=== PATIENT | female | born 1930 | race Caucasian/White ===

== ENCOUNTER → 2017-02-14 | Outpatient (CLI) | payer BC ==
[~2017-02-14] MED LIST: AMLO-110 PO; CZR50 PO; DEMECLOCYCLINE PO; LSX20 PO; METO25TA56 PO; POTA10CA28 PO
[2017-02-14 15:42] LABS: HEMATOCRIT 38.2 % (37-47); MEAN CELL VOLUME 97.2 fL (80-100); MEAN CORPUSCULAR HEMOGLOBIN 32.3 pg (25-34); MEAN CORPUSCULAR HGB CONC 33.2 g/dl (32-36); MEAN PLATELET VOLUME 10.4 fL (7.4-10.4); PLATELET COUNT 308 K/uL (130-400); RED BLOOD COUNT 3.93 M/uL (4.2-5.4); WHITE BLOOD COUNT 7.25 K/uL (4.8-10.8)
[2017-02-14 15:54] LABS: URINE APPEARANCE CLEAR (CLEAR); URINE BILIRUBIN NEG (NEG); URINE COLOR YELLOW; URINE EPITHELIAL CELL AUTO 0-5 /lpf (0-5); URINE NITRITE NEG (NEG); URINE SPECIFIC GRAVITY 1.012 (1.000-1.030); UROBILINOGEN NEG (NEG)
[2017-02-14 15:56] LABS: MANUAL MICROSCOPIC REQUIRED? NO; REVIEW REQ? NO
[2017-02-14 16:02] LABS: URINE PROTIEN/CREAT RATIO 0.3 (0-0.2)
[2017-02-14 16:09] LABS: BLOOD UREA NITROGEN 32 mg/dl (7-18); BUN/CREATININE RATIO 32.3 (10-20); CALCIUM 9.4 mg/dl (8.5-10.1); CARBON DIOXIDE 27 mmol/L (21-32); CHLORIDE 104 mmol/L (98-107); GLUCOSE 99 mg/dl (70-99); POTASSIUM 4.7 mmol/L (3.5-5.1); SODIUM 139 mmol/L (136-145)
[2017-02-14 16:21] LABS: PHOSPHORUS 3.7 mg/dl (2.5-4.9)
[2017-02-15 05:44] LABS: ESTIMATED AVERAGE GLUCOSE 123 mg/dl; HA1C FLAG Normal (Normal)
== END | disposition home or self-care (01) ==
LOC: C.LAB1850 14:20
PROVIDERS: ATTEND Internal Medicine Nephrology
DX: I12.9 Hypertensive chronic kidney disease with stage 1 through stage 4 chronic kidney disease, or unspecified chronic kidney disease (principal); I73.9 Peripheral vascular disease, unspecified; E87.1 Hypo-osmolality and hyponatremia; N18.3 Chronic kidney disease, stage 3 (moderate); R73.9 Hyperglycemia, unspecified; S80.819A Abrasion, unspecified lower leg, initial encounter; X58.XXXA Exposure to other specified factors, initial encounter

== ENCOUNTER → 2017-08-14 | Outpatient (CLI) | payer BC ==
[2017-08-14 15:40] LABS: HEMATOCRIT 41.8 % (37-47); MEAN CELL VOLUME 98.8 fL (80-100); MEAN CORPUSCULAR HEMOGLOBIN 32.6 pg (25-34); MEAN PLATELET VOLUME 10.6 fL (7.4-10.4); PLATELET COUNT 320 K/uL (130-400); RED BLOOD COUNT 4.23 M/uL (4.2-5.4); WHITE BLOOD COUNT 8.54 K/uL (4.8-10.8)
[2017-08-14 16:01] LABS: URINE APPEARANCE CLEAR (CLEAR); URINE BILIRUBIN NEG (NEG); URINE COLOR YELLOW; URINE EPITHELIAL CELL AUTO 0-5 /lpf (0-5); URINE NITRITE NEG (NEG); URINE PH 6.5 (4.5-7.5); URINE SPECIFIC GRAVITY 1.018 (1.000-1.030); UROBILINOGEN NEG (NEG)
[2017-08-14 16:05] LABS: URINE PROTIEN/CREAT RATIO 0.3 (0-0.2); URINE TOTAL PROTEIN 11.8 mg/dl (0-11.9)
[2017-08-14 16:06] LABS: MANUAL MICROSCOPIC REQUIRED? NO; REVIEW REQ? NO
[2017-08-14 16:13] LABS: ALT/SGPT 21 U/L (12-78); BLOOD UREA NITROGEN 35 mg/dl (7-18); BUN/CREATININE RATIO 29.7 (10-20); CALCIUM 9.4 mg/dl (8.5-10.1); CARBON DIOXIDE 29 mmol/L (21-32); CHLORIDE 97 mmol/L (98-107); CREATININE 1.18 mg/dl (0.60-1.20); GLUCOSE 94 mg/dl (70-99); POTASSIUM 4.2 mmol/L (3.5-5.1); SODIUM 135 mmol/L (136-145)
[2017-08-14 16:15] LABS: ALB/GLOB RATIO 0.8 (0.9-2); ALKALINE PHOSPHATASE 120 U/L (45-117); AST/SGOT 22 U/L (15-37)
== END | disposition home or self-care (01) ==
LOC: C.LAB1850 14:28
PROVIDERS: ATTEND Internal Medicine Nephrology
DX: N18.3 Chronic kidney disease, stage 3 (moderate) (principal); I12.9 Hypertensive chronic kidney disease with stage 1 through stage 4 chronic kidney disease, or unspecified chronic kidney disease; E87.1 Hypo-osmolality and hyponatremia; E22.2 Syndrome of inappropriate secretion of antidiuretic hormone

== ENCOUNTER 2018-01-25 12:21 | Inpatient (IN) | payer BC, OTHER ==
[~2018-01-25] VITALS: Ht 152.4 cm; Wt 48.5 kg
[2018-01-25] MEDS ORDERED: SODIUM CHLORIDE 0.9% 500ML 500 ML IV STA (12:44)
[2018-01-25] MEDS ORDERED: LABETALOL HCL IV 5 MG/ML 20ML IV STA ×2 (12:46→14:08)
--- NOTE | 2018-01-25 12:48 | EMERGENCY ROOM VISIT NOTE ---
History Report prepared by Nicki: Merissa Lemus Under the Supervision of: Dr. Matthew Dsouza M.D. First contact with patient: 12:27 Chief Complaint: FALL Stated Complaint: FALL/ L- KNEE PAIN History of Present Illness The patient is a 87 year old female who presents to the Emergency Room with complaints of persistent right knee pain secondary to a fall that she had last night. She reports that last night while she was trying to change the temperature on the thermostat, she became weak and fell to the ground without losing consciousness or hitting her head. The patient states that she laid on the carpeted floor all night until she was able to call her family in the morning. Since then, she has feeling to weak to walk and has been experiencing knee pain. She denies feeling weak recently except for this episode last night. Because she was laying on the floor all night, she was unable to take any of medications last night or this morning. The patient states that she used to take Aspirin, but had to stop taking it because it caused her persistent nosebleeds. Source of History: patient Onset: last night Position: knee (right) Quality: other (right knee pain) Timing: other (persistent) Associated Symptoms: + weakness, No LOC Note: Patient denies hitting her head. Review of Systems See HPI for pertinent positives & negatives. A total of 10 systems reviewed and were otherwise negative. Past Medical & Surgical Surgical Problems: (1) H/O carotid endarterectomy Family History Patient reports no known family medical history. Social History Smoking Status: Never Smoker Marital Status: Occupation Status: retired Current/Historical Medications Scheduled Amlodipine (Norvasc), 1 TAB PO DAILY Demeclocycline HCl (Demeclocycline HCl), 150 MG PO DAILY Furosemide (Furosemide), 20 MG PO DAILY Losartan Potassium (Losartan Potassium), 50 MG PO BID Metoprolol Tartrate (Metoprolol Tartrate), 25 MG PO BID Potassium Chloride (Klor-Con Sprinkle), 10 MEQ PO BID Travoprost (Travatan Z), 1 DROP OP UD Allergies Coded Allergies: Erythromycin (Verified Allergy, Unknown, RASH, 10/09/15) Latex (Verified Allergy, Unknown, RASH, 10/09/15) Potassium (Verified Allergy, Unknown, UNKNOWN, 10/09/15) IV POTASSIUM Uncoded Allergies: CONTRAST DYE (Allergy, Unknown, UNKNOWN, 10/09/15) Physical Exam Vital Signs Date Time Temp Pulse Resp B/P (MAP) Pulse Ox O2 Delivery O2 Flow Rate FiO2 01/25/18 14:40 78 18 214/97 94 Room Air 01/25/18 14:04 88 18 213/115 98 Room Air 01/25/18 12:34 100 01/25/18 12:31 36.6 102 18 215/132 97 Room Air Physical Exam GENERAL: Patient is elderly and appearing in minimal distress. EYES: No scleral icterus, unremarkable pupils.a ENT: Mucous membranes moist, no nasal congestion. NECK: No masses appreciated, no meningismus, trachea is midline. RESPIRATORY: No dyspnea. Clear to auscultation and equal bilaterally. No wheeze , no rhonchi. CARDIOVASCULAR: Regular rate and rhythm. No murmurs, rubs, gallops appreciated. GASTROINTESTINAL: Abdomen soft, nontender, no peritonitis. Bowel sounds positive. No masses appreciated. BACK: No midline tenderness, no CVA tenderness EXTREMITIES: Left knee effusion with tenderness to palpation over left lateral anterior knee, no pain with full range of motion. Normal motion all extremities , no cyanosis, no edema. NEUROLOGIC: Alert and oriented, no acute motor or sensory deficits, no focal weakness, cranial nerves grossly intact. SKIN: No rash, no jaundice, no diaphoresis. Medical Decision & Procedures ER Provider Diagnostic Interpretation: Radiology results and stated below per my review and radiologist interpretation: SINGLE VIEW PELVIS CLINICAL HISTORY: Fall. FINDINGS: An AP, portable, supine pelvic radiograph is obtained. No prior studies are available for comparison at the time of dictation. The skeletal structures are osteopenic. There is no radiographic evidence of acute fracture involving the hips or bony pelvis. Mild to moderate arthritic change and joint space narrowing is seen in the hips. Sclerotic change is noted in the sacroiliac joints and symphysis pubis. Lumbosacral spondylosis is partially visualized. Atherosclerotic calcification is noted in the femoral arteries. The overlying soft tissues are within normal limits. Calcified gallstones are present in the right mid abdomen. No bowel obstruction is seen. IMPRESSION: 1. Osteopenia with no radiographic evidence of fracture involving the hips or bony pelvis. 2. Cholelithiasis. Electronically signed by: Kenneth Arreaga M.D. 01/25/2018 1:16 PM Dictated Date/Time: 01/25/2018 1:14 PM LEFT KNEE 2 VIEWS CLINICAL HISTORY: Fall with left knee pain. FINDINGS: AP and crosstable lateral views of the left knee are obtained. No prior studies are available for comparison at the time of dictation. The skeletal structures are osteopenic. No fracture is seen. Advanced degenerative narrowing is seen at the patellofemoral articulation. Mild to moderate narrowing is seen in the medial and lateral compartments where there is chondrocalcinosis. There are small marginal osteophytes. No joint effusion is seen. Mild prepatellar soft tissue swelling is observed. There is advanced atherosclerotic calcification of the popliteal artery. IMPRESSION: 1. Mild soft tissue swelling with no radiographic evidence of left knee fracture. 2. Osteopenia, degenerative change, and chondrocalcinosis as above. Electronically signed by: Kenneth Arreaga M.D. 01/25/2018 1:20 PM Dictated Date/Time: 01/25/2018 1:18 PM SINGLE VIEW CHEST CLINICAL HISTORY: Generalized weakness. FINDINGS: An AP, portable, upright chest radiograph is compared to study dated 10/09/2015. The examination is degraded by portable technique and patient rotation. The heart is enlarged and there is atherosclerotic calcification of the thoracic aorta. The pulmonary vasculature is noncongested. Chronic interstitial thickening is similar to previous. No airspace consolidation or large pleural effusion is identified. Apical scarring is observed. No pneumothorax is seen. The skeletal structures are osteopenic. Advanced degenerative change is seen in the shoulders and thoracic spine. Postoperative change is partially visualized in the right elbow. IMPRESSION: Cardiomegaly with no acute cardiopulmonary abnormality. Electronically signed by: Kenneth Arreaga M.D. 01/25/2018 1:18 PM Dictated Date/Time: 01/25/2018 1:16 PM Laboratory Results 01/25/18 13:20 Red Blood Count 4.11, Mean Corpuscular Volume 95.4, Mean Corpuscular Hemoglobin 32.1, Mean Corpuscular Hemoglobin Concent 33.7, Mean Platelet Volume 9.8, Neutrophils (%) (Auto) 85.6, Lymphocytes (%) (Auto) 5.4, Monocytes (%) (Auto) 8.7, Eosinophils (%) (Auto) 0.0, Basophils (%) (Auto) 0.1, Neutrophils # (Auto) 8.15, Lymphocytes # (Auto) 0.51, Monocytes # (Auto) 0.83, Eosinophils # (Auto) 0.00, Basophils # (Auto) 0.01 01/25/18 13:20 Test 01/25/18 13:20 01/25/18 13:30 White Blood Count 9.52 K/uL (4.8-10.8) Red Blood Count 4.11 M/uL (4.2-5.4) Hemoglobin 13.2 g/dL (12.0-16.0) Hematocrit 39.2 % (37-47) Mean Corpuscular Volume 95.4 fL (80-100) Mean Corpuscular Hemoglobin 32.1 pg (25-34) Mean Corpuscular Hemoglobin Concent 33.7 g/dl (32-36) Platelet Count 307 K/uL (130-400) Mean Platelet Volume 9.8 fL (7.4-10.4) Neutrophils (%) (Auto) 85.6 % Lymphocytes (%) (Auto) 5.4 % Monocytes (%) (Auto) 8.7 % Eosinophils (%) (Auto) 0.0 % Basophils (%) (Auto) 0.1 % Neutrophils # (Auto) 8.15 K/uL (1.4-6.5) Lymphocytes # (Auto) 0.51 K/uL (1.2-3.4) Monocytes # (Auto) 0.83 K/uL (0.11-0.59) Eosinophils # (Auto) 0.00 K/uL (0-0.5) Basophils # (Auto) 0.01 K/uL (0-0.2) RDW Standard Deviation 46.6 fL (36.4-46.3) RDW Coefficient of Variation 13.3 % (11.5-14.5) Immature Granulocyte % (Auto) 0.2 % Immature Granulocyte # (Auto) 0.02 K/uL (0.00-0.02) Anion Gap 7.0 mmol/L (3-11) Est Creatinine Clear Calc Drug Dose 31.3 ml/min Estimated GFR () 65.7 Estimated GFR (Non- 56.7 BUN/Creatinine Ratio 30.1 (10-20) Calcium Level 9.1 mg/dl (8.5-10.1) Phosphorus Level 3.5 mg/dl (2.5-4.9) Magnesium Level 2.1 mg/dl (1.8-2.4) Total Creatine Kinase 578 U/L (26-192) Troponin I 0.523 ng/ml (0-0.045) Urine Color YELLOW Urine Appearance CLEAR (CLEAR) Urine pH 7.5 (4.5-7.5) Urine Specific [place] 1.014 (1.000-1.030) Urine Protein NEG (NEG) Urine Glucose (UA) NEG (NEG) Urine Ketones TRACE (NEG) Urine Occult Blood 1+ (NEG) Urine Nitrite NEG (NEG) Urine Bilirubin NEG (NEG) Urine Urobilinogen NEG (NEG) Urine Leukocyte Esterase NEG (NEG) Urine WBC (Auto) 1-5 /hpf (0-5) Urine RBC (Auto) 0-4 /hpf (0-4) Urine Hyaline Casts (Auto) 1-5 /lpf (0-5) Urine Epithelial Cells (Auto) 0-5 /lpf (0-5) Urine Bacteria (Auto) NEG (NEG) Laboratory results as reviewed by me. Medications Administered Medications (Trade) Dose Ordered Sig/Jordan Route Start Time Stop Time Status Last Admin Dose Admin Sodium Chloride 500 ml @ 999 mls/hr Q31M STAT IV 01/25/18 12:44 01/25/18 13:14 DC 01/25/18 13:19 999 MLS/HR Labetalol HCl (Normodyne IV) 10 mg NOW STAT IV 01/25/18 12:46 01/25/18 12:47 DC 01/25/18 13:20 10 MG Labetalol HCl (Normodyne IV) 20 mg NOW STAT IV 01/25/18 14:08 01/25/18 14:09 DC 01/25/18 14:38 20 MG Sodium Chloride 1,000 ml @ 75 mls/hr [id number] STAT IV 01/25/18 14:20 01/25/18 17:23 DC 01/25/18 14:36 75 MLS/HR Aspirin (Aspirin Chew) 324 mg ONE STAT PO 01/25/18 15:19 01/25/18 15:51 DC 01/25/18 15:19 324 MG ECG Per My Interpretation Indication: weakness Rate (beats per minute): 91 Rhythm: sinus rhythm Findings: PAC, no acute ischemic change, other (QTC is 477) ED Course 1236: The patient was evaluated in room B7. A complete history and physical exam was performed. 1410: Discussed the patient's case with MAX Ahumada hospitalist. The patient will be evaluated for further treatment and disposition. Medical Decision Differential: Sepsis, Infectious (UTI/Pneumonia/Meningitis/etc), Metabolic/ Electrolyte Abnormality, Cardiac, Dehydration, Anemia, Hepatic, Endocrine, Toxicologic, Neurologic, amongst other pathologies entertained. 87 yr old female arrives from home complaining of generalized weakness and left knee pain. Fell last night (claims mechanical) and laid on ground all night. She has some TTP over left knee but seems this is hemarthrosis/effusion from trauma without evidence fracture by xray. She is dehydrated by exam. She has no head/neck injury nor headache and with this feel that CT Head not indicated at this time. She is adamant no syncope. EKG looks OK. CXR/Pelvis xray look OK. Knee without evidence fracture. N/V intact. Trop is modestly elevated which I suspect is more dehydration/rhabdo related as she has no cardiac symptoms but will need this further trended out. With concerns hemarthrosis and thoughts this is not ACS I do not feel that Heparin would be indicated at this time, especially given no cardiac symptoms. CK is bumped also making rhabdo more likely. She is comfortable and actually looking improved with IV fluids. Hospitalist consulted for further evaluation and management. Head Trauma GCS Score: 15 Medication Reconcilliation Current Medication List: was personally reviewed by me Blood Pressure Screening Patient's blood pressure: Elevated blood pressure Blood pressure disposition: Referred to PCP (monitored by hospitalist) Consults Time Called: 1410 Consulting Physician: MAX Ahumada hospitalist Returned Call: 1410 Discussed the patient's case with MAX Ahumada hospitalist. The patient will be evaluated for further treatment and disposition. Impression Primary Impression: Rhabdomyolysis Additional Impressions: Elevated troponin Dehydration Scribe Attestation The scribe's documentation has been prepared under my direction and personally reviewed by me in its entirety. I confirm that the note above accurately reflects all work, treatment, procedures, and medical decision making performed by me. Departure Information Dispostion Being Evaluated By Hospitalist Referrals Geremias Watkins M.D. (PCP) Forms HOME CARE DOCUMENTATION FORM, IMPORTANT VISIT INFORMATION Patient Instructions My [facility] Problem Qualifiers
--- NOTE | 2018-01-25 13:17 | DIAGNOSTIC IMAGING REPORT ---
SINGLE VIEW PELVIS CLINICAL HISTORY: Fall. FINDINGS: An AP, portable, supine pelvic radiograph is obtained. No prior studies are available for comparison at the time of dictation. The skeletal structures are osteopenic. There is no radiographic evidence of acute fracture involving the hips or bony pelvis. Mild to moderate arthritic change and joint space narrowing is seen in the hips. Sclerotic change is noted in the sacroiliac joints and symphysis pubis. Lumbosacral spondylosis is partially visualized. Atherosclerotic calcification is noted in the femoral arteries. The overlying soft tissues are within normal limits. Calcified gallstones are present in the right mid abdomen. No bowel obstruction is seen. IMPRESSION: 1. Osteopenia with no radiographic evidence of fracture involving the hips or bony pelvis. 2. Cholelithiasis. Electronically signed by: Kenneth Arreaga M.D. 01/25/2018 1:16 PM Dictated Date/Time: 01/25/2018 1:14 PM
--- NOTE | 2018-01-25 13:19 | DIAGNOSTIC IMAGING REPORT ---
SINGLE VIEW CHEST CLINICAL HISTORY: Generalized weakness. FINDINGS: An AP, portable, upright chest radiograph is compared to study dated 10/09/2015. The examination is degraded by portable technique and patient rotation. The heart is enlarged and there is atherosclerotic calcification of the thoracic aorta. The pulmonary vasculature is noncongested. Chronic interstitial thickening is similar to previous. No airspace consolidation or large pleural effusion is identified. Apical scarring is observed. No pneumothorax is seen. The skeletal structures are osteopenic. Advanced degenerative change is seen in the shoulders and thoracic spine. Postoperative change is partially visualized in the right elbow. IMPRESSION: Cardiomegaly with no acute cardiopulmonary abnormality. Electronically signed by: Kenneth Arreaga M.D. 01/25/2018 1:18 PM Dictated Date/Time: 01/25/2018 1:16 PM
--- NOTE | 2018-01-25 13:21 | DIAGNOSTIC IMAGING REPORT ---
LEFT KNEE 2 VIEWS CLINICAL HISTORY: Fall with left knee pain. FINDINGS: AP and crosstable lateral views of the left knee are obtained. No prior studies are available for comparison at the time of dictation. The skeletal structures are osteopenic. No fracture is seen. Advanced degenerative narrowing is seen at the patellofemoral articulation. Mild to moderate narrowing is seen in the medial and lateral compartments where there is chondrocalcinosis. There are small marginal osteophytes. No joint effusion is seen. Mild prepatellar soft tissue swelling is observed. There is advanced atherosclerotic calcification of the popliteal artery. IMPRESSION: 1. Mild soft tissue swelling with no radiographic evidence of left knee fracture. 2. Osteopenia, degenerative change, and chondrocalcinosis as above. Electronically signed by: Kenneth Arreaga M.D. 01/25/2018 1:20 PM Dictated Date/Time: 01/25/2018 1:18 PM
[2018-01-25 13:33] LABS: BASO % 0.1 %; BASO ABS # 0.01 K/uL (0-0.2); HEMATOCRIT 39.2 % (37-47); HEMOGLOBIN 13.2 g/dL (12.0-16.0); IG# 0.02 K/uL (0.00-0.02); LYMPH % 5.4 %; LYMPH ABS # 0.51 K/uL (1.2-3.4); MEAN CELL VOLUME 95.4 fL (80-100); MEAN CORPUSCULAR HEMOGLOBIN 32.1 pg (25-34); MEAN CORPUSCULAR HGB CONC 33.7 g/dl (32-36); MEAN PLATELET VOLUME 9.8 fL (7.4-10.4); MONO % 8.7 %; MONO ABS # 0.83 K/uL (0.11-0.59); NEUT % 85.6 %; NEUT ABS # 8.15 K/uL (1.4-6.5); PLATELET COUNT 307 K/uL (130-400); RED CELL DISTRIBUTION WIDTH CV 13.3 % (11.5-14.5); RED CELL DISTRIBUTION WIDTH SD 46.6 fL (36.4-46.3); WHITE BLOOD COUNT 9.52 K/uL (4.8-10.8)
[2018-01-25 13:57] LABS: CALCIUM 9.1 mg/dl (8.5-10.1); CREATININE 0.91 mg/dl (0.60-1.20); POTASSIUM 3.9 mmol/L (3.5-5.1)
[2018-01-25 14:08] LABS: CKMB 13.6 ng/ml (0.5-3.6); PHOSPHORUS 3.5 mg/dl (2.5-4.9)
[2018-01-25] MEDS ORDERED: METO50TA17 PO (14:14)
[2018-01-25] MEDS ORDERED: CZR50 PO (14:14)
[2018-01-25] MEDS ORDERED: POTA1CAP53 PO (14:14)
[2018-01-25] MEDS ORDERED: LSX20 PO (14:14)
[2018-01-25] MEDS ORDERED: TRAV0.00 OP (14:14)
[2018-01-25] MEDS ORDERED: [UNRECOGNIZED DRUG - CODE] PO (14:14)
[2018-01-25] MEDS ORDERED: SODIUM CHLORIDE 0.9% 1000ML 1,000 ML IV STA (14:20)
[2018-01-25] MEDS ORDERED: ASPIRIN 81 MG CHEW PO STA (15:19)
[2018-01-25] MEDS ORDERED: ZOLPIDEM TARTRATE 5 MG TAB PO PRN ×2 (15:30)
[2018-01-25] MEDS ORDERED: ONDANSETRON INJ 2 MG/ML 2 ML VIAL IV PRN (15:30)
[2018-01-25] MEDS ORDERED: ALUMINUM/MAGNESIUM/SIMETH (MAALOX MAX) 30 ML UDC PO PRN (15:30)
[2018-01-25] MEDS ORDERED: MAGNESIUM HYDROXIDE SUSP 30 ML UDC PO PRN (15:30)
[2018-01-25] MEDS ORDERED: ACETAMINOPHEN 325 MG TAB PO PRN (15:30)
--- NOTE | 2018-01-25 15:39 | History and Physical ---
History & Physical Date & Time of Service: Jan 25, 2018 at 15:29 Chief Complaint: Fall/ L- Knee Pain Primary Care Physician: Geremias Watkins M.D. History of Present Illness Source: patient, family 87 years old female with past medical history of hypertension, arthritis, SIADH and macular degeneration. Was in her regular state of health until last night. Patient said that she was trying to fix her thermostat and she had a mechanical fall. She was on the floor and she could not stand up from ground level position. She started to drag herself in the apartment to reach for a phone. She continued doing this till the morning. Today in the morning she was able to call someone and she was brought to the ED. she was found to have slightly elevated CK, also troponin was 0.5. She denies any chest pain or shortness of breath. The only complaint she has is her left knee was twisted when she fell. Her grandson she had when they tried to stood her up her left knee was given up on her. She does not have hip or back pain. All imaging were negative for any fracture. Her EKG showed lateral wall ST depression, started patient on aspirin. And discussed the case with Dr. Rosen who will evaluate the patient In ED her systolic blood pressure was more than 230 When inquired about CODE STATUS, patient stated that she wants to try and see if we can help her first. And that made her full code. Family would like us to fulfill her wishes although she does have advanced directive that 1 of her doctors has. Past Medical/Surgical History Medical Problems: (1) Constipation Surgical Problems: (1) H/O carotid endarterectomy Family History Patient reports no known family medical history. Social History Smoking Status: Never Smoker Marital Status: Housing status: lives alone Occupational Status: retired Immunizations History of Influenza Vaccine: No History of Tetanus Vaccine?: Yes History of Pneumococcal: No History of Hepatitis B Vaccine: No Allergies Coded Allergies: Erythromycin (Verified Allergy, Unknown, RASH, 10/09/15) Latex (Verified Allergy, Unknown, RASH, 10/09/15) Potassium (Verified Allergy, Unknown, UNKNOWN, 10/09/15) IV POTASSIUM Uncoded Allergies: CONTRAST DYE (Allergy, Unknown, UNKNOWN, 10/09/15) Home Medications Scheduled Amlodipine (Norvasc), 1 TAB PO DAILY Demeclocycline HCl (Demeclocycline HCl), 150 MG PO DAILY Furosemide (Furosemide), 20 MG PO DAILY Losartan Potassium (Losartan Potassium), 50 MG PO BID Metoprolol Tartrate (Metoprolol Tartrate), 25 MG PO BID Potassium Chloride (Klor-Con Sprinkle), 10 MEQ PO BID Travoprost (Travatan Z), 1 DROP OP UD Review of Systems Review of system Constitutional: No fever / no chills / no sweats /positive for generalized weakness and fatigue Eyes: no blurring of vision / no eye pain / no discharge / no redness ENT: no hearing loss / no epistaxis /no swallowing problems Respiratory: no cough / no wheezing / no SOB / no hemoptysis Cardiovascular: no Chest pain / no lower extremity edema / no palpitation Abdomen: no pain / no nausea / no vomiting / no constipation Musculoskeletal: Slight pain in left knee, weakness and her lower extremity muscles that she cannot stand from laying position Genitourinary: no dysuria / no incontinence / no urinary retention Neurologic: no focal weakness / no numbness/tingling / no ataxia Psychiatric: no depression symptoms / no anxiety / no insomnia Endocrine: no excessive thirst / no excessive urination Hematologic: no abnormal bleeding / no bruising / no LN swelling Skin: No rash / no pallor Physical Exam Vital Signs Date Time Temp Pulse Resp B/P (MAP) Pulse Ox O2 Delivery O2 Flow Rate FiO2 01/25/18 14:40 78 18 214/97 94 Room Air 01/25/18 14:04 88 18 213/115 98 Room Air 01/25/18 12:34 100 01/25/18 12:31 36.6 102 18 215/132 97 Room Air Physical examination General patient appears to be comfortable, not in acute distress HEENT: Atraumatic , normocephalic /no jaundice /no pallor /anicteric /no dry mucous membrane /normal external ear inspection Neck: Supple /no swelling /central trach Heart: S1/S2 normal/regular rate and rhythm/no gallop /no rub /no murmur Lungs: Clear to auscultation bilaterally/normal chest with expansion/no rhonchi/ no rales/no wheezing/no use of accessory muscles of respiration Abdomen: Soft/nontender/no guarding/no rebound/no organomegaly/no pulsatile mass Musculoskeletal: No swelling/no edema/slight tenderness on left knee but has normal range of motion, also has arthritic deformity in both hands Neuro exam: Awake alert oriented 3/cranial nerves II through XII appear to be intact/sensation intact/moves all extremities/no abnormal movements Psychiatric evaluation: No depressed mood/normal affect Skin: No rash on exposed skin area/no erythema Extremity: Normal pulse/no pitting edema/no clubbing or cyanosis Endocrine/lymphatic: No obvious lymphadenopathy /no lymphedema Diagnostics Laboratory Results Results Past 24 Hours Test 01/25/18 13:20 01/25/18 13:30 01/25/18 15:19 Range/Units White Blood Count 9.52 4.8-10.8 K/uL Red Blood Count 4.11 4.2-5.4 M/uL Hemoglobin 13.2 12.0-16.0 g/dL Hematocrit 39.2 37-47 % Mean Corpuscular Volume 95.4 80-100 fL Mean Corpuscular Hemoglobin 32.1 25-34 pg Mean Corpuscular Hemoglobin Concent 33.7 32-36 g/dl Platelet Count 307 130-400 K/uL Mean Platelet Volume 9.8 7.4-10.4 fL Neutrophils (%) (Auto) 85.6 % Lymphocytes (%) (Auto) 5.4 % Monocytes (%) (Auto) 8.7 % Eosinophils (%) (Auto) 0.0 % Basophils (%) (Auto) 0.1 % Neutrophils # (Auto) 8.15 1.4-6.5 K/uL Lymphocytes # (Auto) 0.51 1.2-3.4 K/uL Monocytes # (Auto) 0.83 0.11-0.59 K/uL Eosinophils # (Auto) 0.00 0-0.5 K/uL Basophils # (Auto) 0.01 0-0.2 K/uL RDW Standard Deviation 46.6 36.4-46.3 fL RDW Coefficient of Variation 13.3 11.5-14.5 % Immature Granulocyte % (Auto) 0.2 % Immature Granulocyte # (Auto) 0.02 0.00-0.02 K/uL Sodium Level 136 136-145 mmol/L Potassium Level 3.9 3.5-5.1 mmol/L Chloride Level 101 98-107 mmol/L Carbon Dioxide Level 28 21-32 mmol/L Anion Gap 7.0 3-11 mmol/L Blood Urea Nitrogen 27 7-18 mg/dl Creatinine 0.91 0.60-1.20 mg/dl Est Creatinine Clear Calc Drug Dose 31.3 ml/min Estimated GFR () 65.7 Estimated GFR (Non- 56.7 BUN/Creatinine Ratio 30.1 10-20 Random Glucose 100 70-99 mg/dl Calcium Level 9.1 8.5-10.1 mg/dl Phosphorus Level 3.5 2.5-4.9 mg/dl Magnesium Level 2.1 1.8-2.4 mg/dl Total Creatine Kinase 578 26-192 U/L Creatine Kinase MB 13.6 0.5-3.6 ng/ml Creatine Kinase MB Ratio 2.4 0-3.0 Troponin I 0.523 0-0.045 ng/ml Urine Color YELLOW Urine Appearance CLEAR CLEAR Urine pH 7.5 4.5-7.5 Urine Specific [place] 1.014 1.000-1.030 Urine Protein NEG NEG Urine Glucose (UA) NEG NEG Urine Ketones TRACE NEG Urine Occult Blood 1+ NEG Urine Nitrite NEG NEG Urine Bilirubin NEG NEG Urine Urobilinogen NEG NEG Urine Leukocyte Esterase NEG NEG Urine WBC (Auto) 1-5 0-5 /hpf Urine RBC (Auto) 0-4 0-4 /hpf Urine Hyaline Casts (Auto) 1-5 0-5 /lpf Urine Epithelial Cells (Auto) 0-5 0-5 /lpf Urine Bacteria (Auto) NEG NEG Diagnostic Radiology Left knee, chest x-ray showed no fractures Pelvic x-ray showed no fracture Impression Assessment and Plan 87 years old female with past medical history of hypertension, arthritis, SIADH and macular degeneration. Presented to the ED status post fall, has been on the floor overnight has mild rhabdomyolysis and positive troponin with EKG changes. Assessment Generalized weakness/fatigue Mild rhabdomyolysis secondary to fall and laying on the ground for a long time Positive troponin with lateral EKG changes (ST-T wave depression) SIADH Hypertension with hypertensive urgency Dehydration Macular degeneration Left knee swelling/pain status post trauma, patient stated she twisted her left knee plan: admit to telemetry Generous IV fluid hydration, repeat CPK Restart patient blood pressure medications, hydralazine IV as needed systolic blood pressure more than 175 obtain serial cardiac enz NTG SL/topical prn CP consult teacher lip reading, discussed with Dr. Kumar, patient was giving aspirin, will hold off heparin as her positive troponin could be demand ischemia pain management , possible meniscal injury of left knee, will consult orthopedic as physical therapy and Occupational Therapy will need clearance by orthopedic prior to working with her Check hemoglobin A1c/lipids to stratify patient risk factors repeat EKG prn chest pain Resuscitation Status VTE Prophylaxis Will order VTE Prophylaxis: Yes
[2018-01-25 16:17] VITALS: BP 191/154; PULSE 80; TEMP 36.4; Ht 152.4 cm; Wt 48.5 kg
[2018-01-25] MEDS ORDERED: NURSING VERBAL MED ORDER ONE (18:15)
[2018-01-25] MEDS ORDERED: HydrALAZINE HCL 20 MG/ML VIAL ONE (18:21)
[2018-01-25] MEDS: SODIUM CHLORIDE 0.9% 1000ML 1,000 ML IV SCH (18:27)
[2018-01-25 19:26] VITALS: BP 134/76; PULSE 88; TEMP 36.7; O2SAT 96
[2018-01-25] MEDS: LOSARTAN POTASSIUM 50 MG TAB PO SCH (21:22)
[2018-01-25] MEDS: METOPROLOL TARTRATE 50 MG TAB PO SCH (21:23)
[2018-01-25] MEDS: HEPARIN SOD 5000 UNIT/0.5 ML CARP SQ SCH (22:31)
[2018-01-26] VITALS (9 sets, daily range): BP systolic 139–182; BP diastolic 63–84; PULSE 71–85; TEMP 36.8–37.5; O2SAT 93–98
[2018-01-26 03:31] LABS: BASO % 0.2 %; BASO ABS # 0.02 K/uL (0-0.2); EOS % 0.6 %; EOS ABS # 0.05 K/uL (0-0.5); HEMATOCRIT 33.7 % (37-47); HEMOGLOBIN 11.4 g/dL (12.0-16.0); IG# 0.02 K/uL (0.00-0.02); LYMPH % 12.2 %; LYMPH ABS # 0.99 K/uL (1.2-3.4); MEAN CELL VOLUME 95.7 fL (80-100); MEAN CORPUSCULAR HEMOGLOBIN 32.4 pg (25-34); MEAN CORPUSCULAR HGB CONC 33.8 g/dl (32-36); MEAN PLATELET VOLUME 9.7 fL (7.4-10.4); MONO % 12.8 %; MONO ABS # 1.04 K/uL (0.11-0.59); NEUT ABS # 5.99 K/uL (1.4-6.5); PLATELET COUNT 259 K/uL (130-400); RED CELL DISTRIBUTION WIDTH CV 13.6 % (11.5-14.5); RED CELL DISTRIBUTION WIDTH SD 47.3 fL (36.4-46.3); WHITE BLOOD COUNT 8.11 K/uL (4.8-10.8)
[2018-01-26 03:49] LABS: ALBUMIN 2.3 gm/dl (3.4-5.0); CALCIUM 7.9 mg/dl (8.5-10.1); CREATININE 0.99 mg/dl (0.60-1.20); POTASSIUM 3.9 mmol/L (3.5-5.1)
[2018-01-26 04:00] LABS: TOTAL PROTEIN 5.4 gm/dl (6.4-8.2)
[2018-01-26] MEDS: SODIUM CHLORIDE 0.9% 1000ML 1,000 ML IV SCH ×2 (06:32→19:36)
[2018-01-26] MEDS: LOSARTAN POTASSIUM 50 MG TAB PO SCH ×2 (07:39→20:41)
[2018-01-26] MEDS: METOPROLOL TARTRATE 50 MG TAB PO SCH ×2 (07:39→20:41)
[2018-01-26] MEDS: ASPIRIN 325 MG ECTAB PO SCH (07:40)
[2018-01-26] MEDS: HEPARIN SOD 5000 UNIT/0.5 ML CARP SQ SCH ×2 (07:42→20:42)
--- NOTE | 2018-01-26 07:49 | ORTHOPEDIC CONSULTATION ---
DATE OF ADMISSION: 01/25/2018 CHIEF COMPLAINT AND REASON FOR CONSULTATION: Left knee pain. HISTORY OF PRESENT ILLNESS: Silvana is delightful, she is 87. She is up in room 235. She was in her regular state of health. She was working at home, had a mechanical fall, twisted and injured her left lower extremity. She had to pull herself to a telephone, called, was brought to the Emergency Room on the which is just yesterday. As of this morning, she does have some very mild left knee pain. PAST MEDICAL HISTORY: Constipation. PAST SURGICAL HISTORY: Carotid endarterectomy. FAMILY HISTORY: Negative. SOCIAL HISTORY: No smoking. Lives alone, retired. ALLERGIES: ERYTHROMYCIN, LATEX. HOME MEDICATIONS: Norvasc, furosemide, losartan, metoprolol, potassium chloride. PHYSICAL EXAMINATION: GENERAL: She is alert, oriented. No distress here this morning. She denies any chest pain, palpitations. Denies nausea, vomiting, urgency, frequency. She has slight lower extremity difficulty. VITAL SIGNS: She does have an elevated blood pressure of 214/97 upon admission, respirations 18, pulse 78. She is in good appearance. HEENT: Also without complaints. CARDIAC: Rate normal. No arrhythmias. PULMONARY: Lungs were clear. EXTREMITIES: Her left lower extremity was examined thoroughly. She had good range of motion of left knee. There is no warmth. There is no erythema. There is no edema. There is no instability to varus, valgus, anterior, posterior. IMAGING: X-rays of the left knee, not indicated. ASSESSMENT: Mild strain, left knee. DISPOSITION: Includes up with physical therapy, walker if needed. She needs no brace, no injections. I think this will resolve over time. I am going to hold off on anti-inflammatories.
[2018-01-26 08:05] LABS: CKMB 5.7 ng/ml (0.5-3.6)
[2018-01-26] MEDS: AMLODIPINE BESYLATE 5 MG TAB PO SCH (08:47)
[2018-01-26] MEDS ORDERED: METOPROLOL TARTRATE 50 MG TAB PO STA (09:58)
--- NOTE | 2018-01-26 09:58 | Cardiology Consultation ---
Cardiology Consultation Date of Consultation: Jan 26, 2018. Requesting Physician: Dr. Dao Reason for Consultation: Elevated troponin Pt evaluation today including: conversation w/ patient, physical exam, lab review, review of studies, review of inpatient medication list History of Present Illness This is a very pleasant 87-year-old woman who has a history of hypertension and may have been told that she has a murmur at some point in the past but no other known cardiovascular disease. She is not very active, she does walk around her house and outside from time to time and is never had shortness of breath or chest discomfort that she can recall. She does not have lightheadedness or dizziness, she has had several falls which sound as though they are mechanical falls when I reviewed them with her. She does not seem to have presyncope or syncope or palpitations. She presented after falling, the way she describes the event it sounds as though she did fall and did not have a cardiovascular cause for her fall. She currently is chest pain-free and does not recall having any type of chest discomfort recently. She tells me that her blood pressure is often elevated in the office but not at home, although she does not know her home blood pressure readings and has not had it checked for some time. She has no peripheral edema. Here her blood pressure was over 200 when she came in, it improved somewhat but this morning was 182 systolic. Her electrocardiogram does not show any significant abnormality. Her cardiac enzymes have been stable but slightly elevated, they range from 0.502-0.621 without a particular pattern. She has had an echocardiogram in the past but not this admission. Past Medical/Surgical History Hypertension Family History Patient reports no known family medical history. Social History Smoking Status: Former Smoker History of Alcohol Use: Yes (wine 2-3 X week (glass)) Review of Systems Constitutional: No fever, No weight loss, No weakness Respiratory: No cough, No wheezing, No shortness of breath, No dyspnea on exertion Cardiac: No chest pain, No orthopnea, No PND, No edema, No palpitations Abdomen: No pain, No nausea, No vomiting, No diarrhea, No GI bleeding Female : No problem reported Neurologic: No paralysis, No weakness, No numbness/tingling, No balance problems Heme: No abnormal bleeding/bruising, No clotting problems Endo: No fatigue Skin: No problem reported All Other Systems: Reviewed and Negative Allergies Coded Allergies: Erythromycin (Verified Allergy, Unknown, RASH, 10/09/15) Latex (Verified Allergy, Unknown, RASH, 10/09/15) Potassium (Verified Allergy, Unknown, UNKNOWN, 10/09/15) IV POTASSIUM Uncoded Allergies: CONTRAST DYE (Allergy, Unknown, UNKNOWN, 10/09/15) Medications Current Inpatient Medications Medications (Trade) Dose Ordered Sig/Jordan Route Start Time Stop Time Status Last Admin Dose Admin Losartan Potassium (coZAAR TAB) 50 mg BID PO 01/25/18 21:00 02/24/18 20:59 01/26/18 07:39 50 MG Metoprolol Tartrate (Lopressor Tab) 25 mg BID PO 01/25/18 21:00 02/24/18 20:59 01/26/18 07:39 25 MG Miscellaneous Information (Order Awaiting Action) 1 ea QS N/A 01/26/18 00:00 02/25/18 00:00 Miscellaneous Information (Order Awaiting Action) 1 ea QS N/A 01/26/18 00:00 02/25/18 00:00 Heparin Sodium (Porcine) (Heparin Sq 5000 Unit/0.5ml) 5,000 unit Q12 SQ 01/25/18 21:00 02/24/18 20:59 01/26/18 07:42 5,000 UNIT Sodium Chloride 1,000 ml @ 75 mls/hr [id number] IV 01/25/18 17:30 02/24/18 17:29 01/26/18 06:32 75 MLS/HR Acetaminophen (Tylenol Tab) 650 mg Q4H PRN PO 01/25/18 15:30 02/24/18 15:29 Al Hydrox/Mg Hydrox/Simethicone (Maalox Max Susp) 15 ml Q4H PRN PO 01/25/18 15:30 02/24/18 15:29 Magnesium Hydroxide (Milk Of Magnesia Susp) 30 ml Q12H PRN PO 01/25/18 15:30 02/24/18 15:29 Zolpidem Tartrate (Ambien Tab) 5 mg HSZ PRN PO 01/25/18 15:30 02/24/18 15:29 Zolpidem Tartrate (Ambien Tab) 5 mg HSZ PRN PO 01/25/18 15:30 02/24/18 15:29 Ondansetron HCl (Zofran Inj) 4 mg Q6H PRN IV 01/25/18 15:30 02/24/18 15:29 Aspirin (Ecotrin Tab) 325 mg QAM PO 01/26/18 09:00 02/25/18 08:59 01/26/18 07:40 325 MG Polyethylene (Miralax Powder Packet) 17 gm DAILY PRN PO 01/25/18 15:30 02/24/18 15:29 Hydralazine HCl (HydrALAZINE INJ) 15 mg Q6H PRN IV. 01/25/18 18:30 02/24/18 18:29 Amlodipine Besylate (Norvasc Tab) 2.5 mg QAM PO 01/26/18 09:00 02/25/18 08:59 01/26/18 08:47 2.5 MG Physical Exam Vital Signs Past 12 Hours Date Time Temp Pulse Resp B/P (MAP) Pulse Ox O2 Delivery O2 Flow Rate FiO2 01/26/18 08:04 36.8 82 19 182/84 (116) 94 Room Air 01/26/18 04:00 Room Air 01/26/18 03:35 37.5 71 18 139/73 (95) 94 Room Air 01/26/18 00:20 37.1 77 18 150/63 (92) 95 01/26/18 00:00 Room Air Constitutional: General Apperance: heathly-appearing Level of Distress: NAD Psychiatric: Mental Status: active & alert Head: normocephalic Eyes: EOM: EOMI ENMT: normal ENT inspection, hearing grossly normal Neck: supple, no masses Lungs: Respiratory effort: no dyspnea, good air movement Auscultation: breath sounds normal, no wheezing Cardiovascular: Heart Auscultation: RRR, no murmurs, no rubs, no gallops Peripheral Pulses: Bruits: none appreciated Abdomen: Bowel Sounds: normal Inspection & Palpation: soft, no tenderness, guarding & rebound, no masses Musculoskeletal: normal strength (5/5 throughout) Extremities: no edema Neurologic: Cranial Nerves: grossly intact Sensation: grossly intact Data Laboratory Results: Last 24 Hours Test 01/25/18 13:20 01/25/18 13:30 01/25/18 15:19 01/25/18 17:27 White Blood Count 9.52 K/uL Red Blood Count 4.11 M/uL Hemoglobin 13.2 g/dL Hematocrit 39.2 % Mean Corpuscular Volume 95.4 fL Mean Corpuscular Hemoglobin 32.1 pg Mean Corpuscular Hemoglobin Concent 33.7 g/dl Platelet Count 307 K/uL Mean Platelet Volume 9.8 fL Neutrophils (%) (Auto) 85.6 % Lymphocytes (%) (Auto) 5.4 % Monocytes (%) (Auto) 8.7 % Eosinophils (%) (Auto) 0.0 % Basophils (%) (Auto) 0.1 % Neutrophils # (Auto) 8.15 K/uL Lymphocytes # (Auto) 0.51 K/uL Monocytes # (Auto) 0.83 K/uL Eosinophils # (Auto) 0.00 K/uL Basophils # (Auto) 0.01 K/uL RDW Standard Deviation 46.6 fL RDW Coefficient of Variation 13.3 % Immature Granulocyte % (Auto) 0.2 % Immature Granulocyte # (Auto) 0.02 K/uL Sodium Level 136 mmol/L Potassium Level 3.9 mmol/L Chloride Level 101 mmol/L Carbon Dioxide Level 28 mmol/L Anion Gap 7.0 mmol/L Blood Urea Nitrogen 27 mg/dl Creatinine 0.91 mg/dl Est Creatinine Clear Calc Drug Dose 31.3 ml/min Estimated GFR () 65.7 Estimated GFR (Non- 56.7 BUN/Creatinine Ratio 30.1 Random Glucose 100 mg/dl Calcium Level 9.1 mg/dl Phosphorus Level 3.5 mg/dl Magnesium Level 2.1 mg/dl Total Creatine Kinase 578 U/L Creatine Kinase MB 13.6 ng/ml Creatine Kinase MB Ratio 2.4 Troponin I 0.523 ng/ml Urine Color YELLOW Urine Appearance CLEAR Urine pH 7.5 Urine Specific [place] 1.014 Urine Protein NEG Urine Glucose (UA) NEG Urine Ketones TRACE Urine Occult Blood 1+ Urine Nitrite NEG Urine Bilirubin NEG Urine Urobilinogen NEG Urine Leukocyte Esterase NEG Urine WBC (Auto) 1-5 /hpf Urine RBC (Auto) 0-4 /hpf Urine Hyaline Casts (Auto) 1-5 /lpf Urine Epithelial Cells (Auto) 0-5 /lpf Urine Bacteria (Auto) NEG Test 01/25/18 17:58 01/25/18 21:29 01/25/18 22:56 01/26/18 03:15 Prothrombin Time 10.7 SECONDS Prothromb Time International Ratio 1.0 Creatine Kinase MB 11.0 ng/ml 8.0 ng/ml Troponin I 0.502 ng/ml 0.621 ng/ml Creatine Kinase MB Ratio White Blood Count 8.11 K/uL Red Blood Count 3.52 M/uL Hemoglobin 11.4 g/dL Hematocrit 33.7 % Mean Corpuscular Volume 95.7 fL Mean Corpuscular Hemoglobin 32.4 pg Mean Corpuscular Hemoglobin Concent 33.8 g/dl Platelet Count 259 K/uL Mean Platelet Volume 9.7 fL Neutrophils (%) (Auto) 74.0 % Lymphocytes (%) (Auto) 12.2 % Monocytes (%) (Auto) 12.8 % Eosinophils (%) (Auto) 0.6 % Basophils (%) (Auto) 0.2 % Neutrophils # (Auto) 5.99 K/uL Lymphocytes # (Auto) 0.99 K/uL Monocytes # (Auto) 1.04 K/uL Eosinophils # (Auto) 0.05 K/uL Basophils # (Auto) 0.02 K/uL RDW Standard Deviation 47.3 fL RDW Coefficient of Variation 13.6 % Immature Granulocyte % (Auto) 0.2 % Immature Granulocyte # (Auto) 0.02 K/uL Sodium Level 135 mmol/L Potassium Level 3.9 mmol/L Chloride Level 103 mmol/L Carbon Dioxide Level 24 mmol/L Anion Gap 8.0 mmol/L Blood Urea Nitrogen 25 mg/dl Creatinine 0.99 mg/dl Est Creatinine Clear Calc Drug Dose 28.5 ml/min Estimated GFR () 59.4 Estimated GFR (Non- 51.2 BUN/Creatinine Ratio 25.7 Random Glucose 82 mg/dl Calcium Level 7.9 mg/dl Magnesium Level 2.0 mg/dl Total Bilirubin 0.7 mg/dl Aspartate Amino Transf (AST/SGOT) 34 U/L Alanine Aminotransferase (ALT/SGPT) 20 U/L Alkaline Phosphatase 83 U/L Total Protein 5.4 gm/dl Albumin 2.3 gm/dl Globulin 3.1 gm/dl Albumin/Globulin Ratio 0.7 Test 01/26/18 07:15 Creatine Kinase MB 5.7 ng/ml Creatine Kinase MB Ratio Imaging: Chest x-ray no significant cardiac or pulmonary abnormality EKG: Sinus rhythm, no acute changes Telemetry reviewed: Sinus arrhythmia, PACs and PVCs. Assessment & Plan 1. Elevated troponin: Her troponin was somewhat elevated and has remained so, her last one was actually slightly higher than the previous but perhaps not significantly. The trend is not suggestive of a cardiac event and electrocardiogram does not show an ischemic or infarct pattern. I suspect it is demand ischemia based on her hypertension and high catecholamine state, especially on admission. It is a little concerning that the enzyme levels did not drop, although they did not increase substantially either. I would like to repeat a troponin tomorrow morning and we need to try to get her blood pressure under better control. I am reluctant to consider stress testing or invasive evaluation since she is asymptomatic and these levels are low. If the trend is unsatisfactory may have to consider that. 2. Hypertension: She was on amlodipine at an unknown dose, metoprolol at a low dose and losartan at a reasonable dose as an outpatient. I would like to continue with these medications. Currently she is on her outpatient doses of losartan and metoprolol, amlodipine is at a low dose but we do not know her home dose although our office records say 2.5 mg daily which is what she is on here. I suspect she is therefore on her home medications, which were not sufficient. 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 I am going to increase her metoprolol today. We certainly have room to increase her amlodipine as well. Thank you for allowing me to participate in her care.
--- NOTE | 2018-01-26 14:00 | ECHOCARDIOGRAM REPORT ---
*NOTICE TO RECEIVING LIBERTARIAN AGENCY This information is strictly Confidential and protected under [place] law. [place] law prohibits you from making any further disclosure of this information unless further disclosure is expressly permitted by the written consent of the person to whom it pertains or is authorized by law. A general authorization for the release of medical or other information is not sufficient for this purpose. Hospital accepts no responsibility if the information is made available to any other person, INCLUDING THE PATIENT. Interpretation Summary * Name: JAMIL GALLARDO Study Date: 01/26/2018 10:50 AM * Patient Location: [facility]\S\S235\S\1 * : 1930 (M/d/yyyy) Gender: Female Height: 60 in * Age: 87 yrs Ethnicity: [place] Weight: 101 lb * Ordering Physician: Tennille Jimenez * Referring Physician: Self, Referred * Performed By: Chiqui Aguila RCS * * Reason For Study: Chest Pain * BSA: 1.4 m2 * -- Conclusions -- * Left ventricular systolic function is normal. * No regional wall motion abnormalities noted. * Ejection Fraction = 55-60%. * There is mild concentric left ventricular hypertrophy. * Grade I diastolic dysfunction, (abnormal relaxation pattern). * There is mild mitral regurgitation. * There is mild tricuspid regurgitation. Procedure Details * A complete two-dimensional transthoracic echocardiogram was performed (2D, M-mode, Doppler and color flow Doppler). Left Ventricle * The left ventricle is normal in size. * There is mild concentric left ventricular hypertrophy. * Ejection Fraction = 55-60%. * Left ventricular systolic function is normal. * No regional wall motion abnormalities noted. Right Ventricle * The right ventricle is grossly normal size. * The right ventricular systolic function is normal as assessed by tricuspid annular plane systolic excursion (TAPSE) (normal >1.5 cm). Atria * The left atrium is mildly dilated. * Right atrial size is normal. * No ASD detected; PFO is not assessed. Mitral Valve * The mitral valve anatomy is normal. * There is no mitral valve stenosis. * There is mild mitral regurgitation. Tricuspid Valve * The tricuspid valve anatomy is normal. * There is no tricuspid stenosis. * There is mild tricuspid regurgitation. Aortic Valve * The aortic valve is trileaflet. * The aortic valve opens well. * Aortic valve sclerosis mild, without significant aortic valvular stenosis. * Trace aortic regurgitation. Pulmonic Valve * The pulmonary valve is not well seen, but the Doppler examination is normal without significant regurgitation or stenosis. Great Vessels * The aortic root is normal size. * The pulmonary is not well visualized. Pericardium/Pleural * There is no pericardial effusion. Great Vessels * Normal inferior vena cava size and collapsability with sniff indicates a normal right atrial pressure of 3 mmHg Left Ventricular Diastolic Function * Grade I diastolic dysfunction, (abnormal relaxation pattern). MMode 2D Measurements and Calculations IVSd 0.92 cm IVSs 1.1 cm LVIDd 4.2 cm LVIDs 2.7 cm LVPWd 0.96 cm LVPWs 1.2 cm IVS/LVPW 0.96 FS 36.3 % EDV(Teich) 80.1 ml ESV(Teich) 26.9 ml EF(Teich) 66.4 % EDV(cubed) 75.9 ml ESV(cubed) 19.6 ml EF(cubed) 74.2 % % IVS thick 20.2 % % LVPW thick 24.9 % LV mass(C)d 127.7 grams LV mass(C)dI 91.4 grams/m\S\2 LV mass(C)s 88.4 grams LV mass(C)sI 63.3 grams/m\S\2 SV(Teich) 53.2 ml SI(Teich) 38.1 ml/m\S\2 SV(cubed) 56.3 ml SI(cubed) 40.3 ml/m\S\2 Ao root diam 3.6 cm Ao root area 10.1 cm\S\2 ACS 1.4 cm LA dimension 4.3 cm asc Aorta Diam 3.0 cm LA/Ao 1.2 LVAd ap4 25.7 cm\S\2 LVLd ap4 7.3 cm EDV(MOD-sp4) 74.0 ml LVAs ap4 14.5 cm\S\2 LVLs ap4 5.9 cm ESV(MOD-sp4) 32.2 ml EF(MOD-sp4) 56.5 % LVAd ap2 21.4 cm\S\2 LVLd ap2 7.4 cm EDV(sp2-el) 63.9 ml LVAs ap2 13.0 cm\S\2 LVLs ap2 5.8 cm ESV(MOD-sp2) 28.2 ml ESV(sp2-el) 28.2 ml EF(sp2-el) 55.9 % SV(MOD-sp4) 41.8 ml SI(MOD-sp4) 29.9 ml/m\S\2 SV(sp2-el) 35.7 ml SI(sp2-el) 25.6 ml/m\S\2 Doppler Measurements and Calculations MV E max hilary 101.4 cm/sec MV A max hilary 123.7 cm/sec MV E/A 0.82 MV P1/2t max hilary 126.7 cm/sec MV P1/2t 85.0 msec MVA(P1/2t) 2.6 cm\S\2 MV dec slope 436.7 cm/sec\S\2 MV dec time 0.23 sec Ao V2 max 121.8 cm/sec Ao max PG 5.9 mmHg Ao max PG (full) 2.7 mmHg AI max hilary 438.2 cm/sec AI max PG 76.8 mmHg AI dec slope 252.3 cm/sec\S\2 AI P1/2t 508.7 msec LV V1 max PG 3.2 mmHg LV V1 max 89.7 cm/sec PA V2 max 62.7 cm/sec PA max PG 1.6 mmHg TR max hilary 253.4 cm/sec
--- NOTE | 2018-01-26 14:20 | Hospitalist Progress Note ---
Hospitalist Progress Note Date of Service Jan 26, 2018. (Tennille Jimenez ., PA-C) Subjective Pt evaluation today including: conversation w/ patient, conversation w/ family (daughter- at bedside), physical exam, lab review, review of studies, conversation w/ business development consultant, review of inpatient medication list Voiding: no voiding problems Patient resting in bed. Feeling well. Eating and drinking OK. Denies any pain from fall. States she did not hit her head. She remembers entire event, it was mechanical. She lost her balance. Lives at home w/ care takers 2x per week for 1 hour- daughter states she needs more supervision. Denies any chest pain or SOB. Patient denies any fever, chills, sweats, lightheadedness, dizziness, vision changes, CP, palpitations, edema, SOB, wheezing, cough, abdominal pain, nausea, vomiting, diarrhea, urinary symptoms, melena, numbness/tingling, weakness, muscle/joint pain, anxiety/depression, active bleeding, or new skin discoloration/changes. Discussed w/ Dr. Yuan- increase Metoprolol to 50 BID, obtain ECHO, follow overnight. (Tennille Jimenez ., PA-C) Medications Current Inpatient Medications Medications (Trade) Dose Ordered Sig/Jordan Route Start Time Stop Time Status Last Admin Dose Admin Losartan Potassium (coZAAR TAB) 50 mg BID PO 01/25/18 21:00 02/24/18 20:59 01/26/18 07:39 50 MG Miscellaneous Information (Order Awaiting Action) 1 ea QS N/A 01/26/18 00:00 02/25/18 00:00 Miscellaneous Information (Order Awaiting Action) 1 ea QS N/A 01/26/18 00:00 02/25/18 00:00 Heparin Sodium (Porcine) (Heparin Sq 5000 Unit/0.5ml) 5,000 unit Q12 SQ 01/25/18 21:00 02/24/18 20:59 01/26/18 07:42 5,000 UNIT Sodium Chloride 1,000 ml @ 75 mls/hr [id number] IV 01/25/18 17:30 02/24/18 17:29 01/26/18 06:32 75 MLS/HR Acetaminophen (Tylenol Tab) 650 mg Q4H PRN PO 01/25/18 15:30 02/24/18 15:29 Al Hydrox/Mg Hydrox/Simethicone (Maalox Max Susp) 15 ml Q4H PRN PO 01/25/18 15:30 02/24/18 15:29 Magnesium Hydroxide (Milk Of Magnesia Susp) 30 ml Q12H PRN PO 01/25/18 15:30 02/24/18 15:29 Zolpidem Tartrate (Ambien Tab) 5 mg HSZ PRN PO 01/25/18 15:30 02/24/18 15:29 Zolpidem Tartrate (Ambien Tab) 5 mg HSZ PRN PO 01/25/18 15:30 02/24/18 15:29 Ondansetron HCl (Zofran Inj) 4 mg Q6H PRN IV 01/25/18 15:30 02/24/18 15:29 Aspirin (Ecotrin Tab) 325 mg QAM PO 01/26/18 09:00 02/25/18 08:59 01/26/18 07:40 325 MG Polyethylene (Miralax Powder Packet) 17 gm DAILY PRN PO 01/25/18 15:30 02/24/18 15:29 Hydralazine HCl (HydrALAZINE INJ) 15 mg Q6H PRN IV. 01/25/18 18:30 02/24/18 18:29 Amlodipine Besylate (Norvasc Tab) 2.5 mg QAM PO 01/26/18 09:00 02/25/18 08:59 01/26/18 08:47 2.5 MG Metoprolol Tartrate (Lopressor Tab) 50 mg BID PO 01/26/18 21:00 02/25/18 20:59 (Tennille Jimenez, FRANCISC) Objective Vital Signs Date Time Temp Pulse Resp B/P (MAP) Pulse Ox O2 Delivery O2 Flow Rate FiO2 01/26/18 12:00 95 Room Air 01/26/18 11:53 37.3 73 18 173/68 (103) 93 Room Air 01/26/18 08:04 36.8 82 19 182/84 (116) 94 Room Air 01/26/18 08:00 95 Room Air 01/26/18 04:00 Room Air 01/26/18 03:35 37.5 71 18 139/73 (95) 94 Room Air 01/26/18 00:20 37.1 77 18 150/63 (92) 95 01/26/18 00:00 Room Air 01/25/18 20:00 Room Air 01/25/18 19:26 36.7 88 16 134/76 (95) 96 Room Air 01/25/18 16:17 36.4 80 18 191/154 Room Air 01/25/18 14:40 78 18 214/97 94 Room Air (Tennille Jimenez, FRANCISC) Physical Exam General Appearance: no apparent distress, + thin Eyes: normal inspection, PERRL ENT: hearing grossly normal Neck: supple Respiratory/Chest: lungs clear, no respiratory distress, no accessory muscle use, + decreased breath sounds (throughout) Cardiovascular: regular rate, rhythm, + systolic murmur Abdomen: normal bowel sounds, non tender, soft Extremities: no pedal edema, no calf tenderness Neurologic/Psychiatric: alert, normal mood/affect, oriented x 3 Skin: normal color, warm/dry, no rash (Tennille Jimenez, FRANCISC) Laboratory Results Last 24 Hours Test 01/25/18 15:19 01/25/18 17:27 01/25/18 17:58 01/25/18 21:29 Creatine Kinase MB Ratio Prothrombin Time 10.7 SECONDS Prothromb Time International Ratio 1.0 Creatine Kinase MB 11.0 ng/ml Troponin I 0.502 ng/ml Test 01/25/18 22:56 01/26/18 03:15 01/26/18 07:15 01/26/18 09:31 Creatine Kinase MB 8.0 ng/ml 5.7 ng/ml Creatine Kinase MB Ratio White Blood Count 8.11 K/uL Red Blood Count 3.52 M/uL Hemoglobin 11.4 g/dL Hematocrit 33.7 % Mean Corpuscular Volume 95.7 fL Mean Corpuscular Hemoglobin 32.4 pg Mean Corpuscular Hemoglobin Concent 33.8 g/dl Platelet Count 259 K/uL Mean Platelet Volume 9.7 fL Neutrophils (%) (Auto) 74.0 % Lymphocytes (%) (Auto) 12.2 % Monocytes (%) (Auto) 12.8 % Eosinophils (%) (Auto) 0.6 % Basophils (%) (Auto) 0.2 % Neutrophils # (Auto) 5.99 K/uL Lymphocytes # (Auto) 0.99 K/uL Monocytes # (Auto) 1.04 K/uL Eosinophils # (Auto) 0.05 K/uL Basophils # (Auto) 0.02 K/uL RDW Standard Deviation 47.3 fL RDW Coefficient of Variation 13.6 % Immature Granulocyte % (Auto) 0.2 % Immature Granulocyte # (Auto) 0.02 K/uL Sodium Level 135 mmol/L Potassium Level 3.9 mmol/L Chloride Level 103 mmol/L Carbon Dioxide Level 24 mmol/L Anion Gap 8.0 mmol/L Blood Urea Nitrogen 25 mg/dl Creatinine 0.99 mg/dl Est Creatinine Clear Calc Drug Dose 28.5 ml/min Estimated GFR () 59.4 Estimated GFR (Non- 51.2 BUN/Creatinine Ratio 25.7 Random Glucose 82 mg/dl Calcium Level 7.9 mg/dl Magnesium Level 2.0 mg/dl Total Bilirubin 0.7 mg/dl Aspartate Amino Transf (AST/SGOT) 34 U/L Alanine Aminotransferase (ALT/SGPT) 20 U/L Alkaline Phosphatase 83 U/L Troponin I 0.621 ng/ml 0.491 ng/ml Total Protein 5.4 gm/dl Albumin 2.3 gm/dl Globulin 3.1 gm/dl Albumin/Globulin Ratio 0.7 (Tennille Jimenez, PA-C) Assessment and Plan 87 year-old female with past medical history of hypertension, arthritis, SIADH, and macular degeneration. Presented to the ED status post fall, has been on the floor overnight has mild rhabdomyolysis and positive troponin with EKG changes. Generalized weakness and fatigue, mild rhabdomyolysis secondary to mechanical fall: - IVF @ 75 ml/hr - CK trending down, mild elevation of CPK at 578 - No s/s of infection: UA clean, CXR w/out acute findings, no fevers or WBC - No acute fractures seen of pelvis x-ray on L knee x-ray - Orthopedics consulted- L knee strain- PT/OT and supportive management - Tylenol PRN for pain management - PT/OT consulted Elevated troponin secondary to demand ischemia- STABLE: - Admitted to tele for cardiac monitoring- no acute events - Trend cardiac enzymes- trop peaked at 0.6 - ECHO w/ preserved EF, grade II diastolic dysfunction, no wall abnormalities - Continue ASA and increase Metoprolol from 25 mg BID to 50 mg BID - Cardiology consulted, appreciate recommendations- increase Metoprolol as above CKD stage III- STABLE SIADH- follows w/ Dr. Zheng: - Follow PRP- STABLE- Na 135 today - Continue Demeclocycline - Hold Lasix as receiving IVF HTN w/ HTN urgency- STABLE: - Metoprolol increased to 50 mg BID - Norvasc 2.5 mg daily, Losartan 50 mg BID -- Of note, patient states she cannot tolerate increase Norvasc dose due to swelling - IV Hydralazine PRN Macular degeneration: Continue eye drops DVT prophylaxis: Heparin SQ BID Code status: LEVEL I, FULL Dispo: From home, lives alone- PT/OT and CM consulted (Tennille Jimenez ., PABlakeC) PA Physician Supervision Note: I interviewed and examined the patient. Discussed with Tennille BERMUDEZ and agree with findings and plan as documented in the note. Any exceptions or clarifications are listed here: None Patient was on her floor of her home after fall with a knee injury as elevations of troponin and CK although mild no initial concern for acute coronary syndrome Generalized weakness and fatigue, mild rhabdomyolysis hydration with normal saline Left knee strain/contusion seen by orthopedics no further intervention required Elevated troponin secondary to demand ischemia- STABLE: - ECHO w/ preserved EF, grade II diastolic dysfunction, no wall abnormalities - Continue ASA increased Metoprolol from 25 mg BID to 50 mg BID - Cardiology consulted, they have recommended the increase in Metoprolol CKD stage III- STABLE SIADH- follows w/ Dr. Zheng: - Follow PRP- STABLE- Na 135 today - Continue Demeclocycline - Hold Lasix as receiving IVF plan to resume 01/27 HTN w/ HTN urgency- STABLE: - Metoprolol increased to 50 mg BID - Norvasc 2.5 mg daily in the past edema prevent increasing dose of Norvasc, Losartan 50 mg BID -- - IV Hydralazine PRN Macular degeneration: Continue eye drops DVT prophylaxis: Heparin SQ BID Code status: LEVEL I, FULL Dispo: From home, lives alone- PT/OT and CM consulted Documented By: Yang Hunter (Yang Hunter M.D.)
[2018-01-26 16:19] LABS: CKMB 4.6 ng/ml (0.5-3.6)
[2018-01-26] MEDS ORDERED: METOPROLOL TARTRATE 25 MG TAB PO SCH (21:00)
[2018-01-26 23:32] LABS: CKMB 3.2 ng/ml (0.5-3.6)
[2018-01-27] VITALS (16 sets, daily range): BP systolic 93–217; BP diastolic 56–110; PULSE 60–90; TEMP 36.5–37; O2SAT 94–97
[2018-01-27] MEDS: HydrALAZINE HCL 20 MG/ML VIAL IV. PRN ×2 (03:44→21:37)
[2018-01-27 07:17] LABS: CALCIUM 7.9 mg/dl (8.5-10.1); CREATININE 0.91 mg/dl (0.60-1.20); POTASSIUM 3.6 mmol/L (3.5-5.1)
[2018-01-27] MEDS: AMLODIPINE BESYLATE 5 MG TAB PO SCH (07:52)
[2018-01-27] MEDS: LOSARTAN POTASSIUM 50 MG TAB PO SCH ×2 (07:53→20:17)
[2018-01-27] MEDS: ASPIRIN 325 MG ECTAB PO SCH (07:53)
[2018-01-27] MEDS: METOPROLOL TARTRATE 50 MG TAB PO SCH (07:53)
[2018-01-27] MEDS: HEPARIN SOD 5000 UNIT/0.5 ML CARP SQ SCH ×2 (07:54→21:28)
[2018-01-27] MEDS: SODIUM CHLORIDE 0.9% 1000ML 1,000 ML IV SCH (07:55)
--- NOTE | 2018-01-27 09:52 | Cardiology Follow-Up ---
Subjective Date of Service: January 27, 2018. Pt evaluation today including: conversation w/ patient, physical exam, lab review, review of studies, review of inpatient medication list History of Present Illness This is a very pleasant 87-year-old woman who has a history of hypertension and may have been told that she has a murmur at some point in the past but no other known cardiovascular disease. She is not very active, she does walk around her house and outside from time to time and is never had shortness of breath or chest discomfort that she can recall. She does not have lightheadedness or dizziness, she has had several falls which sound as though they are mechanical falls when I reviewed them with her. She does not seem to have presyncope or syncope or palpitations. She presented after falling, the way she describes the event it sounds as though she did fall and did not have a cardiovascular cause for her fall. She currently is chest pain-free and does not recall having any type of chest discomfort recently. She tells me that her blood pressure is often elevated in the office but not at home, although she does not know her home blood pressure readings and has not had it checked for some time. She has no peripheral edema. Here her blood pressure was over 200 when she came in, it improved somewhat but remains quite high. Her electrocardiogram does not show any significant abnormality. It appeared likely that her mild enzyme rise was due to demand ischemia due to the high blood pressure, possibly with asymptomatic underlying coronary artery disease. We have therefore been controlling her blood pressure. Today she feels well, she has no cardiovascular complaints. She is getting ready to be evaluated by physical therapy. Social History Smoking Status: Former Smoker History of Alcohol Use: Yes (wine 2-3 X week (glass)) Review of Systems Respiratory: No cough, No wheezing, No shortness of breath, No dyspnea on exertion Cardiac: No chest pain, No orthopnea, No PND, No edema, No palpitations Medications Cardiovascular: Item Value Date Time Metoprolol 50 mg 01/26/182099 Tartrate BID/PO 01/27/18 075 (Lopressor Tab) Aspirin 325 mg 01/26/18899 (Ecotrin Tab) QAM/PO 01/27/18 075 Amlodipine 2.5 mg 01/26/18899 Besylate QAM/PO 01/27/18 075 (Norvasc Tab) Losartan Potassium 50 mg 4/29/18 2100 (coZAAR TAB) BID/PO 01/27/18 0753 Objective Vital Signs Past 12 Hours Date Time Temp Pulse Resp B/P (MAP) Pulse Ox O2 Delivery O2 Flow Rate FiO2 01/27/18 08:07 145/83 (103) 01/27/18 08:00 95 Room Air 01/27/18 07:53 36.6 90 20 209/110 (143) 97 Room Air 217/93 (134) 01/27/18 04:54 80 20 158/74 (102) 95 Room Air 01/27/18 04:00 Room Air 01/27/18 03:46 36.7 80 16 96 01/27/18 03:34 176/87 (116) 01/27/18 00:01 37.0 71 18 171/76 (107) 94 01/27/18 00:00 Room Air Last Recorded Weight-Kilograms: 48.200 Physical Exam Constitutional: General Apperance: heathly-appearing Level of Distress: NAD Lungs: Respiratory effort: no dyspnea, good air movement Auscultation: breath sounds normal, no wheezing Cardiovascular: Heart Auscultation: RRR, no murmurs, no rubs, no gallops Peripheral Pulses: Bruits: none appreciated Extremities: no edema Data Laboratory Results: Last 24 Hours Test 01/26/18 09:31 01/26/18 15:11 01/26/18 22:51 01/27/18 06:10 Troponin I 0.491 ng/ml 0.474 ng/ml 0.187 ng/ml Creatine Kinase MB 4.6 ng/ml 3.2 ng/ml Creatine Kinase MB Ratio Sodium Level 137 mmol/L Potassium Level 3.6 mmol/L Chloride Level 107 mmol/L Carbon Dioxide Level 22 mmol/L Anion Gap 8.0 mmol/L Blood Urea Nitrogen 25 mg/dl Creatinine 0.91 mg/dl Est Creatinine Clear Calc Drug Dose 31.3 ml/min Estimated GFR () 65.7 Estimated GFR (Non- 56.7 BUN/Creatinine Ratio 27.9 Random Glucose 87 mg/dl Calcium Level 7.9 mg/dl Imaging: Echocardiography shows normal left ventricular function, no significant valvular abnormalities (mild MR). EKG: Sinus rhythm, inverted T-wave in lead III, no change from yesterday. Telemetry reviewed: Sinus rhythm, no arrhythmia Assessment and Plan 1. Elevated troponin: Her troponin was somewhat elevated on the first several measurements, but that has trended downward. The trend is not suggestive of a cardiac event and electrocardiogram does not show an ischemic or infarct pattern. I suspect it is demand ischemia based on her hypertension and high catecholamine state, especially on admission. I am reluctant to consider stress testing or invasive evaluation since she is asymptomatic and these levels are low. I would not pursue further evaluation at this point unless symptoms occur. 2. Hypertension: She was on amlodipine at an unknown dose, metoprolol at a low dose and losartan at a reasonable dose as an outpatient. I would like to continue with these medications and I did increase her metoprolol yesterday but her blood pressure remains high. She apparently had peripheral edema on amlodipine, she tells me that her metoprolol was decreased due to borderline diabetes. 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 I am going to increase her metoprolol again today. We certainly have room to increase her amlodipine as well. Thank you for allowing me to participate in her care.
[2018-01-27] MEDS: POLYETHYLENE (MIRALAX) 17 GM PACK PO PRN (11:06)
[2018-01-27] MEDS ORDERED: DOCUSATE SODIUM 100 MG CAP PO ONE (12:00)
[2018-01-27] MEDS ORDERED: METOPROLOL TARTRATE 25 MG TAB PO ONE (12:00)
--- NOTE | 2018-01-27 16:47 | Progress Note ---
Subjective Date of Service: January 27, 2018. Subjective pt did not do well with PT mostly from needing contact guard and assistance to prevent falling, is agreeable to subacute rehab with family encouraging assisted living eventually Problem List Medical Problems: (1) Dehydration Status: Acute (2) Elevated troponin Status: Acute (3) Rhabdomyolysis Status: Acute Review of Systems Constitutional: + weakness, + fatigue, No fever, No chills Respiratory: No cough, No shortness of breath Cardiac: No chest pain, No edema Abdomen: No pain, No nausea, No vomiting Musculoskeletal: + joint pain, + muscle pain Female : No dysuria, No urinary frequency Objective Vital Signs Date Time Temp Pulse Resp B/P (MAP) Pulse Ox O2 Delivery O2 Flow Rate FiO2 01/27/18 16:00 Room Air 01/27/18 13:31 36.6 70 20 160/81 (107) 97 Room Air 01/27/18 13:16 36.7 65 16 96 01/27/18 12:01 36.7 65 16 154/84 (107) 96 Room Air 01/27/18 12:00 95 Room Air 01/27/18 08:07 145/83 (103) 01/27/18 08:00 95 Room Air 01/27/18 07:53 36.6 90 20 209/110 (143) 97 Room Air 217/93 (134) 01/27/18 04:54 80 20 158/74 (102) 95 Room Air 01/27/18 04:00 Room Air 01/27/18 03:46 36.7 80 16 96 01/27/18 03:34 176/87 (116) 01/27/18 00:01 37.0 71 18 171/76 (107) 94 01/27/18 00:00 Room Air 01/26/18 20:00 Room Air 01/26/18 19:15 36.8 85 18 154/78 (103) 93 Room Air Physical Exam General Appearance: WD/WN, + mild distress Eyes: normal inspection, sclerae normal Neck: supple, no JVD Respiratory/Chest: chest non-tender, lungs clear, normal breath sounds Cardiovascular: regular rate, rhythm, + systolic murmur Abdomen: normal bowel sounds, non tender, soft Extremities: no pedal edema, no calf tenderness Neurologic/Psychiatric: alert, oriented x 3 Laboratory Results Last 24 Hours Test 01/26/18 22:51 01/27/18 06:10 Creatine Kinase MB 3.2 ng/ml Creatine Kinase MB Ratio Sodium Level 137 mmol/L Potassium Level 3.6 mmol/L Chloride Level 107 mmol/L Carbon Dioxide Level 22 mmol/L Anion Gap 8.0 mmol/L Blood Urea Nitrogen 25 mg/dl Creatinine 0.91 mg/dl Est Creatinine Clear Calc Drug Dose 31.3 ml/min Estimated GFR () 65.7 Estimated GFR (Non- 56.7 BUN/Creatinine Ratio 27.9 Random Glucose 87 mg/dl Calcium Level 7.9 mg/dl Troponin I 0.187 ng/ml Assessment and Plan 87 F found on her floor of her home after fall with a knee injury as elevations of troponin and CK although mild no initial concern for acute coronary syndrome Generalized weakness and fatigue, mild rhabdomyolysis improved with hydration will stop and now will need subacute rehab Left knee strain/contusion seen by orthopedics no further intervention required , will continue local control and participate in PT Elevated troponin secondary to demand ischemia- Remains STABLE: - ECHO w/ preserved EF, grade II diastolic dysfunction, no wall abnormalities - Continue ASA increased Metoprolol from 25 mg BID to 50 mg BID - Cardiology increased Metoprolol and tolerated with BP CKD stage III- STABLE SIADH- follows w/ Dr. Zheng:STABLE- - Continue Demeclocycline, resume lasix HTN w/ HTN urgency- STABLE: - Metoprolol increased to 50 mg BID - Norvasc 2.5 mg daily in the past edema prevent increasing dose of Norvasc, Losartan 50 mg BID Macular degeneration: Continue eye drops DVT prophylaxis: Heparin SQ BID Code status: LEVEL I, FULL Dispo: From home, lives alone- PT/OT and CM consulted Documented By: Yang Hunter
[2018-01-27] MEDS: FUROSEMIDE 20 MG TAB PO SCH (17:15)
[2018-01-27] MEDS: METOPROLOL TARTRATE 25 MG TAB PO SCH (20:16)
[2018-01-27] MEDS: DOCUSATE SODIUM 100 MG CAP PO SCH (20:16)
[2018-01-28 06:32] LABS: CALCIUM 8.1 mg/dl (8.5-10.1); CREATININE 1.17 mg/dl (0.60-1.20)
[2018-01-28 07:47] VITALS: BP 171/88; PULSE 76; TEMP 37; O2SAT 94
[2018-01-28] MEDS: AMLODIPINE BESYLATE 5 MG TAB PO SCH (07:55)
[2018-01-28] MEDS: ASPIRIN 325 MG ECTAB PO SCH (07:55)
[2018-01-28] MEDS: FUROSEMIDE 20 MG TAB PO SCH (07:55)
[2018-01-28] MEDS: LOSARTAN POTASSIUM 50 MG TAB PO SCH ×2 (07:56→20:01)
[2018-01-28] MEDS: DOCUSATE SODIUM 100 MG CAP PO SCH ×2 (07:56→20:01)
[2018-01-28] MEDS: METOPROLOL TARTRATE 25 MG TAB PO SCH ×2 (07:56→20:01)
[2018-01-28 08:30] VITALS: O2SAT 94
[2018-01-28] MEDS: POLYETHYLENE (MIRALAX) 17 GM PACK PO PRN (10:29)
[2018-01-28] MEDS: HEPARIN SOD 5000 UNIT/0.5 ML CARP SQ SCH ×2 (10:32→20:07)
[2018-01-28 12:03] VITALS: PULSE 76; TEMP 37; O2SAT 94
[2018-01-28 12:28] VITALS: BP 146/79
[2018-01-28 15:10] VITALS: BP 167/78; PULSE 64; TEMP 36.7; O2SAT 94
[2018-01-28 16:00] VITALS: O2SAT 94
--- NOTE | 2018-01-28 17:53 | Progress Note ---
Subjective Date of Service: January 28, 2018. Subjective pt is still not thirlled about going to subacute rehab but daughter is sure she does not want mom to return home independently Problem List Medical Problems: (1) Dehydration Status: Acute (2) Elevated troponin Status: Acute (3) Rhabdomyolysis Status: Acute Review of Systems Constitutional: + weakness, No fever, No chills Respiratory: No cough, No sputum, No shortness of breath Cardiac: No chest pain, No orthopnea Musculoskeletal: + joint pain, + muscle pain Female : No dysuria, No urinary frequency Neurologic: + weakness, + balance problems, No memory loss, No paralysis Objective Vital Signs Date Time Temp Pulse Resp B/P (MAP) Pulse Ox O2 Delivery O2 Flow Rate FiO2 01/28/18 16:00 94 Room Air 01/28/18 15:10 36.7 64 18 167/78 (107) 94 Room Air 01/28/18 12:28 146/79 (101) 01/28/18 12:03 37.0 76 18 94 Room Air 01/28/18 08:30 94 Room Air 01/28/18 07:47 37.0 76 18 171/88 (115) 94 Room Air 01/27/18 23:39 36.5 64 18 93/56 (68) 94 Room Air 01/27/18 23:15 97 Room Air 01/27/18 21:32 60 176/73 (107) 01/27/18 20:14 68 18 192/95 (127) 97 Room Air 191/98 (129) Physical Exam General Appearance: WD/WN, + mild distress Eyes: normal inspection, sclerae normal Neck: supple, no JVD Respiratory/Chest: chest non-tender, lungs clear, normal breath sounds Cardiovascular: regular rate, rhythm, no edema Abdomen: normal bowel sounds, non tender, soft Extremities: non-tender, no pedal edema, no calf tenderness Laboratory Results Last 24 Hours Test 01/28/18 05:12 Sodium Level 135 mmol/L Potassium Level 4.0 mmol/L Chloride Level 105 mmol/L Carbon Dioxide Level 25 mmol/L Anion Gap 5.0 mmol/L Blood Urea Nitrogen 34 mg/dl Creatinine 1.17 mg/dl Est Creatinine Clear Calc Drug Dose 24.3 ml/min Estimated GFR () 48.5 Estimated GFR (Non- 41.9 BUN/Creatinine Ratio 28.8 Random Glucose 86 mg/dl Calcium Level 8.1 mg/dl Assessment and Plan 87 F found on her floor of her home after fall with a knee injury as elevations of troponin and CK although mild no initial concern for acute coronary syndrome Generalized weakness and fatigue, mild rhabdomyolysis improved with hydration will need subacute rehab based on PT/OT evaluations Left knee strain/contusion seen by orthopedics no further intervention required Elevated troponin secondary to demand ischemia- n stemi ruled out - ECHO w/ preserved EF, grade II diastolic dysfunction, no wall abnormalities - Continue ASA increased Metoprolol from 25 mg BID to 50 mg BID - Cardiology increased Metoprolol and tolerated with BP CKD stage III- remains stable SIADH- follows w/ Dr. Zheng:STABLE- - Continue Demeclocycline,lasix HTN w/ HTN urgency- will increase norvasc slightly - tolerating Metoprolol increased to 50 mg BID - Norvasc 5 mg daily in the past edema prevent increasing dose of Norvasc, Losartan 50 mg BID Macular degeneration: Continue eye drops DVT prophylaxis: Heparin SQ BID Code status: LEVEL I, FULL Dispo: From home, lives alone- PT/OT and CM consulted to assist in placement for rehab Documented By: Yang Hunter
[2018-01-29 00:14] VITALS: BP 170/81; PULSE 65; TEMP 36.9; O2SAT 96
[2018-01-29 06:13] LABS: CALCIUM 8.2 mg/dl (8.5-10.1); CREATININE 1.29 mg/dl (0.60-1.20)
[2018-01-29] MEDS: METOPROLOL TARTRATE 25 MG TAB PO SCH (07:16)
[2018-01-29] MEDS: FUROSEMIDE 20 MG TAB PO SCH (07:17)
[2018-01-29] MEDS: ASPIRIN 325 MG ECTAB PO SCH (07:18)
[2018-01-29] MEDS: DOCUSATE SODIUM 100 MG CAP PO SCH (07:18)
[2018-01-29] MEDS: LOSARTAN POTASSIUM 50 MG TAB PO SCH (07:18)
[2018-01-29] MEDS: HEPARIN SOD 5000 UNIT/0.5 ML CARP SQ SCH (07:23)
[2018-01-29 07:24] VITALS: BP 143/75; PULSE 67; TEMP 36.7; O2SAT 93
[2018-01-29] MEDS ORDERED: AMLODIPINE BESYLATE 5 MG TAB PO SCH (08:00)
[2018-01-29] MEDS ORDERED: NRV5 PO (10:48)
[2018-01-29] MEDS ORDERED: METO-722 PO (10:48)
--- NOTE | 2018-01-29 10:54 | Discharge Instructions ---
Discharge Instructions Date of Service January 29, 2018. Admission Reason for Admission: Rhabdomyolysis Discharge Discharge Diagnosis / Problem: Rhabdomyolysis Discharge Goals Goal(s): Decrease discomfort, Improve function, Increase independence, Improve disease control, Learn about illness, Diagnostic testing, Therapeutic intervention, Prevent Disease Progression Activity Recommendations Activity Level: Assistance Required Therapies: Physical Therapy, Occupational Therapy . Additional Information Patient informed of condition: Yes Advance Directives: Yes DNR: No Level of Care: Acute Rehab Communicable Disease: No Prognosis: Stable Christian Catheter: No Instructions / Follow-Up Instructions / Follow-Up Rhabdomyolysis: Treated w/ IVF L-knee strain: - Orthopedics consulted- PT/OT and supportive management - Tylenol PRN for pain management Elevated troponin secondary to demand ischemia- STABLE: - Admitted to tele for cardiac monitoring- no acute events - Trend cardiac enzymes- trop peaked at 0.6 - ECHO w/ preserved EF, grade II diastolic dysfunction, no wall abnormalities - Continue ASA and increase Metoprolol from 25 mg BID to 75 mg BID CKD stage III- baseline material control specialist 1.0- STABLE: Follow PRP- material control specialist 1.29 today [facility]- follows w/ Dr. Zheng: - Follow PRP- STABLE- Na 135 today - Continue Demeclocycline and Lasix HTN w/ HTN urgency- STABLE: Metoprolol increased to 75 mg BID and Norvasc increased to 5 mg daily, continue Losartan 50 mg BID Macular degeneration: Continue eye drops DVT prophylaxis: Heparin SQ BID Code status: LEVEL I, FULL Dispo: Discharge to [facility] FOLLOW-UPS: Follow-up with [facility] provider within 24-48 hours Please follow-up with your PCP within 5-7 days after discharge from [facility] Please follow-up/keep all of your subspecialty appointments Current Hospital Diet Patient's current hospital diet: Regular Diet Discharge Diet Recommended Diet: Regular Diet Pending Studies Studies pending at discharge: no Physician Orders On Transfer Special Precautions: Fall precautions Dressing Changes: None IV Therapy: None Vital Signs: Routine Additional Orders: Recheck PRP in 2-3 days POLST Discussion: without POLST completion Medical Emergencies . Who to Call and When: Medical Emergencies: If at any time you feel your situation is an emergency, please call 911 immediately. . Non-Emergent Contact Non-Emergency issues call your: Primary Care Provider Call Non-Emergent contact if: you have a fever, your pain is not controlled, your pain is worsening, your pain is unusual for you, your pain is concerning you, you have any medication questions . . "Provider Documentation" section prepared by Tennille Jimenez. . Core Measure Problem Core Measures: None
--- NOTE | 2018-01-29 11:01 | Discharge Summary ---
Discharge Summary Date of Service January 29, 2018. Discharge Summary Admission Date: Jan 25, 2018 at 15:25 Discharge Date: January 29, 2018 Discharge Disposition: Rehab Principal Diagnosis: Rhabdomyolysis Problems/Secondary Diagnoses: Generalized weakness and fatigue mild rhabdomyolysis secondary to mechanical fall L knee strain Elevated troponin secondary to demand ischemia CKD stage III SIADH HTN w/ HTN urgency Macular degeneration grade I diastolic dysfunction Immunizations: Have You Had Influenza Vaccine: No History of Tetanus Vaccine?: Yes History of Pneumococcal: No History of Hepatitis B Vaccine: No Procedures: SINGLE VIEW PELVIS CLINICAL HISTORY: Fall. FINDINGS: An AP, portable, supine pelvic radiograph is obtained. No prior studies are available for comparison at the time of dictation. The skeletal structures are osteopenic. There is no radiographic evidence of acute fracture involving the hips or bony pelvis. Mild to moderate arthritic change and joint space narrowing is seen in the hips. Sclerotic change is noted in the sacroiliac joints and symphysis pubis. Lumbosacral spondylosis is partially visualized. Atherosclerotic calcification is noted in the femoral arteries. The overlying soft tissues are within normal limits. Calcified gallstones are present in the right mid abdomen. No bowel obstruction is seen. IMPRESSION: 1. Osteopenia with no radiographic evidence of fracture involving the hips or bony pelvis. 2. Cholelithiasis. Electronically signed by: Kenneth Arreaga M.D. 01/25/2018 1:16 PM Dictated Date/Time: 01/25/2018 1:14 PM The status of this report is Signed. Draft = Not yet reviewed or approved by Radiologist. Signed = Reviewed and approved by Radiologist LEFT KNEE 2 VIEWS CLINICAL HISTORY: Fall with left knee pain. FINDINGS: AP and crosstable lateral views of the left knee are obtained. No prior studies are available for comparison at the time of dictation. The skeletal structures are osteopenic. No fracture is seen. Advanced degenerative narrowing is seen at the patellofemoral articulation. Mild to moderate narrowing is seen in the medial and lateral compartments where there is chondrocalcinosis. There are small marginal osteophytes. No joint effusion is seen. Mild prepatellar soft tissue swelling is observed. There is advanced atherosclerotic calcification of the popliteal artery. IMPRESSION: 1. Mild soft tissue swelling with no radiographic evidence of left knee fracture. 2. Osteopenia, degenerative change, and chondrocalcinosis as above. Electronically signed by: Kenneth Arreaga M.D. 01/25/2018 1:20 PM Dictated Date/Time: 01/25/2018 1:18 PM The status of this report is Signed. Draft = Not yet reviewed or approved by Radiologist. Signed = Reviewed and approved by Radiologist SINGLE VIEW CHEST CLINICAL HISTORY: Generalized weakness. FINDINGS: An AP, portable, upright chest radiograph is compared to study dated 10/09/2015. The examination is degraded by portable technique and patient rotation. The heart is enlarged and there is atherosclerotic calcification of the thoracic aorta. The pulmonary vasculature is noncongested. Chronic interstitial thickening is similar to previous. No airspace consolidation or large pleural effusion is identified. Apical scarring is observed. No pneumothorax is seen. The skeletal structures are osteopenic. Advanced degenerative change is seen in the shoulders and thoracic spine. Postoperative change is partially visualized in the right elbow. IMPRESSION: Cardiomegaly with no acute cardiopulmonary abnormality. Electronically signed by: Kenneth Arreaga M.D. 01/25/2018 1:18 PM Dictated Date/Time: 01/25/2018 1:16 PM The status of this report is Signed. Draft = Not yet reviewed or approved by Radiologist. Signed = Reviewed and approved by Radiologist ECHOCARDIOGRAM: -- Conclusions -- Left ventricular systolic function is normal. No regional wall motion abnormalities noted. Ejection Fraction = 55-60%. There is mild concentric left ventricular hypertrophy. Grade I diastolic dysfunction, (abnormal relaxation pattern). There is mild mitral regurgitation. There is mild tricuspid regurgitation. Procedure Details A complete two-dimensional transthoracic echocardiogram was performed (2D, M- mode, Doppler and color flow Doppler). Left Ventricle The left ventricle is normal in size. There is mild concentric left ventricular hypertrophy. Ejection Fraction = 55-60%. Left ventricular systolic function is normal. No regional wall motion abnormalities noted. Right Ventricle The right ventricle is grossly normal size. The right ventricular systolic function is normal as assessed by tricuspid annular plane systolic excursion (TAPSE) (normal >1.5 cm). Atria The left atrium is mildly dilated. Right atrial size is normal. No ASD detected; PFO is not assessed. Mitral Valve The mitral valve anatomy is normal. There is no mitral valve stenosis. There is mild mitral regurgitation. Tricuspid Valve The tricuspid valve anatomy is normal. There is no tricuspid stenosis. There is mild tricuspid regurgitation. Aortic Valve The aortic valve is trileaflet. The aortic valve opens well. Aortic valve sclerosis mild, without significant aortic valvular stenosis. Trace aortic regurgitation. Pulmonic Valve The pulmonary valve is not well seen, but the Doppler examination is normal without significant regurgitation or stenosis. Great Vessels The aortic root is normal size. The pulmonary is not well visualized. Pericardium/Pleural There is no pericardial effusion. Great Vessels Normal inferior vena cava size and collapsability with sniff indicates a normal right atrial pressure of 3 mmHg Left Ventricular Diastolic Function Grade I diastolic dysfunction, (abnormal relaxation pattern). Consultations: Cardiology- Dr. Yuan Orthopedics- Dr. Soto Medication Reconciliation New Medications: Amlodipine Besylate (Amlodipine Besylate) 5 Mg Tab 5 MG PO QAM for 30 Days, TAB Changed Medications: Metoprolol Tartrate (Metoprolol Tartrate) 75 Mg Tab 75 MG PO BID for 30 Days (Changed from: Metoprolol Tartrate 50 Mg Tab 25 Mg PO BID) Continued Medications: Demeclocycline HCl (Demeclocycline HCl) 150 Mg Tab 150 MG PO DAILY Furosemide (Furosemide) 20 Mg Tab 20 MG PO DAILY Losartan Potassium (Losartan Potassium) 50 Mg Tab 50 MG PO BID Potassium Chloride (Klor-Con Sprinkle) 10 Meq Cap 10 MEQ PO BID Travoprost (Travatan Z) 0.004 % Dhiraj 1 DROP OP UD Discontinued Medications: Amlodipine (Norvasc) Unknown Strength Tab 1 TAB PO DAILY, TAB Discharge Exam Review of Systems: Constitutional: + weakness, No fever, No chills, No sweats, No fatigue Eyes: No worsening of vision ENT: No hearing loss Respiratory: No cough, No shortness of breath, No hemoptysis Cardiovascular: No chest pain, No edema, No palpitations Abdomen: No pain, No nausea, No vomiting, No diarrhea, No constipation Musculoskeletal: No joint pain, No muscle pain, No swelling, No calf pain Genitourinary - Female: No dysuria, No hematuria Neurologic: + weakness, No numbness/tingling Psychiatric: No depression symptoms, No anxiety Endocrine: No fatigue Hematologic / Lymphatic: No abnormal bleeding/bruising Integumentary: No rash, No itch, No new/changing skin lesions Physical Exam: General Appearance: no apparent distress, + thin Eyes: normal inspection, PERRL ENT: hearing grossly normal Neck: supple Respiratory/Chest: lungs clear, no respiratory distress, no accessory muscle use Cardiovascular: regular rate, rhythm, + systolic murmur Abdomen / GI: normal bowel sounds, non tender, soft Extremities: no calf tenderness, no pedal edema Neurologic/Psychiatric: alert, normal mood/affect, oriented x 3 Skin: normal color, warm/dry, no rash Hospital Course 87 year-old female with past medical history of hypertension, arthritis, SIADH, and macular degeneration. Presented to the ED status post fall, has been on the floor overnight has mild rhabdomyolysis and positive troponin with EKG changes. Generalized weakness and fatigue, mild rhabdomyolysis secondary to mechanical fall: - Treated w/ IVF @ 75 ml/hr - CK trending down, mild elevation of CPK at 578 - No s/s of infection: UA clean, CXR w/out acute findings, no fevers or WBC - No acute fractures seen of pelvis x-ray on L knee x-ray - Orthopedics consulted- L knee strain- PT/OT and supportive management - Tylenol PRN for pain management Elevated troponin secondary to demand ischemia- STABLE: - Admitted to tele for cardiac monitoring- no acute events - Trend cardiac enzymes- trop peaked at 0.6 - ECHO w/ preserved EF, grade I diastolic dysfunction, no wall abnormalities - Continue ASA and increase Metoprolol as below - Cardiology consulted, appreciate recommendations CKD stage III- STABLE: Follow PRP- diabetes solutions specialist 1.29 today, recommend repeat at [facility] in 2-3 days to follow SIADH- follows w/ Dr. Zheng: - Follow PRP- STABLE- Na 135 today - Continue Demeclocycline and Lasix HTN w/ HTN urgency- STABLE: - Metoprolol increased to 75 mg BID from 25 mg BID, Amlodipine 2.5 mg daily increased to 5 mg, continue Losartan 50 mg BID - Continue to monitor BPs at [facility] and treat PRN - IV Hydralazine PRN Macular degeneration: Continue eye drops DVT prophylaxis: Heparin SQ BID Code status: LEVEL I, FULL Dispo: Discharge to [facility] [place] Physician Supervision Note: I interviewed and examined the patient. Discussed with Tennille BERMUDEZ and agree with findings and plan as documented in the note. Any exceptions or clarifications are listed here: None this pt is transferring to snf for subacute rehab, she has no further issues from her fall or from her rhabdo, labs are reviewed and she will be transferred to snf Documented By: Yang E Covaleski Total Time Spent: Greater than 30 minutes This includes examination of the patient, discharge planning, medication reconciliation, and communication with other providers. Discharge Instructions Please refer to the electronic Patient Visit Report (Discharge Instructions) for additional information. Follow-Up Follow-up with [facility] provider within 24-48 hours Please follow-up with your PCP within 5-7 days after discharge from [facility] Please follow-up/keep all of your subspecialty appointments Additional Copies To Geremias Watkins M.D.
--- NOTE | 2018-01-29 13:11 | Cardiology Follow-Up ---
Subjective Date of Service: January 29, 2018. Pt evaluation today including: conversation w/ patient, physical exam, lab review, review of studies, review of inpatient medication list History of Present Illness This is a very pleasant 87-year-old woman who has a history of hypertension and may have been told that she has a murmur at some point in the past but no other known cardiovascular disease. She is not very active, she does walk around her house and outside from time to time and is never had shortness of breath or chest discomfort that she can recall. She does not have lightheadedness or dizziness, she has had several falls which sound as though they are mechanical falls when I reviewed them with her. She does not seem to have presyncope or syncope or palpitations. She presented after falling, the way she describes the event it sounds as though she did fall and did not have a cardiovascular cause for her fall. She currently is chest pain-free and does not recall having any type of chest discomfort recently. She tells me that her blood pressure is often elevated in the office but not at home, although she does not know her home blood pressure readings and has not had it checked for some time. She has no peripheral edema. Here her blood pressure was over 200 when she came in, it improved somewhat but remains quite high. Her electrocardiogram does not show any significant abnormality. It appeared likely that her mild enzyme rise was due to demand ischemia due to the high blood pressure, possibly with asymptomatic underlying coronary artery disease. We have therefore been controlling her blood pressure. Today she was sleeping in her chair next to the bed, she has no complaints. Social History Smoking Status: Former Smoker History of Alcohol Use: Yes (wine 2-3 X week (glass)) Review of Systems Respiratory: No cough, No sputum, No shortness of breath Cardiac: No chest pain, No orthopnea Medications Cardiovascular: Item Value Date Time Amlodipine 5 mg 01/29/18 0800 Besylate QAM/PO 01/29/18 0717 (Norvasc Tab) Metoprolol 75 mg 01/27/18 2000 Tartrate BID/PO 01/29/18 0716 (Lopressor Tab) Furosemide 20 mg 01/27/18 1700 (Lasix Tab) DAILY/PO 01/29/18716 Aspirin 325 mg 01/26/18 0900 (Ecotrin Tab) QAM/PO 5/3/18 0718 Losartan Potassium 50 mg 01/25/18 2100 (coZAAR TAB) BID/PO 01/29/18 0718 Heparin Sodium 5,000 unit 01/25/18 2100 (Porcine) Q12/SQ 01/29/18 0723 (Heparin Sq 5000 Unit/0.5ml) Hydralazine HCl 15 mg 01/25/18 1830 (HydrALAZINE INJ) Q6H PRN/IV. 01/27/182136 Objective Vital Signs Past 12 Hours Date Time Temp Pulse Resp B/P (MAP) Pulse Ox O2 Delivery O2 Flow Rate FiO2 01/29/18 07:43 Room Air 01/29/18 07:24 36.7 67 16 143/75 (97) 93 Room Air 01/29/18 00:22 Room Air 01/29/18 00:14 36.9 65 20 170/81 (110) 96 Room Air Last Recorded Weight-Kilograms: 48.500 Physical Exam Constitutional: General Apperance: heathly-appearing Level of Distress: NAD Lungs: Respiratory effort: no dyspnea, good air movement Auscultation: breath sounds normal, no wheezing Cardiovascular: Heart Auscultation: RRR, no murmurs, no rubs, no gallops Peripheral Pulses: Bruits: none appreciated Extremities: no edema Data Laboratory Results: Last 24 Hours Test 01/29/18 05:11 Sodium Level 135 mmol/L Potassium Level 4.0 mmol/L Chloride Level 105 mmol/L Carbon Dioxide Level 24 mmol/L Anion Gap 6.0 mmol/L Blood Urea Nitrogen 36 mg/dl Creatinine 1.29 mg/dl Est Creatinine Clear Calc Drug Dose 22.1 ml/min Estimated GFR () 43.1 Estimated GFR (Non- 37.2 BUN/Creatinine Ratio 27.9 Random Glucose 89 mg/dl Calcium Level 8.2 mg/dl Assessment and Plan 1. Elevated troponin: Her troponin was somewhat elevated on the first several measurements, but that has trended downward. The trend is not suggestive of a cardiac event and electrocardiogram does not show an ischemic or infarct pattern. I suspect it is demand ischemia based on her hypertension and high catecholamine state, especially on admission. I am reluctant to consider stress testing or invasive evaluation since she is asymptomatic and these levels are low. I would not pursue further evaluation at this point unless symptoms occur. 2. Hypertension: She remains hypertensive on a number of medications including higher doses of beta blockade. We do have room to go a little bit higher on her metoprolol, she is going to a facility where her blood pressure could be monitored but I would consider going up to 100 mg twice daily of metoprolol. Thank you for allowing me to participate in her care.
== END 2018-01-29 14:41 | DRG 565 ==
LOC: EDBD 12:21 → C.EDB 12:22 → C.2T 15:25 → ENRESERV 15:42 → C.4E 01-27 10:23 → ENRESERV 01-27 10:45 → C.4E 01-28 21:02
PROVIDERS: ADMIT Internal Medicine; ATTEND Internal Medicine
DX: T79.6XXA Traumatic ischemia of muscle, initial encounter (principal); I24.8 Other forms of acute ischemic heart disease; E22.2 Syndrome of inappropriate secretion of antidiuretic hormone; I16.0 Hypertensive urgency; E86.0 Dehydration; S86.912A Strain of unspecified muscle(s) and tendon(s) at lower leg level, left leg, initial encounter; I12.9 Hypertensive chronic kidney disease with stage 1 through stage 4 chronic kidney disease, or unspecified chronic kidney disease; N18.3 Chronic kidney disease, stage 3 (moderate); H35.30 Unspecified macular degeneration; Z51.81 Encounter for therapeutic drug level monitoring; Z79.899 Other long term (current) drug therapy; Z87.891 Personal history of nicotine dependence; Z88.1 Allergy status to other antibiotic agents; Z88.8 Allergy status to other drugs, medicaments and biological substances; Z91.040 Latex allergy status; Z91.041 Radiographic dye allergy status; W18.30XA Fall on same level, unspecified, initial encounter; Y92.009 Unspecified place in unspecified non-institutional (private) residence as the place of occurrence of the external cause; Y99.8 Other external cause status

== ENCOUNTER → 2018-02-12 | Outpatient (CLI) | payer BC ==
[~2018-02-12] MED LIST changes: -AMLO-110 PO; -DEMECLOCYCLINE PO; +METO-722 PO; -METO25TA56 PO; +NRV5 PO; -POTA10CA28 PO; +POTA1CAP53 PO; +TRAV0.00 OP; +[UNRECOGNIZED DRUG - CODE] PO
[2018-02-12 14:51] LABS: HEMATOCRIT 38.6 % (37-47); HEMOGLOBIN 12.8 g/dL (12.0-16.0); MEAN CELL VOLUME 97.5 fL (80-100); MEAN CORPUSCULAR HEMOGLOBIN 32.3 pg (25-34); MEAN CORPUSCULAR HGB CONC 33.2 g/dl (32-36); MEAN PLATELET VOLUME 9.9 fL (7.4-10.4); PLATELET COUNT 402 K/uL (130-400); RED CELL DISTRIBUTION WIDTH CV 13.9 % (11.5-14.5); RED CELL DISTRIBUTION WIDTH SD 50.1 fL (36.4-46.3); WHITE BLOOD COUNT 7.91 K/uL (4.8-10.8)
[2018-02-12 15:19] LABS: ALBUMIN 3.3 gm/dl (3.4-5.0); ALKALINE PHOSPHATASE 143 U/L (45-117); ALT/SGPT 20 U/L (12-78); AST/SGOT 22 U/L (15-37); BLOOD UREA NITROGEN 45 mg/dl (7-18); CALCIUM 8.9 mg/dl (8.5-10.1); CARBON DIOXIDE 27 mmol/L (21-32); CREATININE 1.21 mg/dl (0.60-1.20); GLUCOSE 75 mg/dl (70-99); POTASSIUM 4.6 mmol/L (3.5-5.1); SODIUM 134 mmol/L (136-145); TOTAL PROTEIN 7.7 gm/dl (6.4-8.2)
== END | disposition home or self-care (01) ==
LOC: C.LAB1850 13:18
PROVIDERS: ATTEND Internal Medicine Nephrology
DX: I12.9 Hypertensive chronic kidney disease with stage 1 through stage 4 chronic kidney disease, or unspecified chronic kidney disease (principal); N18.3 Chronic kidney disease, stage 3 (moderate); E87.1 Hypo-osmolality and hyponatremia

== ENCOUNTER 2019-04-23 22:16 | Inpatient (IN) ==
[2019-04-23] MEDS ORDERED: ONDANSETRON INJ 2 MG/ML 2 ML VIAL IV STA (23:17)
[2019-04-23] MEDS ORDERED: SODIUM CHLORIDE 0.9% 500 ML IV SCH (23:30)
[2019-04-23 23:42] LABS: Basophils # (auto) 0.01 K/uL (0-0.2); Basophils % (auto) 0.1 %; Eosinophils # (auto) 0.03 K/uL (0-0.5); Eosinophils % (auto) 0.2 %; Hematocrit (blood only) 40.4 % (37-47); Hemoglobin 13.6 g/dL (12.0-16.0); Immature Granulocytes # (auto) 0.05 K/uL (0.00-0.02); Immature Granulocytes % (auto) 0.4 %; Lymphocytes # (auto) 1.14 K/uL (1.2-3.4); Lymphocytes % (auto) 8.1 %; Mean Corpuscular Hgb Conc 33.7 g/dL (32-36); Mean Corpuscular Volume 97.6 fL (80-100); Monocytes # (auto) 0.87 K/uL (0.11-0.59); Monocytes % (auto) 6.2 %; Neutrophils # (auto) 12.04 K/uL (1.4-6.5); Platelet Count 265 K/uL (130-400); RDW Standard Deviation 50.3 fL (36.4-46.3); Red Blood Count 4.14 M/uL (4.2-5.4); White Blood Count 14.14 K/uL (4.8-10.8)
[2019-04-24 00:21] LABS: Albumin Level 3.4 gm/dl (3.4-5.0); BUN Creatinine Ratio 25.3 (10-20); Calcium 9.2 mg/dl (8.5-10.1); Creatinine Clr Calc Pharmacy 19.8 ml/min; Est GFR (African American) 38.5; Est GFR (Non-African American) 33.2; Potassium 4.1 mmol/L (3.5-5.1)
[2019-04-24 00:23] LABS: Albumin Globulin Ratio 0.8 (0.9-2); Bilirubin,Total 0.5 mg/dl (0.2-1); Globulin 4.4 gm/dl (2.5-4.0); Total Protein 7.8 gm/dl (6.4-8.2)
[2019-04-24] MEDS ORDERED: SODIUM CHLORIDE 0.9% 250 ML IV ONE (00:42)
--- NOTE | 2019-04-24 00:57 | XRay Report ---
TWO VIEW CHEST CLINICAL HISTORY: Cough. FINDINGS: AP and lateral chest radiographs are compared to study dated 09/05/2018 and correlated with chest CT dated 09/30/2011. The AP views degraded by patient rotation. The heart is enlarged and there i s atherosclerotic calcification of the thoracic aorta. There is pulmonary vascular congestion. There is airspace consolidation identified at the left lung base. No large pleural effusion is identified. There is no pneumothorax. The skeletal structures are osteopenic. Advanced arthritic change is seen i n the shoulders and thoracic spine. Mild hyperkyphosis is noted. IMPRESSION: 1. Cardiomegaly with mild pulmonary vascular congestion. 2. Dense airspace consolidation is seen at the left lung base. Correlate clinically for evidence of p neumonia/aspiration pneumonitis. Radiographic follow-up to resolution is recommended. Electronically signed by: Kenneth Arreaga M.D. 04/24/2019 12:56 AM
[2019-04-24] MEDS ORDERED: PIPERACILL/TAZOBAC CONSULT ACTIVE PRN ×2 (00:59→03:46)
[2019-04-24] MEDS ORDERED: PIPERACILLIN/TAZOBACTAM 4.5 GM/120 ML BAG IV ONE (00:59)
--- NOTE | 2019-04-24 01:54 | Emergency Department Note ---
Entered by Amna Valerio acting as a scribe for Yang Rasmussen MD History of Present Illness General Chief complaint: Diarrhea Source: patient History of Present Illness Provider complaint: diarrhea Onset (ago): hour(s) (this morning) Severity: moderate Relieved By: + none Exacerbated By: + none Associated symptoms: + cough, + nausea/vomiting and + other (-abdominal pain) The patient is a 88 year old female who presents to the Emergency Room with complaints of diarrhea. The patient states that she has been experiencing loose stools since this morning. She notes that there are frequent episodes. She denies any blood in her diarrhea. She states that she has nausea and vomiting. The patient notes that she has a cough. She denies abdominal pain or fever. She reports that she lives in an assisted living community. She denies any recent antibiotics. She does state that she has been coughing recently. She denies any shortness of breath but states that she has some pain in her left lower ribs. Home Medications Home Medications Medication Instructions Recorded Confirmed Type amlodipine 2.5 mg PO QAM 09/05/18 04/23/19 History furosemide 20 mg PO DAILY 09/05/18 04/23/19 History potassium chloride 10 meq PO BID 09/05/18 04/23/19 History travoprost [Travatan Z] 1 drp OPB HS 09/05/18 04/23/19 History losartan 50 mg tablet 50 mg PO BID #180 tab 03/29/19 04/23/19 Rx [facility] Vit 1 tab PO BID 04/23/19 04/23/19 History acetaminophen [Tylenol Arthritis 1,300 mg PO HS MDD 3g/24hr of apap 04/23/19 04/23/19 History Pain] acetaminophen [Tylenol Arthritis 1,300 mg PO Q8 PRN MDD 3gm/24hr of 04/23/19 History Pain] apap aspirin 81 mg PO DAILY 04/23/19 04/23/19 History metoprolol tartrate 37.5 mg PO BID 04/23/19 04/23/19 History rosuvastatin 5 mg PO DAILY 04/23/19 04/23/19 History Allergies Allergy/AdvReac Type Severity Reaction Status Date / Time erythromycin base Allergy Unknown RASH Verified 04/23/19 23:26 latex Allergy Unknown RASH Verified 09/05/18 12:32 potassium Allergy Unknown UNKNOWN Verified 09/05/18 12:32 CONTRAST DYE Allergy Unknown UNKNOWN Uncoded 04/23/19 23:26 Past Med/Surg History Surgical History H/O carotid endarterectomy (Resolved) Family History Other Family history non-contributory Social History Feels Safe at Home: Yes Smoking Status: Never smoker Review of Systems See HPI for pertinent positives & negatives. and A total of 10 systems reviewed and were otherwise negative Physical Exam Vital Signs Vital Signs - 24 hr 04/23/19 22:06 04/23/19 23:17 04/24/19 00:20 Temperature 37.7 C H Temperature Source Oral Sepsis Recent Fever Within 48 Hours Yes Sepsis New/Unexplained Change in Mental Status No Sepsis Action Taken by Nursing No Action Required Pulse Rate 102 H Pulse Rate [Left Radial] 100 H Pulse Rhythm [Left Radial] Regular Respiratory Rate 18 18 Respiratory Effort / Characteristics Non-Labored Non-Labored Respiratory Depth Normal Normal Respiratory Pattern Regular Blood Pressure 209/152 H Blood Pressure [Left Arm] 207/99 H Blood Pressure Mean 171 Blood Pressure Mean [Left Arm] 135 Pulse Oximetry 91 91 91 Oxygen Delivery Method Room Air Room Air Room Air Oxygen Flow Rate 04/24/19 01:15 04/24/19 01:16 04/24/19 01:30 Temperature Temperature Source Sepsis Recent Fever Within 48 Hours Sepsis New/Unexplained Change in Mental Status Sepsis Action Taken by Nursing Pulse Rate Pulse Rate [Left Radial] Pulse Rhythm [Left Radial] Respiratory Rate Respiratory Effort / Characteristics Respiratory Depth Respiratory Pattern Blood Pressure Blood Pressure [Left Arm] Blood Pressure Mean Blood Pressure Mean [Left Arm] Pulse Oximetry 89 L 96 95 Oxygen Delivery Method Room Air Nasal Cannula Nasal Cannula Oxygen Flow Rate 2 2 Constitutional: Vital signs reviewed. She is very hypertensive. Eyes: Pupils are equal round reactive to light. Conjunctiva are noninjected. ENT: Pharynx is clear without erythema or exudate. Mucous membranes are dry. Neck supple without meningeal signs. Respiratory: Clear to auscultation bilaterally. Breath sounds are equal bilaterally. Cardiovascular: Tachycardic rate. Regular rhythm. No rubs or gallops. GI: Soft, nondistended and nontender. Bowel sounds are present. Musculoskeletal: No peripheral edema. No lower extremity tenderness. Integumentary: No cyanosis. Neurological: The patient is awake and alert. No focal deficits. Psychiatric: Normal affect. Course 2314: The patient was evaluated in room A12B, and a complete history and physical examination were performed. 0023: I reevaluated the patient, her blood pressure is still 207/99. The family states that the patient has white coat hypertension and that this is not unusual. The patient denies any pain symptoms, she states that she feels less nauseous and still has a cough. 0058: I reevaluated the patient and updated her on her results. The patient is still tachycardic and her pulse oxygen when checked on her finger was in the 80s, but she had nail israeli on. The patient reports that she left sided chest pain. The patient has a CURB 65 of 3. 1300: Upon reevaluation, the patient appeared to have improvement of her symp toms. I discussed today's findings with her and her family. They verbalized agreement of the treatment plan. She was discharged home. Administered Medications Discontinued Medications Sodium Chloride (Nss) 500 mls @ 999 mls/hr IV .Q31M EVELYN Stop: 04/24/19 00:00 Last Infusion: 04/24/19 01:16 Dose: 0 mls/hr Documented by: [id number] Admin: 04/23/19 23:44 Dose: 999 mls/hr Documented by: [id number] Sodium Chloride (Nss) 250 mls @ 999 mls/hr IV .Q16M ONE Stop: 04/24/19 00:57 Last Infusion: 04/24/19 01:16 Dose: 0 mls/hr Documented by: [id number] Admin: 04/24/19 00:53 Dose: 999 mls/hr Documented by: [id number] Ondansetron HCl (Zofran) 4 mg IV NOW STA Stop: 04/23/19 23:18 Last Admin: 04/23/19 23:44 Dose: 4 mg Documented by: [id number] Medical Decision Making Differential Diagnosis Differential diagnoses include gastroenteritis, food bourne illness, C diff colitis, dehydration, and electrolyte abnormality. Medical Records Attestation: I reviewed the patient's medical records. I did perform a limited focused review of portions of the patient's old chart on the electronic medical record. The patient has had no recent pertinent visits to this hospital. Home Medications Current Medication List: was personally reviewed by me Laboratory Data Attestation: I reviewed the patient's lab results. Result diagrams: 04/23/19 23:20 04/23/19 23:20 Lab Results 04/23/19 04/23/19 04/23/19 Range/Units 23:20 23:20 23:20 WBC 14.14 H (4.8-10.8) K/uL RBC 4.14 L (4.2-5.4) M/uL Hgb 13.6 (12.0-16.0) g/dL Hct 40.4 (37-47) % MCV 97.6 (80-100) fL MCH 32.9 (25-34) pg MCHC 33.7 (32-36) g/dL RDW Std Deviation 50.3 H (36.4-46.3) fL RDW Coeff of [place] 14.0 (11.5-14.5) % Plt Count 265 (130-400) K/uL MPV 11.0 H (7.4-10.4) fL Immature Gran % (Auto) 0.4 % Neut % (Auto) 85.0 % Lymph % (Auto) 8.1 % [place] % (Auto) 6.2 % Eos % (Auto) 0.2 % Baso % (Auto) 0.1 % Immature Gran # (Auto) 0.05 H (0.00-0.02) K/uL Neut # (Auto) 12.04 H (1.4-6.5) K/uL Lymph # (Auto) 1.14 L (1.2-3.4) K/uL [place] # (Auto) 0.87 H (0.11-0.59) K/uL Eos # (Auto) 0.03 (0-0.5) K/uL Baso # (Auto) 0.01 (0-0.2) K/uL Sodium 137 (136-145) mmol/L Potassium 4.1 (3.5-5.1) mmol/L Chloride 102 (98-107) mmol/L Carbon Dioxide 24 (21-32) mmol/L Anion Gap 10.0 (3-11) BUN 36 H (7-18) mg/dl Creatinine 1.41 H (0.6-1.2) mg/dl Est Cr Clr Drug Dosing 19.8 ml/min Est GFR ( Amer) 38.5 Est GFR (Non-Af Amer) 33.2 BUN/Creatinine Ratio 25.3 H (10-20) Glucose 135 H (70-99) mg/dl Calcium 9.2 (8.5-10.1) mg/dl Total Bilirubin 0.5 (0.2-1) mg/dl AST 22 (15-37) U/L ALT 16 (12-78) U/L Alkaline Phosphatase 89 (45-117) U/L Total Protein 7.8 (6.4-8.2) gm/dl Albumin 3.4 (3.4-5.0) gm/dl Globulin 4.4 H (2.5-4.0) gm/dl Albumin/Globulin Ratio 0.8 L (0.9-2) Lipase 255 Cancelled (73-393) U/L Stl C. diff Tox B Gene (Neg) 04/23/19 Range/Units 23:20 WBC (4.8-10.8) K/uL RBC (4.2-5.4) M/uL Hgb (12.0-16.0) g/dL Hct (37-47) % MCV (80-100) fL MCH (25-34) pg MCHC (32-36) g/dL RDW Std Deviation (36.4-46.3) fL RDW Coeff of [place] (11.5-14.5) % Plt Count (130-400) K/uL MPV (7.4-10.4) fL Immature Gran % (Auto) % Neut % (Auto) % Lymph % (Auto) % [place] % (Auto) % Eos % (Auto) % Baso % (Auto) % Immature Gran # (Auto) (0.00-0.02) K/uL Neut # (Auto) (1.4-6.5) K/uL Lymph # (Auto) (1.2-3.4) K/uL [place] # (Auto) (0.11-0.59) K/uL Eos # (Auto) (0-0.5) K/uL Baso # (Auto) (0-0.2) K/uL Sodium (136-145) mmol/L Potassium (3.5-5.1) mmol/L Chloride (98-107) mmol/L Carbon Dioxide (21-32) mmol/L Anion Gap (3-11) BUN (7-18) mg/dl Creatinine (0.6-1.2) mg/dl Est Cr Clr Drug Dosing ml/min Est GFR ( Amer) Est GFR (Non-Af Amer) BUN/Creatinine Ratio (10-20) Glucose (70-99) mg/dl Calcium (8.5-10.1) mg/dl Total Bilirubin (0.2-1) mg/dl AST (15-37) U/L ALT (12-78) U/L Alkaline Phosphatase (45-117) U/L Total Protein (6.4-8.2) gm/dl Albumin (3.4-5.0) gm/dl Globulin (2.5-4.0) gm/dl Albumin/Globulin Ratio (0.9-2) Lipase (73-393) U/L Stl C. diff Tox B Gene Negative Cdiff Gene (Neg) Imaging Data Radiologist's Impression: Radiology results as stated below per my review and the radiologist's interpretation: TWO VIEW CHEST CLINICAL HISTORY: Cough. FINDINGS: AP and lateral chest radiographs are compared to study dated 09/05/2018 and correlated with chest CT dated 09/30/2011. The AP views degraded by patient rotation. The heart is enlarged and there is atherosclerotic calcification of the thoracic aorta. There is pulmonary vascular congestion. There is airspace consolidation identified at the left lung base. No large pleural effusion is identified. There is no pneumothorax. The skeletal structures are osteopenic. Advanced arthritic change is seen in the shoulders and thoracic spine. Mild hyperkyphosis is noted. IMPRESSION: 1. Cardiomegaly with mild pulmonary vascular congestion. 2. Dense airspace consolidation is seen at the left lung base. Correlate clinically for evidence of pneumonia/aspiration pneumonitis. Radiographic follow-up to resolution is recommended. Electronically signed by: Kenneth Arreaga M.D. 04/24/2019 12:56 AM ECG Data Attestation: I personally reviewed and interpreted this ECG as follows: Indication: tachycardia Rate (beats per minute): 114 Rhythm: sinus rhythm Findings: + 1st degree AV block; no PVC and no ST elevation Blood Pressure Blood Pressure Findings: Elevated blood pressure Blood Pressure Disposition: Referred to patients primary care provider MDM Narrative I did evaluate the patient as noted above. The patient is presenting with vomi ting and diarrhea with tachycardia likely from dehydration. She also states that she has been having a cough. IV access was established. I did treated with normal saline IV. The patient was placed on a continuous surveillance system monitor. I did order and personally review the patient's 12-lead EKG as described above. She has sinus tachycardia with a first-degree AV block. I did order and personally reviewed the images of the patient's chest x-ray as described above. What appears to be a left-sided pneumonia. Pulse ox on room air is 86%. This was on her hand where she has nail israeli. I did have the nurse repeat this on her forehead and they were getting a reading of 89% with a good waveform. She was placed on supplemental oxygen via nasal cannula. Her O2 saturation went up to 96%. Blood cultures were ordered. I did treat her with Zosyn IV. I did order and review the patient's blood work as noted in the electronic medical record. Her white count is elevated. Her creatinine and BUN are elevated likely from dehydration. I did reassess the patient. I did discuss the test results with the patient. She is still slightly tachycardic. Her blood pressure significant elevated but she states she has whitecoat hypertension. She also has a history of hypertension as it is on medications with which which she states she is compliant. I therefore did not treat her blood pressure. Her curb 65 score is 3. I did recommend hospitalization. The case operator and hospitalist were made aware of the patient. Impression & Plan Dehydration, White coat syndrome with diagnosis of hypertension, Pneumonia, Vomiting and diarrhea, Hypoxia Discharge Plan Visit Data Chief Complaint: Diarrhea ED Provider: Yang Rasmussen Discharge Problem: Dehydration, White coat syndrome with diagnosis of hypertension, Pneumonia, Vomiting and diarrhea, Hypoxia Patient Disposition: Home - Self-Care Forms Stand Alone Forms: My [facility], Important Visit Information Prescriptions Prescriptions: No Action losartan 50 mg tablet 50 mg PO BID Qty: 180 RF: 1 potassium chloride 10 mEq capsule, extended release 10 meq PO BID RF: 0 Travatan Z 0.004 % drops 1 drp OPB HS RF: 0 amlodipine 5 mg Tablet 2.5 mg PO QAM RF: 0 furosemide 20 mg tablet 20 mg PO DAILY RF: 0 aspirin 81 mg Tablet,Delayed Release (Dr/Ec) 81 mg PO DAILY RF: 0 acetaminophen [Tylenol Arthritis Pain] 650 mg Tablet Extended Release 1,300 mg PO HS MDD 3g/24hr of apap RF: 0 acetaminophen [Tylenol Arthritis Pain] 650 mg Tablet Extended Release 1,300 mg PO Q8 MDD 3gm/24hr of apap PRN (Reason: Pain) RF: 0 rosuvastatin 5 mg tablet 5 mg PO DAILY RF: 0 metoprolol tartrate 25 mg tablet 37.5 mg PO BID RF: 0 [facility] Vit 1 tab PO BID RF: 0 Referrals Referrals: AUGUSTIN FITZGERALD RACHAEL [Primary Care Provider] - The scribe's documentation has been prepared under my direction and personally reviewed by me in its entirety. I confirm that the note above accurately reflects all work, treatment, procedures, and medical decision making performed by me.
[2019-04-24] MEDS: ACETAMINOPHEN 500 MG TAB PO PRN (02:14)
--- NOTE | 2019-04-24 02:15 | History & Physical Report ---
Date of Service April 24, 2019 Assessment & Plan (1) Pneumonia: 88-year-old female was admitted on 24 April 2019 for fever, cough, and pneumonia. Pneumonia: Noted fever, cough, and reported hypoxia over the past 24 hours. Resident of assisted living. - In ED, temp 37.7. Borderline tachycardic, hypertensive, with SpO2 91% on room air. WBC 14. Electrolytes okay. Hemoglobin 13.6. pCXR noted cardiomegaly with mild pulmonary vascular congestion and a dense airspace consolidation in the left lung base. Blood cultures sent. - In ED, treated with normal saline judicious boluses and Zosyn. - Will keep on Zosyn (renal-dosing for now). Check a nasal MRSA. Continue small amount of IVF. Diarrhea: Noted in past 24 hours. Denies abdominal pain. No bloody stool seen. Non-tender abdomen on admit. - ED sent for E. coli, Shiga, stool cultures, and C. difficile labs. - Monitor for now. Watch hydration status. Hypertensive urgency: History of same. Admit BP 207/97. Per medication reconciliation, normally is on amlodipine, furosemide 20 mg daily, metoprolol, and losartan. Daughter says that she likely did get her home medicines around dinnertime prior to transfer to ED. Outside of her current respiratory symptoms, patient is asymptomatic. - Will give a single dose of metoprolol 2.5 mg IV. Continue home medications later this morning. Elevated creatinine, history of CKD stage III: Admit Cr 1.41. Most recent comparisons around 1.0. May be prerenal from increased respiratory rate and diarrhea fluid losses. - Rehydrating via IVF. Recheck in a.m. Ongoing medical issues: - Hyperlipidemia, carotid stenosis: Continue home aspirin. - SIADH: Apparently resolved around 2010. Previously on demeclocycline. Admit sodium 137. - Grade 1 diastolic dysfunction: Echocardiogram from December 2017 noted EF 55-60% with mild MR and TR. - Macular degeneration: Continue home eye drops. Code status: Full code. Diet: Heart healthy. DVT prophy: Heparin q12h. PT/OT: Ordered. Disbo: Admit to [facility]. Case management consulted. Presently lives at [facility] in [place]. (2) Diarrhea: (3) Hypertensive urgency: (4) Elevated serum creatinine: (5) Hyperlipidemia: (6) Carotid stenosis: (7) Diastolic dysfunction: (8) Macular degeneration: History of Present Illness Primary Care Provider: [facility] 80-year-old female presents with her daughter this evening for evaluation of an acute fever, cough, and loose stools. Of note, the following history is a mix between the patient and her daughter. The patient herself is oriented to self and to the fact that she being evaluated for her cough, though she is unaware of her location (including that she is in the hospital) or the date. Patient's daughter says that she was notified by the patient's assisted living facility around 9 PM this evening that the patient had a cough and a fever. She was also noted to have loose, non-bloody stools throughout the day. No known prodromal symptoms or illness prior to this. Some of the ED notes mentioned recent vomiting but the patient and daughter deny this. The patient herself says that she has a nagging cough that seemed to start recently. She says it hurts a bit in her left chest when she coughs. She denies any pain throughout her chest or elsewhere. On attempted review of systems, she says she feels a little out of breath. She denies any abdominal pain, extremity pains, or other acute concerns. When asked if she had diarrhea, patient did not seem to recall any open (though her daughter did confirm this). - Past medical history includes hypertension, hyperlipidemia, carotid stenosis, hyponatremia, shingles, CKD stage III and SIADH (which apparently resolved around 2010), macular degeneration, peripheral vascular disease. - Past surgical history includes carotid endarterectomy. - Social history includes smoking as a teenager. Presently lives at [facility] in [place]. Allergies Allergy/AdvReac Type Severity Reaction Status Date / Time erythromycin base Allergy Unknown RASH Verified 04/23/19 23:26 latex Allergy Unknown RASH Verified 09/05/18 12:32 potassium Allergy Unknown UNKNOWN Verified 09/05/18 12:32 CONTRAST DYE Allergy Unknown UNKNOWN Uncoded 04/23/19 23:26 Home Medications Home Medications Medication Instructions Recorded Confirmed Type amlodipine 2.5 mg PO QAM 09/05/18 04/23/19 History furosemide 20 mg PO DAILY 09/05/18 04/23/19 History potassium chloride 10 meq PO BID 09/05/18 04/23/19 History travoprost [Travatan Z] 1 drp OPB HS 09/05/18 04/23/19 History losartan 50 mg tablet 50 mg PO BID #180 tab 03/29/19 04/23/19 Rx [facility] Vit 1 tab PO BID 04/23/19 04/23/19 History acetaminophen [Tylenol Arthritis 1,300 mg PO HS MDD 3g/24hr of apap 04/23/19 04/23/19 History Pain] acetaminophen [Tylenol Arthritis 1,300 mg PO Q8 PRN MDD 3gm/24hr of 04/23/19 04/23/19 History Pain] apap aspirin 81 mg PO DAILY 04/23/19 04/23/19 History metoprolol tartrate 37.5 mg PO BID 04/23/19 04/23/19 History rosuvastatin 5 mg PO DAILY 04/23/19 04/23/19 History Past Med/Surg History Surgical History H/O carotid endarterectomy (Resolved) Family History Other Family history non-contributory Social History Communication Ability: Effective Manager [employer] Required: No Beliefs That Will Affect Care: None Current Living Situation: Personal Care Facility Other Information That Helps Us Care for You: No Feels Safe at Home: Yes Safety Concerns: Feels Safe At This Time Smoking Status: Never smoker Do You Dip or Chew Tobacco: No Second Hand Exposure: No Tobacco Cessation Education Requested by Patient: No Hx Alcohol Use: Yes Alcohol type: wine Hx Substance Use: No Review of Systems Review of Systems: ROS is limited due to the patient's likely baseline confusion. Limited ROS per HPI. Physical Exam Physical Exam: GENERAL: Awake, alert to self, cachectic at baseline with an ongoing dry cough. However, patient is pleasantly conversational and does not appear in acute distress. HENT: Normocephalic, atraumatic. Oropharynx unremarkable. EYES: Normal conjunctiva. Sclera non-icteric. NECK: Inspection normal. Non-tender. Supple and full ROM. No nuchal rigidity. CARDIAC: +S1S2 regular tachycardia, no murmurs. RESPIRATORY: Question of decreased breath sounds in the left base. No wheezes or rales. Mild tachypnea. Has nasal cannula oxygen in place. GI: +BS, soft, non-distended. No tenderness to palpation. No rebound or guarding. Thin habitus. EXTREMITIES: No pedal edema or calf tenderness. Moving all extremities naturally and easily. NEURO: No gross neuro deficits. Results & Data Vital Signs (Past 12 Hours) Vital Signs Temp Pulse Pulse Resp BP BP Pulse Ox 04/24/19 01:30 95 04/24/19 01:16 96 04/24/19 01:15 89 L 04/24/19 00:20 100 H 18 207/99 H 91 04/23/19 23:17 91 04/23/19 22:06 37.7 C H 102 H 18 209/152 H 91 Laboratory Results 04/23/19 04/23/19 04/23/19 Range/Units 23:20 23:20 23:20 WBC 14.14 H (4.8-10.8) K/uL RBC 4.14 L (4.2-5.4) M/uL Hgb 13.6 (12.0-16.0) g/dL Hct 40.4 (37-47) % MCV 97.6 (80-100) fL MCH 32.9 (25-34) pg MCHC 33.7 (32-36) g/dL RDW Std Deviation 50.3 H (36.4-46.3) fL RDW Coeff of Chioma 14.0 (11.5-14.5) % Plt Count 265 (130-400) K/uL MPV 11.0 H (7.4-10.4) fL Immature Gran % (Auto) 0.4 % Neut % (Auto) 85.0 % Lymph % (Auto) 8.1 % Haines % (Auto) 6.2 % Eos % (Auto) 0.2 % Baso % (Auto) 0.1 % Immature Gran # (Auto) 0.05 H (0.00-0.02) K/uL Neut # (Auto) 12.04 H (1.4-6.5) K/uL Lymph # (Auto) 1.14 L (1.2-3.4) K/uL Haines # (Auto) 0.87 H (0.11-0.59) K/uL Eos # (Auto) 0.03 (0-0.5) K/uL Baso # (Auto) 0.01 (0-0.2) K/uL Sodium (136-145) mmol/L Potassium (3.5-5.1) mmol/L Chloride (98-107) mmol/L Carbon Dioxide (21-32) mmol/L Anion Gap (3-11) BUN (7-18) mg/dl Creatinine (0.6-1.2) mg/dl Est Cr Clr Drug Dosing ml/min Est GFR ( Amer) Est GFR (Non-Af Amer) BUN/Creatinine Ratio (10-20) Glucose (70-99) mg/dl Calcium (8.5-10.1) mg/dl Total Bilirubin (0.2-1) mg/dl AST (15-37) U/L ALT (12-78) U/L Alkaline Phosphatase (45-117) U/L Total Protein (6.4-8.2) gm/dl Albumin (3.4-5.0) gm/dl Globulin (2.5-4.0) gm/dl Albumin/Globulin Ratio (0.9-2) Lipase Cancelled (73-393) U/L Stl C. diff Tox B Gene Negative Cdiff Gene (Neg) 04/23/19 Range/Units 23:20 WBC (4.8-10.8) K/uL RBC (4.2-5.4) M/uL Hgb (12.0-16.0) g/dL Hct (37-47) % MCV (80-100) fL MCH (25-34) pg MCHC (32-36) g/dL RDW Std Deviation (36.4-46.3) fL RDW Coeff of Chioma (11.5-14.5) % Plt Count (130-400) K/uL MPV (7.4-10.4) fL Immature Gran % (Auto) % Neut % (Auto) % Lymph % (Auto) % Haines % (Auto) % Eos % (Auto) % Baso % (Auto) % Immature Gran # (Auto) (0.00-0.02) K/uL Neut # (Auto) (1.4-6.5) K/uL Lymph # (Auto) (1.2-3.4) K/uL Haines # (Auto) (0.11-0.59) K/uL Eos # (Auto) (0-0.5) K/uL Baso # (Auto) (0-0.2) K/uL Sodium 137 (136-145) mmol/L Potassium 4.1 (3.5-5.1) mmol/L Chloride 102 (98-107) mmol/L Carbon Dioxide 24 (21-32) mmol/L Anion Gap 10.0 (3-11) BUN 36 H (7-18) mg/dl Creatinine 1.41 H (0.6-1.2) mg/dl Est Cr Clr Drug Dosing 19.8 ml/min Est GFR ( Amer) 38.5 Est GFR (Non-Af Amer) 33.2 BUN/Creatinine Ratio 25.3 H (10-20) Glucose 135 H (70-99) mg/dl Calcium 9.2 (8.5-10.1) mg/dl Total Bilirubin 0.5 (0.2-1) mg/dl AST 22 (15-37) U/L ALT 16 (12-78) U/L Alkaline Phosphatase 89 (45-117) U/L Total Protein 7.8 (6.4-8.2) gm/dl Albumin 3.4 (3.4-5.0) gm/dl Globulin 4.4 H (2.5-4.0) gm/dl Albumin/Globulin Ratio 0.8 L (0.9-2) Lipase 255 (73-393) U/L Stl C. diff Tox B Gene (Neg) Medications Administered Discontinued Medications Sodium Chloride (Nss) 500 mls @ 999 mls/hr IV .Q31M EVELYN Stop: 04/24/19 00:00 Last Infusion: 04/24/19 01:16 Dose: 0 mls/hr Documented by: [id number] Admin: 04/23/19 23:44 Dose: 999 mls/hr Documented by: [id number] Sodium Chloride (Nss) 250 mls @ 999 mls/hr IV .Q16M ONE Stop: 04/24/19 00:57 Last Infusion: 04/24/19 01:16 Dose: 0 mls/hr Documented by: [id number] Admin: 04/24/19 00:53 Dose: 999 mls/hr Documented by: [id number] Ondansetron HCl (Zofran) 4 mg IV NOW STA Stop: 04/23/19 23:18 Last Admin: 04/23/19 23:44 Dose: 4 mg Documented by: [id number] Code Status & VTE Plan Code Status Full code VTE Prophylaxis Plan VTE Prophylaxis will be ordered: Yes Supervising Physician Co-Signing Physician Notes Attending addendum: I have physically seen this patient, have supervised the medical residents activities, and agree with the H&P unless as otherwise noted. Assessment and Plan: Pneumonia involving left lower lobe/hypoxia- Continue Zosyn begun in ED. Duonebs every 4 hours while awake and every 2 hours when necessary. Guaifenesin extended release 6 mg p.o. twice daily. Sputum Gram stain and culture. Nasal cannula oxygen titrated to keep pulse ox 92 to 94%. Diarrhea- Follow stool culture and sensitivity reports. Follow stool for C. difficile. Gentle rehydration with IV fluids. Remainder of orders and notations as noted. PG Care Time/CCT Total # of Minutes Spent Total Time Spent with Patient: Total time spent is greater than 50% in coordination of care (as documented) at patient's floor/unit and/or counseling patient: Resident Activity Tracking Resident Involvement: Resident Care Provided Care Provided: Adult Hospital Medicine (1) Pneumonia Laterality: left Lung location: lower lobe of lung Pneumonia type: due to unspecified organism Qualified Code(s): J18.1 - Lobar pneumonia, unspecified organism
[2019-04-24] MEDS ORDERED: METOPROLOL TARTRATE 1 MG/ML VIAL IV ONE ×2 (03:46→06:21)
[2019-04-24] MEDS ORDERED: ONDANSETRON INJ 2 MG/ML 2 ML VIAL IV PRN (03:46)
[2019-04-24] MEDS: LACTATED RINGER'S 1,000 ML IV SCH (06:00)
[2019-04-24 07:01] LABS: Prothrombin Time 10.2 Seconds (9.0-12.0)
[2019-04-24 07:19] LABS: BUN Creatinine Ratio 26.1 (10-20); Calcium 8.3 mg/dl (8.5-10.1); Creatinine Clr Calc Pharmacy 22.9 ml/min; Est GFR (African American) 45.8; Est GFR (Non-African American) 39.5; Potassium 3.8 mmol/L (3.5-5.1)
--- NOTE | 2019-04-24 07:55 | Hospitalist Progress Note ---
Date of Service April 24, 2019 Assessment & Plan (1) Pneumonia: 88-year-old female was admitted on 24 April 2019 for fever, cough, and pneumonia. Pneumonia: Acute hypoxic respiratory failure. Noted fever, cough, and reported hypoxia over the past 24 hours. Resident of assisted living. CXR with abnormality in left lung base. Blood cultures sent, treat with Zosyn. Given her very thin status concern for malignancy should be considered if she does not improve Check a nasal MRSA. Diarrhea: Noted in past 24 hours. Denies abdominal pain. No bloody stool seen. Non-tender abdomen on admit. - ED sent for E. coli, Shiga, stool cultures, and C. difficile labs. Hypertensive urgency: amlodipine, furosemide 20 mg daily, metoprolol, and losartan. Additional metoprolol given Elevated creatinine, Acute Kidney injury with history of CKD stage III: Admit Cr 1.41. - Hyperlipidemia, carotid stenosis: Continue home aspirin. - SIADH: Apparently resolved around 2010. Previously on demeclocycline. Admit sodium 137. - chronic diastolic heart failure: Echocardiogram from December 2017 noted EF 55- 60% with mild MR and TR. - Macular degeneration: Continue home eye drops. Code status: Full code. DVT prophy: Heparin q12h. PT/OT: Ordered. Lives at [facility] in [place]. (2) Diarrhea: (3) Hypertensive urgency: (4) Elevated serum creatinine: (5) Hyperlipidemia: (6) Carotid stenosis: (7) Diastolic dysfunction: (8) Macular degeneration: Subjective Patient is slightly demented she does remember having a cough otherwise she says she feels fine is very petite and thin to begin with clear about weight loss Review of Systems Review of Systems: ROS: Patient is very thin No double vision blurry vision No problems with speech or swallowing No palpitations, chest pain or pressure Point of coughing but no shortness of breath No abdominal pain nausea vomiting diarrhea changes in appetite or weight No burning urine urine frequency or changes in color No focal joint pain or muscle pain No skin rashes or oral lesions No unusual bruising or bleeding No focused back pain or numbness or loss of strength He was having some memory issues Physical Exam Physical Exam: The patient appeared thin but not malnourished Vital signs as documented. Head exam is unremarkable. normocephalic, atraumatic Neck is without jugular venous distension, thyromegaly, or lymphademopathy Lungs are coarse in the left side no focal air loss no egophony Cardiac exam reveals Rhythm is regular. No murmurs heard Abdominal exam reveals normal bowel sounds, no masses, no organomegaly Extremities are nonedematous and both pedal pulses are present Neurologic exam is A&Ox3, no focal deficits, strength is equal bilateral Psychologically seems neither anxious or depressed Skin is warm Dry without bruises or lesions Results & Data Vital Signs (Past 12 Hours) Vital Signs Temp Pulse Pulse Resp BP BP Pulse Ox 04/24/19 06:22 91 H 154/79 H 04/24/19 06:18 91 H 154/79 H 04/24/19 05:41 37 C 71 88 16 133/71 92 04/24/19 03:00 220/115 H 04/24/19 02:54 92 H 18 95 04/24/19 01:30 95 04/24/19 01:16 96 04/24/19 01:15 89 L 04/24/19 00:20 100 H 18 207/99 H 91 04/23/19 23:17 91 04/23/19 22:06 37.7 C H 102 H 18 209/152 H 91 PG Care Time/CCT Total # of Minutes Spent Total Time Spent with Patient: Total time spent is greater than 50% in coordination of care (as documented) at patient's floor/unit and/or counseling patient: (1) Pneumonia Laterality: left Lung location: lower lobe of lung Pneumonia type: due to unspecified organism Qualified Code(s): J18.1 - Lobar pneumonia, unspecified organism
[2019-04-24] MEDS ORDERED: PIPERACILLIN/TAZOBACTAM 3.375 GM in DEXTROSE 5% 100 ML IV SCH ×2 (08:00→10:00)
[2019-04-24] MEDS: POTASSIUM CHLORIDE 10 MEQ TABCR PO SCH ×2 (08:46→21:50)
[2019-04-24] MEDS: ROSUVASTATIN CALCIUM 5 MG TAB PO SCH (08:46)
[2019-04-24] MEDS: CEROVITE ADV FORMULA TAB PO SCH ×2 (08:47→21:49)
[2019-04-24] MEDS: METOPROLOL TARTRATE 25 MG TAB PO SCH ×2 (08:47→21:48)
[2019-04-24] MEDS: LOSARTAN POTASSIUM 50 MG TAB PO SCH ×2 (08:47→21:59)
[2019-04-24] MEDS: ASPIRIN 81 MG ECTAB PO SCH (08:48)
[2019-04-24] MEDS: FUROSEMIDE 20 MG TAB PO SCH (08:48)
[2019-04-24] MEDS: AMLODIPINE BESYLATE 5 MG TAB PO SCH (08:48)
[2019-04-24] MEDS: HEPARIN SOD 5,000 UNIT/0.5 ML VIAL SQ SCH ×2 (14:13→21:49)
[2019-04-24] MEDS: PIPERACILLIN/TAZOBACTAM 3.375 GM in DEXTROSE 5% 100 ML IV SCH (18:27)
[2019-04-24] MEDS: TRAVOPROST Z 0.004% OPH SOLN 2.5 ML BTL OPB SCH (21:47)
[2019-04-25] MEDS: PIPERACILLIN/TAZOBACTAM 3.375 GM in DEXTROSE 5% 100 ML IV SCH ×3 (01:35→17:03)
[2019-04-25] MEDS: LACTATED RINGER'S 1,000 ML IV SCH ×2 (01:35→20:21)
[2019-04-25 07:22] LABS: Creatinine Clr Calc Pharmacy 26.6 ml/min; Est GFR (African American) 54.9; Est GFR (Non-African American) 47.4
[2019-04-25] MEDS: FUROSEMIDE 20 MG TAB PO SCH (08:07)
[2019-04-25] MEDS: ASPIRIN 81 MG ECTAB PO SCH (08:07)
[2019-04-25] MEDS: AMLODIPINE BESYLATE 5 MG TAB PO SCH (08:08)
[2019-04-25] MEDS: LOSARTAN POTASSIUM 50 MG TAB PO SCH ×2 (08:08→21:06)
[2019-04-25] MEDS: CEROVITE ADV FORMULA TAB PO SCH ×2 (08:08→21:05)
[2019-04-25] MEDS: POTASSIUM CHLORIDE 10 MEQ TABCR PO SCH ×2 (08:08→21:06)
[2019-04-25] MEDS: HEPARIN SOD 5,000 UNIT/0.5 ML VIAL SQ SCH ×2 (08:09→21:12)
[2019-04-25] MEDS: ROSUVASTATIN CALCIUM 5 MG TAB PO SCH (08:09)
[2019-04-25] MEDS: METOPROLOL TARTRATE 50 MG TAB PO SCH ×2 (08:41→21:06)
[2019-04-25] MEDS ORDERED: HydrALAZINE HCL 20 MG/ML VIAL IV PRN (12:33)
--- NOTE | 2019-04-25 13:54 | CT Scan Report ---
CT SCAN OF THE CHEST WITHOUT IV CONTRAST CLINICAL HISTORY: Cough. COMPARISON STUDY: Chest x-ray dated 04/24/2019. Chest CT dated 09/30/2011. TECHNIQUE: CT scan of the thorax was performed from the thoracic inlet to the upper abdomen. Images are reviewed in the axial, sagittal, and coronal planes. IV contrast was not administered for this ex amination as per the referring clinician. A dose lowering technique was utilized [facility] The examination is degraded by motion artifact. CT DOSE: 224.02 mGy.cm FINDINGS: Thyroid: Imaged portions of the thyroid gland are normal in size and attenuation. Thoracic aorta: There is atherosclerotic calcification of the thoracic aorta, which is normal in darlene carter and demonstrates standard 3-vessel arch anatomy. Heart: The heart is markedly enlarged and without pericardial effusion. The coronary arteries are den sely calcified. The pulmonary trunk is dilated, measuring 3.3 cm diameter. This suggests pulmonary ar sheng hypertension. Lungs and pleural spaces: Evaluation of the lung parenchyma is degraded by motion artifact. There are small to moderate left and trace right pleural effusions with bibasilar consolidation. Patchy opacit ies are scattered throughout the right upper lobe. The trachea and central airways are clear. Mediastinum: There are numerous mildly enlarged mediastinal lymph nodes which measure up to [address] axis. Stefanie: Not well assessed without IV contrast. Axillae: There is no axillary lymphadenopathy. Upper abdomen: A large calcification at the esophageal hiatus is unchanged from 2012 and of doubtful significance. Partially visualized upper abdominal viscera is within normal limits. Skeletal structures: The skeletal structures are osteopenic. Advanced degenerative change and kyphosc oliosis are noted in the thoracic spine. Advanced arthritic change is seen in the shoulders. No lytic or blastic bony lesions are seen. IMPRESSION: 1. There are small to moderate left and trace right pleural effusions with bibasilar airspace consoli dation. Additional patchy opacities are seen in the right upper lobe. The appearance is typical for p neumonia/aspiration pneumonitis and clinical correlation will be required. Radiographic follow-up to resolution is recommended. 2. Cardiomegaly. 3. There are numerous mildly enlarged mediastinal lymph nodes, likely on a reactive basis. Clinical c orrelation will be required. Electronically signed by: Kenneth Arreaga M.D. 04/25/2019 1:52 PM
--- NOTE | 2019-04-25 14:05 | Hospitalist Progress Note ---
Date of Service April 25, 2019 Assessment & Plan (1) Pneumonia: 88-year-old female was admitted on 24 April 2019 for fever, cough, and pneumonia. Pneumonia: Acute hypoxic respiratory failure. persistent hypoxia Resident of assisted living. CXR with abnormality in left lung base. Blood cultures sent, treat with Zosyn. Ct chest without suspicion for malignancy or copd Diarrhea:resolved Non-tender abdomen on admit. - ED sent for E. coli, Shiga, stool cultures, and C. difficile labs. Hypertensive urgency: amlodipine, furosemide 20 mg and losartan. Additional metoprolol given and dose increased 04/25 Elevated creatinine, Acute Kidney injury with history of CKD stage III: Admit Cr 1.41. resolving - Hyperlipidemia, carotid stenosis: Continue home aspirin. - SIADH: Apparently resolved around 2010. Previously on demeclocycline. - chronic diastolic heart failure: Echocardiogram from December 2017 noted EF 55- 60% with mild MR and TR. - Macular degeneration: Continue home eye drops. Code status: Full code. DVT prophy: Heparin q12h. PT/OT: Ordered. Lives at [facility] in [place]. (2) Diarrhea: (3) Hypertensive urgency: (4) Elevated serum creatinine: (5) Hyperlipidemia: (6) Carotid stenosis: (7) Diastolic dysfunction: (8) Macular degeneration: Subjective Patient was in the presence of her [id number]. She is feeling somewhat better. She is however found to be persistently hypoxic. She denies having any significant smoking exposure in her life on room air the patient was 87-88% while I was testing her at the bedside. We discussed the fact that she may need oxygen when she goes home. Patient's understanding of this Review of Systems Review of Systems: ROS: well nourished well developed. No double vision blurry vision No problems with speech or swallowing No palpitations, chest pain or pressure No Wheezing persistent nonproductive cough No abdominal pain nausea vomiting diarrhea changes in appetite or weight No burning urine urine frequency or changes in color No focal joint pain or muscle pain No skin rashes or oral lesions No unusual bruising or bleeding No focused back pain or numbness or loss of strength No changes in memory or confusion Physical Exam Physical Exam: The patient appeared thin and in mild distress Vital signs as documented. Head exam is unremarkable. normocephalic, atraumatic Neck is without jugular venous distension, thyromegaly, or lymphademopathy Lungs are some coarse breath sounds at the right base otherwise clear no wheezes Cardiac exam reveals Rhythm is regular. No murmurs are heard Abdominal exam reveals normal bowel sounds, no masses, no organomegaly Extremities are nonedematous and both pedal pulses are present Neurologic exam is A&Ox3, no focal deficits, strength is equal bilateral Psychologically seems neither anxious or depressed Skin is warm Dry without bruises or lesions Results & Data Vital Signs (Past 12 Hours) Vital Signs Temp Pulse Pulse Resp BP Pulse Ox Pulse Ox 04/25/19 13:17 160/82 H 04/25/19 13:09 178/82 H 04/25/19 12:48 87 L 04/25/19 11:26 37.6 C H 74 18 199/96 H 93 04/25/19 07:23 37.2 C 83 16 206/89 H 92 04/25/19 07:11 75 04/25/19 03:00 36.8 C 72 18 165/83 H 92 Pulse Ox Pulse Ox 04/25/19 13:17 04/25/19 13:09 04/25/19 12:48 91 82 L 04/25/19 11:26 04/25/19 07:23 04/25/19 07:11 04/25/19 03:00 PG Care Time/CCT Total # of Minutes Spent Total Time Spent with Patient: Total time spent is greater than 50% in coordination of care (as documented) at patient's floor/unit and/or counseling patient: (1) Pneumonia Laterality: left Lung location: lower lobe of lung Pneumonia type: due to unspecified organism Qualified Code(s): J18.1 - Lobar pneumonia, unspecified organism
[2019-04-25] MEDS: TRAVOPROST Z 0.004% OPH SOLN 2.5 ML BTL OPB SCH (21:11)
[2019-04-26] MEDS: PIPERACILLIN/TAZOBACTAM 3.375 GM in DEXTROSE 5% 100 ML IV SCH ×3 (02:05→16:50)
[2019-04-26] MEDS: ACETAMINOPHEN 500 MG TAB PO PRN ×3 (03:25→22:08)
[2019-04-26] MEDS: cloNIDine HCl 0.1 MG TAB PO PRN (05:23)
[2019-04-26] MEDS ORDERED: FUROSEMIDE 20 MG in SYRINGE 0 ML IV ONE (07:26)
[2019-04-26 07:42] LABS: Creatinine Clr Calc Pharmacy 32.5 ml/min; Est GFR (African American) 69.9; Est GFR (Non-African American) 60.3
[2019-04-26] MEDS: ROSUVASTATIN CALCIUM 5 MG TAB PO SCH (08:21)
[2019-04-26] MEDS: AMLODIPINE BESYLATE 5 MG TAB PO SCH (08:21)
[2019-04-26] MEDS: FUROSEMIDE 20 MG TAB PO SCH (08:21)
[2019-04-26] MEDS: CEROVITE ADV FORMULA TAB PO SCH ×2 (08:22→22:09)
[2019-04-26] MEDS: ASPIRIN 81 MG ECTAB PO SCH (08:22)
[2019-04-26] MEDS: POTASSIUM CHLORIDE 10 MEQ TABCR PO SCH ×2 (08:22→22:09)
[2019-04-26] MEDS: LOSARTAN POTASSIUM 50 MG TAB PO SCH ×2 (08:25→22:10)
[2019-04-26] MEDS: METOPROLOL TARTRATE 50 MG TAB PO SCH ×2 (08:25→22:10)
[2019-04-26] MEDS: HEPARIN SOD 5,000 UNIT/0.5 ML VIAL SQ SCH ×2 (08:26→22:09)
--- NOTE | 2019-04-26 09:57 | Ultrasound Report ---
US duplex renal artery CLINICAL HISTORY: accelerated htn COMPARISON STUDY: None. FINDINGS: A right kidney was not identified. There is a 3 cm cyst within the upper pole the left kidn ey. No left-sided hydronephrosis. The left kidney measures 10.3 cm in length. Normal resistive indice s within the left arcuate arteries measuring less than 0.72. Elevated peak systolic velocity within t he proximal left renal artery measuring 231 cm/s. IMPRESSION: 1. 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 2. The right kidney was not identified. Electronically signed by: Epifanio Young M.D. 04/26/2019 9:56 AM
--- NOTE | 2019-04-26 15:02 | Hospitalist Progress Note ---
Date of Service April 26, 2019 Assessment & Plan (1) Pneumonia: 88-year-old female was admitted on 24 April 2019 for fever, cough, and pneumonia. Pneumonia: Acute hypoxic respiratory failure. persistent hypoxia patient I believe likely actually qualify for persistent oxygen use at home Resident of assisted living. CXR with abnormality in left lung base. Blood cultures sent, treat with Zosyn. Ct chest without suspicion for malignancy or copd Sundowning behavior encephalopathy this might be from hypertensive urgency as her blood pressure was significant elevated and not sure whether this is because her effect and/or some hypoxic encephalopathy as the patient frequently takes her oxygen off her nose. At this time she is returned to her baseline her blood pressures been controlled it was significantly elevated in the morning Hypertensive urgency escalation of her blood pressure control with oral medications renal artery ultrasound suggests severe stenosis and interventional cardiology will determine whether she may be amenable to procedure to help a better control of her blood pressure and avoid encephalopathy in the future. Continues with escalated doses of amlodipine, usual home doses of furosemide 20 mg and losartan. Additional metoprolol given and dose increased 04/25 with heart rate control suggesting additional beta-blockers may provide more bradycardia Diarrhea:resolved Non-tender abdomen on admit. - ED sent for E. coli, Shiga, stool cultures, and C. difficile labs. Elevated creatinine, Acute Kidney injury with history of CKD stage III: Admit Cr 1.41. resolving - Hyperlipidemia, carotid stenosis: Continue home aspirin. - SIADH: Apparently resolved around 2010. Previously on demeclocycline. - chronic diastolic heart failure: Echocardiogram from December 2017 noted EF 55- 60% with mild MR and TR. - Macular degeneration: Continue home eye drops. Code status: Full code. DVT prophy: Heparin q12h. PT/OT: Ordered. Lives at [facility] in [place]. (2) Diarrhea: (3) Hypertensive urgency: (4) Elevated serum creatinine: (5) Hyperlipidemia: (6) Carotid stenosis: (7) Diastolic dysfunction: (8) Macular degeneration: Subjective pt had a troubling night, significantly elevated blood pressure this am, still with oxygen requirements did have a discussion with daughter at the bedside Review of Systems Review of Systems: ROS: She is extremely petite and thin No double vision blurry vision No problems with speech or swallowing No palpitations, chest pain or pressure No Wheezing or breathing issues No abdominal pain nausea vomiting diarrhea changes in appetite or weight No burning urine urine frequency or changes in color No focal joint pain or muscle pain No skin rashes or oral lesions No unusual bruising or bleeding No focused back pain or numbness or loss of strength Significant agitation overnight sleep disturbance Physical Exam 2 Physical Exam: The patient appeared thin and possibly chronically ill Vital signs as documented. Head exam is unremarkable. normocephalic, atraumatic Neck is without jugular venous distension, thyromegaly, or lymphademopathy Lungs are clear to auscultation and percussion. Cardiac exam reveals Rhythm is regular. First and second heart sounds normal. Abdominal exam reveals normal bowel sounds, bruits are heard Extremities are nonedematous and both pedal pulses are present Neurologic exam is A&Ox3, at times she has descriptions of hallucinations overnight this may be from lack of oxygen and she takes her oxygen off frequently Psychologically seems anxious Skin is warm Dry Results & Data Vital Signs (Past 12 Hours) Vital Signs Temp Pulse Pulse Resp BP BP Pulse Ox 04/26/19 07:46 36.5 C 71 16 142/86 H 93 04/26/19 07:23 58 L 04/26/19 05:04 36.9 C 80 20 243/101 H 91 PG Care Time/CCT Total # of Minutes Spent Total Time Spent with Patient: Total time spent is greater than 50% in coordination of care (as documented) at patient's floor/unit and/or counseling patient: (1) Pneumonia Laterality: left Lung location: lower lobe of lung Pneumonia type: due to unspecified organism Qualified Code(s): J18.1 - Lobar pneumonia, unspecified organism
[2019-04-26] MEDS: LACTATED RINGER'S 1,000 ML IV SCH (15:04)
[2019-04-26] MEDS: TRAVOPROST Z 0.004% OPH SOLN 2.5 ML BTL OPB SCH (22:08)
[2019-04-26] MEDS: QUETIAPINE FUMARATE 25 MG TABLET PO SCH (22:08)
--- NOTE | 2019-04-26 22:20 | Cardiology Consultation ---
Date of Consultation April 26, 2019 Assessment & Plan (1) Hypertensive urgency: 2. Renal artery stenosis 3. Stage III CKD with resolved SILVERIO 4. Pneumonia 5. Question solitary kidney 6. Question contrast dye allergy Patient seen today in the setting of newly diagnosed left renal artery stenosis and long-standing difficult to control hypertension despite 3 agents and a diuretic. This morning patient had apparent altered mental status in setting of systolic pressures in the 240s. Unclear how much renal artery stenosis contributing to her hypertension. She has only mild stable renal insufficiency and left renal artery normal in size. however, no right renal artery visualized today on ultrasound or on prior CT chest studies. Although velocities in left renal artery not critically elevated in the setting of a solitary kidney degree of stenosis could be significant in regards to refractory hypertension and stenting potentially worth pursuing. Long discussion today with patient and her [id number] regarding renal artery stenting including potential benefits, alternatives and risks which are elevated in the setting of patient's age, frailty. They plan to discuss further with patient's daughter and will re-discuss procedure with patient and family tomorrow. If decision to proceed with renal artery angiography and possible stenting would plan the perform procedure on Friday via left radial artery. Prior to procedure would pretreat for possible dye allergy and give additional IV fluids prior to procedure. Thank you for allowing us to participate in the care of this patient. Please contact with any questions. History of Present Illness Attending Physician: Yang Hunter MD History of Present Illness Mrs. Vieira is a very pleasant 88-year-old woman with history of carotid artery disease post right carotid enterectomy, long-standing hypertension stage III chronic kidney disease, SIADH who fever, cough, hypoxia and diarrhea. Being treated for left lower lobe pneumonia. Hospital course complicated by intermittent refractory hypertension with peak systolics in the 240s. Interventional cardiology consulted for newly noted renal artery stenosis. Patient has been followed for years by Dr. Zheng primarily for hyponatremia. Stage III chronic kidney disease is been stable with baseline serum creatinine around 1.0. Mild SILVERIO on admission with creatinine up to 1.4 now back down to baseline. Blood pressure has been difficult to control previously with multiple outpatient visits with initial blood pressures with systolics in the 180s to 200s. Has been maintained on metoprolol, losartan, amlodipine and furosemide. Peak BP this morning in the setting of confusion. Metoprolol increased to 50 mg twice daily, amlodipine increased to 10 mg daily and given as needed clonidine this morning. Renal arterial duplex reviewedno right kidney visualized. Left kidney normal size with cyst. Peak systolic velocity of 231 and proximal left renal artery suggesting > 60% stenosis. Social history: Non-smoker. Currently lives at [facility].. Able to walk short distance with a walker. Allergies: Unsure about allergy to contrast dye Allergies Allergy/AdvReac Type Severity Reaction Status Date / Time erythromycin base Allergy Unknown RASH Verified 04/23/19 23:26 latex Allergy Unknown RASH Verified 09/05/18 12:32 potassium Allergy Unknown UNKNOWN Verified 09/05/18 12:32 CONTRAST DYE Allergy Unknown UNKNOWN Uncoded 04/23/19 23:26 Home Medications Home Medications Medication Instructions Recorded Confirmed Type amlodipine 2.5 mg PO QAM 09/05/18 04/23/19 History furosemide 20 mg PO DAILY 09/05/18 04/23/19 History potassium chloride 10 meq PO BID 09/05/18 04/23/19 History travoprost [Travatan Z] 1 drp OPB HS 09/05/18 04/23/19 History losartan 50 mg tablet 50 mg PO BID #180 tab 03/29/19 04/23/19 Rx [facility] Vit 1 tab PO BID 04/23/19 04/23/19 History acetaminophen [Tylenol Arthritis 1,300 mg PO HS MDD 3g/24hr of apap 04/23/19 04/23/19 History Pain] acetaminophen [Tylenol Arthritis 1,300 mg PO Q8 PRN MDD 3gm/24hr of 04/23/19 04/23/19 History Pain] apap aspirin 81 mg PO DAILY 04/23/19 04/23/19 History metoprolol tartrate 37.5 mg PO BID 04/23/19 04/23/19 History rosuvastatin 5 mg PO DAILY 04/23/19 04/23/19 History Patient History Surgical History H/O carotid endarterectomy (Resolved) Family History Other Family history non-contributory Social History Communication Ability: Effective 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: No Beliefs That Will Affect Care: None Current Living Situation: Personal Care Facility Other Information That Helps Us Care for You: No Feels Safe at Home: Yes Safety Concerns: Feels Safe At This Time Smoking Status: Never smoker Do You Dip or Chew Tobacco: No Second Hand Exposure: No Tobacco Cessation Education Requested by Patient: No Hx Alcohol Use: Yes Alcohol type: wine Hx Substance Use: No Review of Systems Review of Systems: All systems reviewed & are unremarkable except as noted in HPI & below Physical Exam Physical Exam: General: Comfortable, no acute distress, elderly, frail Eyes: Sclerae anicteric, extraocular movements intact HENT: Oropharynx clear mucous membranes moist Neck: Right CEA scar well-healed. No appreciable bruit on the left Lungs: Decreased breath sounds with crackles on the left Cardiac: Regular rate, 2-6 holosystolic murmur heard best at the left lower sternal border Vascular: 2+ radial bilaterally Abdomen: Soft, nontender, nondistended, positive bowel sounds. No bruit Extremities: Well perfused, no peripheral edema Skin: No rashes or lesions. Neuro: Nonfocal Psych: Alert oriented Results & Data Vital Signs (Past 12 Hours) Vital Signs Temp Pulse Pulse Resp BP Pulse Ox 04/26/19 20:06 37.1 C 70 20 97 04/26/19 16:19 82 04/26/19 15:12 36.3 C L 79 16 149/88 H 96
[2019-04-27] MEDS: PIPERACILLIN/TAZOBACTAM 3.375 GM in DEXTROSE 5% 100 ML IV SCH ×3 (01:40→18:04)
[2019-04-27 05:35] LABS: Hematocrit (blood only) 32.4 % (37-47); Hemoglobin 11.1 g/dL (12.0-16.0); Mean Corpuscular Hgb Conc 34.3 g/dL (32-36); Mean Corpuscular Volume 95.3 fL (80-100); Mean Platelet Volume 10.1 fL (7.4-10.4); Platelet Count 201 K/uL (130-400); RDW Coefficient of Variation 13.3 % (11.5-14.5); RDW Standard Deviation 46.3 fL (36.4-46.3)
[2019-04-27] MEDS: cloNIDine HCl 0.1 MG TAB PO PRN (07:37)
--- NOTE | 2019-04-27 08:20 | Cardiology Progress Note ---
Date of Service April 27, 2019 Assessment & Plan (1) Hypertensive urgency: 2. Renal artery stenosis 3. Stage III CKD with resolved SILVERIO 4. Pneumonia 5. Question solitary kidney 6. Question contrast dye allergy Discussion this morning with daughter and patient regarding renal artery steno sis and possible stenting. At this point we were all in agreement to hold off on possible stenting procedure at this time due to potential risks of procedure and questionable benefit. Continue to treat pneumonia and titrate up antihypertensives as necessary. Follow-up as an outpatient in 3 to 4 weeks. If blood pressure remains difficult to control, and/or symptoms of heart failure at that time would consider undergoing procedure. Subjective Per nursing report - refused BP meds last night. Some confusion overnight. No chest pain. Breathing seems better today. Not on oxygen this morning. Review of Systems Review of Systems: All systems reviewed & are unremarkable except as noted in HPI & below Physical Exam Physical Exam: General: Comfortable, no acute distress, thin, frail HEENT: Sclerae anicteric, mucous membranes moist Lungs: Decreased breath sounds at left base Cardiac: Tachycardic with ectopy, no murmurs Abdomen: Soft, nontender, nondistended, positive bowel sounds. Extremities: Warm, well perfused, no edema. 2+ radial pulses Neuro: Nonfocal Psych: Alert, oriented, normal affect and mood Results & Data Vital Signs (Past 12 Hours) Vital Signs Temp Pulse Pulse Resp BP BP BP 04/27/19 07:57 84 04/27/19 07:30 36.8 C 100 H 20 216/102 H 04/27/19 03:46 36.6 C 84 20 180/81 H 04/27/19 00:00 36.4 C L 70 18 148/79 H 04/26/19 23:47 100 H Pulse Ox 04/27/19 07:57 04/27/19 07:30 93 04/27/19 03:46 94 04/27/19 00:00 96 04/26/19 23:47
[2019-04-27] MEDS: AMLODIPINE BESYLATE 5 MG TAB PO SCH (08:22)
[2019-04-27] MEDS: ASPIRIN 81 MG ECTAB PO SCH (08:22)
[2019-04-27] MEDS: FUROSEMIDE 20 MG TAB PO SCH (08:23)
[2019-04-27] MEDS: METOPROLOL TARTRATE 50 MG TAB PO SCH ×2 (08:23→20:02)
[2019-04-27] MEDS: CEROVITE ADV FORMULA TAB PO SCH ×2 (08:24→20:02)
[2019-04-27] MEDS: POTASSIUM CHLORIDE 10 MEQ TABCR PO SCH ×2 (08:24→20:02)
[2019-04-27] MEDS: ROSUVASTATIN CALCIUM 5 MG TAB PO SCH (08:25)
[2019-04-27] MEDS: HEPARIN SOD 5,000 UNIT/0.5 ML VIAL SQ SCH ×2 (08:25→20:02)
[2019-04-27] MEDS: LOSARTAN POTASSIUM 50 MG TAB PO SCH ×2 (08:25→20:01)
[2019-04-27] MEDS: LACTATED RINGER'S 1,000 ML IV SCH (09:55)
--- NOTE | 2019-04-27 10:37 | Hospitalist Progress Note ---
Date of Service April 27, 2019 Assessment & Plan (1) Pneumonia: 88-year-old female was admitted on 24 April 2019 for fever, cough, and pneumonia. Pneumonia: Acute hypoxic respiratory failure. persistent hypoxia patient I believe likely actually qualify for persistent oxygen use at home Resident of assisted living. CXR with abnormality in left lung base. Blood cultures sent, treat with Zosyn. Ct chest without suspicion for malignancy or COPD Sundowning behavior encephalopathy this might be from hypertensive urgency as her blood pressure was significant elevated and not sure whether this is because her effect and/or some hypoxic encephalopathy as the patient frequently takes her oxygen off her nose. At this point, her confusion could stem from either her hypertensive urgency or the catapres. Will place hydralazine around the clock, and will monitor her BP. Hypertensive urgency escalation of her blood pressure control with oral medications renal artery ultrasound suggests severe stenosis and interventional cardiology will determine whether she may be amenable to procedure to help a better control of her blood pressure and avoid encephalopathy in the future. Continues with escalated doses of amlodipine, usual home doses of furosemide 20 mg and losartan. Additional metoprolol given and dose increased 04/25 with heart rate control. PLACED ON HYDRALAZINE AROUND THE CLOCK AND WILL MONITOR BP Diarrhea:resolved Non-tender abdomen on admit. - ED sent for E. coli, Shiga, stool cultures, and C. difficile labs. Elevated creatinine, Acute Kidney injury with history of CKD stage III: Admit Cr 1.41. Resolved. - Hyperlipidemia, carotid stenosis: Continue home aspirin. - SIADH: Apparently resolved around 2010. Previously on demeclocycline. - chronic diastolic heart failure: Echocardiogram from December 2017 noted EF 55- 60% with mild MR and TR. - Macular degeneration: Continue home eye drops. Code status: Full code. DVT prophy: Heparin q12h. PT/OT: Ordered. Lives at [facility] in [place]. Spent 35 minutes in management of patient. (2) Diarrhea: (3) Hypertensive urgency: (4) Elevated serum creatinine: (5) Hyperlipidemia: (6) Carotid stenosis: (7) Diastolic dysfunction: (8) Macular degeneration: (9) Metabolic encephalopathy: May be due to elevated BP and/o clonidine. Will hold further clonidine and will place on hydralazine around the clock. Will continue to monitor BP. Will hold discharge Subjective 88 yo female reports she has been having an intermittent non productive cough. Patient's daughter reports she appears more confused today. Her blood pressure has been elevated as per nursing. Review of Systems Review of Systems: Unobtainable due to cognitive status Physical Exam Physical Exam: The patient appeared thin Vital signs as documented. Head exam is unremarkable. normocephalic, atraumatic Neck is without jugular venous distension, thyromegaly, or lymphademopathy Lungs are clear to auscultation and percussion. Cardiac exam reveals Rhythm is regular. First and second heart sounds normal. Abdominal exam reveals normal bowel sounds, bruits are heard Extremities are nonedematous and both pedal pulses are present Neurologic exam is A&Ox3, Skin is warm Dry Results & Data Vital Signs (Past 12 Hours) Vital Signs Temp Pulse Pulse Resp BP BP BP 04/27/19 07:57 84 04/27/19 07:30 36.8 C 100 H 20 216/102 H 04/27/19 03:46 36.6 C 84 20 180/81 H 04/27/19 00:00 36.4 C L 70 18 148/79 H 04/26/19 23:47 100 H Pulse Ox 04/27/19 07:57 04/27/19 07:30 93 04/27/19 03:46 94 04/27/19 00:00 96 04/26/19 23:47 PG Care Time/CCT Total # of Minutes Spent Total Time Spent with Patient: Total time spent is greater than 50% in coordination of care (as documented) at patient's floor/unit and/or counseling patient: (1) Pneumonia Laterality: left Lung location: lower lobe of lung Pneumonia type: due to unspecified organism Qualified Code(s): J18.1 - Lobar pneumonia, unspecified organism
[2019-04-27] MEDS: HydrALAZINE 10 MG TAB PO SCH ×3 (14:15→20:01)
[2019-04-27] MEDS: POLYETHYLENE (MIRALAX) 17 GM PACK PO SCH (14:15)
[2019-04-27] MEDS: ACETAMINOPHEN 500 MG TAB PO PRN (14:18)
[2019-04-27] MEDS: QUETIAPINE FUMARATE 25 MG TABLET PO SCH (20:02)
[2019-04-27] MEDS: TRAVOPROST Z 0.004% OPH SOLN 2.5 ML BTL OPB SCH (20:03)
[2019-04-28] MEDS: PIPERACILLIN/TAZOBACTAM 3.375 GM in DEXTROSE 5% 100 ML IV SCH ×3 (01:45→18:18)
[2019-04-28 06:53] LABS: Creatinine Clr Calc Pharmacy 27.9 ml/min; Est GFR (African American) 58.3; Est GFR (Non-African American) 50.3
[2019-04-28] MEDS: ACETAMINOPHEN 500 MG TAB PO PRN (07:43)
[2019-04-28] MEDS: METOPROLOL TARTRATE 50 MG TAB PO SCH ×2 (07:53→20:18)
[2019-04-28] MEDS: AMLODIPINE BESYLATE 5 MG TAB PO SCH (07:55)
[2019-04-28] MEDS: POTASSIUM CHLORIDE 10 MEQ TABCR PO SCH ×2 (07:55→20:18)
[2019-04-28] MEDS: POLYETHYLENE (MIRALAX) 17 GM PACK PO SCH (07:56)
[2019-04-28] MEDS: HydrALAZINE 10 MG TAB PO SCH ×4 (07:57→20:17)
[2019-04-28] MEDS: CEROVITE ADV FORMULA TAB PO SCH ×2 (07:57→21:28)
[2019-04-28] MEDS: LOSARTAN POTASSIUM 50 MG TAB PO SCH ×2 (07:57→20:18)
[2019-04-28] MEDS: ASPIRIN 81 MG ECTAB PO SCH (07:58)
[2019-04-28] MEDS: FUROSEMIDE 20 MG TAB PO SCH (07:58)
[2019-04-28] MEDS: ROSUVASTATIN CALCIUM 5 MG TAB PO SCH (07:59)
[2019-04-28] MEDS: HEPARIN SOD 5,000 UNIT/0.5 ML VIAL SQ SCH ×2 (08:00→20:19)
[2019-04-28] MEDS ORDERED: METOPROLOL TARTRATE 25 MG TAB PO SCH (11:45)
[2019-04-28] MEDS: QUETIAPINE FUMARATE 25 MG TABLET PO SCH (20:18)
[2019-04-28] MEDS: TRAVOPROST Z 0.004% OPH SOLN 2.5 ML BTL OPB SCH (20:19)
--- NOTE | 2019-04-28 23:37 | Hospitalist Progress Note ---
Date of Service April 28, 2019 Assessment & Plan (1) Pneumonia: 88-year-old female was admitted on 24 April 2019 for fever, cough, and pneumonia. Pneumonia: Acute hypoxic respiratory failure. persistent hypoxia patient I believe likely actually qualify for persistent oxygen use at home Resident of assisted living. CXR with abnormality in left lung base. Blood cultures sent, treat with Zosyn. Ct chest without suspicion for malignancy or COPD Sundowning behavior encephalopathy this might be from hypertensive urgency as her blood pressure was significant elevated and not sure whether this is because her effect and/or some hypoxic encephalopathy as the patient frequently takes her oxygen off her nose. At this point, her confusion could stem from either her hypertensive urgency or the catapres. Will place hydralazine around the clock, and will monitor her BP. Hypertensive urgency escalation of her blood pressure control with oral medications renal artery ultrasound suggests severe stenosis and interventional cardiology will determine whether she may be amenable to procedure to help a better control of her blood pressure and avoid encephalopathy in the future. Continues with escalated doses of amlodipine, usual home doses of furosemide 20 mg and losartan. Additional metoprolol given and dose increased 04/25 with heart rate control. BP appears to be elevated. Patient though is less confused. Plan is to increase hydralazine in the AM. Diarrhea:resolved Non-tender abdomen on admit. - ED sent for E. coli, Shiga, stool cultures, and C. difficile labs. Elevated creatinine, Acute Kidney injury with history of CKD stage III: Admit Cr 1.41. Resolved. - Hyperlipidemia, carotid stenosis: Continue home aspirin. - SIADH: Apparently resolved around 2010. Previously on demeclocycline. - chronic diastolic heart failure: Echocardiogram from December 2017 noted EF 55-60 % with mild MR and TR. - Macular degeneration: Continue home eye drops. Code status: Full code. DVT prophy: Heparin q12h. PT/OT: Ordered. Lives at [facility] in [place]. Spent 35 minutes in management of patient. This included conversation with patient. Reviewing medicine and BP curve. Discussion with nurse (2) Diarrhea: (3) Hypertensive urgency: (4) Elevated serum creatinine: (5) Hyperlipidemia: (6) Carotid stenosis: (7) Diastolic dysfunction: (8) Macular degeneration: (9) Metabolic encephalopathy: Improved. Clonidine likely playd a role. Will continue to monitor BP. Will hold discharge Subjective Patient does not provide any new complaints today. Patient is aware why she is in the hospital. Nurse though states she has been intermittently confused throughout the day. Review of Systems Review of Systems: All systems reviewed & are unremarkable except as noted in HPI & below Physical Exam Physical Exam: The patient appeared thin Vital signs as documented. Head exam is unremarkable. normocephalic, atraumatic Neck is without jugular venous distension, thyromegaly, or lymphademopathy Lungs are clear to auscultation and percussion. Cardiac exam reveals Rhythm is regular. First and second heart sounds normal. Abdominal exam reveals normal bowel sounds, bruits are heard Extremities are nonedematous and both pedal pulses are present Neurologic exam is A&Ox3, Skin is warm Dry Results & Data Vital Signs (Past 12 Hours) Vital Signs Temp Pulse Pulse Resp BP Pulse Ox 04/28/19 23:01 36.5 C 78 17 169/89 H 96 04/28/19 20:12 89 131/78 96 04/28/19 19:10 36.6 C 91 H 20 169/70 H 90 04/28/19 17:10 89 186/93 H 04/28/19 16:00 79 04/28/19 15:30 36.7 C 81 22 143/85 H 93 PG Care Time/CCT Total # of Minutes Spent Total Time Spent with Patient: Total time spent is greater than 50% in coordination of care (as documented) at patient's floor/unit and/or counseling patient: (1) Pneumonia Laterality: left Lung location: lower lobe of lung Pneumonia type: due to unspecified organism Qualified Code(s): J18.1 - Lobar pneumonia, unspecified organism
[2019-04-29] MEDS: PIPERACILLIN/TAZOBACTAM 3.375 GM in DEXTROSE 5% 100 ML IV SCH ×2 (02:20→09:44)
[2019-04-29 06:30] LABS: Creatinine Clr Calc Pharmacy 25.4 ml/min; Est GFR (African American) 51.9; Est GFR (Non-African American) 44.8
[2019-04-29] MEDS: METOPROLOL TARTRATE 50 MG TAB PO SCH ×3 (07:51→20:55)
[2019-04-29] MEDS: HydrALAZINE 10 MG TAB PO SCH ×5 (07:51→20:54)
[2019-04-29] MEDS: AMLODIPINE BESYLATE 5 MG TAB PO SCH ×2 (07:52→10:18)
[2019-04-29] MEDS: LOSARTAN POTASSIUM 50 MG TAB PO SCH ×2 (07:53→20:55)
[2019-04-29] MEDS: POTASSIUM CHLORIDE 10 MEQ TABCR PO SCH ×2 (07:53→20:57)
[2019-04-29] MEDS: ROSUVASTATIN CALCIUM 5 MG TAB PO SCH (07:53)
[2019-04-29] MEDS: POLYETHYLENE (MIRALAX) 17 GM PACK PO SCH (07:53)
[2019-04-29] MEDS: CEROVITE ADV FORMULA TAB PO SCH ×2 (07:53→20:55)
[2019-04-29] MEDS: HEPARIN SOD 5,000 UNIT/0.5 ML VIAL SQ SCH ×2 (07:53→20:57)
[2019-04-29] MEDS: FUROSEMIDE 20 MG TAB PO SCH (07:53)
[2019-04-29] MEDS: ASPIRIN 81 MG ECTAB PO SCH (07:54)
--- NOTE | 2019-04-29 15:42 | XRay Report ---
TWO VIEW CHEST CLINICAL HISTORY: Pneumonia. Pleural effusion. FINDINGS: AP and lateral chest radiographs are compared to study dated 04/24/2019 and correlated with chest CT dated 04/25/2019. The AP view is degraded by patient rotation. The heart is enlarged and ther e is atherosclerotic calcification of the thoracic aorta. There is pulmonary vascular congestion. The re are left larger than right pleural effusions with bibasilar consolidation. There is no pneumothora x. The skeletal structures are osteopenic. Advanced arthritic change is seen in the shoulders and tho racic spine. Mild hyperkyphosis is noted. IMPRESSION: 1. Cardiomegaly with evidence of congestive failure. 2. There are left larger than right pleural effusions with associated bibasilar consolidation. Electronically signed by: Kenneth Arreaga M.D. 04/29/2019 3:40 PM
[2019-04-29] MEDS: AMOXICILLIN/CLAVULANATE 500 MG TAB PO SCH (16:52)
[2019-04-29] MEDS: TRAVOPROST Z 0.004% OPH SOLN 2.5 ML BTL OPB SCH (20:57)
[2019-04-29] MEDS: QUETIAPINE FUMARATE 25 MG TABLET PO SCH (20:58)
--- NOTE | 2019-04-29 23:11 | Hospitalist Progress Note ---
Date of Service April 29, 2019 Assessment & Plan (1) Pneumonia: 88-year-old female was admitted on 24 April 2019 for fever, cough, and pneumonia. Pneumonia: Acute hypoxic respiratory failure. persistent hypoxia patient I believe likely actually qualify for persistent oxygen use at home Resident of assisted living. CXR with abnormality in left lung base. Blood cultures sent, treat with Zosyn. Ct chest without suspicion for malignancy or COPD; Concern over pleuarl effusion worsening her hypoxia. She has been on zosyn with no improvement. Will obtain repeat x-ray. May consider consult with critical care Sundowning behavior encephalopathy this might be from hypertensive urgency as he r blood pressure was significant elevated and not sure whether this is because her effect and/or some hypoxic encephalopathy as the patient frequently takes her oxygen off her nose. She has been off the catapres, but continues to be confused. Will continue to monitor. Likely hospital acquired delirium, Hypertensive urgency escalation of her blood pressure control with oral medications renal artery ultrasound suggests severe stenosis and interventional cardiology will determine whether she may be amenable to procedure to help a better control of her blood pressure and avoid encephalopathy in the future. Continues with escalated doses of amlodipine, usual home doses of furosemide 20 mg and losartan. Additional metoprolol given and dose increased 04/25 with heart rate control. BP has been fluctuating during 04/29 Will not increase hydralazine and will continue to monitor. Diarrhea:resolved Non-tender abdomen on admit. - ED sent for E. coli, Shiga, stool cultures, and C. difficile labs. Elevated creatinine, Acute Kidney injury with history of CKD stage III: Admit Cr 1.41. Resolved. - Hyperlipidemia, carotid stenosis: Continue home aspirin. - SIADH: Apparently resolved around 2010. Previously on demeclocycline. - chronic diastolic heart failure: Echocardiogram from December 2017 noted EF 55- 60% with mild MR and TR. - Macular degeneration: Continue home eye drops. Code status: Full code. DVT prophy: Heparin q12h. PT/OT: Ordered. Lives at [facility] in [place]. Spent 35 minutes in management of patient. This included conversation with patient. And multiple visits in the room. Updated granddaughter,. (2) Diarrhea: (3) Hypertensive urgency: (4) Elevated serum creatinine: (5) Hyperlipidemia: (6) Carotid stenosis: (7) Diastolic dysfunction: (8) Macular degeneration: (9) Metabolic encephalopathy: Improved. Clonidine likely playd a role. Will continue to monitor BP. Will hold on discharge Subjective 88 yo female appears more confused today. She has been talking to people who are not in the room. She thinks I work for a voting system and did not recognize me from my previous visits. She denies any new complaints (but it is difficult to obtain a history from her. Review of Systems Review of Systems: Unobtainable due to cognitive status Physical Exam Physical Exam: The patient appeared thin Vital signs as documented. Head exam is unremarkable. normocephalic, atraumatic Neck is without jugular venous distension, thyromegaly, or lymphademopathy Lungs are clear to auscultation except for bibasilar rales. Cardiac exam reveals Rhythm is regular. First and second heart sounds normal. Abdominal exam reveals normal bowel sounds, bruits are heard Extremities are nonedematous and both pedal pulses are present Neurologic exam is A&Ox3, Skin is warm Dry Results & Data Vital Signs (Past 12 Hours) Vital Signs Temp Pulse Pulse Pulse Resp BP BP 04/29/19 20:53 90 132/79 04/29/19 19:00 36.8 C 82 20 161/86 H 04/29/19 16:51 84 165/100 H 04/29/19 16:00 70 04/29/19 15:12 36.3 C L 75 22 127/86 04/29/19 13:39 81 81 184/91 H 04/29/19 13:29 218/75 H Pulse Ox 04/29/19 20:53 04/29/19 19:00 94 04/29/19 16:51 04/29/19 16:00 04/29/19 15:12 95 04/29/19 13:39 04/29/19 13:29 PG Care Time/CCT Total # of Minutes Spent Total Time Spent with Patient: Total time spent is greater than 50% in coordination of care (as documented) at patient's floor/unit and/or counseling patient: (1) Pneumonia Laterality: left Lung location: lower lobe of lung Pneumonia type: due to unspecified organism Qualified Code(s): J18.1 - Lobar pneumonia, unspecified organism
[2019-04-30 07:07] LABS: Hematocrit (blood only) 32.7 % (37-47); Hemoglobin 11.3 g/dL (12.0-16.0); Mean Corpuscular Hgb Conc 34.6 g/dL (32-36); Mean Platelet Volume 9.5 fL (7.4-10.4); Platelet Count 286 K/uL (130-400); RDW Coefficient of Variation 13.8 % (11.5-14.5); RDW Standard Deviation 47.2 fL (36.4-46.3); Red Blood Count 3.48 M/uL (4.2-5.4); White Blood Count 11.79 K/uL (4.8-10.8)
[2019-04-30 07:40] LABS: Calcium 9.1 mg/dl (8.5-10.1); Creatinine Clr Calc Pharmacy 28.8 ml/min; Est GFR (African American) 60.4; Est GFR (Non-African American) 52.1; Potassium 3.5 mmol/L (3.5-5.1)
[2019-04-30] MEDS: ASPIRIN 81 MG ECTAB PO SCH (07:58)
[2019-04-30] MEDS: POTASSIUM CHLORIDE 10 MEQ TABCR PO SCH ×2 (07:58→21:16)
[2019-04-30] MEDS: FUROSEMIDE 20 MG TAB PO SCH (07:58)
[2019-04-30] MEDS: METOPROLOL TARTRATE 50 MG TAB PO SCH ×2 (07:58→21:16)
[2019-04-30] MEDS: ROSUVASTATIN CALCIUM 5 MG TAB PO SCH (07:58)
[2019-04-30] MEDS: POLYETHYLENE (MIRALAX) 17 GM PACK PO SCH (07:58)
[2019-04-30] MEDS: AMLODIPINE BESYLATE 5 MG TAB PO SCH (07:59)
[2019-04-30] MEDS: CEROVITE ADV FORMULA TAB PO SCH ×2 (07:59→21:17)
[2019-04-30] MEDS: HEPARIN SOD 5,000 UNIT/0.5 ML VIAL SQ SCH ×2 (07:59→21:16)
[2019-04-30] MEDS: AMOXICILLIN/CLAVULANATE 500 MG TAB PO SCH ×2 (07:59→18:20)
[2019-04-30] MEDS: HydrALAZINE 10 MG TAB PO SCH ×4 (07:59→21:15)
[2019-04-30] MEDS: LOSARTAN POTASSIUM 50 MG TAB PO SCH ×2 (07:59→21:15)
[2019-04-30] MEDS ORDERED: FUROSEMIDE 40 MG/4 ML VIAL IV STA (11:26)
[2019-04-30] MEDS: ACETAMINOPHEN 500 MG TAB PO PRN ×2 (12:06→19:50)
[2019-04-30] MEDS: POTASSIUM CHLORIDE 20 MEQ TABCR PO SCH ×2 (13:30→21:16)
--- NOTE | 2019-04-30 19:11 | Procedure Note ---
Procedure Note Date of Service April 30, 2019 Procedure Date: Noted above Critical Care Medicine Point of Care Bedside Ultrasound Procedure: Limited Bedside Lung Ultrasound Indication: Pleural effusion Attending: Beverly Fatima DO Resident/Physician Farmworker Machine: Geovani HOBSON Organs Examined: Lung BLUE point (upper), BLUE point (lower), Phrenic Point (axillary), PLAPS point (posterior) A lines visualized: Absent, Hemithorax: Bilateral B lines visualized: Present, Hemithorax: Bilateral mid axillary line posteriorly absent in bilateral blue points Lung Sliding: Present, Hemithorax: Bilateral Tissue-like Sign: Absent, Hemithorax: Bilateral Shred Sign: Absent, Hemithorax: Bilateral Quad Sign: Present, Hemithorax: Bilateral Sinusoid Sign: Present, Hemithorax: Left hemithorax Type of effusions: Simple, Hemithorax: Bilateral left greater than right Interpleural distance: 1.9 cm Impression: Type B profile consistent with mild pulmonary edema with bilateral pleural effusions left greater than right no significant evidence suggesting loculation. Images obtained are saved for permanent record Coding CPT Codes Pulmonary/Thoracic - Pulmonary and Thoracic: US, Chest, real time with imaging documentation ([id number])
--- NOTE | 2019-04-30 20:52 | Hospitalist Progress Note ---
Date of Service April 30, 2019 Assessment & Plan (1) Pneumonia: 88-year-old female was admitted on 24 April 2019 for fever, cough, and pneumonia. Pneumonia: Acute hypoxic respiratory failure. persistent hypoxia patient I believe likely actually qualify for persistent oxygen use at home Resident of assisted living. CXR with abnormality in left lung base. Blood cultures sent, treat with Zosyn. Ct chest without suspicion for malignancy or COPD; Concern over pleuarl effusion worsening her hypoxia. She has been on zosyn with no improvement. Transitioned to oral antibiotics. Concern this hypoxia that is not improving may be due to either pulmonary edema from fluid overload, or perhaps pleural effusion. Will have Dr. Fatima do a bedsie ultrasound to assess if pleural effusion warrants drainange. Will also place an order of diuretic IV. Anticipate discharge within next 48 hours if patient requires mre diuresing. Hypertensive urgency escalation of her blood pressure control with oral medications renal artery ultrasound suggests severe stenosis and interventional cardiology will determine whether she may be amenable to procedure to help a better control of her blood pressure and avoid encephalopathy in the future. Continues with escalated doses of amlodipine, usual home doses of furosemide 20 mg and losartan. Additional metoprolol given and dose increased 04/25 with heart rate control. BP has been fluctuating during 04/29 Will not increase hydralazine and will continue to monitor. On 04/30 BP is better controlled. Diarrhea:resolved Non-tender abdomen on admit. - ED sent for E. coli, Shiga, stool cultures, and C. difficile labs. Elevated creatinine, Acute Kidney injury with history of CKD stage III: Admit Cr 1.41. Resolved. - Hyperlipidemia, carotid stenosis: Continue home aspirin. - SIADH: Apparently resolved around 2010. Previously on demeclocycline. - chronic diastolic heart failure: Echocardiogram from December 2017 noted EF 55- 60% with mild MR and TR. - Macular degeneration: Continue home eye drops. Code status: Full code. DVT prophy: Heparin q12h. PT/OT: Ordered. Lives at [facility] in [place]. Spent 35 minutes in management of patient. This included conversation with patient. And multiple visits in the room. Updated daughter,. (2) Diarrhea: (3) Hypertensive urgency: (4) Elevated serum creatinine: (5) Hyperlipidemia: (6) Carotid stenosis: (7) Diastolic dysfunction: (8) Macular degeneration: (9) Metabolic encephalopathy: Improved. This is likely hospital acquired delirium Clonidine likely played a role. Will continue to monitor BP. Will hold on discharge Subjective Patient appears less confused today. She knows she is in the hospital and she is not talking to relatives. She reports feeling well. Review of Systems Review of Systems: Unobtainable due to cognitive status Physical Exam Physical Exam: The patient appeared thin Vital signs as documented. Head exam is unremarkable. normocephalic, atraumatic Neck is without jugular venous distension, thyromegaly, or lymphademopathy Lungs are clear to auscultation except for bibasilar rales. Cardiac exam reveals Rhythm is regular. First and second heart sounds normal. Abdominal exam reveals normal bowel sounds, bruits are heard Extremities are nonedematous and both pedal pulses are present Neurologic exam is A&Ox3, Skin is warm Dry Results & Data Vital Signs (Past 12 Hours) Vital Signs Temp Pulse Pulse Resp BP Pulse Ox 04/30/19 19:36 79 04/30/19 19:34 36.5 C 72 16 131/77 96 04/30/19 15:30 36.6 C 62 20 139/86 96 04/30/19 12:09 95 04/30/19 11:52 36.7 C 73 20 151/83 H 92 PG Care Time/CCT Total # of Minutes Spent Total Time Spent with Patient: Total time spent is greater than 50% in coordination of care (as documented) at patient's floor/unit and/or counseling patient: (1) Pneumonia Laterality: left Lung location: lower lobe of lung Pneumonia type: due to unspecified organism Qualified Code(s): J18.1 - Lobar pneumonia, unspecified organism
[2019-04-30] MEDS: TRAVOPROST Z 0.004% OPH SOLN 2.5 ML BTL OPB SCH (21:17)
[2019-04-30] MEDS: QUETIAPINE FUMARATE 25 MG TABLET PO SCH (21:17)
[2019-05-01 07:08] LABS: Hematocrit (blood only) 31.9 % (37-47); Hemoglobin 10.8 g/dL (12.0-16.0); Mean Corpuscular Hgb Conc 33.9 g/dL (32-36); Mean Corpuscular Volume 94.7 fL (80-100); Mean Platelet Volume 9.2 fL (7.4-10.4); Platelet Count 267 K/uL (130-400); RDW Coefficient of Variation 13.9 % (11.5-14.5); RDW Standard Deviation 48.1 fL (36.4-46.3); Red Blood Count 3.37 M/uL (4.2-5.4); White Blood Count 8.54 K/uL (4.8-10.8)
[2019-05-01 07:48] LABS: Calcium 8.7 mg/dl (8.5-10.1); Creatinine Clr Calc Pharmacy 19.3 ml/min; Est GFR (African American) 37.2; Est GFR (Non-African American) 32.1; Potassium 4.3 mmol/L (3.5-5.1)
[2019-05-01] MEDS: FUROSEMIDE 20 MG TAB PO SCH (08:31)
[2019-05-01] MEDS: ASPIRIN 81 MG ECTAB PO SCH (08:31)
[2019-05-01] MEDS: AMLODIPINE BESYLATE 5 MG TAB PO SCH (08:32)
[2019-05-01] MEDS: HydrALAZINE 10 MG TAB PO SCH ×4 (08:32→20:21)
[2019-05-01] MEDS: LOSARTAN POTASSIUM 50 MG TAB PO SCH ×2 (08:33→20:22)
[2019-05-01] MEDS: CEROVITE ADV FORMULA TAB PO SCH ×2 (08:33→20:22)
[2019-05-01] MEDS: ROSUVASTATIN CALCIUM 5 MG TAB PO SCH (08:33)
[2019-05-01] MEDS: AMOXICILLIN/CLAVULANATE 500 MG TAB PO SCH ×2 (08:33→16:59)
[2019-05-01] MEDS: METOPROLOL TARTRATE 50 MG TAB PO SCH ×2 (08:34→20:23)
[2019-05-01] MEDS: HEPARIN SOD 5,000 UNIT/0.5 ML VIAL SQ SCH (08:34)
[2019-05-01] MEDS: POTASSIUM CHLORIDE 10 MEQ TABCR PO SCH ×2 (08:35→20:25)
[2019-05-01] MEDS: POLYETHYLENE (MIRALAX) 17 GM PACK PO SCH (08:36)
[2019-05-01] MEDS: POTASSIUM CHLORIDE 20 MEQ TABCR PO SCH ×2 (08:36→13:15)
--- NOTE | 2019-05-01 15:15 | Hospitalist Progress Note ---
Date of Service May 01, 2019 Assessment & Plan (1) Pneumonia: 88-year-old female was admitted on 24 April 2019 for fever, cough, and pneumonia. improved quickly with IV Zosyn converted to Augmentin PO BID, continues to recover no fever, WBC normal, minimal cough still with some hypoxia, will continue to monitor, may need home oxygen on discharge CXR with abnormality in left lung base. Blood cultures sent, treat with Zosyn. Ct chest without suspicion for malignancy or COPD; (2) Diarrhea: resolved, no complaints today (3) Hypertensive urgency: resolved, BP much better controlled the past few days continue on Norvasc, Losartan, Hydralazine, Metoprolol (4) Hyperlipidemia: (5) Carotid stenosis: (6) Diastolic dysfunction: no signs of volume overload continue on Lasix daily and metoprolol (7) Macular degeneration: (8) Metabolic encephalopathy: resolved today, no issues likely hospital delirium (9) Chronic kidney disease, stage III (moderate): Cr is stable at 1.4, was 1.4 on admission will fluctuate between 1.0-1.4 Subjective patient sitting up in chair, breathing easy, ate a good breakfast no acute changes, no complaints updated family at the bedside discussed with Dr. Fatima, effusions small, not loculated, no reason to drain them at this time reviewed labs, WBC 8k, Hb 10, Cr slightly up at 1.4 today, but close to baseline will repeat tomorrow Review of Systems Review of Systems: All systems reviewed & are unremarkable except as noted in HPI & below Constitutional: + fatigue and + weakness; no fever, no chills and no sweats Respiratory: + cough and + dyspnea on exertion; no dyspnea and no sputum production Cardiovascular: no chest pain and no edema Gastrointestinal: no abdominal pain, no nausea, no vomiting, no constipation and no diarrhea/loose stools Physical Exam Constitutional: well developed and + thin; no acute distress Eyes: PERRL, conjunctivae normal, anicteric sclerae ENMT: external ear and nose normal, oropharynx normal Neck: trachea midline, no thyromegaly Respiratory: normal respiratory effort; no respiratory distress Auscultation: lungs clear to auscultation bilaterally and + diminished lung sounds (bases bilaterally); no rales and no wheezes Cardiovascular: RRR, no murmur, no edema Gastrointestinal (Abdomen): normal bowel sounds, soft, nontender, no hepatosplenomegaly Musculoskeletal: no cyanosis or clubbing, extremities motor strength 5/5 Skin: no rashes, warm and dry Neurologic: patellar DTR's 2+ bilat, sensation intact and PERRL, EOMI, accommodation nl, no face palsy, no dysarthria Psychiatric: A+Ox3, euthymic affect Lymphatic: no cervical or axillary lymphadenopathy Results & Data Vital Signs (Past 12 Hours) Vital Signs Temp Pulse Pulse Resp BP BP Pulse Ox 05/01/19 14:49 36.8 C 77 20 143/64 H 97 05/01/19 11:14 36.3 C L 71 20 134/76 05/01/19 08:00 73 05/01/19 07:43 36.9 C 68 20 142/73 H 96 05/01/19 04:16 37.0 C 64 16 104/69 94 Laboratory Results Laboratory Results - last 24 hr 05/01/19 05/01/19 06:56 06:56 WBC 8.54 RBC 3.37 L Hgb 10.8 L Hct 31.9 L MCV 94.7 MCH 32.0 MCHC 33.9 RDW Std Deviation 48.1 H RDW Coeff of [place] 13.9 Plt Count 267 MPV 9.2 Sodium 134 L Potassium 4.3 D Chloride 101 Carbon Dioxide 27 Anion Gap 6.0 BUN 35 H D Creatinine 1.45 H D Est Cr Clr Drug Dosing 19.3 Est GFR ( Amer) 37.2 Est GFR (Non-Af Amer) 32.1 BUN/Creatinine Ratio 24.0 H Glucose 89 Calcium 8.7 Medications Administered Current Inpatient Medications Acetaminophen (Tylenol) 500 mg PO Q4H PRN PRN Reason: Pain Stop: 05/24/19 02:07 Last Admin: 04/30/19 19:50 Dose: 500 mg Documented by: Amlodipine Besylate (Norvasc) 10 mg PO QAM [facility] Stop: 05/26/19 08:59 Last Admin: 05/01/19 08:32 Dose: 10 mg Documented by: Amoxicillin/Clavulanate Potassium (Augmentin 500mg) 1 tab PO BIDM [facility]; Protocol Stop: 05/06/19 16:59 Last Admin: 05/01/19 08:33 Dose: 1 tab Documented by: Aspirin (Ecotrin Ectab) 81 mg PO DAILY [facility] Stop: 05/24/19 08:59 Last Admin: 05/01/19 08:31 Dose: 81 mg Documented by: Clonidine HCl (Catapres) 0.1 mg PO Q8 PRN PRN Reason: Blood Pressure - High Stop: 05/25/19 12:32 Last Admin: 04/27/19 07:37 Dose: 0.1 mg Documented by: Furosemide (Lasix) 20 mg PO DAILY [facility] Stop: 05/24/19 08:59 Last Admin: 05/01/19 08:31 Dose: 20 mg Documented by: Heparin Sodium (Porcine) (Heparin Sodium (Porcine)) 5,000 units SQ Q12 [facility] Stop: 05/24/19 08:59 Last Admin: 05/01/19 08:34 Dose: 5,000 units Documented by: Hydralazine HCl (Hydralazine Hcl) 10 mg IV Q8 PRN PRN Reason: Blood Pressure - High Stop: 05/25/19 12:32 Last Admin: 04/27/19 07:37 Dose: 10 mg Documented by: Hydralazine HCl (Apresoline) 10 mg PO QID [facility] Stop: 05/27/19 12:59 Last Admin: 05/01/19 13:34 Dose: 10 mg Documented by: Losartan Potassium (Cozaar) 50 mg PO BID [facility] Stop: 05/24/19 08:59 Last Admin: 05/01/19 08:33 Dose: 50 mg Documented by: Metoprolol Tartrate (Lopressor) 75 mg PO BID [facility] Stop: 05/28/19 20:59 Last Admin: 05/01/19 08:34 Dose: 75 mg Documented by: Multivitamins/Minerals (Multivitamin W/ Minerals Tab) 1 tab PO BID [facility] Stop: 05/24/19 08:59 Last Admin: 05/01/19 08:33 Dose: 1 tab Documented by: Ondansetron HCl (Zofran) 4 mg IV Q6H PRN PRN Reason: Nausea Stop: 05/24/19 03:45 Polyethylene Glycol (Miralax Powder Packet) 17 gm PO DAILY [facility] Stop: 05/27/19 12:59 Last Admin: 05/01/19 08:36 Dose: Not Given Documented by: Potassium Chloride (Klor-Con M10) 10 meq PO BID [facility] Stop: 05/24/19 08:59 Last Admin: 05/01/19 08:35 Dose: 10 meq Documented by: Quetiapine Fumarate (Seroquel) 25 mg PO HS [facility] Stop: 05/26/19 20:59 Last Admin: 04/30/19 21:17 Dose: 25 mg Documented by: Rosuvastatin Calcium (Crestor) 5 mg PO DAILY [facility] Stop: 05/24/19 08:59 Last Admin: 05/01/19 08:33 Dose: 5 mg Documented by: PG Care Time/CCT Total # of Minutes Spent Total Time Spent with Patient: Total time spent is greater than 50% in coordination of care (as documented) at patient's floor/unit and/or counseling patient: (1) Pneumonia Laterality: left Lung location: lower lobe of lung Pneumonia type: due to unspecified organism Qualified Code(s): J18.1 - Lobar pneumonia, unspecified organism
[2019-05-01] MEDS: ACETAMINOPHEN 500 MG TAB PO PRN (16:22)
[2019-05-01] MEDS: QUETIAPINE FUMARATE 25 MG TABLET PO SCH (20:22)
[2019-05-01] MEDS: TRAVOPROST Z 0.004% OPH SOLN 2.5 ML BTL OPB SCH (20:25)
[2019-05-02] MEDS: AMOXICILLIN/CLAVULANATE 500 MG TAB PO SCH ×2 (07:48→16:36)
[2019-05-02] MEDS: HydrALAZINE 10 MG TAB PO SCH ×4 (07:48→21:12)
[2019-05-02] MEDS: POTASSIUM CHLORIDE 10 MEQ TABCR PO SCH ×2 (07:49→21:11)
[2019-05-02] MEDS: LOSARTAN POTASSIUM 50 MG TAB PO SCH ×2 (07:49→21:11)
[2019-05-02] MEDS: ROSUVASTATIN CALCIUM 5 MG TAB PO SCH (07:49)
[2019-05-02] MEDS: CEROVITE ADV FORMULA TAB PO SCH ×2 (07:49→21:12)
[2019-05-02] MEDS: AMLODIPINE BESYLATE 5 MG TAB PO SCH (07:50)
[2019-05-02] MEDS: ASPIRIN 81 MG ECTAB PO SCH (07:50)
[2019-05-02] MEDS: FUROSEMIDE 20 MG TAB PO SCH (07:50)
[2019-05-02] MEDS: METOPROLOL TARTRATE 50 MG TAB PO SCH ×2 (07:51→21:13)
[2019-05-02] MEDS: POLYETHYLENE (MIRALAX) 17 GM PACK PO SCH (07:54)
--- NOTE | 2019-05-02 09:28 | XRay Report ---
XR chest 1V not portable HISTORY: 88 years-old Female chest pain acute atypical chest pain COMPARISON: Chest radiograph 04/29/2019 TECHNIQUE: Portable AP view of the chest FINDINGS: Cardiac silhouette is enlarged, unchanged. Pulmonary vascular congestion with mild interstitial coars ening persists. Calcified plaque about the thoracic aortic arch. No pneumothorax. Persistent blunting of the costophrenic angles. No large pleural effusion. Degenerative changes of the shoulders and spi ne. IMPRESSION: 1. Cardiomegaly with pulmonary vascular congestion and interstitial coarsening suggestive of mild pul monary edema. 2. Unchanged blunting of the costophrenic angles which may be secondary to trace effusions or the ass ociated bibasilar consolidation. The above report was generated using voice recognition software. It may contain grammatical, syntax o r spelling errors. Electronically signed by: Denton Plummer M.D. 05/02/2019 9:26 AM
--- NOTE | 2019-05-02 14:11 | Hospitalist Progress Note ---
Date of Service May 02, 2019 Assessment & Plan (1) Pneumonia: 88-year-old female was admitted on 24 April 2019 for fever, cough, and pneumonia. improved quickly with IV Zosyn converted to Augmentin PO BID, continues to recover finish course of antibiotics tomorrow, will not require further treatment on discharge no fever, WBC normal yesterday, minimal cough still with some hypoxia, will continue to monitor, may need home oxygen on discharge CXR with abnormality in left lung base on admission. Blood cultures sent, no growth Ct chest without suspicion for malignancy or COPD; (2) Diarrhea: resolved, no complaints today (3) Hypertensive urgency: resolved, BP much better controlled the past few days continue on Norvasc, Losartan, Hydralazine, Metoprolol (4) Hyperlipidemia: (5) Carotid stenosis: (6) Diastolic dysfunction: no signs of volume overload continue on Lasix daily and metoprolol (7) Macular degeneration: (8) Metabolic encephalopathy: resolved for several days, no issues likely hospital delirium (9) Chronic kidney disease, stage III (moderate): Cr is stable at 1.4, was 1.4 on admission will fluctuate between 1.0-1.4 (10) Pleural effusion: bilateral, small, no need for thoracentesis evaluated with bedside US by ICU team decreased breath sounds in bases but otherwise normal (11) Hypoxia: due to recent pneumonia, effusions, likely some compression atelectasis if still on oxygen tomorrow AM then will get two step Plan: likely d/c back to [facility] tomorrow Subjective patient sitting up in chair, doing well, no respiratory distress at rest eating well, says that she "cleaned her plate" for breakfast and lunch still requiring oxygen at 2L NC no chest pain or pressure, minimal cough no abdominal pain, no nausea/vomiting or diarrhea no fever discussed returning to [facility] tomorrow, need to see if she needs oxygen tomorrow she agrees with plan Review of Systems Review of Systems: All systems reviewed & are unremarkable except as noted in HPI & below Physical Exam Constitutional: well developed and + thin; no acute distress Eyes: PERRL, conjunctivae normal, anicteric sclerae ENMT: external ear and nose normal, oropharynx normal Neck: trachea midline, no thyromegaly Respiratory: normal respiratory effort; no respiratory distress Auscultation: lungs clear to auscultation bilaterally and + diminished lung sounds (bases bilaterally); no rales and no wheezes Cardiovascular: RRR, no murmur, no edema Gastrointestinal (Abdomen): normal bowel sounds, soft, nontender, no hepatosplenomegaly Musculoskeletal: no cyanosis or clubbing, extremities motor strength 5/5 Skin: no rashes, warm and dry Neurologic: patellar DTR's 2+ bilat, sensation intact and PERRL, EOMI, accommodation nl, no face palsy, no dysarthria Psychiatric: A+Ox3, euthymic affect Lymphatic: no cervical or axillary lymphadenopathy Results & Data Vital Signs (Past 12 Hours) Vital Signs Temp Pulse Pulse Pulse Resp BP BP 05/02/19 11:00 36.4 C L 55 L 18 112/74 05/02/19 08:00 36.8 C 63 64 16 131/76 05/02/19 04:00 36.8 C 69 18 146/67 H Pulse Ox 05/02/19 11:00 96 05/02/19 08:00 94 05/02/19 04:00 92 Diagnostic Findings XR chest 1V not portable HISTORY: 88 years-old Female chest pain acute atypical chest pain COMPARISON: Chest radiograph 04/29/2019 TECHNIQUE: Portable AP view of the chest FINDINGS: Cardiac silhouette is enlarged, unchanged. Pulmonary vascular congestion with mild interstitial coarsening persists. Calcified plaque about the thoracic aortic arch. No pneumothorax. Persistent blunting of the costophrenic angles. No large pleural effusion. Degenerative changes of the shoulders and spine. IMPRESSION: 1. Cardiomegaly with pulmonary vascular congestion and interstitial coarsening suggestive of mild pulmonary edema. 2. Unchanged blunting of the costophrenic angles which may be secondary to trace effusions or the associated bibasilar consolidation. Medications Administered Current Inpatient Medications Acetaminophen (Tylenol) 500 mg PO Q4H PRN PRN Reason: Pain Stop: 05/24/19 02:07 Last Admin: 05/01/19 16:22 Dose: 500 mg Documented by: [facility] Stop: 05/26/19 08:59 Last Admin: 05/02/19 07:50 Dose: 10 mg Documented by: Amoxicillin/Clavulanate Potassium (Augmentin 500mg) [facility] [place] Protocol Stop: 05/06/19 16:59 Last Admin: 05/02/19 07:48 Dose: 1 tab Documented by: Aspirin (Ecotrin Ectab) 81 mg PO DAILY [facility] Stop: 05/24/19 08:59 Last Admin: 05/02/19 07:50 Dose: 81 mg Documented by: Clonidine HCl (Catapres) 0.1 mg PO Q8 PRN PRN Reason: Blood Pressure - High Stop: 05/25/19 12:32 Last Admin: 04/27/19 07:37 Dose: 0.1 mg Documented by: Furosemide (Lasix) 20 mg PO DAILY [facility] Stop: 05/24/19 08:59 Last Admin: 05/02/19 07:50 Dose: 20 mg Documented by: Hydralazine HCl (Hydralazine Hcl) 10 mg IV Q8 PRN PRN Reason: Blood Pressure - High Stop: 05/25/19 12:32 Last Admin: 04/27/19 07:37 Dose: 10 mg Documented by: Hydralazine HCl (Apresoline) 10 mg PO QID [facility] Stop: 05/27/19 12:59 Last Admin: 05/02/19 13:31 Dose: 10 mg Documented by: Losartan Potassium (Cozaar) 50 mg PO BID [facility] Stop: 05/24/19 08:59 Last Admin: 05/02/19 07:49 Dose: 50 mg Documented by: Metoprolol Tartrate (Lopressor) 75 mg PO BID [facility] Stop: 05/28/19 20:59 Last Admin: 05/02/19 07:51 Dose: 75 mg Documented by: Multivitamins/Minerals (Multivitamin W/ Minerals Tab) 1 tab PO BID [facility] Stop: 05/24/19 08:59 Last Admin: 05/02/19 07:49 Dose: 1 tab Documented by: Ondansetron HCl (Zofran) 4 mg IV Q6H PRN PRN Reason: Nausea Stop: 05/24/19 03:45 Polyethylene Glycol (Miralax Powder Packet) 17 gm PO DAILY [facility] Stop: 05/27/19 12:59 Last Admin: 05/02/19 07:54 Dose: 17 gm Documented by: Potassium Chloride (Klor-Con M10) 10 meq PO BID [facility] Stop: 05/24/19 08:59 Last Admin: 05/02/19 07:49 Dose: 10 meq Documented by: Quetiapine Fumarate (Seroquel) 25 mg PO HS [facility] Stop: 05/26/19 20:59 Last Admin: 05/01/19 20:22 Dose: 25 mg Documented by: Rosuvastatin Calcium (Crestor) 5 mg PO DAILY [facility] Stop: 05/24/19 08:59 Last Admin: 05/02/19 07:49 Dose: 5 mg Documented by: PG Care Time/CCT Total # of Minutes Spent Total Time Spent with Patient: Total time spent is greater than 50% in coordination of care (as documented) at patient's floor/unit and/or counseling patient: (1) Pneumonia Laterality: left Lung location: lower lobe of lung Pneumonia type: due to unspecified organism Qualified Code(s): J18.1 - Lobar pneumonia, unspecified organism
[2019-05-02] MEDS: TRAVOPROST Z 0.004% OPH SOLN 2.5 ML BTL OPB SCH (21:00)
[2019-05-02] MEDS: ACETAMINOPHEN 500 MG TAB PO PRN (21:09)
[2019-05-02] MEDS: QUETIAPINE FUMARATE 25 MG TABLET PO SCH (21:13)
[2019-05-03 06:38] LABS: Hematocrit (blood only) 31.5 % (37-47); Hemoglobin 10.4 g/dL (12.0-16.0); Mean Corpuscular Volume 96.9 fL (80-100); Platelet Count 329 K/uL (130-400); RDW Standard Deviation 49.7 fL (36.4-46.3); Red Blood Count 3.25 M/uL (4.2-5.4); White Blood Count 7.89 K/uL (4.8-10.8)
[2019-05-03 07:14] LABS: BUN Creatinine Ratio 36.3 (10-20); Calcium 8.9 mg/dl (8.5-10.1); Creatinine Clr Calc Pharmacy 26.9 ml/min; Est GFR (African American) 55.6; Est GFR (Non-African American) 47.9; Potassium 4.5 mmol/L (3.5-5.1)
[2019-05-03] MEDS: METOPROLOL TARTRATE 50 MG TAB PO SCH (07:36)
[2019-05-03] MEDS: FUROSEMIDE 20 MG TAB PO SCH (07:37)
[2019-05-03] MEDS: ASPIRIN 81 MG ECTAB PO SCH (07:37)
[2019-05-03] MEDS: ROSUVASTATIN CALCIUM 5 MG TAB PO SCH (07:37)
[2019-05-03] MEDS: AMLODIPINE BESYLATE 5 MG TAB PO SCH (07:38)
[2019-05-03] MEDS: HydrALAZINE 10 MG TAB PO SCH ×3 (07:38→16:16)
[2019-05-03] MEDS: POTASSIUM CHLORIDE 10 MEQ TABCR PO SCH (07:38)
[2019-05-03] MEDS: CEROVITE ADV FORMULA TAB PO SCH (07:39)
[2019-05-03] MEDS: LOSARTAN POTASSIUM 50 MG TAB PO SCH (07:39)
[2019-05-03] MEDS: POLYETHYLENE (MIRALAX) 17 GM PACK PO SCH (07:40)
[2019-05-03] MEDS: AMOXICILLIN/CLAVULANATE 500 MG TAB PO SCH ×2 (08:34→16:16)
--- NOTE | 2019-05-03 14:39 | Discharge Summary ---
Date of Service May 03, 2019 Admission HPI Per Admitting Provider 80-year-old female presents with her daughter this evening for evaluation of an acute fever, cough, and loose stools. Of note, the following history is a mix between the patient and her daughter. The patient herself is oriented to self and to the fact that she being evaluated for her cough, though she is unaware of her location (including that she is in the hospital) or the date. Patient's daughter says that she was notified by the patient's assisted living facility around 9 PM this evening that the patient had a cough and a fever. She was also noted to have loose, non-bloody stools throughout the day. No known prodromal symptoms or illness prior to this. Some of the ED notes mentioned recent vomiting but the patient and daughter deny this. The patient herself says that she has a nagging cough that seemed to start recently. She says it hurts a bit in her left chest when she coughs. She denies any pain throughout her chest or elsewhere. On attempted review of systems, she says she feels a little out of breath. She denies any abdominal pain, extremity pains, or other acute concerns. When asked if she had diarrhea, patient did not seem to recall any open (though her daughter did confirm this). - Past medical history includes hypertension, hyperlipidemia, carotid stenosis, hyponatremia, shingles, CKD stage III and SIADH (which apparently resolved around 2010), macular degeneration, peripheral vascular disease. - Past surgical history includes carotid endarterectomy. - Social history includes smoking as a teenager. Presently lives at [facility] in [place]. Principal Diagnosis Left lower lobe pneumonia Discharge Exam Constitutional well developed and + thin; no acute distress Eyes PERRL, conjunctivae normal, anicteric sclerae ENMT external ear and nose normal, oropharynx normal Neck trachea midline, no thyromegaly Respiratory normal respiratory effort; no respiratory distress Auscultation: lungs clear to auscultation bilaterally and + diminished lung sounds (bases bilaterally); no rales and no wheezes Cardiovascular RRR, no murmur, no edema Gastrointestinal (Abdomen) normal bowel sounds, soft, nontender, no hepatosplenomegaly Musculoskeletal no cyanosis or clubbing, extremities motor strength 5/5 Skin no rashes, warm and dry Neurologic patellar DTR's 2+ bilat, sensation intact and PERRL, EOMI, accommodation nl, no face palsy, no dysarthria Psychiatric A+Ox3, euthymic affect Lymphatic no cervical or axillary lymphadenopathy Discharge Data Allergies Allergy/AdvReac Type Severity Reaction Status Date / Time erythromycin base Allergy Unknown RASH Verified 04/23/19 23:26 latex Allergy Unknown RASH Verified 09/05/18 12:32 potassium Allergy Unknown UNKNOWN Verified 09/05/18 12:32 CONTRAST DYE Allergy Unknown UNKNOWN Uncoded 04/23/19 23:26 Consultations 04/24/19 00:59 ED Decision to Admit Stat 04/26/19 15:19 Consult Cardiology Routine 04/30/19 10:30 Consult [employer] Routine Ordered Studies 04/25/19 12:34 CT chest wo con Routine 04/26/19 07:27 US duplex renal artery Routine 04/30/19 12:18 US point of care ultrasound Routine Hospital Course (1) Pneumonia: 88-year-old female was admitted on 24 April 2019 for fever, cough, and pneumonia. improved quickly with IV Zosyn converted to Augmentin PO BID, continues to recover finished course of antibiotics on day of discharge, will not require further treatment on discharge no fever, WBC normal, minimal cough still with some hypoxia, two step shows that she needs oxygen on exertion only (2) Diarrhea: resolved, no complaints today (3) Hypertensive urgency: resolved, BP much better controlled the past few days continue on Norvasc 10mg, Losartan, Hydralazine 25mg BID, Metoprolol (4) Hyperlipidemia: (5) Carotid stenosis: (6) Diastolic dysfunction: no signs of volume overload continue on Lasix daily and metoprolol (7) Macular degeneration: (8) Metabolic encephalopathy: resolved for several days, no issues likely hospital delirium (9) Chronic kidney disease, stage III (moderate): Cr is stable at 1.4, was 1.4 on admission will fluctuate between 1.0-1.4 (10) Pleural effusion: bilateral, small, no need for thoracentesis evaluated with bedside US by ICU team decreased breath sounds in bases but otherwise normal (11) Hypoxia: due to recent pneumonia, effusions, likely some compression atelectasis two step shows that she needs oxygen on exertion only arranged for oxygen at [facility] Total Time Total Time Spent Total Time Spent (In Minutes): 33 minutes Total Time Includes: Examination of the Patient, Discharge Planning and Medication Reconciliation Discharge Plan Discharge Items Patient Disposition: Personal Snf Reason For Visit: PNEUMONIA,HYPERTENSIVE URGENCY Discharge Diagnosis: Pneumonia Hypoxia Pleural effusions Condition: Good Discharge Goals: Improve disease control and Improve function Activity: Resume your previous activity Non-emergency contact: Primary Care Provider Call non-emergency contact if: you have any medication questions, your symptoms worsen and you have a fever [facility] - Diet: Heart Healthy Addtl Provider Instructions: Medications: - AMLODIPINE: note that the dose was increased to 10mg daily from 2.5mg daily - METOPROLOL: note that the dose was increased from 37.5mg BID to 75mg BID - HYDRALAZINE: new medication, 25mg twice a day Left lower lobe pneumonia treated initially with broad spectrum antibiotics, tapered to just Zosyn IV changed to Augmentin and completed 7 days total therapy no fever, WBC normal, minimal cough and only requiring oxygen on exertion recommend repeating CXR in 6 weeks Pleural effusions, bilateral mild, not enough for thoracentesis, evaluated at bedside with US continue to use Lasix likely causing some mild compressive atelectasis leading to the need for oxygen on exertion Hypertension, hypertensive urgency BP difficult to control initially note the chages to Norvasc and Metoprolol dosing BP is much better now, for several days FOLLOW UP - physician at [facility] within a week Prescriptions: New amlodipine [Norvasc] 5 mg Tablet 10 mg PO QAM 30 Days Qty: 60 RF: 0 metoprolol tartrate 50 mg Tablet 75 mg PO BID 30 Days Qty: 90 RF: 0 hydralazine 25 mg tablet 25 mg PO BID 30 Days Qty: 60 RF: 0 Continued losartan 50 mg tablet 50 mg PO BID Qty: 180 RF: 1 potassium chloride 10 mEq capsule, extended release 10 meq PO BID RF: 0 travoprost 0.004 % drops 1 drp OPB HS RF: 0 furosemide 20 mg tablet 20 mg PO DAILY RF: 0 aspirin 81 mg Tablet,Delayed Release (Dr/Ec) 81 mg PO DAILY RF: 0 acetaminophen [Tylenol Arthritis Pain] 650 mg Tablet Extended Release 1,300 mg PO HS MDD 3g/24hr of apap RF: 0 acetaminophen [Tylenol Arthritis Pain] 650 mg Tablet Extended Release 1,300 mg PO Q8 MDD 3gm/24hr of apap PRN (Reason: Pain) RF: 0 rosuvastatin 5 mg tablet 5 mg PO DAILY RF: 0 [facility] Vit 1 tab PO BID RF: 0 Discontinued amlodipine 5 mg Tablet 2.5 mg PO QAM RF: 0 metoprolol tartrate 25 mg tablet 37.5 mg PO BID RF: 0 Stand-Alone Forms: [facility] Discharge Orders: Discharge Order (Routine); Ordered 05/03/19 Ordered By: Jamey Soria Admission Data Admit Date/Time: 04/24/19 02:08 Attending Provider: Jamey Soria Admit Provider: Denton Fierro Primary Care Provider: AUGUSTIN FITZGERALD Other Providers: Van Barney ; Jl Solano ; Brock Fatima Service: Telemetry Medical Other Interventions: Discharge Summary Assessment (RN) Last Done: 05/03/19 15:10 DC Date/Time DO NOT enter until pt leaves facility: 05/03/19 18:21
[2019-05-03] MEDS: ACETAMINOPHEN 500 MG TAB PO PRN (17:54)
== END 2019-05-03 18:21 | disposition home or self-care (01) | DRG 193 ==
LOC: ED 22:16 → 2N 04-24 02:08 → SUATTDRO 04-24 02:08 → 2N 04-24 02:54

== ENCOUNTER 2019-10-19 21:20 | Inpatient (IN) ==
[2019-10-19 22:58] LABS: Basophils # (auto) 0.02 K/uL (0-0.2); Basophils % (auto) 0.3 %; Hematocrit (blood only) 35.7 % (37-47); Immature Granulocytes # (auto) 0.02 K/uL (0.00-0.02); Immature Granulocytes % (auto) 0.3 %; Lymphocytes # (auto) 0.42 K/uL (1.2-3.4); Lymphocytes % (auto) 6.3 %; Mean Corpuscular Hemoglobin 32.1 pg (25-34); Mean Corpuscular Hgb Conc 33.6 g/dL (32-36); Mean Corpuscular Volume 95.5 fL (80-100); Mean Platelet Volume 10.2 fL (7.4-10.4); Monocytes # (auto) 0.69 K/uL (0.11-0.59); Monocytes % (auto) 10.4 %; Neutrophils % (auto) 82.7 %; Platelet Count 248 K/uL (130-400); RDW Coefficient of Variation 14.4 % (11.5-14.5); RDW Standard Deviation 50.4 fL (36.4-46.3); Red Blood Count 3.74 M/uL (4.2-5.4); White Blood Count 6.65 K/uL (4.8-10.8)
--- NOTE | 2019-10-19 23:04 | XRay Report ---
XR chest 1V portable CLINICAL HISTORY: SOB dyspnea COMPARISON STUDY: 06/11/2019 FINDINGS: Moderate cardiomegaly. Infiltrate left base. Prominent pulmonary vasculature. Severe degene rative change of the right and to a lesser extent left shoulders. IMPRESSION: 1. Infiltrate left base. 2. Mild congestive failure. ACT 112: Negative or not required by law. The above report was generated using voice recognition software. It may contain grammatical, syntax or spelling errors. Electronically signed by: Felix Quan M.D. 10/19/2019 11:02 PM
[2019-10-19 23:11] LABS: Partial Thromboplastin Ratio 0.9; Partial Thromboplastin Time 23.1 Seconds (21.0-31.0); Prothrombin Time 10.5 Seconds (9.0-12.0)
[2019-10-19 23:12] LABS: Alanine Aminotransferase 45 U/L (12-78); Albumin Globulin Ratio 0.7 (0.9-2); Alkaline Phosphatase 91 U/L (45-117); Aspartate Aminotransferase 56 U/L (15-37); BUN Creatinine Ratio 26.8 (10-20); Bilirubin,Total 0.4 mg/dl (0.2-1); Blood Urea Nitrogen 29 mg/dl (7-18); Calcium 8.4 mg/dl (8.5-10.1); Carbon Dioxide 24 mmol/L (21-32); Chloride 101 mmol/L (98-107); Creatinine Clr Calc Pharmacy 23.9 ml/min; Est GFR (African American) 52.1; Globulin 4.1 gm/dl (2.5-4.0); Glucose 127 mg/dl (70-99); Potassium 4.2 mmol/L (3.5-5.1); Sodium 133 mmol/L (136-145); Total Protein 7.1 gm/dl (6.4-8.2); Troponin I < 0.015 ng/ml (0-0.045)
[2019-10-19] MEDS ORDERED: AZITHROMYCIN 500 MG in DEXTROSE 5% 250 ML IV STA (23:28)
[2019-10-19] MEDS ORDERED: cefTRIAXone SODIUM 1,000 MG/50 ML BAG IV STA (23:28)
[2019-10-19] MEDS ORDERED: HEPARIN SODIUM/DEXTROSE 25,000 UNITS/500 ML BAG IV SCH (23:30)
[2019-10-19] MEDS ORDERED: Heparin IV Low Dose *NO* Bolus IV ONE (23:30)
--- NOTE | 2019-10-19 23:39 | Emergency Department Note ---
Entered by Oleg Sky acting as a scribe for History of Present Illness General Chief complaint: Shortness of Breath/Dyspnea Stated complaint: CONFUSION, DIARRHEA, DEHYDRATION, COUGH, HYPOXIA Time Seen by Provider: 10/19/19 23:01 Source: patient and family (daughter) History of Present Illness Onset (ago): week(s) 1 Location: chest Pain Consistency: + other (persistent) Quality: + other (productive yellow cough) Associated symptoms: + other (Positive for SOB, a low oxygen saturation, d iarrhea, ankle swelling, a mild fever, and a decreased appetite. Negative for CP.) The patient is an 89 year old male who presents to the emergency department with complaints of a persistent cough beginning a week ago. The patient states that she has had a worsening cough for the last week. She notes that her cough has been productive, and she reports that the sputum is yellow. The patient states that she occasionally becomes SOB when she coughs. She notes that her SOB does not worsen with exertion. She also complains of diarrhea, ankle swelling, a mild fever, and a decreased appetite. She denies any CP. She reports that she has a history of hypertension, but she denies any history of lung or heart problems. The patient states that she was here six months ago for pneumonia, and she notes that her symptoms feel similar. Per daughter, the patient's oxygen saturation was low today. Home Medications Home Medications Medication Instructions Recorded Confirmed Type aspirin 81 mg PO QAM 04/23/19 10/19/19 History acetaminophen 650 mg 1,300 mg PO Q8 PRN MDD 3gm/24hr of 05/05/19 10/19/19 History tablet,extended release apap amlodipine 5 mg tablet 10 mg PO QAM #180 tab 09/13/19 10/19/19 Rx hydralazine 25 mg tablet 25 mg PO BID17 tab 09/16/19 10/19/19 History acetaminophen [Tylenol Arthritis 1,300 mg PO HS MDD 3 GRAMS/24 10/19/19 10/19/19 History Pain] HOURS. furosemide 20 mg PO QAM 10/19/19 10/19/19 History losartan 50 mg PO BID17 10/19/19 10/19/19 History metoprolol tartrate 75 mg PO BID17 10/19/19 10/19/19 History potassium chloride 10 meq PO BID17 10/19/19 10/19/19 History rosuvastatin 5 mg PO QAM 10/19/19 10/19/19 History travoprost [Travatan Z] 1 drops OP HS 10/19/19 10/19/19 History vit C,H-As-ppknt-lutein-zeaxan 1 tab PO BID17 10/19/19 10/19/19 History [PreserVision AREDS-2] Allergies Allergy/AdvReac Type Severity Reaction Status Date / Time erythromycin base Allergy Mild RASH Verified 10/19/19 22:51 latex Allergy Mild RASH Verified 10/19/19 22:51 Iodine and Iodide Containing Allergy Unknown UNKNOWN-ON Verified 10/19/19 22:51 Produc [place] LIST potassium Allergy Unknown UNKNOWN Verified 10/19/19 22:51 Past Med/Surg History Social History Preferred Language: German Communication Ability: Effective Visual Impairment: Limited Shoe Caser Required: No Beliefs That Will Affect Care: None Current Living Situation: Personal Care Facility current occupational status: retired Feels Safe at Home: Yes Smoking Status: Unknown if ever smoked Hx Alcohol Use: Yes Alcohol type: wine Hx Substance Use: No caffeine: Yes Dental Care, Regularly: No Physical Activity Frequency: Does not Exercise Seatbelt Use: always Review of Systems See HPI for pertinent positives & negatives. and A total of 10 systems reviewed and were otherwise negative Physical Exam Vital Signs Vital Signs - 24 hr 10/19/19 21:30 10/19/19 22:00 10/19/19 23:04 Temperature 99.0 F Temperature Source Oral Pulse Rate 75 73 Pulse Rate [Finger] 68 Pulse Rhythm Regular Regular Pulse Rhythm [Finger] Regular Pulse Strength Normal Pulse Strength [Finger] Normal Respiratory Rate 21 20 20 Respiratory Effort / Characteristics Non-Labored Spontaneous Non-Labored Spontaneous Respiratory Depth Normal Normal Respiratory Pattern Regular Regular Blood Pressure 122/68 Blood Pressure [Right Radial Artery] 121/78 Blood Pressure Mean 86 Blood Pressure Mean [Right Radial Artery] 92 Blood Pressure Position Lying Blood Pressure Position [Right Radial Artery] Lying Pulse Oximetry 89 L 95 94 Oxygen Delivery Method Room Air Nasal Cannula Nasal Cannula Nasal Cannula Oxygen Flow Rate 3 3 3 Sepsis Recent Fever Within 48 Hours No Sepsis New/Unexplained Change in Mental Status No Sepsis Action Taken by Nursing No Action Required Oxygen Flow Rate - Titration 3 Pulse Oximetry Post Tiitration 94 GENERAL: alert, frail appearing, well nourished, no distress, non-toxic EYE EXAM: normal conjunctiva, PERRL and EOM's grossly intact OROPHARYNX: no exudate, no erythema, lips, buccal mucosa, and tongue normal and mucous membranes are moist NECK: supple, no nuchal rigidity, no adenopathy, non-tender LUNGS: Clear to auscultation. Normal chest wall mechanics. Diminished breath sounds, no wheezes, rhonchi, and rales. HEART: no murmurs, S1 normal and S2 normal ABDOMEN: abdomen soft, non-tender, normo-active bowel sounds, no masses, no rebound or guarding. BACK: Back is symmetrical on inspection and there is no deformity, no midline tenderness, no CVA tenderness. SKIN: no rashes and no bruising UPPER EXTREMITIES: upper extremities are grossly normal. FROM, nml pulses b/l. LOWER EXTREMITIES: No pitting edema. FROM, nml pulses b/l. NEURO EXAM: Normal sensorium, cranial nerves II-XII grossly intact, normal speech, no gross weakness of arms, no gross weakness of legs. Course Course 2303: The patient was evaluated in room B2. A complete history and physical exam was performed. 2323: I updated the patient and her family on results. The patient has no known history of Afib. 2332: Upon reevaluation, the patient is stable. I discussed the findings and the treatment plan with the patient. She expresses agreement and understanding. I spoke with Dr. Barney of the [facility] Hospitalist Service. The patient will be evaluated for further management. Consultations Consultation #1: I reviewed the patient's case with Dr. Ector hall, [facility]. He will evaluate the patient for further management. Time: 23:32 Administered Medications Acetaminophen (Tylenol) 1,300 mg PO HS [facility] Stop: 11/19/19 20:59 Last Admin: 10/20/19 21:02 Dose: 1,300 mg Documented by: [id number] Amlodipine Besylate (Norvasc) 10 mg PO QAM [facility] Stop: 11/19/19 08:59 Last Admin: 10/20/19 08:19 Dose: 10 mg Documented by: [id number] Apixaban (Eliquis) 2.5 mg PO BID [facility] Stop: 11/19/19 20:59 Last Admin: 10/20/19 21:01 Dose: 2.5 mg Documented by: [id number] Aspirin (Ecotrin Ectab) 81 mg PO [facility] Stop: 11/19/19 08:59 Last Admin: 10/20/19 08:19 Dose: 81 mg Documented by: [id number] Furosemide (Lasix) 20 mg PO [facility] Stop: 11/19/19 08:59 Last Admin: 10/20/19 08:18 Dose: 20 mg Documented by: [id number] Hydralazine HCl (Apresoline) 25 mg PO BID17 [facility] Stop: 11/19/19 08:59 Last Admin: 10/20/19 17:26 Dose: 25 mg Documented by: [id number] Admin: 10/20/19 08:19 Dose: 25 mg Documented by: [id number] Ceftriaxone Sodium 1,000 mg/ (Dextrose) 50 mls @ 100 mls/hr IV Q24H [facility]; Protocol Stop: 10/25/19 23:29 Last Infusion: 10/20/19 23:09 Dose: 0 mls/hr Documented by: [id number] Admin: 10/20/19 22:38 Dose: 100 mls/hr Documented by: [id number] Azithromycin 500 mg/ Dextrose 255 mls @ 125 mls/hr IV Q24H [facility] Stop: 10/26/19 02:03 Last Admin: 10/21/19 00:15 Dose: 125 mls/hr Documented by: [id number] Losartan Potassium (Cozaar) 50 mg PO BID17 [facility] Stop: 11/19/19 08:59 Last Admin: 10/20/19 17:25 Dose: 50 mg Documented by: [id number] Admin: 10/20/19 08:18 Dose: 50 mg Documented by: [id number] Metoprolol Tartrate (Lopressor) 75 mg PO BID17 [facility] Stop: 11/19/19 08:59 Last Admin: 10/20/19 17:27 Dose: 75 mg Documented by: [id number] Admin: 10/20/19 08:17 Dose: 75 mg Documented by: [id number] Multivitamins/Minerals (Multivitamin W/ Minerals Tab) 1 tab PO BID17 [facility] Stop: 11/19/19 08:59 Last Admin: 10/20/19 17:25 Dose: 1 tab Documented by: [id number] Admin: 10/20/19 08:18 Dose: 1 tab Documented by: [id number] Potassium Chloride (Klor-Con M10) 10 meq PO BID17 [facility] Stop: 11/19/19 08:59 Last Admin: 10/20/19 17:26 Dose: 10 meq Documented by: [id number] Admin: 10/20/19 08:18 Dose: 10 meq Documented by: [id number] Rosuvastatin Calcium (Crestor) 5 mg PO QAM [facility] Stop: 11/19/19 08:59 Last Admin: 10/20/19 08:17 Dose: 5 mg Documented by: [id number] Discontinued Medications Heparin Sodium (Porcine) (Heparin Iv Bolus) Confirm Administered Dose 10,000 units .ROUTE .STK-MED ONE Stop: 10/20/19 00:52 Last Admin: 10/20/19 00:55 Dose: 10,000 units Documented by: [id number] Cosigned by: [id number] Heparin Sodium/Dextrose () 1 ea IV ONE ONE; Protocol Stop: 10/19/19 23:31 Last Admin: 10/20/19 00:56 Dose: Not Given Documented by: [id number] Ceftriaxone Sodium (Rocephin) 1,000 mg in 50 mls @ 100 mls/hr IV NOW STA Stop: 10/19/19 23:57 Last Infusion: 10/20/19 01:00 Dose: 0 mls/hr Documented by: [id number] Admin: 10/19/19 23:50 Dose: 100 mls/hr Documented by: [id number] Azithromycin 500 mg/ Dextrose 255 mls @ 127.5 mls/hr IV NOW STA Stop: 10/20/19 01:27 Last Infusion: 10/20/19 03:25 Dose: 0 mls/hr Documented by: [id number] Admin: 10/20/19 00:38 Dose: 127.5 mls/hr Documented by: [id number] Heparin Sodium/Dextrose (Heparin Sodium/Dextrose) 25,000 units in 500 mls @ 13 mls/hr IV .Q24H [facility]; Protocol Stop: 10/20/19 21:00 Last Titration: 10/20/19 15:00 Dose: 650 units/hr, 13 mls/hr Documented by: [id number] Cosigned by: [id number] Titration: 10/20/19 08:14 Dose: 600 units/hr, 12 mls/hr Documented by: [id number] Cosigned by: [id number] Titration: 10/20/19 07:01 Dose: 550 units/hr, 11 mls/hr Documented by: [id number] Cosigned by: [id number] Admin: 10/20/19 00:55 Dose: 550 units/hr, 11 mls/hr Documented by: [id number] Cosigned by: [id number] Heparin Sodium (Porcine) 2,000 (units/ Syringe) 2 mls @ 10 mls/min IV ONE ONE Stop: 10/20/19 08:01 Last Admin: 10/20/19 08:14 Dose: 10 mls/min Documented by: [id number] Cosigned by: [id number] Heparin Sodium (Porcine) 2,000 (units/ Syringe) 2 mls @ 10 mls/min IV NOW STA Stop: 10/20/19 14:32 Last Admin: 10/20/19 14:59 Dose: 10 mls/min Documented by: [id number] Cosigned by: [id number] Miscellaneous (Stop Order) 1 ea N/A ONE ONE Stop: 10/20/19 21:01 Last Admin: 10/20/19 21:01 Dose: 1 ea Documented by: [id number] Critical Care Time Critical Care Time: Yes Total Critical Care Time: 37 Critical care of 37 min performed to assess and manage high likelihood of life- threatening respiratory distress and dysrhythmia, involving labs and imaging performed with assessment to evaluation dyspnea and dysrhythmia diagnosis with frequent reassessment. This time includes bedside time, treatment discussions with patient/family/consultants, documentation time and excludes procedure time. Medical Decision Making Differential Diagnosis Differential diagnosis: Etiologies such as infections, reactive airway disease, COPD, pneumonia, pleural effusion, pulmonary edema, ARDS, pneumothorax, CHF, cardiac ischemia, cardiac tamponade, dysrhythmia, anemia, pulmonary embolism, musculoskeletal, gastrointestinal process, as well as others were entertained. Medical Records Attestation: I reviewed the patient's medical records. Home Medications Current Medication List: was personally reviewed by me Laboratory Data Attestation: I reviewed the patient's lab results. Result diagrams: 10/20/19 06:40 10/20/19 06:40 Lab Results 10/19/19 10/19/19 10/19/19 Range/Units 21:53 21:53 21:53 WBC 6.65 (4.8-10.8) K/uL RBC 3.74 L (4.2-5.4) M/uL Hgb 12.0 (12.0-16.0) g/dL Hct 35.7 L (37-47) % MCV 95.5 (80-100) fL MCH 32.1 (25-34) pg MCHC 33.6 (32-36) g/dL RDW Std Deviation 50.4 H (36.4-46.3) fL RDW Coeff of Chioma 14.4 (11.5-14.5) % Plt Count 248 (130-400) K/uL MPV 10.2 (7.4-10.4) fL Immature Gran % (Auto) 0.3 % Neut % (Auto) 82.7 % Lymph % (Auto) 6.3 % Patrick % (Auto) 10.4 % Eos % (Auto) 0.0 % Baso % (Auto) 0.3 % Immature Gran # (Auto) 0.02 (0.00-0.02) K/uL Neut # (Auto) 5.50 (1.4-6.5) K/uL Lymph # (Auto) 0.42 L (1.2-3.4) K/uL Patrick # (Auto) 0.69 H (0.11-0.59) K/uL Eos # (Auto) 0.00 (0-0.5) K/uL Baso # (Auto) 0.02 (0-0.2) K/uL PT 10.5 (9.0-12.0) Seconds INR 1.0 (0.9-1.1) APTT 23.1 (21.0-31.0) Seconds PTT Ratio 0.9 Sodium 133 L (136-145) mmol/L Potassium 4.2 (3.5-5.1) mmol/L Chloride 101 (98-107) mmol/L Carbon Dioxide 24 (21-32) mmol/L Anion Gap 8.0 (3-11) BUN 29 H (7-18) mg/dl Creatinine 1.09 (0.6-1.2) mg/dl Est Cr Clr Drug Dosing 23.9 ml/min Est GFR ( Amer) 52.1 Est GFR (Non-Af Amer) 45.0 BUN/Creatinine Ratio 26.8 H (10-20) Glucose 127 H (70-99) mg/dl Lactate (0.4-2.0) mmol/L Calcium 8.4 L (8.5-10.1) mg/dl Total Bilirubin 0.4 (0.2-1) mg/dl AST 56 H (15-37) U/L ALT 45 (12-78) U/L Alkaline Phosphatase 91 (45-117) U/L Troponin I < 0.015 (0-0.045) ng/ml NT-Pro-B Natriuret Pep 7696 H (0-1800) pg/ml Total Protein 7.1 (6.4-8.2) gm/dl Albumin 3.0 L (3.4-5.0) gm/dl Globulin 4.1 H (2.5-4.0) gm/dl Albumin/Globulin Ratio 0.7 L (0.9-2) Procalcitonin (0-0.5) ng/ml Specimen Hemolysis Influenza Type A (PCR) (Neg) Influenza Type B (PCR) (Neg) 10/19/19 10/19/19 10/20/19 Range/Units 23:22 23:22 01:11 WBC (4.8-10.8) K/uL RBC (4.2-5.4) M/uL Hgb (12.0-16.0) g/dL Hct (37-47) % MCV (80-100) fL MCH (25-34) pg MCHC (32-36) g/dL RDW Std Deviation (36.4-46.3) fL RDW Coeff of Chioma (11.5-14.5) % Plt Count (130-400) K/uL MPV (7.4-10.4) fL Immature Gran % (Auto) % Neut % (Auto) % Lymph % (Auto) % Patrick % (Auto) % Eos % (Auto) % Baso % (Auto) % Immature Gran # (Auto) (0.00-0.02) K/uL Neut # (Auto) (1.4-6.5) K/uL Lymph # (Auto) (1.2-3.4) K/uL Patrick # (Auto) (0.11-0.59) K/uL Eos # (Auto) (0-0.5) K/uL Baso # (Auto) (0-0.2) K/uL PT (9.0-12.0) Seconds INR (0.9-1.1) APTT (21.0-31.0) Seconds PTT Ratio Sodium (136-145) mmol/L Potassium (3.5-5.1) mmol/L Chloride (98-107) mmol/L Carbon Dioxide (21-32) mmol/L Anion Gap (3-11) BUN (7-18) mg/dl Creatinine (0.6-1.2) mg/dl Est Cr Clr Drug Dosing ml/min Est GFR ( Amer) Est GFR (Non-Af Amer) BUN/Creatinine Ratio (10-20) Glucose (70-99) mg/dl Lactate 1.1 (0.4-2.0) mmol/L Calcium (8.5-10.1) mg/dl Total Bilirubin (0.2-1) mg/dl AST (15-37) U/L ALT (12-78) U/L Alkaline Phosphatase (45-117) U/L Troponin I (0-0.045) ng/ml NT-Pro-B Natriuret Pep (0-1800) pg/ml Total Protein (6.4-8.2) gm/dl Albumin (3.4-5.0) gm/dl Globulin (2.5-4.0) gm/dl Albumin/Globulin Ratio (0.9-2) Procalcitonin 0.43 (0-0.5) ng/ml Specimen Hemolysis Influenza Type A (PCR) Neg for Influ A (Neg) Influenza Type B (PCR) Neg for Influ B (Neg) Imaging Data Radiologist's Impression: Radiology results as stated below per my review and the radiologist's interpretation: XR chest 1V portable FINDINGS: Moderate cardiomegaly. Infiltrate left base. Prominent pulmonary vasculature. Severe degenerative change of the right and to a lesser extent left shoulders. IMPRESSION: 1. Infiltrate left base. 2. Mild congestive failure. ACT 112: Negative or not required by law. The above report was generated using voice recognition software. It may contain grammatical, syntax or spelling errors. Electronically signed by: Felix Quan M.D. 10/19/2019 11:02 PM ECG Data Attestation: I personally reviewed and interpreted this ECG as follows: Indication: + SOB/dyspnea Rate (beats per minute): 81 Rhythm: + atrial fibrillation ECG [place]: + Normal ECG ST segments: no ST depression and no ST elevation Additional Comments: Normal QRS/QTC. Blood Pressure Blood Pressure Findings: Elevated blood pressure Blood Pressure Disposition: elevated BP felt to be situational MDM Narrative Patient here with cough and cold and family concerned about possible pneumonia. Patient does have a prior history of pneumonia last year. Patient also found to be in new A. fib. Patient is rate controlled likely due to her other blood pressure medications. I did discuss anticoagulation with the patient and family at bedside. No obvious contraindications reported. Patient was hemodynamically stable in the emergency room. Patient was found to have pneumonia on chest x- ray. Other labs reassuring. At this time I do not suspect bacteremia/sepsis. Patient was initially hypoxic on room air both for EMS as well as for us on arrival. Patient maintained on 2 to 3 L. Patient does not typically wear home oxygen or have a significant pulmonary history. There is also possible evolving mild CHF, possibly secondary to infection versus the atrial fibrillation. Patient and family were made aware of all results and were in agreement with plan. I did discuss antibiotic coverage with the hospitalist. Due to history of chronic kidney disease and renal artery stenosis, concern for use of fluoroquinolones. While patient is from a correction facility, patient started on community-acquired pneumonia coverage. No recent admission within the last 2 to 3 months. Impression & Plan Dyspnea, Pneumonia, Atrial fibrillation, new onset, Acute dehydration Discharge Plan Visit Data *Final* Discharge Date/Time: 10/20/19 01:56 Chief Complaint: Shortness of Breath/Dyspnea Stated Complaint: CONFUSION, DIARRHEA, DEHYDRATION, COUGH, HYPOXIA ED Provider: Nicol Llanos Discharge Problem: Dyspnea, Pneumonia, Atrial fibrillation, new onset, Acute dehydration Patient Disposition: Admitted As Inpatient Discharge Instructions Interventions: ED Discharge Assessment Last Done: 10/20/19 01:56 Discharge Problem: Dyspnea Qualifiers: Dyspnea type: unspecified Qualified Code(s): R06.00 - Dyspnea, unspecified Pneumonia Qualifiers: Pneumonia type: due to unspecified organism Laterality: left Lung location: lower lobe of lung Qualified Code(s): J18.9 - Pneumonia, unspecified organism The scribe's documentation has been prepared under my direction and personally reviewed by me in its entirety. I confirm that the note above accurately reflects all work, treatment, procedures, and medical decision making performed by me.
[2019-10-19 23:47] LABS: NT Pro B Type Natriuretic Pept 7696 pg/ml (0-1800)
[2019-10-20 00:08] LABS: Influenza A virus by PCR Neg for Influ A (Neg); Influenza B virus by PCR Neg for Influ B (Neg)
--- NOTE | 2019-10-20 00:25 | History & Physical Report ---
Date of Service October 20, 2019 Assessment & Plan (1) Pneumonia: 89 yo F with PMH HTN, HLD, CAD, CKD III presents with concerns of cough, SOB found to have LLL PNA on CXR and new onset A fib. PNA -Noted fever, cough, and reported hypoxia over the past 24 hours -CXR: Infiltrate left base. Mild congestive failure -Cont with coverage of community acquired (noted that pt coming from assisted living facility) with IV Azithromycin and Rocephin -blood cx pending -nasal MRSA pending -Supplemental O2 as needed New Onset A-fib -rate controlled at present -cont medical management with Metoprolol Tartrate 75 mg BID -cont IV Heparin 25,000 units -ECHO pending -CHADS-VASC2 Score: 5. Moderate-high risk- consider AC -Appreciate Cardiology Consult Diarrhea -Non bloody. Noted in past 24 hours. Otherwise pt w/o abd pain. PE normal. -If persists, consider additional studies of E. coli, Shiga, stool cultures, and C. difficile labs -Monitor for now. Watch hydration status. Stable. HTN/HLD/CAD -cont ASA 81mg, Amlodipine 5 mg, Hydralazine 25 mg BID, Losartan 50 mg BID, Metoprolol Tartrate 75 mg BID, Furosemide 20 mg, Rosuvastatin 5 mg SIADH/Hyponatremia -SIADH resolved 2010 -Na on admission 133. -Pt follows with Dr. Zheng. Last visit Aug 2019. Notes that serum sodium remains within acceptable limits off Demeclocycline therapy (was previously on) -limit free water intake to 1 L/day. Follow liberal salt diet -Continue Furosemide 20 mg daily to lower urine osmolality CKDIII -Cr stable on admit 1.09. Baseline Cr 1.1 Macular degeneration -Cont home eye drops Diet: HH Diet DVT prophylaxis: IV Heparin Full Code Dispo: Med tele. PT/OT pending. CM consulted. Presently lives at [facility] in [place]. History of Present Illness Chief Complaint: sob Primary Care Provider: [facility] 89 yo F with PMH HTN, HLD, CAD, CKD III, SIADH (resolved 2010) presents to [facility] via EMS from [facility] with complaints of SOB. History given by daughter in room who is a reliable historian. Pt has had a worsening productive cough with yellow phelgm for about one week now. Today, pt had SOB episode after coughing, and EMS was called. Pt sats 79% on RA, given 15L NC and improved to 92%. SOB not worse with exertion. Additional complaints of diarrhea, low grade fever. Pt otherwise denies any CP, palpitations, syncope or near syncope, other URI sxs, N/V. Pt was last admitted here March 2019 for PNA, and this feels similar to this last admission. EKG: Atrial fibrillation. When compared with ECG of 23-APR-2019, Atrial fibrillation has replaced Sinus rhythm CXR: Infiltrate left base. Mild congestive failure Pertinent Labs: Na 133, BNP 7696, Albumin 3.0. Otherwise unremarkable ER Course: IV Azithromycin 500 mg, IV Rocephin 1g, IV Heparin Family Hx: Noncontributory Social: Smoking as a teenager. Wine. Denies Illicit Drug Use. Presently lives at [facility] in [place]. Surgical Hx: carotid endarterectomy Allergies Allergy/AdvReac Type Severity Reaction Status Date / Time erythromycin base Allergy Mild RASH Verified 10/19/19 22:51 latex Allergy Mild RASH Verified 10/19/19 22:51 Iodine and Iodide Containing Allergy Unknown UNKNOWN-ON Verified 10/19/19 22:51 Produc [facility] potassium Allergy Unknown UNKNOWN Verified 10/19/19 22:51 Home Medications Home Medications Medication Instructions Recorded Confirmed Type aspirin 81 mg PO QAM 04/23/19 10/19/19 History acetaminophen 650 mg 1,300 mg PO Q8 PRN MDD 3gm/24hr of 05/05/19 10/19/19 History tablet,extended release apap amlodipine 5 mg tablet 10 mg PO QAM #180 tab 09/13/19 10/19/19 Rx hydralazine 25 mg tablet 25 mg PO BID17 tab 09/16/19 10/19/19 History acetaminophen [Tylenol Arthritis 1,300 mg PO HS MDD 3 GRAMS/24 10/19/19 10/19/19 History Pain] HOURS. 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 Beliefs That Will Affect Care: None Current Living Situation: Personal Care Facility current occupational status: retired Feels Safe at Home: Yes Smoking Status: Unknown if ever smoked Hx Alcohol Use: Yes Alcohol type: wine Hx Substance Use: No caffeine: Yes Dental Care, Regularly: No Physical Activity Frequency: Does not Exercise Seatbelt Use: always Review of Systems Review of Systems: All systems reviewed & are unremarkable except as noted in HPI & below Physical Exam Constitutional: WD/WN, vitals as above + thin Eyes: PERRL, conjunctivae normal, anicteric sclerae ENMT: external ear and nose normal, oropharynx normal Respiratory: normal respiratory effort, lungs clear to auscultation normal respiratory effort; no respiratory distress Auscultation: + diminished lung sounds Cardiovascular: Rate/Rhythm: regular rate; + abnormal rhythm (irregularly irregular) Gastrointestinal (Abdomen): normal bowel sounds, soft, nontender, no hepatosplenomegaly Skin: no rashes, warm and dry Psychiatric: A+Ox3, euthymic affect Results & Data Vital Signs (Past 12 Hours) Vital Signs Temp Pulse Pulse Resp BP BP Pulse Ox 10/19/19 23:04 68 20 121/78 94 10/19/19 22:00 73 20 95 10/19/19 21:30 37.2 C 75 21 122/68 89 L Laboratory Results Laboratory Results - last 24 hr 10/19/19 10/19/19 10/19/19 21:53 21:53 21:53 WBC 6.65 RBC 3.74 L Hgb 12.0 Hct 35.7 L MCV 95.5 MCH 32.1 MCHC 33.6 RDW Std Deviation 50.4 H RDW Coeff of Chioma 14.4 Plt Count 248 MPV 10.2 Immature Gran % (Auto) 0.3 Neut % (Auto) 82.7 Lymph % (Auto) 6.3 Davie % (Auto) 10.4 Eos % (Auto) 0.0 Baso % (Auto) 0.3 Immature Gran # (Auto) 0.02 Neut # (Auto) 5.50 Lymph # (Auto) 0.42 L Davie # (Auto) 0.69 H Eos # (Auto) 0.00 Baso # (Auto) 0.02 PT 10.5 INR 1.0 APTT 23.1 PTT Ratio 0.9 Sodium 133 L Potassium 4.2 Chloride 101 Carbon Dioxide 24 Anion Gap 8.0 BUN 29 H Creatinine 1.09 Est Cr Clr Drug Dosing 23.9 Est GFR ( Amer) 52.1 Est GFR (Non-Af Amer) 45.0 BUN/Creatinine Ratio 26.8 H Glucose 127 H Lactate Calcium 8.4 L Total Bilirubin 0.4 AST 56 H ALT 45 Alkaline Phosphatase 91 Troponin I < 0.015 NT-Pro-B Natriuret Pep 7696 H Total Protein 7.1 Albumin 3.0 L Globulin 4.1 H Albumin/Globulin Ratio 0.7 L Procalcitonin Specimen Hemolysis Influenza Type A (PCR) Influenza Type B (PCR) 10/19/19 10/19/19 10/19/19 23:22 23:22 23:22 WBC RBC Hgb Hct MCV MCH MCHC RDW Std Deviation RDW Coeff of Chioma Plt Count MPV Immature Gran % (Auto) Neut % (Auto) Lymph % (Auto) Davie % (Auto) Eos % (Auto) Baso % (Auto) Immature Gran # (Auto) Neut # (Auto) Lymph # (Auto) Davie # (Auto) Eos # (Auto) Baso # (Auto) PT INR APTT PTT Ratio Sodium Potassium Chloride Carbon Dioxide Anion Gap BUN Creatinine Est Cr Clr Drug Dosing Est GFR ( Amer) Est GFR (Non-Af Amer) BUN/Creatinine Ratio Glucose Lactate 1.1 Calcium Total Bilirubin AST ALT Alkaline Phosphatase Troponin I NT-Pro-B Natriuret Pep Total Protein Albumin Globulin Albumin/Globulin Ratio Procalcitonin Pending Specimen Hemolysis Influenza Type A (PCR) Neg for Influ A Influenza Type B (PCR) Neg for Influ B Medications Administered Current Inpatient Medications Azithromycin 500 mg/ Dextrose 255 mls @ 127.5 mls/hr IV NOW STA Stop: 10/20/19 01:27 Last Admin: 10/20/19 00:38 Dose: 127.5 mls/hr Documented by: Heparin Sodium/Dextrose (Heparin Sodium/Dextrose) 25,000 units in 500 mls @ 11 mls/hr IV .Q24H [facility]; Protocol Stop: 11/18/19 23:29 Last Admin: 10/20/19 00:55 Dose: 550 units/hr, 11 mls/hr Documented by: Code Status & VTE Plan Code Status DNR/DNI Supervising Physician Co-Signing Physician Notes Attending addendum: I have physically seen this patient, have supervised the medical residents activities, and agree with the H&P unless as otherwise noted. Assessment and Plan: New onset atrial fibrillation with rate control/hypertension/CAD- patient will be admitted to telemetry for serial cardiac enzymes, serial EKG's, cardiac rhythm monitoring and a 2-D echocardiogram with Dopplers. Continue metoprolol tartrate 75 mg p.o. twice daily, aspirin 81 mg daily, amlodipine 5 mg p.o. daily, hydralazine 25 mg p.o. twice daily, losartan 50 mg p.o. twice daily and furosemide 20 mg p.o. daily. Anticoagulation with IV heparin tonight. Consult cardiology. Pneumonia involving left lower lobe- Place on ceftriaxone IV and azithromycin IV Sputum Gram stain and culture. Blood cultures. Xopenex nebulizers every 6 hours as needed. Hyperlipidemia- Continue rosuvastatin 5 mg daily Remainder of orders and notations as noted. Resident Activity Tracking Resident Involvement: Resident Care Provided Care Provided: Adult Hospital Medicine (1) Pneumonia Laterality: left Lung location: lower lobe of lung Pneumonia type: due to unspecified organism Qualified Code(s): J18.9 - Pneumonia, unspecified organism
[2019-10-20] MEDS ORDERED: HEPARIN SOD (PORCINE) 1000 UNIT/ML 10 ML VIAL ONE (00:51)
[2019-10-20] MEDS ORDERED: ALUMINUM/MAGNESIUM SUSP 30 ML UDC PO PRN (02:37)
[2019-10-20] MEDS ORDERED: ONDANSETRON INJ 2 MG/ML 2 ML VIAL IV PRN (02:37)
[2019-10-20] MEDS ORDERED: NITROGLYCERIN SL 0.4 MG/TAB TAB SL PRN (02:37)
[2019-10-20] MEDS ORDERED: ACETAMINOPHEN 325 MG TAB PO PRN (03:39)
[2019-10-20 07:01] LABS: Basophils # (auto) 0.02 K/uL (0-0.2); Basophils % (auto) 0.4 %; Eosinophils # (auto) 0.03 K/uL (0-0.5); Eosinophils % (auto) 0.6 %; Hematocrit (blood only) 35.6 % (37-47); Hemoglobin 12.2 g/dL (12.0-16.0); Immature Granulocytes # (auto) 0.01 K/uL (0.00-0.02); Immature Granulocytes % (auto) 0.2 %; Lymphocytes % (auto) 18.8 %; Mean Corpuscular Hemoglobin 32.8 pg (25-34); Mean Corpuscular Hgb Conc 34.3 g/dL (32-36); Mean Corpuscular Volume 95.7 fL (80-100); Mean Platelet Volume 9.6 fL (7.4-10.4); Monocytes # (auto) 0.85 K/uL (0.11-0.59); Monocytes % (auto) 15.9 %; Neutrophils # (auto) 3.42 K/uL (1.4-6.5); Neutrophils % (auto) 64.1 %; Platelet Count 228 K/uL (130-400); RDW Coefficient of Variation 14.4 % (11.5-14.5); RDW Standard Deviation 50.7 fL (36.4-46.3); Red Blood Count 3.72 M/uL (4.2-5.4); White Blood Count 5.33 K/uL (4.8-10.8)
[2019-10-20 07:08] LABS: Partial Thromboplastin Ratio 1.6; Partial Thromboplastin Time 43.2 Seconds (21.0-31.0)
[2019-10-20 07:32] LABS: BUN Creatinine Ratio 28.8 (10-20); Calcium 8.4 mg/dl (8.5-10.1); Creatinine Clr Calc Pharmacy 30.8 ml/min; Est GFR (African American) 66.6; Est GFR (Non-African American) 57.5; Potassium 3.8 mmol/L (3.5-5.1)
[2019-10-20] MEDS ORDERED: HEPARIN IV BOLUS 2,000 UNITS in SYRINGE 0 ML IV ONE (08:00)
[2019-10-20] MEDS: ROSUVASTATIN CALCIUM 5 MG TAB PO SCH (08:17)
[2019-10-20] MEDS: METOPROLOL TARTRATE 25 MG TAB PO SCH ×2 (08:17→17:27)
[2019-10-20] MEDS: LOSARTAN POTASSIUM 50 MG TAB PO SCH ×2 (08:18→17:25)
[2019-10-20] MEDS: FUROSEMIDE 20 MG TAB PO SCH (08:18)
[2019-10-20] MEDS: CEROVITE ADV FORMULA TAB PO SCH ×2 (08:18→17:25)
[2019-10-20] MEDS: POTASSIUM CHLORIDE 10 MEQ TABCR PO SCH ×2 (08:18→17:26)
[2019-10-20] MEDS: ASPIRIN 81 MG ECTAB PO SCH (08:19)
[2019-10-20] MEDS: AMLODIPINE BESYLATE 5 MG TAB PO SCH (08:19)
--- NOTE | 2019-10-20 08:56 | Cardiology Consultation ---
Date of Consultation October 20, 2019 Assessment & Plan (1) Atrial fibrillation, new onset: Mrs. Vieira is an 89 year old female with a history of Hypertension, Hyperlipidemia, Carotid Artery Stenosis s/p CEA, Hyponatremia, Shingles, Stage III CKD, history of SIADH, Macular Degeneration, Peripheral Vascular Disease, and Renal Artery Stenosis -- who was admitted on 10/20/2019 with a LLL Pneumonia and Newly Diagnosed and Completely Asymptomatic Rate Controlled Atrial Fibrillation. Patient denies any past history of cardiac arrhythmias or atrial dysrhythmias. Patient does not have any symptoms attributable to her atrial fibrillation. Patient denies any past history of cardiac arrhythmias or atrial dysrhythmias. Patient does not have any symptoms attributable to her atrial fibrillation. Patient has not had any angina pectoris or anginal equivalent symptoms, overt evidence of heart failure, nor has she had any signs or symptoms suggestive of stroke or mini-stroke. Her [id number] is 5. She has never had issues with bleeding in the past. Patient had normal biventricular systolic function, mild MR, mild TR, and mild concentric LVH with grade I LV diastolic dysfunction on Echocardiogram 2018 -- so cardiomegaly on portable CXR is not consistent with prior echo. Repeat Echo is pending As she is Rate Controlled and Asymptomatic with her Atrial Fibrillation -- we recommend a Rate Control / Anticoagulation Strategy. -- Continue Lopressor 75 mg b.i.d.. -- Convert to Eliquis 2.5 mg b.i.d. at discharge. -- Continue Heparin drip for the time being. -- Echocardiogram is pending. -- Follow up with [facility] 1 to 2 weeks after discharge. (2) Hypertension: -- Continue Amlodipine 5 mg daily. -- Hydralazine 25 mg b.i.d.. -- Lasix 20 mg daily. -- Losartan 50 mg b.i.d.. -- Lopressor 75 mg b.i.d.. (3) Pneumonia: -- As managed by Hospitalist service. (4) Diastolic dysfunction: -- Repeat Echocardiogram pending. -- Appears euvolemic currently. Supervising Physician Co-Signing Physician Notes Patient was seen and examined on 10/20/2019. Agree with above with following additions. She denies palpitations or chest pain. Breathing has improved. She has been coughing. Left lower lobe infiltrate on chest x-ray on antibiotic therapy as per primary service. She was found to be in rate controlled atrial fibrillation and is asymptomatic in this regard. She had an echocardiogram done today which demonstrated normal LV size with hyperdynamic systolic function. EF > 70%. No regional wall motion abnormalities. Severe left atrial dilation. Mild right atrial dilation. At least moderate MR. Mild to moderate TR. RVSP 41. Exam notable for: BP 129/76; pulse 67 bpm General: No acute distress. Alert. neck: No JVD. Cardiac: Irregularly irregular but rate controlled. Lungs: Clear to auscultation bilaterally on anterior auscultation. extremities: No edema or cyanosis. ASSESSMENT/PLAN: 1. Atrial fibrillation: She is rate controlled on her home dose of beta- tonny. No changes recommended at this time. Agree with anticoagulation for stroke risk reduction if no contraindications. 2. Mitral regurgitation: At least moderate on echo. Recommend monitoring over time. 3. Mild pulmonary hypertension: Can be monitored over time. 4. Pneumonia: As per primary service. 5. Disposition: Please call with any other questions or concerns. Jose Guadalupe Jhaveri MD History of Present Illness Attending Physician: Zeus Johnson MD History of Present Illness Mrs. Vieira is an 89 year old female with a history of Hypertension, Hyperlipidemia, Carotid Artery Stenosis s/p CEA, Hyponatremia, Shingles, Stage III CKD, history of SIADH, Macular Degeneration, Peripheral Vascular Disease, and Renal Artery Stenosis -- who was admitted on 10/20/2019 with a productive, AVALOS, and yellow sputum over the preceding days as well as a poor appetite. No high fever or shaking chills. Patient had an SpO2 of 89% in the ER. CXR showed a LLL infiltrate and ? congestive change. Patient was also noted to have an irregular pulse and EKG confirmed the presence of Newly Diagnosed and Rate Controlled Atrial Fibrillation. Patient denies any past history of cardiac arrhythmias or atrial dysrhythmias. Patient does not have any symptoms attributable to her atrial fibrillation. Patient has not had any angina pectoris or anginal equivalent symptoms, overt evidence of heart failure, nor has she had any signs or symptoms suggestive of stroke or mini-stroke. Patient is currently on a Heparin. [id number] is 5. She has never had issues with bleeding in the past. She denies any history of gastric ulcers or GI bleeding. Allergies Allergy/AdvReac Type Severity Reaction Status Date / Time erythromycin base Allergy Mild RASH Verified 10/19/19 22:51 latex Allergy Mild RASH Verified 10/19/19 22:51 Iodine and Iodide Containing Allergy Unknown UNKNOWN-ON Verified 10/19/19 22:51 Produc [facility] potassium Allergy Unknown UNKNOWN Verified 10/19/19 22:51 Home Medications Home Medications Medication Instructions Recorded Confirmed Type aspirin 81 mg PO QAM 04/23/19 10/19/19 History acetaminophen 650 mg 1,300 mg PO Q8 PRN MDD 3gm/24hr of 05/05/19 10/19/19 History tablet,extended release apap amlodipine 5 mg tablet 10 mg PO QAM #180 tab 09/13/19 10/19/19 Rx hydralazine 25 mg tablet 25 mg PO BID17 tab 09/16/19 10/19/19 History acetaminophen [Tylenol Arthritis 1,300 mg PO HS MDD 3 GRAMS/24 10/19/19 10/19/19 History Pain] HOURS. 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 HEENT: Head is atraumatic, normocephalic. EOM's intact. Facies symmetric. No perioral cyanosis. NECK: No JVD. JVP is just above the level of the clavicle sitting upright. Carotid upstrokes are + 2 bilaterally. CHEST/LUNGS: Rale present in the left lower lung field with occasional expiratory wheeze in the left upper field. Right lung is clear. CVS: S1 and S2 are irregularly irregular at a rate of 77 bpm. No obvious murmurs, gallops, or rubs. PMI is nondisplaced. No lifts, heaves, or thrills. No abdominal aortic or renal bruits. ABDOMINAL EXAM: Bowel sounds are present. No masses, organomegaly, or tenderness. EXTREMITIES: No clubbing or cyanosis. No edema. Intact radial pulses bilaterally. NEUROLOGIC EXAM: Patient is awake, alert, and oriented. Pleasant and cooperative. Answers questions appropriately. Speech is clear. ECHOCARDIOGRAM is pending. TELEMETRY: -- Atrial fibrillation with a controlled ventricular response rate. -- Occasional PVC's vs aberrantly conducted beats. Results & Data Vital Signs (Past 12 Hours) Vital Signs Temp Pulse Pulse Resp BP BP BP 10/20/19 07:39 37.4 C 80 20 146/79 H 10/20/19 07:14 70 10/20/19 03:30 36.7 C 72 20 96/55 L 10/20/19 02:15 36.5 C 65 18 98/53 L 10/20/19 02:00 63 19 107/57 L 10/20/19 00:40 68 20 102/59 L 10/19/19 23:04 68 20 121/78 10/19/19 22:00 73 20 10/19/19 21:30 37.2 C 75 21 122/68 Pulse Ox 10/20/19 07:39 93 10/20/19 07:14 10/20/19 03:30 95 10/20/19 02:15 93 10/20/19 02:00 96 10/20/19 00:40 95 10/19/19 23:04 94 10/19/19 22:00 95 10/19/19 21:30 89 L PG Care Time/CCT Total # of Minutes Spent Total Time Spent with Patient: Total time spent is greater than 50% in coordination of care (as documented) at patient's floor/unit and/or counseling patient: (1) Pneumonia Laterality: left Lung location: lower lobe of lung Pneumonia type: due to unspecified organism Qualified Code(s): J18.9 - Pneumonia, unspecified organism
[2019-10-20 14:20] LABS: Partial Thromboplastin Ratio 1.5; Partial Thromboplastin Time 41.2 Seconds (21.0-31.0)
[2019-10-20] MEDS ORDERED: HEPARIN IV BOLUS 2,000 UNITS in SYRINGE 0 ML IV STA (14:31)
--- NOTE | 2019-10-20 15:42 | Hospitalist Progress Note ---
Date of Service October 20, 2019 Assessment & Plan (1) Pneumonia: CXR on 10/19 showed an infiltrate in the left base as well as mild congestive failure. - Continue abx - Continue DuoNebs (2) Atrial fibrillation, new onset: EKG noted afib which is new for her. She was already rate-controlled on her home beta-tonny for BP. - Continue beta-tonny - Will start apixaban for anticoagulation - Discussed risks:benefits with daughter, and she is in agreement. (3) Hypertension: Has moderate renal artery stenosis diagnosed in a prior admission. - Continue home meds - BP controlled today at 130/80. 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 - Na on admission 133. - Pt follows with Dr. Zheng. Last visit Aug 2019. Notes that serum sodium remains within acceptable limits off Demeclocycline therapy (was previously on). - Limit free water intake to 1 L/day. - Is on furosemide 20 mg daily (5) Chronic kidney disease, stage III (moderate): Baseline Cr. ~1.1. - Presently at baseline (6) DVT prophylaxis: Apixaban for the afbi Subjective Doing well overall. Her cough is improving as is her shortness of breath. Reports no fevers/chills, chest pain, abdominal pain, nausea, or vomiting. Physical Exam Constitutional: WD/WN, vitals as above Eyes: EOM intact bilaterally; no conjunctival abnormality ENMT: external ear and nose normal, oropharynx normal Neck: trachea midline, no thyromegaly normal visual inspection Respiratory: normal respiratory effort, lungs clear to auscultation no respiratory distress Cardiovascular: Rate/Rhythm: regular rate and + irregularly irregular Heart Sounds: normal S1 and normal S2 Extremities: no edema Gastrointestinal (Abdomen): Inspection/Auscultation: abdomen normal to inspection; abdomen not distended Musculoskeletal: no cyanosis or clubbing, extremities motor strength 5/5 Skin: no rashes, warm and dry Neurologic: moves all extremities and awake Psychiatric: Orientation: alert, oriented to person and cooperative Results & Data Vital Signs (Past 12 Hours) Vital Signs Temp Pulse Pulse Resp BP Pulse Ox Pulse Ox 10/20/19 15:14 37.5 C 71 18 129/76 91 10/20/19 11:26 37.2 C 86 20 132/70 93 10/20/19 10:42 90 10/20/19 07:39 37.4 C 80 20 146/79 H 93 10/20/19 07:14 70 Pulse Ox 10/20/19 15:14 10/20/19 11:26 10/20/19 10:42 93 10/20/19 07:39 10/20/19 07:14 PG Care Time/CCT Total # of Minutes Spent Total Time Spent with Patient: Total time spent is greater than 50% in coordination of care (as documented) at patient's floor/unit and/or counseling patient: (1) Pneumonia Laterality: left Lung location: lower lobe of lung Pneumonia type: due to unspecified organism Qualified Code(s): J18.9 - Pneumonia, unspecified organism
[2019-10-20] MEDS: APIXABAN 2.5 MG TAB PO SCH (21:01)
[2019-10-20] MEDS: ACETAMINOPHEN 325 MG TAB PO SCH (21:02)
[2019-10-20] MEDS: TRAVOPROST Z 0.004% OPH SOLN 2.5 ML BTL OP SCH (21:03)
[2019-10-20] MEDS: cefTRIAXone SODIUM 1,000 MG in DEXTROSE 5% 50 ML IV SCH (22:38)
--- NOTE | 2019-10-20 23:08 | Electrocardiogram Report ---
Test Reason : Blood Pressure : / mmHG Vent. Rate : 081 BPM Atrial Rate : 087 BPM P-R Int : 000 ms QRS Dur : 080 ms QT Int : 410 ms P-R-T Axes : 000 013 -06 degrees QTc Int : 476 ms Atrial fibrillation Septal infarct (cited on or before 19-OCT-2019) Abnormal ECG When compared with ECG of 23-APR-2019 22:33, Atrial fibrillation has replaced Sinus rhythm T wave inversion now evident in Inferior leads Nonspecific T wave abnormality, improved in Lateral leads Confirmed by Vishal Jhaveri ([id number]) on 10/20/2019 11:08:03 PM Referred By: [facility] Confirmed By:Vishal Jhaveri
[2019-10-21] MEDS: AZITHROMYCIN 500 MG in DEXTROSE 5% 250 ML IV SCH ×2 (00:15→23:59)
--- NOTE | 2019-10-21 05:08 | Billing Data ---
Date of Service October 21, 2019 Coding Level of Care Code 29565 Initial Inpt Care Lvl 3
[2019-10-21 08:04] LABS: Hematocrit (blood only) 37.6 % (37-47); Hemoglobin 12.5 g/dL (12.0-16.0); Mean Corpuscular Hemoglobin 31.7 pg (25-34); Mean Corpuscular Hgb Conc 33.2 g/dL (32-36); Mean Corpuscular Volume 95.4 fL (80-100); Mean Platelet Volume 9.8 fL (7.4-10.4); Platelet Count 243 K/uL (130-400); RDW Coefficient of Variation 14.2 % (11.5-14.5); RDW Standard Deviation 49.7 fL (36.4-46.3); Red Blood Count 3.94 M/uL (4.2-5.4); White Blood Count 5.19 K/uL (4.8-10.8)
[2019-10-21 08:40] LABS: Calcium 9.2 mg/dl (8.5-10.1); Creatinine Clr Calc Pharmacy 25.4 ml/min; Est GFR (African American) 52.7; Est GFR (Non-African American) 45.5; Potassium 3.8 mmol/L (3.5-5.1)
[2019-10-21] MEDS: CEROVITE ADV FORMULA TAB PO SCH ×2 (08:50→17:16)
[2019-10-21] MEDS: LOSARTAN POTASSIUM 50 MG TAB PO SCH ×2 (08:50→17:16)
[2019-10-21] MEDS: FUROSEMIDE 20 MG TAB PO SCH (08:51)
[2019-10-21] MEDS: AMLODIPINE BESYLATE 5 MG TAB PO SCH (08:51)
[2019-10-21] MEDS: ASPIRIN 81 MG ECTAB PO SCH (08:51)
[2019-10-21] MEDS: METOPROLOL TARTRATE 25 MG TAB PO SCH ×2 (08:51→17:16)
[2019-10-21] MEDS: POTASSIUM CHLORIDE 10 MEQ TABCR PO SCH ×2 (08:52→17:16)
[2019-10-21] MEDS: ROSUVASTATIN CALCIUM 5 MG TAB PO SCH (08:52)
[2019-10-21] MEDS: APIXABAN 2.5 MG TAB PO SCH ×2 (08:52→20:38)
--- NOTE | 2019-10-21 13:16 | Hospitalist Progress Note ---
Date of Service October 21, 2019 Assessment & Plan (1) Pneumonia: CXR on 10/19 showed an infiltrate in the left base as well as mild congestive failure. - Continue abx - Continue DuoNebs - Improving today. Less cough. (2) Atrial fibrillation, new onset: EKG noted afib which is new for her. She was already rate-controlled on her home beta-tonny for BP. - Continue beta-tonny - Started apixaban for anticoagulation - Discussed risks:benefits with daughter, and she is in agreement. - Rate-controlled today. Doing well. (3) Hypertension: Has moderate renal artery stenosis diagnosed in a prior admission. Had previously had very [id number]-[id number] hypertension. - Continue home meds - BP controlled today at 100/60. 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 - Na on admission 133. - Pt follows with Dr. Zheng. Last visit Aug 2019. Notes that serum sodium remains within acceptable limits off Demeclocycline therapy (was previously on). - Limit free water intake to 1 L/day. - Is on furosemide 20 mg daily (5) Chronic kidney disease, stage III (moderate): Baseline Cr. ~1.1. - Presently at baseline (6) DVT prophylaxis: Apixaban for the afib Subjective Coughing less. Feeling better. Minimal sputum production. Reports no fevers/chills, chest pain, shortness of breath, abdominal pain, nausea, or vomiting. Physical Exam Constitutional: WD/WN, vitals as above Eyes: EOM intact bilaterally; no conjunctival abnormality ENMT: external ear and nose normal, oropharynx normal Neck: trachea midline, no thyromegaly normal visual inspection Respiratory: normal respiratory effort, lungs clear to auscultation no respiratory distress Cardiovascular: Rate/Rhythm: regular rate and + irregularly irregular Heart Sounds: normal S1 and normal S2 Extremities: no edema Gastrointestinal (Abdomen): Inspection/Auscultation: abdomen normal to inspection; abdomen not distended Musculoskeletal: no cyanosis or clubbing, extremities motor strength 5/5 Skin: no rashes, warm and dry Neurologic: moves all extremities and awake Psychiatric: Orientation: alert, oriented to person and cooperative Results & Data Vital Signs (Past 12 Hours) Vital Signs Temp Pulse Pulse Resp BP Pulse Ox 10/21/19 11:19 36.7 C 67 20 97/59 L 92 10/21/19 07:56 36.9 C 77 20 132/84 90 10/21/19 07:09 80 10/21/19 04:31 36.9 C 79 16 134/55 L 90 PG Care Time/CCT Total # of Minutes Spent Total Time Spent with Patient: Total time spent is greater than 50% in coordination of care (as documented) at patient's floor/unit and/or counseling patient: Coding Level of Care Code 14086 Subseq Hosp Care Lvl 2 Diagnoses Pneumonia J18.9 Laterality: left Lung location: lower lobe of lung Pneumonia type: due to unspecified organism Atrial fibrillation, new onset I48.91 Hypertension I10 SIADH (syndrome of inappropriate ADH production) E22.2 Chronic kidney disease, stage III (moderate) N18.3 DVT prophylaxis Z29.9 (1) Pneumonia Laterality: left Lung location: lower lobe of lung Pneumonia type: due to unspecified organism Qualified Code(s): J18.9 - Pneumonia, unspecified organism
[2019-10-21] MEDS: ACETAMINOPHEN 325 MG TAB PO SCH (20:37)
[2019-10-21] MEDS: TRAVOPROST Z 0.004% OPH SOLN 2.5 ML BTL OP SCH (20:38)
[2019-10-21] MEDS: cefTRIAXone SODIUM 1,000 MG in DEXTROSE 5% 50 ML IV SCH (22:40)
[2019-10-22 07:35] LABS: BUN Creatinine Ratio 26.2 (10-20); Calcium 8.6 mg/dl (8.5-10.1); Creatinine Clr Calc Pharmacy 30.4 ml/min; Est GFR (African American) 65.7; Est GFR (Non-African American) 56.7; Potassium 3.9 mmol/L (3.5-5.1)
[2019-10-22] MEDS: POTASSIUM CHLORIDE 10 MEQ TABCR PO SCH ×2 (08:05→16:41)
[2019-10-22] MEDS: LOSARTAN POTASSIUM 50 MG TAB PO SCH ×2 (08:05→16:41)
[2019-10-22] MEDS: FUROSEMIDE 20 MG TAB PO SCH (08:05)
[2019-10-22] MEDS: ROSUVASTATIN CALCIUM 5 MG TAB PO SCH (08:05)
[2019-10-22] MEDS: ASPIRIN 81 MG ECTAB PO SCH (08:06)
[2019-10-22] MEDS: METOPROLOL TARTRATE 25 MG TAB PO SCH ×2 (08:06→16:41)
[2019-10-22] MEDS: AMLODIPINE BESYLATE 5 MG TAB PO SCH (08:06)
[2019-10-22] MEDS: APIXABAN 2.5 MG TAB PO SCH ×2 (08:06→18:52)
[2019-10-22] MEDS: CEROVITE ADV FORMULA TAB PO SCH ×2 (08:06→16:41)
--- NOTE | 2019-10-22 16:46 | Discharge Summary ---
Date of Service October 22, 2019 Admission HPI Per Admitting Provider 89 yo F with PMH HTN, HLD, CAD, CKD III, SIADH (resolved 2010) presents to [facility] via EMS from [facility] with complaints of SOB. History given by daughter in room who is a reliable historian. Pt has had a worsening productive cough with yellow phelgm for about one week now. Today, pt had SOB episode after coughing, and EMS was called. Pt sats 79% on RA, given 15L NC and improved to 92%. SOB not worse with exertion. Additional complaints of diarrhea, low grade fever. Pt otherwise denies any CP, palpitations, syncope or near syncope, other URI sxs, N/V. Pt was last admitted here March 2019 for PNA, and this feels similar to this last admission. EKG: Atrial fibrillation. When compared with ECG of 23-APR-2019, Atrial fibrillation has replaced Sinus rhythm CXR: Infiltrate left base. Mild congestive failure Pertinent Labs: Na 133, BNP 7696, Albumin 3.0. Otherwise unremarkable ER Course: IV Azithromycin 500 mg, IV Rocephin 1g, IV Heparin Family Hx: Noncontributory Social: Smoking as a teenager. Wine. Denies Illicit Drug Use. Presently lives at [facility] in [place]. Surgical Hx: carotid endarterectomy Principal Diagnosis Pneumonia; new onset afib Discharge Exam Constitutional WD/WN, vitals as above Eyes EOM intact bilaterally; no conjunctival abnormality ENMT external ear and nose normal, oropharynx normal Neck trachea midline, no thyromegaly normal visual inspection Respiratory normal respiratory effort, lungs clear to auscultation no respiratory distress Cardiovascular Rate/Rhythm: regular rate and + irregularly irregular Heart Sounds: normal S1 and normal S2 Extremities: no edema Gastrointestinal (Abdomen) Inspection/Auscultation: abdomen normal to inspection; abdomen not distended Musculoskeletal no cyanosis or clubbing, extremities motor strength 5/5 Skin no rashes, warm and dry Neurologic moves all extremities and awake Psychiatric Orientation: alert, oriented to person and cooperative Discharge Data Allergies Allergy/AdvReac Type Severity Reaction Status Date / Time erythromycin base Allergy Mild RASH Verified 10/19/19 22:51 latex Allergy Mild RASH Verified 10/19/19 22:51 Iodine and Iodide Containing Allergy Unknown UNKNOWN-ON Verified 10/19/19 22:51 [facility] potassium Allergy Unknown UNKNOWN Verified 10/19/19 22:51 Consultations 10/19/19 23:39 ED Decision to Admit Stat 10/20/19 02:37 Consult Cardiology Routine Consult Case Management - Discharge Planning Routine Hospital Course (1) Pneumonia: CXR on 10/19 showed an infiltrate in the left base as well as mild congestive failure. - Was on ceftriaxone & azithromycin inpatient - Discharged on azithromycin x 1 more day and Keflex x 3 more days to finish course. (2) Atrial fibrillation, new onset: EKG noted afib which is new for her. She was already rate-controlled on her home beta-tonny for BP. - Continued beta-tonny - Started apixaban for anticoagulation - Discussed risks:benefits with daughter, and she is in agreement. - No bleeding issues. Discharged on apixaban 2.5 mg PO BID (dose-reduced for age and weight). (3) Hypertension: Has moderate renal artery stenosis diagnosed in a prior admission. Had previously had very cdfb-xe-bpnly hypertension. - Continue home meds - BP controlled today at 150/60. 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 - Na on admission 133. - Pt follows with Dr. Zheng. Last visit Aug 2019. Notes that serum sodium remains within acceptable limits off demeclocycline therapy (was previously on). - Limit free water intake to 1 L/day. - Is on furosemide 20 mg daily (5) Chronic kidney disease, stage III (moderate): Baseline Cr. ~1.1. - Presently at baseline -> Cr was ~0.9 to 1.1 in the days prior to discharge. (6) DVT prophylaxis: Apixaban for the afib Total Time Total Time Spent Total Time Spent (In Minutes): 45 Discharge Plan Discharge Items Patient Disposition: Trans Resident Long-Term Care Reason For Visit: PNA, A-FIB Discharge Diagnosis: Pneumonia, new atrial fibrillation Activity: Resume your previous activity Non-emergency contact: Primary Care Provider and Manager Primary Call non-emergency contact if: your symptoms worsen and your pain is worsening Follow-up/Referrals: Vishal Jhvaeri MD [Physician] - (Please see Dr. Jhaveri in 2 weeks for follow up of your atrial fibrillation.) [facility] RACHAEL [Primary Care Provider] - Diet: Heart Healthy Addtl Attending Provider Instructions: You were admitted to the hospital with pneumonia and an abnormal heart rate called atrial fibrillation. Your pneumonia improved quite quickly with antibiotics. You need: 1) Azithromycin 500 mg PO tonight (10/22/2019), then you are done with it. 2) Keflex 500 mg PO BID x 3 more days (Last dose would be the evening dose on 10/25/2019.) The abnormal heart rhythm called atrial fibrillation causes your heart to beat irregularly. It can sometimes cause your heart to speed up, but in your case, your blood pressure medications kept your heart rate normal. Please take the Eliquis 2 times per day to lower any risk of stroke. Please follow up with Dr. Jhaveri or Fabricio Alcantara in the Cardiology office in 1- 2 weeks for follow up. Pending Studies at Discharge: No Stand-Alone Forms: [facility] Skilled Items Patient informed of condition?: Yes DNR: Yes Discharge Level of Care: Skilled Communicable Disease: No Discharge Prognosis: Improving Lines: None Urinary Catheter: No Medications and DC Order Prescriptions: New azithromycin [Zithromax] 250 mg Tablet 500 mg PO QPM Qty: 2 RF: 0 Eliquis 2.5 mg Tablet 2.5 mg PO BID Qty: 60 RF: 0 cephalexin [Keflex] 500 mg capsule 500 mg PO BID 14 Days Qty: 7 RF: 0 Continued amlodipine [Norvasc] 5 mg tablet 10 mg PO QAM Qty: 180 RF: 1 hydralazine 25 mg tablet 25 mg PO BID17 RF: 0 acetaminophen [Tylenol Arthritis Pain] 650 mg Tablet Extended Release 1,300 mg PO HS MDD 3 GRAMS/24 HOURS. RF: 0 PreserVision AREDS-2 [id number] [id number]-pzjq-[id number]-mg Capsule 1 tab PO BID17 RF: 0 losartan 50 mg tablet 50 mg PO BID17 RF: 0 potassium chloride 10 mEq capsule, extended release 10 meq PO BID17 RF: 0 travoprost [Travatan Z] 0.004 % drops 1 drops OP HS RF: 0 metoprolol tartrate 50 mg tablet 75 mg PO BID17 RF: 0 furosemide 20 mg tablet 20 mg PO QAM RF: 0 rosuvastatin 5 mg tablet 5 mg PO QAM RF: 0 aspirin 81 mg Tablet,Delayed Release (Dr/Ec) 81 mg PO QAM RF: 0 acetaminophen [Tylenol Arthritis Pain] 650 mg tablet extended release 1,300 mg PO Q8 MDD 3gm/24hr of apap PRN (Reason: Pain) RF: 0 Discharge Orders: Discharge Order (Routine); Ordered 10/22/19 Ordered By: Zeus Johnson Admission Data Admit Date/Time: 10/20/19 01:43 Attending Provider: Zeus Johnson Admit Provider: Naga Zepeda Primary Care Provider: [facility] Other Providers: Vishal Jhaveri ; Zeus Johnson Other Interventions: Discharge Summary Assessment (RN) Last Done: 10/22/19 15:35 Coding Level of Care Code D/C Day Management >30 mins Diagnoses Pneumonia J18.9 Laterality: left Lung location: lower lobe of lung Pneumonia type: due to unspecified organism Atrial fibrillation, new onset I48.91 Hypertension I10 SIADH (syndrome of inappropriate ADH production) E22.2 Chronic kidney disease, stage III (moderate) N18.3 DVT prophylaxis Z29.9
[2019-10-22] MEDS ORDERED: cefUROXime axetil 500 MG TAB PO SCH (21:00)
[2019-10-22] MEDS ORDERED: AZITHROMYCIN 250 MG TAB PO SCH (21:00)
--- NOTE | 2019-10-26 11:41 | Coding Query ---
CODING QUERY To promote full compliance with coding requirements relating to patient care, provider participation is requested in all cases of crawler crane operator uncertainty. Please assist us with the question(s) below: Coding Question(s): Patient admitted with shortness, diagnosed with Pneumonia . Progress notes/DS also documents mild congestive heart failure. Please document the type of CHF (diastolic/systolic) and acuity (acute/chronic) if relevant. Thanks for your help! Tarun Walsh [facility] Physician's Response(s): The finding you are noting was a radiographic finding on chest x-ray. She never clinically had any signs of volume overload (i.e. CHF), and this was never given as a problem we were treating. She is on Lasix for her hypertension, not a diagnosis of CHF. She has never been diagnosed with CHF in the past that I saw, and this was not a diagnosis I made this admission. As such, she does not have CHF. Principal Diagnosis: "that condition established after study, to be chiefly responsible for occasioning the admission of the patient to the hospital for care." Co-Existing Principal Diagnosis: "when two or more diagnoses equally meet the criteria for principal diagnosis as determined by the circumstances of admission, diagnostic work up, and/or therapy provided, and the Alphabetic Index, Tabular List, or another coding guideline does not provide sequencing direction, any one of the diagnoses may be sequenced first." "When the physician has documented what appears to be a current diagnosis in the body of the record, but has not included the diagnosis in the final diagnostic statement, the physician should be asked whether the diagnosis should be added." (Source Coding Clinic 2 QTR90. p3-4) CESAR
== END 2019-10-22 19:11 | disposition home or self-care (01) | DRG 195 ==
LOC: ED 21:20 → SUATTDRO 10-20 01:43 → 2N 10-20 01:43

== ENCOUNTER 2019-11-21 09:47 | Inpatient (IN) ==
[2019-11-21] MEDS ORDERED: SODIUM CHLORIDE 0.9% 1000ML 500 ML IV ONE ×2 (10:30→13:46)
[2019-11-21 10:58] LABS: Basophils # (auto) 0.02 K/uL (0-0.2); Basophils % (auto) 0.2 %; Eosinophils # (auto) 0.03 K/uL (0-0.5); Eosinophils % (auto) 0.3 %; Hemoglobin 11.7 g/dL (12.0-16.0); Immature Granulocytes # (auto) 0.05 K/uL (0.00-0.02); Immature Granulocytes % (auto) 0.4 %; Lymphocytes % (auto) 10.1 %; Mean Corpuscular Hgb Conc 33.4 g/dL (32-36); Mean Corpuscular Volume 95.6 fL (80-100); Mean Platelet Volume 9.3 fL (7.4-10.4); Monocytes # (auto) 0.48 K/uL (0.11-0.59); Neutrophils # (auto) 10.16 K/uL (1.4-6.5); Platelet Count 343 K/uL (130-400); RDW Coefficient of Variation 14.3 % (11.5-14.5); RDW Standard Deviation 49.3 fL (36.4-46.3); Red Blood Count 3.66 M/uL (4.2-5.4); White Blood Count 11.94 K/uL (4.8-10.8)
--- NOTE | 2019-11-21 10:59 | XRay Report ---
XR chest 1V portable CLINICAL HISTORY: cough dyspnea COMPARISON STUDY: No previous studies for comparison. FINDINGS: Unchanging atelectatic and/or infiltrative changes left base. Probable associated left effu owen. The right lung is clear. There are severe degenerative changes of the shoulders. IMPRESSION: Stable left basilar infiltrate and/or effusion. Minimal infiltrative right change right base also unaltered. ACT 112: Negative or not required by law. The above report was generated using voice recognition software. It may contain grammatical, syntax or spelling errors. Electronically signed by: Felix Quan M.D. 11/21/2019 10:58 AM
[2019-11-21 11:15] LABS: Alanine Aminotransferase 18 U/L (12-78); Albumin Level 2.6 gm/dl (3.4-5.0); Aspartate Aminotransferase 11 U/L (15-37); BUN Creatinine Ratio 15.3 (10-20); Blood Urea Nitrogen 16 mg/dl (7-18); Calcium 8.3 mg/dl (8.5-10.1); Carbon Dioxide 25 mmol/L (21-32); Chloride 101 mmol/L (98-107); Est GFR (African American) 57.2; Est GFR (Non-African American) 49.3; Glucose 116 mg/dl (70-99); Lipase 132 U/L (73-393); Magnesium 1.9 mg/dl (1.8-2.4); Sodium 136 mmol/L (136-145)
[2019-11-21 11:17] LABS: Albumin Globulin Ratio 0.7 (0.9-2); Alkaline Phosphatase 86 U/L (45-117); Bilirubin,Total 0.5 mg/dl (0.2-1); Total Protein 6.6 gm/dl (6.4-8.2)
[2019-11-21] MEDS ORDERED: POTASSIUM CHLORIDE 20 MEQ TABCR PO STA ×2 (11:27→19:01)
[2019-11-21 15:00] LABS: Cdiff Antigen Positive
[2019-11-21 15:02] LABS: Cdiff Toxin A+B Positive Cdiff Toxin (Negative)
[2019-11-21] MEDS ORDERED: RASPBERRY SYRUP 5 ML UDP PO ONE (15:06)
[2019-11-21] MEDS ORDERED: VANCOMYCIN HCL 125 MG/2.5ML SOLN PO STA (15:06)
--- NOTE | 2019-11-21 16:02 | Emergency Department Note ---
Entered by Caprice Spivey acting as a scribe for History of Present Illness General Chief complaint: Diarrhea Stated complaint: DIARRHEA WATERY/ORDOR, COUGHING- HX C DIFF Time Seen by Provider: 11/21/19 10:13 Source: patient and family Mode of arrival: ambulatory Limitations: no limitations History of Present Illness Onset (ago): day(s) 5 Location: abdomen Radiation: non-radiation Pain Consistency: + constant Relieved By: + none Exacerbated By: + none Associated symptoms: + cough; no nausea/vomiting Treatments prior to arrival: none The patient is an 89 year old white female w/ PMHx of A-Fib, CKD, HTN and HLD who presents to the ED w/ CC of persistent diarrhea for the past 5 days. She is accompanied by her daughter. She was discharged on 11/03/19 for a diarrheal illness thought to be secondary to antibiotics. C-Diff testing was positive and she was placed on Vancomycin 125 QID and discharged on 11/13/19. They recommended to stop taking Laxatives like Metamucil and to start using Probiotics. For the past 5 days, the diarrhea has returned. She has not experienced any vomiting. Her daughter notes she does have a dry cough. Home Medications Home Medications Medication Instructions Recorded Confirmed Type aspirin 81 mg PO QAM 04/23/19 11/21/19 History hydralazine 25 mg tablet 25 mg PO BID tab 09/16/19 11/21/19 History PreserVision AREDS-2 1 tab PO BID 10/19/19 11/21/19 History acetaminophen [Tylenol Arthritis 1,300 mg PO Q8H PRN MDD 3 GRAMS/10/19/19 11/21/19 History Pain] HOURS. metoprolol tartrate 75 mg PO BID 10/19/19 11/21/19 History potassium chloride 10 meq PO BID 10/19/19 11/21/19 History rosuvastatin 5 mg PO QAM 10/19/19 11/21/19 History travoprost [Travatan Z] 1 drops OPB HS 10/19/19 11/21/19 History Eliquis 2.5 mg PO BID #60 tab 10/22/19 11/21/19 Rx pantoprazole 40 mg PO QAM 30 Days #30 tab 11/03/19 11/21/19 Rx furosemide 20 mg tablet 20 mg PO DAILY #90 tab 11/08/19 11/21/19 Rx psyllium husk 0.4 gram capsule 0.4 gm PO DAILY #30 cap 11/09/19 11/21/19 Rx amlodipine 5 mg PO DAILY 11/15/19 11/21/19 History Lactobacillus acidophilus 3 cap PO DAILY cap 11/18/19 11/21/19 History Allergies Allergy/AdvReac Type Severity Reaction Status Date / Time erythromycin base Allergy Mild RASH Verified 11/21/19 11:00 latex Allergy Mild RASH Verified 11/21/19 11:00 Iodine and Iodide Containing Allergy Unknown UNKNOWN-ON Verified 11/21/19 11:00 Produc [place] LIST potassium Allergy Unknown UNKNOWN Verified 11/21/19 11:00 Past Med/Surg History Medical History Chronic kidney disease, stage III (moderate) (Chronic) Hypertension Hypoxia (Acute) Pleural effusion SIADH (syndrome of inappropriate ADH production) Surgical History H/O carotid endarterectomy Family History Other Family history non-contributory Myocardial infarction Denies family history of Ovarian cancer Breast cancer Colorectal cancer Social History Preferred Language: Amharic Communication Ability: Effective Visual Impairment: Limited [employer] Agent Required: No Beliefs That Will Affect Care: None Current Living Situation: Shelter current occupational status: retired Feels Safe at Home: Yes Smoking Status: Never smoker Second Hand Exposure: No ; Hx Alcohol Use: No Hx Substance Use: No caffeine: Yes Dental Care, Regularly: No Physical Activity Frequency: Does not Exercise Seatbelt Use: always Review of Systems See HPI for pertinent positives & negatives. and A total of 10 systems reviewed and were otherwise negative Physical Exam Vital Signs Vital Signs - 24 hr 11/21/19 10:03 11/21/19 10:25 11/21/19 11:48 Temperature 36.3 C L Temperature Source Oral Pulse Rate 76 Pulse Rate [Apical] 74 Pulse Rhythm Regular Pulse Strength Normal Respiratory Rate 20 18 Respiratory Effort / Characteristics Non-Labored Spontaneous Respiratory Depth Normal Respiratory Pattern Regular Blood Pressure 114/56 L Blood Pressure [Left Arm] 116/60 Blood Pressure Mean 75 Blood Pressure Mean [Left Arm] 78 Blood Pressure Position Sitting Pulse Oximetry 95 95 95 Oxygen Delivery Method Room Air Room Air Room Air Sepsis Recent Fever Within 48 Hours No Sepsis Action Taken by Nursing No Action Required 11/21/19 13:00 11/21/19 15:00 Temperature Temperature Source Pulse Rate Pulse Rate [Apical] 85 79 Pulse Rhythm Pulse Strength Respiratory Rate 18 18 Respiratory Effort / Characteristics Respiratory Depth Respiratory Pattern Blood Pressure Blood Pressure [Left Arm] 167/86 H Blood Pressure Mean Blood Pressure Mean [Left Arm] 113 Blood Pressure Position Pulse Oximetry 97 97 Oxygen Delivery Method Room Air Room Air Sepsis Recent Fever Within 48 Hours Sepsis Action Taken by Nursing GENERAL: Patient appears stated age, well nourished, NAD, non-toxic. EYE EXAM: Normal conjunctiva. PERRL, no anisocoria and EOM's grossly intact w/o pain. OROPHARYNX: Moist mucous membranes. Grossly normal dentition. NECK: Supple, no nuchal rigidity, no adenopathy, non-tender. No signs of meningismus. LUNGS: Clear to auscultation. Normal chest wall mechanics. HEART: NSR, no MRG. ABDOMEN: Abdomen soft, non-tender, normo-active bowel sounds, no masses, no rebound or guarding. BACK: No CVA TTP. SKIN: No rashes and no bruising. UPPER EXTREMITIES: Upper extremities are grossly normal. LOWER EXTREMITIES: No pitting edema. No calf pain. NEURO EXAM: A&O x3, cranial nerves II-XII grossly intact, normal speech, moves all 4 extremities on command w/o issue. Course Course 1027: The patient was evaluated in room C7 and a complete history and physical were performed. 1317: I reevaluated the patient. She is resting comfortably. 1500: I reevaluated the patient. She is resting. I discussed her results and my recommendation she remain in the hospital for further evaluation and management and she is agreeable with the plan. 1510: I discussed the patients case with Dr. Benson, [facility] Hospitalist. The patient will be further evaluated. Administered Medications Discontinued Medications Sodium Chloride (Nss 1000ml) 500 mls @ 999 mls/hr IV .Q31M ONE Stop: 11/21/19 11:00 Last Infusion: 11/21/19 11:31 Dose: 0 mls/hr Documented by: [id number] Admin: 11/21/19 10:59 Dose: 999 mls/hr Documented by: [id number] Sodium Chloride (Nss 1000ml) 500 mls @ 999 mls/hr IV .Q31M ONE Stop: 11/21/19 14:16 Last Infusion: 11/21/19 14:55 Dose: 0 mls/hr Documented by: [id number] Admin: 11/21/19 14:20 Dose: 999 mls/hr Documented by: [id number] Potassium Chloride (Klor-Con M20) 40 meq PO NOW STA Stop: 11/21/19 11:28 Last Admin: 11/21/19 12:30 Dose: 40 meq Documented by: [id number] Medical Decision Making Medical Records Attestation: I reviewed the patient's medical records. The patient was discharged on 11/03/19 for a diarrheal illness thought to be secondary to antibiotics. C-Diff testing was positive and she was placed on Vancomycin 125 QID and discharged on 11/13/19. They recommended to stop taking Laxatives like Metamucil and to start using Probiotics. Home Medications Current Medication List: was personally reviewed by me Laboratory Data Attestation: I reviewed the patient's lab results. Result diagrams: 11/21/19 10:50 11/21/19 10:50 Lab Results 11/21/19 11/21/19 11/21/19 Range/Units 10:50 10:50 11:50 WBC 11.94 H (4.8-10.8) K/uL RBC 3.66 L (4.2-5.4) M/uL Hgb 11.7 L (12.0-16.0) g/dL Hct 35.0 L (37-47) % MCV 95.6 (80-100) fL MCH 32.0 (25-34) pg MCHC 33.4 (32-36) g/dL RDW Std Deviation 49.3 H (36.4-46.3) fL RDW Coeff of [place] 14.3 (11.5-14.5) % Plt Count 343 (130-400) K/uL MPV 9.3 (7.4-10.4) fL Immature Gran % (Auto) 0.4 % Neut % (Auto) 85.0 % Lymph % (Auto) 10.1 % [place] % (Auto) 4.0 % Eos % (Auto) 0.3 % Baso % (Auto) 0.2 % Immature Gran # (Auto) 0.05 H (0.00-0.02) K/uL Neut # (Auto) 10.16 H (1.4-6.5) K/uL Lymph # (Auto) 1.20 (1.2-3.4) K/uL [place] # (Auto) 0.48 (0.11-0.59) K/uL Eos # (Auto) 0.03 (0-0.5) K/uL Baso # (Auto) 0.02 (0-0.2) K/uL Sodium 136 (136-145) mmol/L Potassium 3.0 L (3.5-5.1) mmol/L Chloride 101 (98-107) mmol/L Carbon Dioxide 25 (21-32) mmol/L Anion Gap 10.0 (3-11) BUN 16 (7-18) mg/dl Creatinine 1.01 (0.6-1.2) mg/dl Est Cr Clr Drug Dosing Not Reportable Est GFR ( Amer) 57.2 Est GFR (Non-Af Amer) 49.3 BUN/Creatinine Ratio 15.3 (10-20) Glucose 116 H (70-99) mg/dl Calcium 8.3 L (8.5-10.1) mg/dl Magnesium 1.9 (1.8-2.4) mg/dl Total Bilirubin 0.5 (0.2-1) mg/dl AST 11 L (15-37) U/L ALT 18 (12-78) U/L Alkaline Phosphatase 86 (45-117) U/L Total Protein 6.6 (6.4-8.2) gm/dl Albumin 2.6 L (3.4-5.0) gm/dl Globulin 4.0 (2.5-4.0) gm/dl Albumin/Globulin Ratio 0.7 L (0.9-2) Lipase 132 (73-393) U/L Stl C. diff Tox B Gene Positive Cdiff Gene H (Neg) Stl C.difficile Tox A&B Positive Cdiff Toxin A* (Negative) Imaging Data Radiologist's Impression: Radiology results as stated below per my review and the radiologist's interpretation: XR chest 1V portable CLINICAL HISTORY: cough dyspnea COMPARISON STUDY: No previous studies for comparison. FINDINGS: Unchanging atelectatic and/or infiltrative changes left base. Probable associated left effusion. The right lung is clear. There are severe degenerative changes of the shoulders. IMPRESSION: Stable left basilar infiltrate and/or effusion. Minimal infiltrative right change right base also unaltered. ACT 112: Negative or not required by law. The above report was generated using voice recognition software. It may contain grammatical, syntax or spelling errors. Electronically signed by: Felix Quan M.D. 11/21/2019 10:58 AM ECG Data Attestation: I personally reviewed and interpreted this ECG as follows: Indication: + other (diarrhea) Rate (beats per minute): 78 Rhythm: + atrial fibrillation ECG Intervals/blocks: + Normal QRS ECG [place]: + Normal ECG ST segments: + T-wave inversions (in lead 3) ECG Findings: + PVCs Comparison ECG Date: from (08/17/2019) Change: the following changes noted (TWI is old, PVC is new) Blood Pressure Blood Pressure Findings: Elevated blood pressure Blood Pressure Disposition: further management by hospitalist YONI Narrative The patient is an 89 year old white female w/ PMHx of A-Fib, CKD, HTN and HLD who presents to the ED w/ CC of persistent diarrhea for the past 5 days. Differential: Viral, Bacterial, Parasitic, Iatrogenic, C-Diff, Malabsorbtion, Irritable Bowel Disease, IBS, Ischemic Bowel, amongst other pathologies entertained. Patient was seen and evaluated the bedside. The patient was presenting with concern for increasing stool frequency since Friday. The patient was concerned about recurrent C. difficile. The patient had been discharged earlier in the month and was started on p.o. vancomycin 4 times daily for 10 days. The patient has completed this. The patient also did complain of some cough. Patient did a bladder completed along with a chest x-ray. The patient's stool sample was sent. Patient's blood work does show mild hypokalemia which was repleted. There was a complication with running the stool sample also a second had to be sent. Mild white count at 11,000. Patient has mild anemia. The patient did have some hypokalemia which was again repleted. Patient was given additional IV fluids as she was having some persistent diarrhea. The patient does have positive C. difficile. P.o. vancomycin was ordered. The patient was subsequently made to the medicine service for fluid loss, hyperkalemia and recurrent C. difficile. Impression & Plan Recurrent Clostridium difficile diarrhea, Hypokalemia, Dehydration Discharge Plan Visit Data Chief Complaint: Diarrhea Stated Complaint: DIARRHEA WATERY/ORDOR, COUGHING- HX C DIFF ED Provider: Benedict Rhodes Discharge Problem: Recurrent Clostridium difficile diarrhea, Hypokalemia, Dehydration Patient Disposition: Being Evaluated by Hospitalist Forms Stand Alone Forms: My [facility] Prescriptions Prescriptions: No Action psyllium husk [Metamucil] 0.4 gram capsule 0.4 gm PO DAILY Qty: 30 RF: 0 furosemide [Lasix] 20 mg tablet 20 mg PO DAILY Qty: 90 RF: 3 Lactobacillus acidophilus [Acidophilus] Capsule 3 cap PO DAILY RF: 0 hydralazine 25 mg tablet 25 mg PO BID RF: 0 acetaminophen [Tylenol Arthritis Pain] 650 mg Tablet Extended Release 1,300 mg PO Q8H MDD 3 GRAMS/24 HOURS. PRN (Reason: Pain) RF: 0 PreserVision AREDS-2 [id number] Capsule 1 tab PO BID RF: 0 potassium chloride 10 mEq capsule, extended release 10 meq PO BID RF: 0 travoprost [Travatan Z] 0.004 % drops 1 drops OPB HS RF: 0 metoprolol tartrate 50 mg tablet 75 mg PO BID RF: 0 rosuvastatin 5 mg tablet 5 mg PO QAM RF: 0 Eliquis 2.5 mg Tablet 2.5 mg PO BID Qty: 60 RF: 0 aspirin 81 mg Tablet,Delayed Release (Dr/Ec) 81 mg PO QAM RF: 0 pantoprazole 40 mg Tablet,Delayed Release (Dr/Ec) 40 mg PO QAM 30 Days Qty: 30 RF: 2 amlodipine 5 mg tablet 5 mg PO DAILY RF: 0 Referrals Referrals: Geremias Watkins MD [Primary Care Provider] - The scribe's documentation has been prepared under my direction and personally reviewed by me in its entirety. I confirm that the note above accurately reflects all work, treatment, procedures, and medical decision making performed by me.
--- NOTE | 2019-11-21 16:53 | Electrocardiogram Report ---
Test Reason : Blood Pressure : / mmHG Vent. Rate : 078 BPM Atrial Rate : 070 BPM P-R Int : 000 ms QRS Dur : 078 ms QT Int : 376 ms P-R-T Axes : 000 003 -12 degrees QTc Int : 428 ms Poor data quality, interpretation may be adversely affected Atrial fibrillation with premature ventricular or aberrantly conducted complexes T wave abnormality, consider inferior ischemia Abnormal ECG When compared with ECG of 15-NOV-2019 20:47, Nonspecific T wave abnormality, worse in Anterolateral leads Confirmed by Major Kumar ([id number]) on 11/21/2019 4:52:54 PM Referred By: REFERRED SELF Confirmed By:Pierre Kumar
--- NOTE | 2019-11-21 17:32 | History & Physical Report ---
Date of Service November 21, 2019 Assessment & Plan (1) Recurrent Clostridium difficile diarrhea: 89-year-old female with multiple medical problems presenting with recurrence of C. difficile associated diarrhea. Patient was recently treated with a 10-day course of oral vancomycin. She is afebrile, hemodynamically stable, nontoxic in appearance. WBC = 5.34, creatinine = 1. We will treat with fidaxomicin 200 mg p.o. twice daily for 10 days IV fluid and electrolyte support as needed Enteric/contact precautions -Continue home probiotic Present on Admission?: Yes (2) Hypokalemia: K = 3. Patient is on KCl 10 mEq p.o. twice daily at home as well as Lasix. Low potassium most likely secondary to medication effects as well as GI losses. Patient administered 40 mEq of potassium in the ER. -Will administer additional 40 mEq for total of 80 mEq Repeat labs in a.m. Present on Admission?: Yes (3) Dehydration: Patient appears dry on physical exam. Most likely due to ongoing GI losses We will hold Lasix for now LR at 80 mL/h x 2 L Present on Admission?: Yes (4) Atrial fibrillation: Patient presently in atrial fibrillation, rate controlled at 79 bpm. Anticoagulated on Eliquis Continue metoprolol 75 mg p.o. twice daily Continue Eliquis 2.5 mg p.o. twice daily Present on Admission?: Yes (5) Chronic kidney disease, stage III (moderate): BUN and creatinine are near baseline, 16 1 respectively. Continue to monitor BUN/creatinine/electrolytes/urine output Avoid nephrotoxic agents Renal dosing were needed Present on Admission?: Yes (6) Hypertension: Patient with history of hypertension. Blood pressure elevated today 167/86. History of renal artery stenosis. Continue amlodipine 5 mg p.o. daily Continue hydralazine 25 mg p.o. twice daily Continue metoprolol 75 mg p.o. twice daily Continue to monitor Present on Admission?: Yes (7) SIADH (syndrome of inappropriate ADH production): Sodium = 136 today. IV fluids as above in setting of dehydration/ongoing GI losses Continue to monitor sodium Present on Admission?: Yes (8) Anemia: Hgb = 11.7, HCT = 35. Slightly decreased from prior values of 12.2 and 35.8. Continue to monitor Present on Admission?: Yes (9) Hyperlipidemia: Chronic. Continue Crestor FENLR at 80 mL/h x 2 L, monitor electrolytes and replete as needed. See hypokalemia above. Regular diet as tolerated Prophylaxiscontinue Eliquis CodeDNR/DNI Dispositionadmit to medical floor History of Present Illness Chief Complaint: C. difficile associated diarrhea Primary Care Provider: Geremias Watkins MD Silvana Vieira is a pleasant 89-year-old female presenting with prof use, watery diarrhea. Patient has had multiple hospitalizations over the last 2 months. She was hospitalized from 10/20 -10/22/2019 with left basilar pneumonia. She was treated with ceftriaxone/azithromycin and discharged home on azithromycin and Keflex to finish antibiotic course. She was also diagnosed with atrial fibrillation during that stay and continued on her beta-tonny, apixaban 2.5 mg p.o. twice daily initiated. She returned to the ER on 10/30 with profuse watery diarrhea, concern for GI bleed and was admitted for C. difficile diarrhea, discharged on 11/03/2019. Patient was doing fairly well, diarrhea resolved until 11/17 when she again developed profuse, watery diarrhea. Daughter reports 1 episode per hour with incontinence. Denies fever/chills/abdominal distention. Denies chest pain/shortness of breath. No additional complaints at this time. In the ER patient afebrile, hemodynamically stable, had 8 episodes of watery diarrhea. C. difficile gene and toxin positive. ER course: KCl 40 mEq, normal saline x1 L, vancomycin 125mg po Allergies Allergy/AdvReac Type Severity Reaction Status Date / Time erythromycin base Allergy Mild RASH Verified 11/21/19 11:00 latex Allergy Mild RASH Verified 11/21/19 11:00 Iodine and Iodide Containing Allergy Unknown UNKNOWN-ON Verified 11/21/19 11:00 [facility] potassium Allergy Unknown UNKNOWN Verified 11/21/19 11:00 Home Medications Home Medications Medication Instructions Recorded Confirmed Type aspirin 81 mg PO QAM 04/23/19 11/21/19 History hydralazine 25 mg tablet 25 mg PO BID tab 09/16/19 11/21/19 History PreserVision AREDS-2 1 tab PO BID 10/19/19 11/21/19 History acetaminophen [Tylenol Arthritis 1,300 mg PO Q8H PRN MDD 3 GRAMS/24 10/19/19 11/21/19 History Pain] HOURS. metoprolol tartrate 75 mg PO BID 10/19/19 11/21/19 History potassium chloride 10 meq PO BID 10/19/19 11/21/19 History rosuvastatin 5 mg PO QAM 10/19/19 11/21/19 History travoprost [Travatan Z] 1 drops OPB HS 10/19/19 11/21/19 History Eliquis 2.5 mg PO BID #60 tab 10/22/19 11/21/19 Rx pantoprazole 40 mg PO QAM 30 Days #30 tab 11/03/19 11/21/19 Rx furosemide 20 mg tablet 20 mg PO DAILY #90 tab 11/08/19 11/21/19 Rx psyllium husk 0.4 gram capsule 0.4 gm PO DAILY #30 cap 11/09/19 11/21/19 Rx amlodipine 5 mg PO DAILY 11/15/19 11/21/19 History Lactobacillus acidophilus 3 cap PO DAILY cap 11/18/19 11/21/19 History Past Med/Surg History Medical History Chronic kidney disease, stage III (moderate) (Chronic) Hypertension Hypoxia (Acute) Pleural effusion SIADH (syndrome of inappropriate ADH production) Surgical History H/O carotid endarterectomy Family History Other Family history non-contributory Myocardial infarction Denies family history of Ovarian cancer Breast cancer Colorectal cancer Social History Preferred Language: Faroese Communication Ability: Effective Visual Impairment: Limited Rn Unit Manager Required: No Beliefs That Will Affect Care: None Current Living Situation: Retirement current occupational status: retired Other Information That Helps Us Care for You: No Feels Safe at Home: Yes Safety Concerns: Feels Safe At This Time Smoking Status: Never smoker Second Hand Exposure: No ; Hx Alcohol Use: No Hx Substance Use: No caffeine: Yes Dental Care, Regularly: No Physical Activity Frequency: Does not Exercise Seatbelt Use: always Review of Systems Review of Systems: All systems reviewed & are unremarkable except as noted in HPI & below Physical Exam Physical Exam: General: Frail, elderly female resting comfortably in bed, NAD, ill in appearance, AA&O x 4 Skin: warm, dry, intact, no rashes or lesions HEENT: NC/AT, PERRL, EOMI, anicteric sclera, conjunctiva without injection, external ear normal to inspection and nontender, nares patent, dry mucus membranes, chapped lips, dentition intact, no oropharyngeal lesions, neck supple, trachea midline, no LAD, no thyromegaly, no JVD Heart: +S1/S2, irregularly irregular, 79 bpm, no m/r/g Lungs: equal air entry bilaterally, no rales/rhonchi/wheezes Abd: +BS, soft, NT/ND, no masses/organomegaly/ascites Ext: warm, 2+ pulses in UE/LE bilaterally, no clubbing/cyanosis or edema Neuro: nonfocal, patient AA&O x 4, speech intact, no facial droop, moving all extremities on command with equal strength 5/5 Results & Data Vital Signs (Past 12 Hours) Vital Signs Temp Pulse Pulse Resp BP BP Pulse Ox 11/21/19 15:00 79 18 167/86 H 97 11/21/19 13:00 85 18 97 11/21/19 11:48 74 18 116/60 95 11/21/19 10:25 95 11/21/19 10:03 36.3 C L 76 20 114/56 L 95 Laboratory Results Lab Results 11/21/19 11/21/19 11/21/19 Range/Units 10:50 10:50 11:50 WBC 11.94 H (4.8-10.8) K/uL RBC 3.66 L (4.2-5.4) M/uL Hgb 11.7 L (12.0-16.0) g/dL Hct 35.0 L (37-47) % MCV 95.6 (80-100) fL MCH 32.0 (25-34) pg MCHC 33.4 (32-36) g/dL RDW Std Deviation 49.3 H (36.4-46.3) fL RDW Coeff of [place] 14.3 (11.5-14.5) % Plt Count 343 (130-400) K/uL MPV 9.3 (7.4-10.4) fL Immature Gran % (Auto) 0.4 % Neut % (Auto) 85.0 % Lymph % (Auto) 10.1 % [place] % (Auto) 4.0 % Eos % (Auto) 0.3 % Baso % (Auto) 0.2 % Immature Gran # (Auto) 0.05 H (0.00-0.02) K/uL Neut # (Auto) 10.16 H (1.4-6.5) K/uL Lymph # (Auto) 1.20 (1.2-3.4) K/uL [place] # (Auto) 0.48 (0.11-0.59) K/uL Eos # (Auto) 0.03 (0-0.5) K/uL Baso # (Auto) 0.02 (0-0.2) K/uL Sodium 136 (136-145) mmol/L Potassium 3.0 L (3.5-5.1) mmol/L Chloride 101 (98-107) mmol/L Carbon Dioxide 25 (21-32) mmol/L Anion Gap 10.0 (3-11) BUN 16 (7-18) mg/dl Creatinine 1.01 (0.6-1.2) mg/dl Est Cr Clr Drug Dosing Not Reportable Est GFR ( Amer) 57.2 Est GFR (Non-Af Amer) 49.3 BUN/Creatinine Ratio 15.3 (10-20) Glucose 116 H (70-99) mg/dl Calcium 8.3 L (8.5-10.1) mg/dl Magnesium 1.9 (1.8-2.4) mg/dl Total Bilirubin 0.5 (0.2-1) mg/dl AST 11 L (15-37) U/L ALT 18 (12-78) U/L Alkaline Phosphatase 86 (45-117) U/L Total Protein 6.6 (6.4-8.2) gm/dl Albumin 2.6 L (3.4-5.0) gm/dl Globulin 4.0 (2.5-4.0) gm/dl Albumin/Globulin Ratio 0.7 L (0.9-2) Lipase 132 (73-393) U/L Stl C. diff Tox B Gene Positive Cdiff Gene H (Neg) Stl C.difficile Tox A&B Positive Cdiff Toxin A* (Negative) Diagnostic Findings XR chest 1V portable CLINICAL HISTORY: cough dyspnea COMPARISON STUDY: No previous studies for comparison. FINDINGS: Unchanging atelectatic and/or infiltrative changes left base. Probable associated left effusion. The right lung is clear. There are severe degenerative changes of the shoulders. IMPRESSION: Stable left basilar infiltrate and/or effusion. Minimal infiltrative right change right base also unaltered. ACT 112: Negative or not required by law. The above report was generated using voice recognition software. It may contain grammatical, syntax or spelling errors. Electronically signed by: Felix Quan M.D. 11/21/2019 10:58 AM Dictated: 11/21/19 1055 Transcribed: 11/21/19 1055 ECG Additional Comments: DICTATED BY: Major Kumar MD Test Reason : Blood Pressure : / mmHG Vent. Rate : 078 BPM Atrial Rate : 070 BPM P-R Int : 000 ms QRS Dur : 078 ms QT Int : 376 ms P-R-T Axes : 000 003 -12 degrees QTc Int : 428 ms Poor data quality, interpretation may be adversely affected Atrial fibrillation with premature ventricular or aberrantly conducted complexes T wave abnormality, consider inferior ischemia Abnormal ECG When compared with ECG of 15-NOV-2019 20:47, Nonspecific T wave abnormality, worse in Anterolateral leads Confirmed by Major Kumar ([id number]) on 11/21/2019 4:52:54 PM Code Status & VTE Plan Code Status DNR/DNI PG Care Time/CCT Total # of Minutes Spent Total Time Spent with Patient: Total time spent is greater than 50% in coordination of care (as documented) at patient's floor/unit and/or counseling patient: Coding Level of Care Code 99787 Initial Inpt Care Lvl 3 Diagnoses Recurrent Clostridium difficile diarrhea A04.71 Hypokalemia E87.6 Dehydration E86.0 Atrial fibrillation I48.91 Atrial fibrillation type: unspecified Chronic kidney disease, stage III (moderate) N18.3 Hypertension I10 Hypertension type: essential hypertension SIADH (syndrome of inappropriate ADH production) E22.2 Anemia D64.9 Anemia type: unspecified type Hyperlipidemia E78.5 Hyperlipidemia type: unspecified (1) Atrial fibrillation Atrial fibrillation type: unspecified Qualified Code(s): I48.91 - Unspecified atrial fibrillation (2) Hypertension Hypertension type: essential hypertension Qualified Code(s): I10 - Essential (primary) hypertension (3) Anemia Anemia type: unspecified type Qualified Code(s): D64.9 - Anemia, unspecified (4) Hyperlipidemia Hyperlipidemia type: unspecified Qualified Code(s): E78.5 - Hyperlipidemia, unspecified
[2019-11-21] MEDS ORDERED: ONDANSETRON INJ 2 MG/ML 2 ML VIAL IV PRN (19:01)
[2019-11-21] MEDS ORDERED: ACETAMINOPHEN 500 MG TAB PO PRN (19:13)
[2019-11-21] MEDS: LACTATED RINGER'S 1,000 ML IV SCH (19:31)
[2019-11-21] MEDS: METOPROLOL TARTRATE 25 MG TAB PO SCH (21:22)
[2019-11-21] MEDS: APIXABAN 2.5 MG TAB PO SCH (21:23)
[2019-11-21] MEDS: FIDAXOMICIN 200 MG TAB PO SCH (21:24)
[2019-11-21] MEDS: TRAVOPROST Z 0.004% OPH SOLN 2.5 ML BTL OPB SCH (21:24)
[2019-11-22] MEDS: LACTATED RINGER'S 1,000 ML IV SCH (04:56)
[2019-11-22 06:18] LABS: Basophils # (auto) 0.02 K/uL (0-0.2); Basophils % (auto) 0.2 %; Eosinophils # (auto) 0.13 K/uL (0-0.5); Eosinophils % (auto) 1.3 %; Hematocrit (blood only) 34.4 % (37-47); Hemoglobin 11.2 g/dL (12.0-16.0); Immature Granulocytes # (auto) 0.02 K/uL (0.00-0.02); Immature Granulocytes % (auto) 0.2 %; Lymphocytes # (auto) 1.12 K/uL (1.2-3.4); Lymphocytes % (auto) 11.3 %; Mean Corpuscular Hemoglobin 31.1 pg (25-34); Mean Corpuscular Hgb Conc 32.6 g/dL (32-36); Mean Corpuscular Volume 95.6 fL (80-100); Mean Platelet Volume 9.6 fL (7.4-10.4); Monocytes # (auto) 1.06 K/uL (0.11-0.59); Monocytes % (auto) 10.7 %; Neutrophils # (auto) 7.54 K/uL (1.4-6.5); Neutrophils % (auto) 76.3 %; Platelet Count 336 K/uL (130-400); RDW Coefficient of Variation 14.4 % (11.5-14.5); RDW Standard Deviation 50.4 fL (36.4-46.3); White Blood Count 9.89 K/uL (4.8-10.8)
[2019-11-22 06:41] LABS: RBC Morphology Unremarkable
[2019-11-22 06:45] LABS: Blood Urea Nitrogen 11 mg/dl (7-18); Calcium 8.7 mg/dl (8.5-10.1); Carbon Dioxide 24 mmol/L (21-32); Chloride 104 mmol/L (98-107); Est GFR (African American) 72.5; Est GFR (Non-African American) 62.5; Glucose 85 mg/dl (70-99); Potassium 3.4 mmol/L (3.5-5.1); Sodium 136 mmol/L (136-145)
[2019-11-22] MEDS ORDERED: POTASSIUM CHLORIDE 20 MEQ TABCR PO ONE (08:08)
[2019-11-22] MEDS: CEROVITE ADV FORMULA TAB PO SCH (08:27)
[2019-11-22] MEDS: PANTOprazole 40 MG TAB PO SCH (08:27)
[2019-11-22] MEDS: APIXABAN 2.5 MG TAB PO SCH ×2 (08:27→20:37)
[2019-11-22] MEDS: LACTOBACILLUS ACIDOPHILUS (FLORANEX) TAB PO SCH (08:27)
[2019-11-22] MEDS: ASPIRIN 81 MG ECTAB PO SCH (08:28)
[2019-11-22] MEDS: METOPROLOL TARTRATE 25 MG TAB PO SCH ×2 (08:28→20:34)
[2019-11-22] MEDS: ROSUVASTATIN CALCIUM 5 MG TAB PO SCH (08:28)
[2019-11-22] MEDS: FIDAXOMICIN 200 MG TAB PO SCH ×2 (08:40→20:27)
[2019-11-22] MEDS ORDERED: AMLODIPINE BESYLATE 5 MG TAB PO SCH (09:00)
--- NOTE | 2019-11-22 15:40 | Hospitalist Progress Note ---
Date of Service November 22, 2019 Assessment & Plan (1) Recurrent Clostridium difficile diarrhea: - Recurrent C. diff colitis -- recently completed Vancomycin x 10 days. - Continue Fidaxomicin 200 mg BID for 10 days. - Received LR at 100 cc/hr, now d/c'ed; holding home Lasix. - Continue probiotic as prescribed. - Contact precautions. (2) Dehydration: - Received IV fluid hydration with LR. - Creatinine improved -- will monitor. (3) Atrial fibrillation: - Continue Metoprolol and Eliquis as prescribed. (4) Chronic kidney disease, stage III (moderate): - Renally dose all meds. (5) Hypertension: - Continue Amlodipine, Hydralazine and Metoprolol as prescribed. - BP is elevated, increase Amlodipine to 10 mg daily. (6) SIADH (syndrome of inappropriate ADH production): - Na is currently stable, will monitor. (7) Hyperlipidemia: - Continue Crestor as prescribed. (8) Anemia: - Hgb is slightly below baseline, will monitor. (9) Hypokalemia: - K level 3.4 - ordered KCl 20 mEq PO. Dispo: Med/surg; discharge pending improvement in diarrhea. Currently resides at [facility]. Admission and Anticipated Discharge Date Admission Date: November 21, 2019 Supervising Physician Co-Signing Physician Notes Attending attestation: Chart reviewed in detail, care plan d/w CHRISTIANA Delacruz. I agree w/ the darnell components of her documentation. Ongoing supportive care and Rx for recurrent c. diff. Vitals remain stable. Daily labs/BMP. PT, OT. Anastacio Umanzor MD Subjective Pt. reports diarrhea is now improving, last loose BM was yesterday. She denies abd pain, N/V. Review of Systems Review of Systems: All systems reviewed & are unremarkable except as noted in HPI & below Constitutional: + fatigue and + weakness; no fever, no chills and no anorexia Respiratory: no cough, no dyspnea and no dyspnea on exertion Cardiovascular: no chest pain, no palpitations and no edema Gastrointestinal: + diarrhea/loose stools; no abdominal pain, no nausea, no vomiting and no constipation Genitourinary: no difficulty urinating Musculoskeletal: no back pain and no joint pain Integumentary: no non-healing lesions Physical Exam Physical Exam: General: Resting comfortably HEENT: NC/AT; PERRLA with EOMI; [place] conjunctiva, MMM. No erythema of posterior pharynx Neck: Supple and nontender Cardiac: RRR Lungs: CTA bilaterally Abdomen: Bowel normoactive X 4; Nontender to palpation Extremities: Warm. No edema present Neuro: No focal weakness Skin: No rash Results & Data ([facility]) Vital Signs (Past 12 Hours) Vital Signs Temp Pulse Resp BP Pulse Ox 11/22/19 07:20 36.3 C L 50 L 18 148/93 H 96 Laboratory Results 11/22/19 11/22/19 Range/Units 05:31 05:31 WBC 9.89 (4.8-10.8) K/uL RBC 3.60 L (4.2-5.4) M/uL Hgb 11.2 L (12.0-16.0) g/dL Hct 34.4 L (37-47) % MCV 95.6 (80-100) fL MCH 31.1 (25-34) pg MCHC 32.6 (32-36) g/dL RDW Std Deviation 50.4 H (36.4-46.3) fL RDW Coeff of [place] 14.4 (11.5-14.5) % Plt Count 336 (130-400) K/uL MPV 9.6 (7.4-10.4) fL Immature Gran % (Auto) 0.2 % Neut % (Auto) 76.3 % Lymph % (Auto) 11.3 % [place] % (Auto) 10.7 % Eos % (Auto) 1.3 % Baso % (Auto) 0.2 % Immature Gran # (Auto) 0.02 (0.00-0.02) K/uL Neut # (Auto) 7.54 H (1.4-6.5) K/uL Lymph # (Auto) 1.12 L (1.2-3.4) K/uL [place] # (Auto) 1.06 H (0.11-0.59) K/uL Eos # (Auto) 0.13 (0-0.5) K/uL Baso # (Auto) 0.02 (0-0.2) K/uL RBC Morphology Unremarkable Sodium 136 (136-145) mmol/L Potassium 3.4 L (3.5-5.1) mmol/L Chloride 104 (98-107) mmol/L Carbon Dioxide 24 (21-32) mmol/L Anion Gap 8.0 (3-11) BUN 11 (7-18) mg/dl Creatinine 0.83 (0.6-1.2) mg/dl Est Cr Clr Drug Dosing Not Reportable Est GFR ( Amer) 72.5 Est GFR (Non-Af Amer) 62.5 BUN/Creatinine Ratio 13.0 (10-20) Glucose 85 (70-99) mg/dl Calcium 8.7 (8.5-10.1) mg/dl PG Care Time/CCT Total # of Minutes Spent Total Time Spent with Patient: Total time spent is greater than 50% in coordination of care (as documented) at patient's floor/unit and/or counseling patient: Coding Level of Care Code 51459 Subseq Hosp Care Lvl 3 Diagnoses Recurrent Clostridium difficile diarrhea A04.71 Dehydration E86.0 Atrial fibrillation I48.91 Atrial fibrillation type: unspecified Chronic kidney disease, stage III (moderate) N18.3 Hypertension I10 Hypertension type: essential hypertension SIADH (syndrome of inappropriate ADH production) E22.2 Hyperlipidemia E78.5 Hyperlipidemia type: unspecified Anemia D64.9 Anemia type: unspecified type Hypokalemia E87.6 (1) Anemia Anemia type: unspecified type Qualified Code(s): D64.9 - Anemia, unspecified (2) Atrial fibrillation Atrial fibrillation type: unspecified Qualified Code(s): I48.91 - Unspecified atrial fibrillation (3) Hyperlipidemia Hyperlipidemia type: unspecified Qualified Code(s): E78.5 - Hyperlipidemia, unspecified (4) Hypertension Hypertension type: essential hypertension Qualified Code(s): I10 - Essential (primary) hypertension
[2019-11-22] MEDS ORDERED: AMLODIPINE BESYLATE 5 MG TAB PO ONE (15:46)
[2019-11-22] MEDS: TRAVOPROST Z 0.004% OPH SOLN 2.5 ML BTL OPB SCH (20:36)
[2019-11-23 05:53] LABS: Hematocrit (blood only) 37.4 % (37-47); Hemoglobin 12.3 g/dL (12.0-16.0); Mean Corpuscular Hemoglobin 31.5 pg (25-34); Mean Corpuscular Hgb Conc 32.9 g/dL (32-36); Mean Corpuscular Volume 95.7 fL (80-100); Mean Platelet Volume 9.8 fL (7.4-10.4); Platelet Count 353 K/uL (130-400); RDW Coefficient of Variation 14.4 % (11.5-14.5); Red Blood Count 3.91 M/uL (4.2-5.4); White Blood Count 8.75 K/uL (4.8-10.8)
[2019-11-23 06:31] LABS: BUN Creatinine Ratio 17.7 (10-20); Blood Urea Nitrogen 14 mg/dl (7-18); Calcium 8.6 mg/dl (8.5-10.1); Carbon Dioxide 22 mmol/L (21-32); Chloride 103 mmol/L (98-107); Est GFR (African American) 74.6; Est GFR (Non-African American) 64.4; Glucose 92 mg/dl (70-99); Potassium 3.7 mmol/L (3.5-5.1); Sodium 134 mmol/L (136-145)
[2019-11-23] MEDS: CEROVITE ADV FORMULA TAB PO SCH (08:29)
[2019-11-23] MEDS: ROSUVASTATIN CALCIUM 5 MG TAB PO SCH (08:29)
[2019-11-23] MEDS: PANTOprazole 40 MG TAB PO SCH (08:29)
[2019-11-23] MEDS: FIDAXOMICIN 200 MG TAB PO SCH ×2 (08:29→21:31)
[2019-11-23] MEDS: APIXABAN 2.5 MG TAB PO SCH ×2 (08:30→21:21)
[2019-11-23] MEDS: METOPROLOL TARTRATE 25 MG TAB PO SCH ×2 (08:31→21:26)
[2019-11-23] MEDS: ASPIRIN 81 MG ECTAB PO SCH (08:31)
[2019-11-23] MEDS: AMLODIPINE BESYLATE 5 MG TAB PO SCH (08:31)
[2019-11-23] MEDS: LACTOBACILLUS ACIDOPHILUS (FLORANEX) TAB PO SCH (08:31)
--- NOTE | 2019-11-23 14:33 | Hospitalist Progress Note ---
Date of Service November 23, 2019 Assessment & Plan (1) Recurrent Clostridium difficile diarrhea: - Recurrent C. diff colitis -- recently completed Vancomycin x 10 days. - Continue Fidaxomicin 200 mg BID for 10 days. - Rectal tube was removed today; will monitor diarrhea throughout the day. - Holding home Lasix. - Continue probiotic as prescribed. (2) Dehydration: - Received IV fluid hydration with LR. - Creatinine improved; monitor daily. (3) Urinary retention: - Did not void throughout the night, c/o pelvic pressure. Voided large amount this morning after removing rectal tube - may have been contributing to increased pressure. - Consider bladder scanning throughout the day q6hr. - Received IV fluids on admission for dehydration. (4) Atrial fibrillation: - Continue Metoprolol and Eliquis as prescribed. (5) Chronic kidney disease, stage III (moderate): - Renally dose all meds. (6) Hypertension: - Continue Amlodipine, Hydralazine and Metoprolol as prescribed. - BP elevated, increased Amlodipine to 10 mg daily. - Random episode of hypotension this morning - was not likely accurate. BP remains elevated throughout most of the day. (7) SIADH (syndrome of inappropriate ADH production): - Na is currently stable, will monitor. (8) Hyperlipidemia: - Continue Crestor as prescribed. (9) Anemia: - Hgb is stable, will monitor. (10) GI bleed: - Admitted 10/30-11/03 with GI bleed -- held home Eliquis, resumed at discharge following resolution of bleed. - Continue Protonix 40 mg PO daily. - Continue Eliquis -- FOBT was negative during this admission. - F/u with PCP to discuss indication for EGD/colonoscopy. (11) Hypokalemia: - K level stable, does not require replacement. Dispo: Med/surg; discharge to [facility] likely on Friday pending improvement in diarrhea. Admission and Anticipated Discharge Date Admission Date: November 21, 2019 Subjective Rectal tube was removed this morning - no episodes of loose diarrhea throughout the morning. Did have urinary retention this morning -- was able to void independently but had issues overnight. Denies abd pain, N/V. Is tolerating PO intake. Plan for discharge possibly on Friday pending improvement in diarrhea. Review of Systems Review of Systems: All systems reviewed & are unremarkable except as noted in HPI & below Constitutional: + fatigue and + weakness; no fever, no chills and no anorexia Respiratory: no cough, no dyspnea and no dyspnea on exertion Cardiovascular: no chest pain, no palpitations and no edema Gastrointestinal: + diarrhea/loose stools; no abdominal pain, no nausea and no vomiting Genitourinary: + difficulty urinating; no dysuria, no decreased urination and no hematuria Musculoskeletal: no back pain and no joint pain Integumentary: no non-healing lesions Physical Exam Physical Exam: General: Resting comfortably HEENT: NC/AT; PERRLA with EOMI; [place] conjunctiva, MMM. No erythema of posterior pharynx Neck: Supple and nontender Cardiac: RRR Lungs: CTA bilaterally Abdomen: Bowel normoactive X 4; Nontender to palpation Extremities: Warm. No edema present Neuro: No focal weakness Skin: No rash Results & Data ([facility]) Vital Signs (Past 12 Hours) Vital Signs Temp Pulse Resp BP Pulse Ox 11/23/19 09:18 149/83 H 11/23/19 08:28 161/110 H 11/23/19 07:41 36.5 C 94 H 18 73/49 L 92 Laboratory Results 11/23/19 11/23/19 11/22/19 Range/Units 05:20 05:20 20:45 WBC 8.75 (4.8-10.8) K/uL RBC 3.91 L (4.2-5.4) M/uL Hgb 12.3 (12.0-16.0) g/dL Hct 37.4 (37-47) % MCV 95.7 (80-100) fL MCH 31.5 (25-34) pg MCHC 32.9 (32-36) g/dL RDW Std Deviation 50.0 H (36.4-46.3) fL RDW Coeff of [place] 14.4 (11.5-14.5) % Plt Count 353 (130-400) K/uL MPV 9.8 (7.4-10.4) fL Sodium 134 L (136-145) mmol/L Potassium 3.7 (3.5-5.1) mmol/L Chloride 103 (98-107) mmol/L Carbon Dioxide 22 (21-32) mmol/L Anion Gap 9.0 (3-11) BUN 14 (7-18) mg/dl Creatinine 0.81 (0.6-1.2) mg/dl Est Cr Clr Drug Dosing Not Reportable Est GFR ( Amer) 74.6 Est GFR (Non-Af Amer) 64.4 BUN/Creatinine Ratio 17.7 (10-20) Glucose 92 (70-99) mg/dl Calcium 8.6 (8.5-10.1) mg/dl Magnesium 2.0 (1.8-2.4) mg/dl Stool Occult Bld Scrn Negative (Negative) PG Care Time/CCT Total # of Minutes Spent Total Time Spent with Patient: Total time spent is greater than 50% in coordination of care (as documented) at patient's floor/unit and/or counseling patient: Coding Level of Care Code 15239 Subseq Hosp Care Lvl 2 Diagnoses Recurrent Clostridium difficile diarrhea A04.71 Dehydration E86.0 Urinary retention R33.9 Atrial fibrillation I48.91 Atrial fibrillation type: unspecified Chronic kidney disease, stage III (moderate) N18.3 Hypertension I10 Hypertension type: essential hypertension SIADH (syndrome of inappropriate ADH production) E22.2 Hyperlipidemia E78.5 Hyperlipidemia type: unspecified Anemia D64.9 Anemia type: unspecified type GI bleed K92.2 GI bleed type/associated pathology: unspecified gastrointestinal hemorrhage type Hypokalemia E87.6 (1) GI bleed GI bleed type/associated pathology: unspecified gastrointestinal hemorrhage type Qualified Code(s): K92.2 - Gastrointestinal hemorrhage, unspecified (2) Anemia Anemia type: unspecified type Qualified Code(s): D64.9 - Anemia, unspecified (3) Atrial fibrillation Atrial fibrillation type: unspecified Qualified Code(s): I48.91 - Unspecified atrial fibrillation (4) Hyperlipidemia Hyperlipidemia type: unspecified Qualified Code(s): E78.5 - Hyperlipidemia, unspecified (5) Hypertension Hypertension type: essential hypertension Qualified Code(s): I10 - Essential (primary) hypertension
[2019-11-23] MEDS: TRAVOPROST Z 0.004% OPH SOLN 2.5 ML BTL OPB SCH (21:22)
[2019-11-24 06:43] LABS: BUN Creatinine Ratio 13.6 (10-20); Blood Urea Nitrogen 12 mg/dl (7-18); Calcium 8.7 mg/dl (8.5-10.1); Carbon Dioxide 23 mmol/L (21-32); Chloride 102 mmol/L (98-107); Est GFR (African American) 64.8; Est GFR (Non-African American) 55.9; Glucose 86 mg/dl (70-99); Potassium 3.4 mmol/L (3.5-5.1); Sodium 132 mmol/L (136-145)
[2019-11-24] MEDS ORDERED: POTASSIUM CHLORIDE 20 MEQ TABCR PO ONE (08:17)
[2019-11-24] MEDS: ASPIRIN 81 MG ECTAB PO SCH (08:28)
[2019-11-24] MEDS: AMLODIPINE BESYLATE 5 MG TAB PO SCH (08:28)
[2019-11-24] MEDS: ROSUVASTATIN CALCIUM 5 MG TAB PO SCH (08:29)
[2019-11-24] MEDS: LACTOBACILLUS ACIDOPHILUS (FLORANEX) TAB PO SCH (08:29)
[2019-11-24] MEDS: METOPROLOL TARTRATE 25 MG TAB PO SCH (08:29)
[2019-11-24] MEDS: CEROVITE ADV FORMULA TAB PO SCH (08:30)
[2019-11-24] MEDS: PANTOprazole 40 MG TAB PO SCH (08:30)
[2019-11-24] MEDS: APIXABAN 2.5 MG TAB PO SCH (08:30)
[2019-11-24] MEDS: FIDAXOMICIN 200 MG TAB PO SCH (08:31)
--- NOTE | 2019-11-24 16:39 | Discharge Summary ---
Date of Service November 24, 2019 Admission HPI Per Admitting Provider Silvana Vieira is a pleasant 89-year-old female presenting with profuse, watery diarrhea. Patient has had multiple hospitalizations over the last 2 months. She was hospitalized from 10/20 -10/22/2019 with left basilar pneumonia. She was treated with ceftriaxone/azithromycin and discharged home on azithromycin and Keflex to finish antibiotic course. She was also diagnosed with atrial fibrillation during that stay and continued on her beta-tonny, apixaban 2.5 mg p.o. twice daily initiated. She returned to the ER on 10/30 with profuse watery diarrhea, concern for GI bleed and was admitted for C. difficile diarrhea, discharged on 11/03/2019. Patient was doing fairly well, diarrhea resolved until 11/17 when she again developed profuse, watery diarrhea. Daughter reports 1 episode per hour with incontinence. Denies fever/chills/abdominal distention. Denies chest pain/shortness of breath. No additional complaints at this time. In the ER patient afebrile, hemodynamically stable, had 8 episodes of watery diarrhea. C. difficile gene and toxin positive. ER course: KCl 40 mEq, normal saline x1 L, vancomycin 125mg po Admission Exam Per Admitting Provider General: Frail, elderly female resting comfortably in bed, NAD, ill in appearance, AA&O x 4 Skin: warm, dry, intact, no rashes or lesions HEENT: NC/AT, PERRL, EOMI, anicteric sclera, conjunctiva without injection, external ear normal to inspection and nontender, nares patent, dry mucus membranes, chapped lips, dentition intact, no oropharyngeal lesions, neck supple, trachea midline, no LAD, no thyromegaly, no JVD Heart: +S1/S2, irregularly irregular, 79 bpm, no m/r/g Lungs: equal air entry bilaterally, no rales/rhonchi/wheezes Abd: +BS, soft, NT/ND, no masses/organomegaly/ascites Ext: warm, 2+ pulses in UE/LE bilaterally, no clubbing/cyanosis or edema Neuro: nonfocal, patient AA&O x 4, speech intact, no facial droop, moving all extremities on command with equal strength 5/5 Principal Diagnosis Recurrent C. diff colitis Discharge Exam General: Resting comfortably HEENT: NC/AT; PERRLA with EOMI; [place] conjunctiva, MMM. No erythema of posterior pharynx Neck: Supple and nontender Cardiac: RRR Lungs: CTA bilaterally Abdomen: Bowel normoactive X 4; Nontender to palpation Extremities: Warm. No edema present Neuro: No focal weakness Skin: No rash Discharge Data Allergies Allergy/AdvReac Type Severity Reaction Status Date / Time erythromycin base Allergy Mild RASH Verified 11/27/19 13:00 latex Allergy Mild RASH Verified 11/27/19 13:00 Iodine and Iodide Containing Allergy Unknown UNKNOWN-ON Verified 11/27/19 13:00 Produc [place] LIST potassium Allergy Unknown UNKNOWN Verified 11/27/19 13:00 Consultations 11/21/19 15:43 ED Decision to Admit Stat Ordered Studies CXR 11/21 Hospital Course (1) Recurrent Clostridium difficile diarrhea: Recurrent C. diff colitis -- recently completed Vancomycin x 10 days. Fidaxomicin 200 mg BID for 10 days. Rectal tube was removed; diarrhea improved. Held home Lasix, can resume at discharge. Continued probiotic as prescribed. (2) Dehydration: Received IV fluid hydration with LR. Creatinine improved. (3) Urinary retention: Now resolved. (4) Atrial fibrillation: Continued Metoprolol and Eliquis as prescribed. (5) Chronic kidney disease, stage III (moderate): Renally dosed all meds. (6) Hypertension: Continued Amlodipine, Hydralazine and Metoprolol as prescribed. BP was elevated -- increased home Amlodipine to 10 mg daily. BP remained elevated -- f/u with PCP to discuss. 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 F/u lab script provided. (8) Hyperlipidemia: Continued Crestor as prescribed. (9) Anemia: Hgb stable. (10) GI bleed: Admitted 10/30-11/03 with GI bleed -- held home Eliquis, resumed at discharge following resolution of bleed. Continued Protonix 40 mg PO daily. Continued Eliquis -- FOBT was negative during this admission. F/u with PCP to discuss indication for EGD/colonoscopy. (11) Hypokalemia: Replace prn. Discharged to [facility] on 11/24/19. Total Time Total Time Spent Total Time Spent (In Minutes): >30 minutes Total Time Includes: Examination of the Patient, Discharge Planning, Medication Reconciliation, Communication With Other Providers and Other Discharge Plan Discharge Items Patient Disposition: Personal Retirement Reason For Visit: C. DIFF DIARRHEA Discharge Diagnosis: C. diff colitis Condition on Discharge: Fair Goals: You have been hospitalized for an acute medical problem. During your stay at [facility], we have made an effort to correct the problem that brought you to the hospital while keeping you as comfortable as possible. Medications were used to bring your condition under control and your discharge instructions will include directions for any medications you should take after leaving the hospital. Please make sure you see your Primary Care Provider as part of your follow up plan. Activity: As commented below Exercise/Sports: Gradually increase as tolerated Non-emergency contact: Primary Care Provider Call non-emergency contact if: you have any medication questions, your symptoms worsen and you have a fever Follow-up/Referrals: AUGUSTIN FITZGERALD [Non-Staff] - Diet: Regular Ambulatory Orders: Basic Metabolic Panel (Routine) Timeframe: 5 Days Location: Determined by Patient Ordered By: Erica Han Attending Provider Instructions: 1. Recurrent C. difficile colitis * Please take Dificid twice daily to complete a 10 day course. * Drink plenty of fluids at home to avoid dehydration. * Please take potassium 20 mEq daily at home due to low levels. * Continue probiotic as prescribed. 2. Hypertension * Continue Hydralazine and Metoprolol as prescribed. * Amlodipine has been increased to 10 mg daily. * Please follow up with PCP to discuss BP management. 3. Low sodium levels * Please follow up for repeat labs to monitor sodium level in 5-6 days. * Script was provided at discharge; results will be faxed to your PCP. 4. Please follow up with PCP in 1-2 weeks. Pending Studies at Discharge: No Stand-Alone Forms: [facility] Skilled Items Patient informed of condition?: Yes DNR: Yes Discharge Level of Care: Other Communicable Disease: Yes Discharge Prognosis: Improving Lines: None Urinary Catheter: No Medications and DC Order Prescriptions: Continued Lactobacillus acidophilus [Acidophilus] Capsule 3 cap PO QAM RF: 0 hydralazine 25 mg tablet 25 mg PO BIDM RF: 0 acetaminophen [Tylenol Arthritis Pain] 650 mg Tablet Extended Release 1,300 mg PO Q8H MDD 3 GRAMS/24 HOURS. PRN (Reason: Pain) RF: 0 PreserVision AREDS-2 [id number] cm-otso-ua-mg Capsule 1 tab PO BIDM RF: 0 potassium chloride 10 mEq capsule, extended release 10 meq PO BIDM RF: 0 travoprost [Travatan Z] 0.004 % drops 1 drops OPB HS RF: 0 metoprolol tartrate 50 mg tablet 75 mg PO BIDM RF: 0 rosuvastatin 5 mg tablet 5 mg PO QAM RF: 0 pantoprazole 40 mg Tablet,Delayed Release (Dr/Ec) 40 mg PO QAM 30 Days Qty: 30 RF: 2 Discontinued amlodipine 5 mg tablet 5 mg PO DAILY RF: 0 No Action aspirin 81 mg Tablet,Delayed Release (Dr/Ec) 81 mg PO QAM RF: 0 amlodipine [Norvasc] 5 mg tablet 10 mg PO QAM RF: 0 furosemide [Lasix] 20 mg tablet 20 mg PO QAM RF: 0 Dificid 200 mg tablet 200 mg PO BIDM RF: 0 Eliquis 2.5 mg tablet 2.5 mg PO BIDM RF: 0 psyllium husk [Metamucil] 0.4 gram capsule 0.4 gm PO QAM RF: 0 Discharge Orders: Discharge Order (Routine); Ordered 11/24/19 Ordered By: Erica Delacruz Admission Data Admit Date/Time: 11/21/19 16:53 Attending Provider: Anastacio Umanzor Admit Provider: Anita Benson Primary Care Provider: Geremias Watkins Other Interventions: Discharge Summary Assessment (RN) Last Done: 11/24/19 15:28 DC Date/Time DO NOT enter until pt leaves facility: 11/24/19 16:10 Supervising Physician Co-Signing Physician Notes Attending attestation and discharge note: Pt seen/examined, chart reviewed in detail, care plan d/w PA Erica Delacruz. I agree w/ the darnell components of her discharge documentation. 89yo female admitted for recurrent c. diff. GI symptoms improved with dificid. She will complete 10 days of dificid post-discharge. Eating/drinking adequately at discharge. discharge exam: gen - NAD mouth - MMM heart - RRR, s1 s2 lungs - CTA b/l abd - soft NT ND BS+ ext - pulses 2+ b/l recommend repeat BMP in a few days to ensure stability of electrolytes. Anastacio Umanzor MD Coding Level of Care Code D/C Day Management >30 mins Diagnoses Recurrent Clostridium difficile diarrhea A04.71 Dehydration E86.0 Urinary retention R33.9 Atrial fibrillation I48.91 Atrial fibrillation type: unspecified Chronic kidney disease, stage III (moderate) N18.3 Hypertension I10 Hypertension type: essential hypertension SIADH (syndrome of inappropriate ADH production) E22.2 Hyperlipidemia E78.5 Hyperlipidemia type: unspecified Anemia D64.9 Anemia type: unspecified type GI bleed K92.2 GI bleed type/associated pathology: unspecified gastrointestinal hemorrhage type Hypokalemia E87.6
== END 2019-11-24 16:10 | disposition home or self-care (01) | DRG 372 ==
LOC: ED 09:47 → SUATTDRO 16:53 → 4W 16:53

== ENCOUNTER 2019-12-24 11:10 | Inpatient (IN) ==
[2019-12-24] MEDS ORDERED: SODIUM CHLORIDE 0.9% 1000ML 1,000 ML IV SCH (12:00)
[2019-12-24 12:07] LABS: Appearance Urine Clear (Clear); Bacteria Urine Automated Negative (Negative); Bilirubin Urine Negative (Negative); Blood Urine Negative (Negative); Cast Urine Automated 0 /lpf (0-5); Color Urine Yellow; Glucose Urine UA Negative (Negative); Ketones Urine Negative (Negative); Leukocyte Esterase Urine Negative (Negative); Nitrite Urine Negative (Negative); Protein Urine 1+ (Negative); Specific Gravity Urine 1.021 (1.000-1.030); Urobilinogen Urine Negative (Negative); pH Urine 6.5 (4.5-7.5)
--- NOTE | 2019-12-24 12:11 | XRay Report ---
SINGLE VIEW CHEST CLINICAL HISTORY: Generalized weakness. FINDINGS: 2 AP, portable, upright chest radiographs are compared to study dated 11/27/2019 and correla nato with chest CT dated 11/15/2019. The examination is degraded by portable technique and patient rota tion. The heart is enlarged noting atherosclerotic calcification of the thoracic aorta. There is mild pulmonary vascular congestion. Chronic interstitial thickening is similar to previous. There is a sm all left pleural effusion with left basilar consolidation. No pneumothorax is seen. The skeletal stru ctures are osteopenic. The bony thorax is grossly intact. Advanced degenerative change and chronic de formity is present in the shoulders. Degenerative change is also seen throughout the thoracic spine. IMPRESSION: 1. Cardiomegaly with mild pulmonary vascular congestion. 2. There is a left pleural effusion with left basilar consolidation. This has been seen previously an d could represent chronic scarring/atelectasis. Correlate clinically for evidence of superimposed pne umonia/aspiration pneumonitis. ACT 112: Negative or not required by law. Electronically signed by: Kenneth Arreaga M.D. 12/24/2019 12:10 PM
--- NOTE | 2019-12-24 12:33 | CT Scan Report ---
CT SCAN OF THE BRAIN WITHOUT IV CONTRAST CLINICAL HISTORY: Change in mental status. COMPARISON STUDY: CT of the brain dated 01/11/2011. TECHNIQUE: Unenhanced axial CT scan of the brain is performed from the vertex to the skull base. A do se lowering technique was utilized adhering to the principles of ALARA. CT DOSE: 537.48 mGy.cm FINDINGS: Brain parenchyma: There are age-related involutional changes noting moderate patchy subcortical and periventricular microangiopathic change. There is no hemorrhage, mass effect, or evidence of acute te rritorial ischemia by CT criteria. 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 Handley-white matter dif ferentiation is preserved. No extra-axial fluid collection is seen. Ventricles, sulci, cisterns: Prominent secondary to involutional change. Intracranial vasculature: There is atherosclerotic calcification of the cavernous carotid and vertebr al arteries. Calvarium: Unremarkable. Sinuses and mastoids: There is subtotal opacification of the right maxillary antrum. Thickening and s clerosis of the sinus wall indicates chronicity. The remaining Visualized paranasal sinuses are clear . There is a small right mastoid effusion. The left mastoid air cells are well pneumatized. Orbits: The bony orbits are grossly intact. There are bilateral ocular lens implants. IMPRESSION: There is no hemorrhage, mass effect, or evidence of acute territorial ischemia by CT ashley glass. ACT 112: Negative or not required by law. Electronically signed by: Kenneth Arreaga M.D. 12/24/2019 12:32 PM
[2019-12-24 12:53] LABS: Basophils # (auto) 0.01 K/uL (0-0.2); Basophils % (auto) 0.1 %; Eosinophils # (auto) 0.01 K/uL (0-0.5); Eosinophils % (auto) 0.1 %; Hematocrit (blood only) 34.7 % (37-47); Hemoglobin 11.4 g/dL (12.0-16.0); Immature Granulocytes # (auto) 0.04 K/uL (0.00-0.02); Immature Granulocytes % (auto) 0.4 %; Lymphocytes # (auto) 1.26 K/uL (1.2-3.4); Lymphocytes % (auto) 12.6 %; Mean Corpuscular Hemoglobin 30.5 pg (25-34); Mean Corpuscular Hgb Conc 32.9 g/dL (32-36); Mean Corpuscular Volume 92.8 fL (80-100); Monocytes # (auto) 1.51 K/uL (0.11-0.59); Monocytes % (auto) 15.1 %; Neutrophils # (auto) 7.16 K/uL (1.4-6.5); Neutrophils % (auto) 71.7 %; Platelet Count 295 K/uL (130-400); RDW Coefficient of Variation 14.6 % (11.5-14.5); RDW Standard Deviation 49.6 fL (36.4-46.3); Red Blood Count 3.74 M/uL (4.2-5.4); White Blood Count 9.99 K/uL (4.8-10.8)
[2019-12-24 13:01] LABS: Base Excess VBG 2.4 mEq/L; Oxygen Saturation VBG 89.7 %; pH VBG 7.47 (7.36-7.41)
[2019-12-24 13:06] LABS: Influenza A virus by PCR Neg for Influ A (Neg); Influenza B virus by PCR Neg for Influ B (Neg)
[2019-12-24 13:18] LABS: Alanine Aminotransferase 16 U/L (12-78); Albumin Level 2.7 gm/dl (3.4-5.0); Aspartate Aminotransferase 16 U/L (15-37); Blood Urea Nitrogen 14 mg/dl (7-18); Calcium 8.6 mg/dl (8.5-10.1); Carbon Dioxide 27 mmol/L (21-32); Chloride 103 mmol/L (98-107); Est GFR (African American) 73.5; Est GFR (Non-African American) 63.4; Glucose 111 mg/dl (70-99); Magnesium 2.1 mg/dl (1.8-2.4); Potassium 2.9 mmol/L (3.5-5.1); Sodium 136 mmol/L (136-145)
[2019-12-24] MEDS ORDERED: ACETAMINOPHEN 500 MG TAB PO STA (13:23)
[2019-12-24 13:28] LABS: Albumin Globulin Ratio 0.7 (0.9-2); Alkaline Phosphatase 84 U/L (45-117); Bilirubin,Total 0.7 mg/dl (0.2-1); Creatine Kinase 37 U/L (26-192); Globulin 4.1 gm/dl (2.5-4.0); Total Protein 6.8 gm/dl (6.4-8.2); Troponin I < 0.015 ng/ml (0-0.045)
[2019-12-24] MEDS ORDERED: POTASSIUM CHLORIDE / WTR 10 MEQ/100 ML PLCT IV ONE (14:07)
--- NOTE | 2019-12-24 14:51 | CT Scan Report ---
CT OF THE CHEST WITHOUT IV CONTRAST CLINICAL HISTORY: hypoxia, ? LLL infiltrate COMPARISON STUDY: Chest CT November 15, 2019. Chest radiograph December 24, 2019. CT DOSE: 230.61 mGycm TECHNIQUE: Axial images of the chest were obtained without IV contrast. Images were reviewed in the axial, sagittal, and coronal planes. IV contrast was not administered for this examination. Automat ed exposure control was utilized for the study. A dose lowering technique was utilized adhering to t he principles of ALARA. FINDINGS: Prominent mediastinal lymph nodes are similar to CT of November 15, 2019. Moderate cardiom egaly is noted with extensive coronary artery calcification. There is no pericardial effusion. Small left and trace right pleural effusions are similar to prior chest CT. There is no pneumothorax. Inter lobular septal thickening is noted. Lingular and bilateral lower lobe airspace opacities favor atelec tasis. No consolidation is identified. No suspicious osseous lesions within the bony thorax are noted . Water attenuation left renal lesion is partially imaged on this exam but shown to represent a cyst on ultrasound of April 26, 2019. IMPRESSION: 1. Small left and trace right pleural effusions, similar to chest CT of November 15, 2019. Bilateral lower lobe and lingular opacities which favor atelectasis. 2. Mild interstitial pulmonary edema. 3. Moderate cardiomegaly. Extensive coronary artery calcification. ACT 112: Negative or not required by law. Electronically signed by: Giuseppe Rodgers M.D. 12/24/2019 2:50 PM
[2019-12-24] MEDS ORDERED: NITROGLYCERIN 2% OINTMENT 30GM TUBE EXT STA (15:34)
--- NOTE | 2019-12-24 15:56 | Electrocardiogram Report ---
Test Reason : Blood Pressure : / mmHG Vent. Rate : 095 BPM Atrial Rate : 288 BPM P-R Int : 000 ms QRS Dur : 086 ms QT Int : 390 ms P-R-T Axes : 000 012 -46 degrees QTc Int : 490 ms Atrial fibrillation with premature ventricular or aberrantly conducted complexes T wave abnormality, consider inferior ischemia Abnormal ECG When compared with ECG of 27-NOV-2019 11:58, Nonspecific T wave abnormality no longer evident in Anterior leads Confirmed by Major Kumar ([id number]) on 12/24/2019 3:56:17 PM Referred By: REFERRED SELF Confirmed By:Pierre Kumar
--- NOTE | 2019-12-24 17:00 | History & Physical Report ---
Date of Service December 24, 2019 Assessment & Plan (1) AMS (altered mental status): - Has mild intermittent confusion at baseline - Unclear etiology - favoring dehydration but will R/O neurological etiology; currently no infectious etiology present (no leukocytosis, no fever, CT with chronic changes and seems atelectasis, UA unremarkable, skin unremarkable, uncertain on diarrhea) - A cough was reported but do not have a lot of details on this - patient did not cough during my exam - influenza is negative and [facility] has not had visitors so low risk for COVID - however could have other viral etiology? - however may need to continue to monitor this for any fevers or further symptoms to develop or reveal themselves - She was hypoxic on admission intermittently - this could be due to her obtunded status/sleeping and will monitor - VBG with pH 7.47 and CO2 at 36 therefore no evidence of CO2 retention - NPO until mentation improves - MRI Brain - will R/O CVA given recent fall, A Fib, and obtunded nature - should be lower risk since she is on anticoagulation (2) Dehydration: - She examines extremely dry even in the setting of her CXR/BNP findings - may be the main contributor to her presentation - Will continue gentle hydration of NSS + 20 mEq KCl at 70 mL/hr - monitor for any swelling - Hold home Lasix 20 mg daily (3) Hypokalemia: - K 2.9 on admission - will give K riders to replete and continue IVF with K - Assess labs in AM Of note -- potassium is listed as an allergy however she takes this at [facility] and have given this on previous admissions (4) Atrial fibrillation: - Examines irregular but rate controlled - Hold oral medications until mentation improves - Therapeutic Lovenox BID as bridge while holding p.o. Eliquis and replace oral metoprolol with IV Lopressor 5 mg Q6H EVELYN for now (5) Recurrent Clostridium difficile diarrhea: - Admissions earlier this year for C. diff which she completed Vanc x 10 days but then had a recurrence and completed Dificid x 10 days - Will monitor - given no true infectious source will hold an antibiotics given her quickly recurrent c. diff - uncertain if she is having consistent ongoing diarrhea but if this should occur here may warrant testing - however currently afebrile, no leukocytosis, no grimacing when palpating the abdomen (6) Hypertension: - Hold oral medications at this time - convert to IV Lopressor Q6H and Hydralazine PRN (7) Chronic kidney disease, stage III (moderate): - STABLE - Continue to monitor - avoid nephrotoxins (8) Diastolic dysfunction: - Echo (Dec 2017) - EF 55-60%, grade I diastolic dysfunction, no regional wall motion abnormalities - Has a rather chronic elevated BNP but this is slightly higher then previous labs but again examines dry; her chronic lower extremity edema is likely more related to venous stasis given chronic color changes - Does not examine in heart failure; does have small pleural effusions on CT scan and favoring stable atelectasis/scarring Code Status: DNR/DNI - discussed with daughter at bedside Disposition: Patient is a resident of [facility]; await clinical improvement Admission and Anticipated Discharge Date Admission Date: 12/24/2019 History of Present Illness Chief Complaint: Lethargy and Confusion Primary Care Provider: Geremias Watkins MD Ms. Vieira is an 89 y/o female with PMHx of Recurrent C. Diff, CKD Stage III, HTN, Atrial Fibrillation, and SIADH who presents to the ED due to lethargy and confusion. HPI is limited as patient cannot contribute and daughter has limited information due to no visitation allowed at [facility]. Patient is known to me from a previous admission and is normally alert and oriented with periods of mild confusion. She is resting comfortable but I could only get her to open her eyes to sternal rub. She is maintaining her airway and no respiratory compromise. HPI was obtained from daughter at bedside. She states she has not been able to visit for the past couple weeks due to coronavirus isolation. She noticed over the phone and seeing her through the window that she has been slower to respond to questions and more confused. She notes she has been urinating more frequently but notes she has been drinking a lot more fluids and still using her Lasix that she is aware of. She has had recurrent C. diff this year but daughter is not aware of worsening diarrhea at this point. She finished Dificid from last admission. Per notes from EMS, she sustained a fall last night thought to be from losing her balance and bruised her LLE but no other injury. Daughter states that her legs were significantly swollen previously but this has improved. She was noted to be intermittently hypoxic in the ED and responded to supplemental O2. Currently no obvious infectious etiology can be found. CT of chest rather unchanged from October with small L and trace R pleural effusions and bilateral lower lobe and lingular opacities which favor atelectasis; mild interstitial pulmonary edema. Allergies Allergy/AdvReac Type Severity Reaction Status Date / Time erythromycin base Allergy Mild RASH Verified 12/24/19 11:27 latex Allergy Mild RASH Verified 12/24/19 11:27 Iodine and Iodide Containing Allergy Unknown UNKNOWN-ON Verified 12/24/19 11:27 [facility] LIST potassium Allergy Unknown UNKNOWN Verified 12/24/19 11:27 Home Medications Home Medications Medication Instructions Recorded Confirmed Type hydralazine 25 mg tablet 25 mg PO BIDM tab 09/16/19 12/24/19 History PreserVision AREDS-2 1 tab PO BIDM 10/19/19 12/24/19 History acetaminophen [Tylenol Arthritis 1,300 mg PO Q8H PRN MDD 3 /10/19/19 12/24/19 History Pain] HOURS. metoprolol tartrate 75 mg PO BIDM 10/19/19 12/24/19 History potassium chloride 10 meq PO BIDM 10/19/19 12/24/19 History rosuvastatin 5 mg PO QAM 10/19/19 12/24/19 History travoprost [Travatan Z] 1 drops OPB HS 10/19/19 12/24/19 History pantoprazole 40 mg PO QAM 30 Days #30 tab 11/03/19 12/24/19 Rx amlodipine [Norvasc] 10 mg PO QAM 11/27/19 12/24/19 History aspirin 81 mg PO QAM 11/27/19 12/24/19 History furosemide [Lasix] 20 mg PO QAM 11/27/19 12/24/19 History psyllium husk [Metamucil] 0.4 gm PO QAM 11/27/19 12/24/19 History apixaban 2.5 mg tablet 2.5 mg PO BID #60 tab 12/01/19 12/24/19 Rx Lactobacillus acidophilus 3 cap PO QAM #90 cap 12/21/19 12/24/19 Rx Past Med/Surg History Surgical History H/O carotid endarterectomy Family History Other Family history non-contributory Myocardial infarction Denies family history of Ovarian cancer Breast cancer Colorectal cancer Social History Preferred Language: Latvian Communication Ability: Effective Visual Impairment: Limited Rn Building Required: No Beliefs That Will Affect Care: None Current Living Situation: Shelter current occupational status: retired Other Information That Helps Us Care for You: No Feels Safe at Home: Yes Safety Concerns: Feels Safe At This Time Smoking Status: Never smoker Second Hand Exposure: No ; Hx Alcohol Use: No Hx Substance Use: No caffeine: Yes Dental Care, Regularly: No Physical Activity Frequency: Does not Exercise Seatbelt Use: always Review of Systems Review of Systems: Unobtainable due to cognitive status Physical Exam Constitutional: + frail appearing; no acute distress Eyes: + anicteric sclerae ENMT: Mouth: + dry oral mucous membranes Neck: trachea midline Respiratory: normal respiratory effort Cardiovascular: Rate/Rhythm: regular rate and + irregularly irregular Heart Sounds: no murmur Gastrointestinal (Abdomen): Inspection/Auscultation: normal bowel sounds Percussion/Palpation: abdomen soft; abdomen nontender Musculoskeletal: Head/Neck/Chest: normocephalic and head atraumatic mild/trace edema of b/l ankles; small scabbed laceration to L contreras without erythema/drainage Skin: + chronic venous changes of b/l lower extremities Neurologic: + obtunded (awakens to painful stimuli) Results & Data Results & Data ([facility]) Vital Signs (Past 12 Hours) Vital Signs Temp Pulse Resp BP Pulse Ox 12/24/19 16:30 93 H 24 154/79 H 95 12/24/19 16:00 83 19 149/89 H 99 12/24/19 15:30 84 20 148/112 H 99 12/24/19 15:00 89 19 157/100 H 100 12/24/19 14:42 143/99 H 93 12/24/19 14:00 93 H 27 H 145/105 H 85 L 12/24/19 13:31 87 19 135/103 H 87 L 12/24/19 13:00 91 H 15 157/94 H 91 12/24/19 12:52 91 H 14 174/112 H 94 12/24/19 12:01 99 H 20 162/90 H 95 12/24/19 11:50 94 H 19 166/103 H 93 12/24/19 11:40 87 L 12/24/19 11:25 36.8 C 94 H 24 144/100 H 87 L Laboratory Results 12/24/19 12/24/19 12/24/19 Range/Units 18:49 18:49 12:44 WBC (4.8-10.8) K/uL RBC (4.2-5.4) M/uL Hgb (12.0-16.0) g/dL Hct (37-47) % MCV (80-100) fL MCH (25-34) pg MCHC (32-36) g/dL RDW Std Deviation (36.4-46.3) fL RDW Coeff of Chioma (11.5-14.5) % Plt Count (130-400) K/uL MPV (7.4-10.4) fL Immature Gran % (Auto) % Neut % (Auto) % Lymph % (Auto) % Webster % (Auto) % Eos % (Auto) % Baso % (Auto) % Immature Gran # (Auto) (0.00-0.02) K/uL Neut # (Auto) (1.4-6.5) K/uL Lymph # (Auto) (1.2-3.4) K/uL Webster # (Auto) (0.11-0.59) K/uL Eos # (Auto) (0-0.5) K/uL Baso # (Auto) (0-0.2) K/uL VBG pH 7.47 H (7.36-7.41) VBG pCO2 36 L (38-50) mmHg VBG pO2 57 mmHg VBG HCO3 26 mmol/L VBG O2 Saturation 89.7 % VBG Base Excess 2.4 mEq/L Barometric Pressure 730.0 mm/Hg Sodium (136-145) mmol/L Potassium (3.5-5.1) mmol/L Chloride (98-107) mmol/L Carbon Dioxide (21-32) mmol/L Anion Gap (3-11) BUN (7-18) mg/dl Creatinine (0.6-1.2) mg/dl Est Cr Clr Drug Dosing Est GFR ( Amer) Est GFR (Non-Af Amer) BUN/Creatinine Ratio (10-20) Glucose (70-99) mg/dl Calcium (8.5-10.1) mg/dl Magnesium (1.8-2.4) mg/dl Total Bilirubin (0.2-1) mg/dl AST (15-37) U/L ALT (12-78) U/L Alkaline Phosphatase (45-117) U/L Ammonia 24.0 (11-32) umol/L Total Creatine Kinase (26-192) U/L Troponin I (0-0.045) ng/ml NT-Pro-B Natriuret Pep (0-1800) pg/ml Total Protein (6.4-8.2) gm/dl Albumin (3.4-5.0) gm/dl Globulin (2.5-4.0) gm/dl Albumin/Globulin Ratio (0.9-2) Vitamin B12 601 (211-911) pg/ml TSH (0.300-4.500) uIu/ml Urine Color Urine Appearance (Clear) Urine pH (4.5-7.5) Ur Specific Gore (1.000-1.030) Urine Protein (Negative) Urine Glucose (UA) (Negative) Urine Ketones (Negative) Urine Blood (Negative) Urine Nitrite (Negative) Urine Bilirubin (Negative) Urine Urobilinogen (Negative) Ur Leukocyte Esterase (Negative) Urine WBC (Auto) (0-5) /hpf Urine RBC (Auto) (0-4) /hpf U Hyaline Cast (Auto) (0-5) /lpf U Epithel Cells (Auto) (0-5) /lpf Urine Bacteria (Auto) (Negative) Influenza Type A (PCR) (Neg) Influenza Type B (PCR) (Neg) 12/24/19 12/24/19 12/24/19 Range/Units 12:41 12:41 12:41 WBC 9.99 (4.8-10.8) K/uL RBC 3.74 L (4.2-5.4) M/uL Hgb 11.4 L (12.0-16.0) g/dL Hct 34.7 L (37-47) % MCV 92.8 (80-100) fL MCH 30.5 (25-34) pg MCHC 32.9 (32-36) g/dL RDW Std Deviation 49.6 H (36.4-46.3) fL RDW Coeff of Chioma 14.6 H (11.5-14.5) % Plt Count 295 (130-400) K/uL MPV 10.0 (7.4-10.4) fL Immature Gran % (Auto) 0.4 % Neut % (Auto) 71.7 % Lymph % (Auto) 12.6 % Webster % (Auto) 15.1 % Eos % (Auto) 0.1 % Baso % (Auto) 0.1 % Immature Gran # (Auto) 0.04 H (0.00-0.02) K/uL Neut # (Auto) 7.16 H (1.4-6.5) K/uL Lymph # (Auto) 1.26 (1.2-3.4) K/uL Webster # (Auto) 1.51 H (0.11-0.59) K/uL Eos # (Auto) 0.01 (0-0.5) K/uL Baso # (Auto) 0.01 (0-0.2) K/uL VBG pH (7.36-7.41) VBG pCO2 (38-50) mmHg VBG pO2 mmHg VBG HCO3 mmol/L VBG O2 Saturation % VBG Base Excess mEq/L Barometric Pressure mm/Hg Sodium 136 (136-145) mmol/L Potassium 2.9 L (3.5-5.1) mmol/L Chloride 103 (98-107) mmol/L Carbon Dioxide 27 (21-32) mmol/L Anion Gap 6.0 (3-11) BUN 14 (7-18) mg/dl Creatinine 0.82 (0.6-1.2) mg/dl Est Cr Clr Drug Dosing Not Reportable Est GFR ( Amer) 73.5 Est GFR (Non-Af Amer) 63.4 BUN/Creatinine Ratio 17.0 (10-20) Glucose 111 H (70-99) mg/dl Calcium 8.6 (8.5-10.1) mg/dl Magnesium 2.1 (1.8-2.4) mg/dl Total Bilirubin 0.7 (0.2-1) mg/dl AST 16 (15-37) U/L ALT 16 (12-78) U/L Alkaline Phosphatase 84 (45-117) U/L Ammonia (11-32) umol/L Total Creatine Kinase 37 (26-192) U/L Troponin I < 0.015 (0-0.045) ng/ml NT-Pro-B Natriuret Pep 7919 H (0-1800) pg/ml Total Protein 6.8 (6.4-8.2) gm/dl Albumin 2.7 L (3.4-5.0) gm/dl Globulin 4.1 H (2.5-4.0) gm/dl Albumin/Globulin Ratio 0.7 L (0.9-2) Vitamin B12 (211-911) pg/ml TSH 1.140 (0.300-4.500) uIu/ml Urine Color Urine Appearance (Clear) Urine pH (4.5-7.5) Ur Specific Gore (1.000-1.030) Urine Protein (Negative) Urine Glucose (UA) (Negative) Urine Ketones (Negative) Urine Blood (Negative) Urine Nitrite (Negative) Urine Bilirubin (Negative) Urine Urobilinogen (Negative) Ur Leukocyte Esterase (Negative) Urine WBC (Auto) (0-5) /hpf Urine RBC (Auto) (0-4) /hpf U Hyaline Cast (Auto) (0-5) /lpf U Epithel Cells (Auto) (0-5) /lpf Urine Bacteria (Auto) (Negative) Influenza Type A (PCR) (Neg) Influenza Type B (PCR) (Neg) 12/24/19 12/24/19 Range/Units 11:53 11:50 WBC (4.8-10.8) K/uL RBC (4.2-5.4) M/uL Hgb (12.0-16.0) g/dL Hct (37-47) % MCV (80-100) fL MCH (25-34) pg MCHC (32-36) g/dL RDW Std Deviation (36.4-46.3) fL RDW Coeff of Chioma (11.5-14.5) % Plt Count (130-400) K/uL MPV (7.4-10.4) fL Immature Gran % (Auto) % Neut % (Auto) % Lymph % (Auto) % Webster % (Auto) % Eos % (Auto) % Baso % (Auto) % Immature Gran # (Auto) (0.00-0.02) K/uL Neut # (Auto) (1.4-6.5) K/uL Lymph # (Auto) (1.2-3.4) K/uL Webster # (Auto) (0.11-0.59) K/uL Eos # (Auto) (0-0.5) K/uL Baso # (Auto) (0-0.2) K/uL VBG pH (7.36-7.41) VBG pCO2 (38-50) mmHg VBG pO2 mmHg VBG HCO3 mmol/L VBG O2 Saturation % VBG Base Excess mEq/L Barometric Pressure mm/Hg Sodium (136-145) mmol/L Potassium (3.5-5.1) mmol/L Chloride (98-107) mmol/L Carbon Dioxide (21-32) mmol/L Anion Gap (3-11) BUN (7-18) mg/dl Creatinine (0.6-1.2) mg/dl Est Cr Clr Drug Dosing Est GFR ( Amer) Est GFR (Non-Af Amer) BUN/Creatinine Ratio (10-20) Glucose (70-99) mg/dl Calcium (8.5-10.1) mg/dl Magnesium (1.8-2.4) mg/dl Total Bilirubin (0.2-1) mg/dl AST (15-37) U/L ALT (12-78) U/L Alkaline Phosphatase (45-117) U/L Ammonia (11-32) umol/L Total Creatine Kinase (26-192) U/L Troponin I (0-0.045) ng/ml NT-Pro-B Natriuret Pep (0-1800) pg/ml Total Protein (6.4-8.2) gm/dl Albumin (3.4-5.0) gm/dl Globulin (2.5-4.0) gm/dl Albumin/Globulin Ratio (0.9-2) Vitamin B12 (211-911) pg/ml TSH (0.300-4.500) uIu/ml Urine Color Yellow Urine Appearance Clear (Clear) Urine pH 6.5 (4.5-7.5) Ur Specific Gore 1.021 (1.000-1.030) Urine Protein 1+ H (Negative) Urine Glucose (UA) Negative (Negative) Urine Ketones Negative (Negative) Urine Blood Negative (Negative) Urine Nitrite Negative (Negative) Urine Bilirubin Negative (Negative) Urine Urobilinogen Negative (Negative) Ur Leukocyte Esterase Negative (Negative) Urine WBC (Auto) 1-5 (0-5) /hpf Urine RBC (Auto) 5-10 H (0-4) /hpf U Hyaline Cast (Auto) 0 (0-5) /lpf U Epithel Cells (Auto) 10-20 H (0-5) /lpf Urine Bacteria (Auto) Negative (Negative) Influenza Type A (PCR) Neg for Influ A (Neg) Influenza Type B (PCR) Neg for Influ B (Neg) Diagnostic Findings Chest x-ray, head CT noncontrast, and chest CT all reviewed ECG Additional Comments: ECG with atrial fibrillation, rate 95, inferior T wave inversion unchanged from previous Code Status & VTE Plan Code Status Do Not Resuscitate VTE Prophylaxis Plan VTE Prophylaxis will be ordered: Yes Supervising Physician Co-Signing Physician Notes PA Supervision Note: I personally saw and examined the patient. I verified all darnell points and agree with CHRISTIANA Conway with the following exceptions and/or additions: Patient is an 89-year-old female who presented from her personal detention with progressively worsening lethargy and confusion over the last week. She is unable to provide any history. History from daughter reported as above. History and ROS reviewed Vitals reviewed Patient appears very lethargic and only opens her eyes to loud verbal stimulus and sternal rub and then quickly falls back asleep No acute distress, very frail appearing Anicteric sclera, nasal cannula in place, mucous membranes in the mouth extremely dry Irregularly irregular, no murmurs gallops or rubs Lungs with diminished breath sounds at the bases, otherwise clear Abdomen positive bowel sounds, soft, nontender, nondistended Extremities with trace edema appears chronic Labs and radiology studies personally reviewed by me 89-year-old female with history as above here with increasing lethargy and conf usion. There is no apparent infectious cause at this time. She is not retaining CO2 and ammonia levels are normal. TSH is normal, does appear dehydrated and is hypokalemic Will obtain blood cultures and follow for any developing fevers. -Replace electrolytes and hydrate gently with IV fluids Despite pleural effusions and mild lower extremity edema along with elevated BNP, I feel that she is extremely dry on presentation and should be hydrated -Follow electrolytes in the morning -Observe for clinical improvement Discussed all plan of care with her daughter at the bedside in the ER Confirmed that she is a DNR/DNI PG Care Time/CCT Total # of Minutes Spent Total Time Spent with Patient: Total time spent is greater than 50% in coordination of care (as documented) at patient's floor/unit and/or counseling patient: Coding Level of Care Code 93304 Initial Inpt Care Lvl 3 Diagnoses AMS (altered mental status) R41.82 Dehydration E86.0 Hypokalemia E87.6 Atrial fibrillation I48.91 Atrial fibrillation type: unspecified Recurrent Clostridium difficile diarrhea A04.71 Hypertension I10 Hypertension type: essential hypertension Chronic kidney disease, stage III (moderate) N18.3 Diastolic dysfunction I51.89 (1) Atrial fibrillation Atrial fibrillation type: unspecified Qualified Code(s): I48.91 - Unspecified atrial fibrillation (2) Hypertension Hypertension type: essential hypertension Qualified Code(s): I10 - Essential (primary) hypertension
--- NOTE | 2019-12-24 17:27 | Emergency Department Note ---
Impression & Plan Hypoxia, Hypokalemia, AMS (altered mental status), CHF (congestive heart failure) ED Provider Note NAME: JAMIL GALLARDO AGE: 89 SEX: F ARRIVES VIA: Ambulance INFORMANT: [Patient] patient's daughter ED PROVIDER(S): Dorian Madison MD CHIEF COMPLAINT: Confusion PLAN: Disposition: Admitted Condition: [Good] MEDICAL DECISION MAKING: The patient presented with confusion. She had no specific complaints and her daughter was present and she helped with a history. The daughter was concerned because of the confusion she did note that the patient was having some urinary frequency. There was some concern for UTI based on the patient's history of the same. She had a work-up performed. She did have some low oxygen levels. Daughter states she was not on oxygen since last year when she had pneumonia. Her CBC and chemistry panel were unremarkable except for hypokalemia. She had acid repletion. The patient's urinalysis did not reveal any sign of infection. She was afebrile here in the emergency department. Head CT did not reveal any acute pathology. Chest x-ray raise some concern about possible pneumonia and pleural effusion. Chest CT was performed without contrast since the patient was anticoagulated and has a dye allergy. This did not reveal any evidence of pneumonia. This revealed mostly atelectasis and small effusions which were unchanged. The patient's BNP was moderately elevated concerning for CHF. She does not have a history of this. Her ECG revealed atrial fibrillation which is old for her. The daughter does note that the patient has been having more problems with extremity edema. This may be contributing to her hypoxia. Nitropaste was applied to the patient's elevated blood pressures. She will need further management in the hospital. I did consult with the [facility] physician group hospitalist. The patient was evaluated and admitted for further management. Triage Nursing notes reviewed and agree them. [Additional history obtained from] patient's daughter Vital Signs: reviewed and remarkable for mild hypoxia Differential diagnosis: Infection, hypoglycemia, electrolyte abnormalities, overdose, toxicologic, cardiac sources, intracerebral event, neurologic, trauma, as well as other pathologies. ER treatment provided: Nitropaste Supplemental oxygen Diagnostics interpreted by me: ECG: Rate: 95 Rhythm: Atrial fibrillation [place]: Normal axis QRS: Normal QRS ST segements: Inferior T wave inversions. No ST elevation or depression Other: PVCs Cardiac Monitoring: Cardiac monitoring was ordered. The patient was found to have atrial fibrillation with occasional PVCs at a rate of 89 bpm. No dysrhythmias noted. Laboratory studies: [See below] unremarkable CBC and chemistry panel except for hypokalemia. Troponin negative. BNP elevated. Urinalysis negative. Flu negative. Imaging studies: Chest x-ray concerning for left lower lobe infiltrate and effusion. CT imaging of the chest reveals small effusions and atelectasis. No infiltrates. Consultation(s): [facility] physician group hospitalist. Discussed the case with Danay Edwards PA-C. HPI: The patient is a 89 year old female who presents to the Emergency Room with complaints of confusion. This started over the last 2 days and is much more noticeable today. The patient also notes the following associated symptoms, lower extremity swelling and urinary frequency. The patient has found no relieving factors. Current pain is rated as 0/10. The patient was noted to be mildly hypoxic and her temperature was 99. Supplemental oxygen resolved the hypoxia. The patient did have a minor fall but denies any injury from this last night. She does feel generally weak. Pt denies LOC, headache, chills, diaphoresis, visual changes, neck pain, chest pain, breathing difficulties, nausea, vomiting, abdominal pain, back pain, melena, hematochezia, numbness, lymphadenopathy, rash, or other complaints. ROS: See above HPI for pertinent positives & negatives. A total of [10] systems reviewed and were otherwise negative. PAST MEDICAL HISTORY:[See Below] A. fib PAST SURGICAL HISTORY:[See Below] FAMILY HISTORY:[See Below] SOCIAL HISTORY:[See Below] resides at a personal skilled nursing. HOME MEDICATIONS:[See Below] ALLERGIES:[See Below] VITALS:[See Below] PHYSICAL EXAMINATION: GENERAL: Awake, tired-appearing, in no distress HENT: Normocephalic, atraumatic. Oropharynx unremarkable. EYES: Normal conjunctiva. Sclera non-icteric. NECK: Inspection normal. Non-tender. Supple. No nuchal rigidity. FROM. No masses. RESPIRATORY: Clear to auscultation. No wheezes. No rales. Normal respiratory effort. CARDIAC: Normal rate. Irregular rhythm. No murmurs. No rubs. Extremities warm and well perfused. Pulses equal. No JVD. GI: Soft, non-distended. No tenderness to palpation. No rebound or guarding. No masses. RECTAL: Deferred. MUSCULOSKELETAL: Atraumatic. Chest examination reveals no tenderness. The back is symmetrical on inspection without obvious abnormality. There is no CVA tenderness to palpation. No joint edema. LOWER EXTREMITIES: Calves are equal size bilaterally and non-tender. 1+ edema. Chronic venous discoloration. NEURO: Normal sensorium. No sensory or motor deficits noted. SKIN: No rash or jaundice noted. ED COURSE: Procedures: [none] [Critical Care:] [None] Dorian Madison MD Past Med/Surg History Social History Preferred Language: Mosotho Communication Ability: Effective Visual Impairment: Limited Die Cast Engineer Required: No Beliefs That Will Affect Care: None Current Living Situation: Jail current occupational status: retired Feels Safe at Home: Yes Smoking Status: Never smoker Second Hand Exposure: No ; Hx Alcohol Use: No Hx Substance Use: No caffeine: Yes Dental Care, Regularly: No Physical Activity Frequency: Does not Exercise Seatbelt Use: always Allergies Allergies Allergy/AdvReac Type Severity Reaction Status Date / Time erythromycin base Allergy Mild RASH Verified 12/24/19 11:27 latex Allergy Mild RASH Verified 12/24/19 11:27 Iodine and Iodide Containing Allergy Unknown UNKNOWN-ON Verified 12/24/19 11:27 [facility] LIST potassium Allergy Unknown UNKNOWN Verified 12/24/19 11:27 Home Meds Home Medications Medication Instructions Recorded Confirmed hydralazine 25 mg tablet 25 mg PO BIDM tab 09/16/19 12/24/19 PreserVision AREDS-2 1 tab PO BIDM 10/19/19 12/24/19 acetaminophen [Tylenol Arthritis 1,300 mg PO Q8H PRN MDD 3 GRAMS/24 10/19/19 12/24/19 Pain] HOURS. metoprolol tartrate 75 mg PO BIDM 10/19/19 12/24/19 potassium chloride 10 meq PO BIDM 10/19/19 12/24/19 rosuvastatin 5 mg PO QAM 10/19/19 12/24/19 travoprost [Travatan Z] 1 drops OPB HS 10/19/19 12/24/19 amlodipine [Norvasc] 10 mg PO QAM 11/27/19 12/24/19 aspirin 81 mg PO QAM 11/27/19 12/24/19 furosemide [Lasix] 20 mg PO QAM 11/27/19 12/24/19 psyllium husk [Metamucil] 0.4 gm PO QAM 11/27/19 12/24/19 Previous Rx's Medication Instructions Recorded pantoprazole 40 mg PO QAM 30 Days #30 tab 11/03/19 apixaban 2.5 mg tablet 2.5 mg PO BID #60 tab 12/01/19 Lactobacillus acidophilus 3 cap PO QAM #90 cap 12/21/19 Results & Data (ED) Vital Signs Vital Signs - 24 hr 12/24/19 11:25 12/24/19 11:40 12/24/19 11:50 Temperature 36.8 C Temperature Source Oral Pulse Rate 94 H 94 H Pulse Rate from SpO2 Sensor 87 Respiratory Rate 24 19 Respiratory Effort / Characteristics Non-Labored Spontaneous Respiratory Depth Normal Respiratory Pattern Regular Blood Pressure 144/100 H 166/103 H Blood Pressure Mean 114 130 Pulse Oximetry 87 L 87 L 93 Oxygen Delivery Method Room Air Room Air Nasal Cannula Nasal Cannula Oxygen Flow Rate 0 2 Sepsis Recent Fever Within 48 Hours No Sepsis Action Taken by Nursing No Action Required Oxygen Flow Rate - Titration 2 Pulse Oximetry Post Tiitration 96 12/24/19 11:55 12/24/19 12:01 12/24/19 12:52 Temperature Temperature Source Pulse Rate 99 H 91 H Pulse Rate from SpO2 Sensor 99 H 90 Respiratory Rate 20 14 Respiratory Effort / Characteristics Respiratory Depth Respiratory Pattern Blood Pressure 162/90 H 174/112 H Blood Pressure Mean 135 115 Pulse Oximetry 95 94 Oxygen Delivery Method Nasal Cannula Nasal Cannula Nasal Cannula Oxygen Flow Rate 2 2 2 Sepsis Recent Fever Within 48 Hours Sepsis Action Taken by Nursing Oxygen Flow Rate - Titration Pulse Oximetry Post Tiitration 12/24/19 13:00 12/24/19 13:31 12/24/19 14:00 Temperature Temperature Source Pulse Rate 91 H 87 93 H Pulse Rate from SpO2 Sensor 89 86 90 Respiratory Rate 15 19 27 H Respiratory Effort / Characteristics Respiratory Depth Respiratory Pattern Blood Pressure 157/94 H 135/103 H 145/105 H Blood Pressure Mean 121 108 120 Pulse Oximetry 91 87 L 85 L Oxygen Delivery Method Nasal Cannula Nasal Cannula Nasal Cannula Oxygen Flow Rate 2 2 2 Sepsis Recent Fever Within 48 Hours Sepsis Action Taken by Nursing Oxygen Flow Rate - Titration Pulse Oximetry Post Tiitration 12/24/19 14:42 12/24/19 15:00 12/24/19 15:30 Temperature Temperature Source Pulse Rate 89 84 Pulse Rate from SpO2 Sensor 89 90 87 Respiratory Rate 19 20 Respiratory Effort / Characteristics Respiratory Depth Respiratory Pattern Blood Pressure 143/99 H 157/100 H 148/112 H Blood Pressure Mean 104 119 126 Pulse Oximetry 93 100 99 Oxygen Delivery Method Nasal Cannula Nasal Cannula Nasal Cannula Oxygen Flow Rate 4 4 4 Sepsis Recent Fever Within 48 Hours Sepsis Action Taken by Nursing Oxygen Flow Rate - Titration Pulse Oximetry Post Tiitration 12/24/19 16:00 12/24/19 16:30 Temperature Temperature Source Pulse Rate 83 93 H Pulse Rate from SpO2 Sensor 86 82 Respiratory Rate 19 24 Respiratory Effort / Characteristics Respiratory Depth Respiratory Pattern Blood Pressure 149/89 H 154/79 H Blood Pressure Mean 93 119 Pulse Oximetry 99 95 Oxygen Delivery Method Nasal Cannula Nasal Cannula Oxygen Flow Rate 4 4 Sepsis Recent Fever Within 48 Hours Sepsis Action Taken by Nursing Oxygen Flow Rate - Titration Pulse Oximetry Post Tiitration Laboratory Data Result diagrams: 12/24/19 12:41 12/24/19 12:41 Lab Results 12/24/19 12/24/19 12/24/19 Range/Units 11:50 11:53 12:41 WBC 9.99 (4.8-10.8) K/uL RBC 3.74 L (4.2-5.4) M/uL Hgb 11.4 L (12.0-16.0) g/dL Hct 34.7 L (37-47) % MCV 92.8 (80-100) fL MCH 30.5 (25-34) pg MCHC 32.9 (32-36) g/dL RDW Std Deviation 49.6 H (36.4-46.3) fL RDW Coeff of [place] 14.6 H (11.5-14.5) % Plt Count 295 (130-400) K/uL MPV 10.0 (7.4-10.4) fL Immature Gran % (Auto) 0.4 % Neut % (Auto) 71.7 % Lymph % (Auto) 12.6 % [place] % (Auto) 15.1 % Eos % (Auto) 0.1 % Baso % (Auto) 0.1 % Immature Gran # (Auto) 0.04 H (0.00-0.02) K/uL Neut # (Auto) 7.16 H (1.4-6.5) K/uL Lymph # (Auto) 1.26 (1.2-3.4) K/uL [place] # (Auto) 1.51 H (0.11-0.59) K/uL Eos # (Auto) 0.01 (0-0.5) K/uL Baso # (Auto) 0.01 (0-0.2) K/uL VBG pH (7.36-7.41) VBG pCO2 (38-50) mmHg VBG pO2 mmHg VBG HCO3 mmol/L VBG O2 Saturation % VBG Base Excess mEq/L Barometric Pressure mm/Hg Sodium (136-145) mmol/L Potassium (3.5-5.1) mmol/L Chloride (98-107) mmol/L Carbon Dioxide (21-32) mmol/L Anion Gap (3-11) BUN (7-18) mg/dl Creatinine (0.6-1.2) mg/dl Est Cr Clr Drug Dosing Est GFR ( Amer) Est GFR (Non-Af Amer) BUN/Creatinine Ratio (10-20) Glucose (70-99) mg/dl Calcium (8.5-10.1) mg/dl Magnesium (1.8-2.4) mg/dl Total Bilirubin (0.2-1) mg/dl AST (15-37) U/L ALT (12-78) U/L Alkaline Phosphatase (45-117) U/L Total Creatine Kinase (26-192) U/L Troponin I (0-0.045) ng/ml NT-Pro-B Natriuret Pep (0-1800) pg/ml Total Protein (6.4-8.2) gm/dl Albumin (3.4-5.0) gm/dl Globulin (2.5-4.0) gm/dl Albumin/Globulin Ratio (0.9-2) TSH (0.300-4.500) uIu/ml Urine Color Yellow Urine Appearance Clear (Clear) Urine pH 6.5 (4.5-7.5) Ur Specific Gray 1.021 (1.000-1.030) Urine Protein 1+ H (Negative) Urine Glucose (UA) Negative (Negative) Urine Ketones Negative (Negative) Urine Blood Negative (Negative) Urine Nitrite Negative (Negative) Urine Bilirubin Negative (Negative) Urine Urobilinogen Negative (Negative) Ur Leukocyte Esterase Negative (Negative) Urine WBC (Auto) 1-5 (0-5) /hpf Urine RBC (Auto) 5-10 H (0-4) /hpf U Hyaline Cast (Auto) 0 (0-5) /lpf U Epithel Cells (Auto) 10-20 H (0-5) /lpf Urine Bacteria (Auto) Negative (Negative) Influenza Type A (PCR) Neg for Influ A (Neg) Influenza Type B (PCR) Neg for Influ B (Neg) 12/24/19 12/24/19 12/24/19 Range/Units 12:41 12:41 12:44 WBC (4.8-10.8) K/uL RBC (4.2-5.4) M/uL Hgb (12.0-16.0) g/dL Hct (37-47) % MCV (80-100) fL MCH (25-34) pg MCHC (32-36) g/dL RDW Std Deviation (36.4-46.3) fL RDW Coeff of [place] (11.5-14.5) % Plt Count (130-400) K/uL MPV (7.4-10.4) fL Immature Gran % (Auto) % Neut % (Auto) % Lymph % (Auto) % [place] % (Auto) % Eos % (Auto) % Baso % (Auto) % Immature Gran # (Auto) (0.00-0.02) K/uL Neut # (Auto) (1.4-6.5) K/uL Lymph # (Auto) (1.2-3.4) K/uL [place] # (Auto) (0.11-0.59) K/uL Eos # (Auto) (0-0.5) K/uL Baso # (Auto) (0-0.2) K/uL VBG pH 7.47 H (7.36-7.41) VBG pCO2 36 L (38-50) mmHg VBG pO2 57 mmHg VBG HCO3 26 mmol/L VBG O2 Saturation 89.7 % VBG Base Excess 2.4 mEq/L Barometric Pressure 730.0 mm/Hg Sodium 136 (136-145) mmol/L Potassium 2.9 L (3.5-5.1) mmol/L Chloride 103 (98-107) mmol/L Carbon Dioxide 27 (21-32) mmol/L Anion Gap 6.0 (3-11) BUN 14 (7-18) mg/dl Creatinine 0.82 (0.6-1.2) mg/dl Est Cr Clr Drug Dosing Not Reportable Est GFR ( Amer) 73.5 Est GFR (Non-Af Amer) 63.4 BUN/Creatinine Ratio 17.0 (10-20) Glucose 111 H (70-99) mg/dl Calcium 8.6 (8.5-10.1) mg/dl Magnesium 2.1 (1.8-2.4) mg/dl Total Bilirubin 0.7 (0.2-1) mg/dl AST 16 (15-37) U/L ALT 16 (12-78) U/L Alkaline Phosphatase 84 (45-117) U/L Total Creatine Kinase 37 (26-192) U/L Troponin I < 0.015 (0-0.045) ng/ml NT-Pro-B Natriuret Pep 7919 H (0-1800) pg/ml Total Protein 6.8 (6.4-8.2) gm/dl Albumin 2.7 L (3.4-5.0) gm/dl Globulin 4.1 H (2.5-4.0) gm/dl Albumin/Globulin Ratio 0.7 L (0.9-2) TSH 1.140 (0.300-4.500) uIu/ml Urine Color Urine Appearance (Clear) Urine pH (4.5-7.5) Ur Specific Gray (1.000-1.030) Urine Protein (Negative) Urine Glucose (UA) (Negative) Urine Ketones (Negative) Urine Blood (Negative) Urine Nitrite (Negative) Urine Bilirubin (Negative) Urine Urobilinogen (Negative) Ur Leukocyte Esterase (Negative) Urine WBC (Auto) (0-5) /hpf Urine RBC (Auto) (0-4) /hpf U Hyaline Cast (Auto) (0-5) /lpf U Epithel Cells (Auto) (0-5) /lpf Urine Bacteria (Auto) (Negative) Influenza Type A (PCR) (Neg) Influenza Type B (PCR) (Neg) Administered Medications Sodium Chloride (Nss 1000ml) 1,000 mls @ 125 mls/hr IV .Q8H EVELYN Stop: 12/24/19 19:59 Last Admin: 12/24/19 12:53 Dose: 125 mls/hr Documented by: [id number] Discontinued Medications Acetaminophen (Tylenol) 1,000 mg PO NOW STA Stop: 12/24/19 13:24 Last Admin: 12/24/19 13:30 Dose: 1,000 mg Documented by: [id number] Potassium Chloride (K Erick / Wtr) 10 meq in 100 mls @ 100 mls/hr IV ONE ONE Stop: 12/24/19 15:06 Last Infusion: 12/24/19 15:59 Dose: 0 mls/hr Documented by: [id number] Admin: 12/24/19 14:53 Dose: 100 mls/hr Documented by: [id number] Nitroglycerin (Nitro-Bid 2%) 0.5 inch EXT NOW STA Stop: 12/24/19 15:35 Last Admin: 12/24/19 15:50 Dose: 0.5 inch Documented by: [id number] Discharge Plan Visit Data Chief Complaint: Confusion Stated Complaint: AMS ED Provider: Dorian Madison Discharge Problem: Hypoxia, Hypokalemia, AMS (altered mental status), CHF (congestive heart failure) Forms Stand Alone Forms: [facility] [place] Prescriptions Prescriptions: No Action Eliquis 2.5 mg tablet 2.5 mg PO BID Qty: 60 RF: 5 Lactobacillus acidophilus [Acidophilus] Capsule 3 cap PO QAM Qty: 90 RF: 0 hydralazine 25 mg tablet 25 mg PO BIDM RF: 0 acetaminophen [Tylenol Arthritis Pain] 650 mg Tablet Extended Release 1,300 mg PO Q8H MDD 3 GRAMS/24 HOURS. PRN (Reason: Pain) RF: 0 PreserVision AREDS-2 [id number]-mg Capsule 1 tab PO BIDM RF: 0 potassium chloride 10 mEq capsule, extended release 10 meq PO BIDM RF: 0 travoprost [Travatan Z] 0.004 % drops 1 drops OPB HS RF: 0 metoprolol tartrate 50 mg tablet 75 mg PO BIDM RF: 0 rosuvastatin 5 mg tablet 5 mg PO QAM RF: 0 aspirin 81 mg Tablet,Delayed Release (Dr/Ec) 81 mg PO QAM RF: 0 amlodipine [Norvasc] 5 mg tablet 10 mg PO QAM RF: 0 furosemide [Lasix] 20 mg tablet 20 mg PO QAM RF: 0 psyllium husk [Metamucil] 0.4 gram capsule 0.4 gm PO QAM RF: 0 pantoprazole 40 mg Tablet,Delayed Release (Dr/Ec) 40 mg PO QAM 30 Days Qty: 30 RF: 2
[2019-12-24] MEDS ORDERED: ALUMINUM/MAGNESIUM SUSP 30 ML UDC PO PRN (18:12)
[2019-12-24] MEDS ORDERED: ONDANSETRON INJ 2 MG/ML 2 ML VIAL IV PRN (18:12)
[2019-12-24] MEDS ORDERED: NSS + 20MEQ KCL 20 MEQ/1,000 ML BAG IV SCH (18:12)
[2019-12-24] MEDS ORDERED: ACETAMINOPHEN 325 MG TAB PO PRN (18:12)
[2019-12-24] MEDS ORDERED: POLYETHYLENE (MIRALAX) 17 GM PACK PO PRN (18:12)
[2019-12-24] MEDS ORDERED: MAGNESIUM HYDROXIDE SUSP 30 ML UDC PO PRN (18:12)
[2019-12-24] MEDS ORDERED: HydrALAZINE HCL 20 MG/ML VIAL IV PRN (18:14)
[2019-12-24] MEDS ORDERED: ENOXAPARIN 1 MG/KG SQ SCH (18:15)
--- NOTE | 2019-12-24 19:31 | Magnetic Resonance Report ---
MR brain wo con HISTORY: Mental status change Altered Mental Status; R/O CVA TECHNIQUE: Multiplanar multisequence MRI of the brain was performed without the use of contrast. COMPARISON STUDY: 12/09/2010. CT brain 12/24/2019 FINDINGS: Limited exam due to considerable patient motion. Diffusion images show no acute ischemic in sult. Multiple foci of increased signal within the periventricular and deep white matter regions. This is c onsistent with a combination of atrophy as well as chronic small vessel change. There is mild ventricular prominence presumably on a compensatory basis. Slight increase in ventricul ar size compared to the prior MRI most likely secondary to interval age-related change. IMPRESSION: 1. No evidence for an acute ischemic insult. 2. Considerable atrophy, age-related chronic small vessel change, with mild ventricular prominence on a compensatory basis. 3. No acute process. ACT 112: Negative or not required by law. The above report was generated using voice recognition software. It may contain grammatical, syntax or spelling errors. Electronically signed by: Felix Quan M.D. 12/24/2019 7:30 PM
[2019-12-24] MEDS: POTASSIUM CHLORIDE / WTR 10 MEQ/100 ML PLCT IV SCH ×3 (19:41→21:52)
[2019-12-24] MEDS: ENOXAPARIN INJ 60 MG/0.6 ML SYR SQ SCH (20:53)
[2019-12-25] MEDS: METOPROLOL TARTRATE 1 MG/ML VIAL IV SCH ×2 (00:18→06:13)
[2019-12-25] MEDS ORDERED: COUGH DROP (SUGAR FREE) LOZ 24 LOZ/1 BOX BUCCAL PRN (02:04)
[2019-12-25 06:56] LABS: Basophils # (auto) 0.02 K/uL (0-0.2); Basophils % (auto) 0.2 %; Hematocrit (blood only) 35.5 % (37-47); Hemoglobin 11.7 g/dL (12.0-16.0); Immature Granulocytes # (auto) 0.04 K/uL (0.00-0.02); Immature Granulocytes % (auto) 0.4 %; Lymphocytes # (auto) 0.55 K/uL (1.2-3.4); Mean Corpuscular Hemoglobin 30.5 pg (25-34); Mean Corpuscular Volume 92.7 fL (80-100); Mean Platelet Volume 9.8 fL (7.4-10.4); Monocytes % (auto) 9.2 %; Neutrophils % (auto) 85.2 %; Platelet Count 290 K/uL (130-400); RDW Coefficient of Variation 14.5 % (11.5-14.5); RDW Standard Deviation 49.1 fL (36.4-46.3); Red Blood Count 3.83 M/uL (4.2-5.4); White Blood Count 10.91 K/uL (4.8-10.8)
[2019-12-25 07:36] LABS: BUN Creatinine Ratio 13.6 (10-20); Calcium 8.2 mg/dl (8.5-10.1); Creatinine Clr Calc Pharmacy 39.1 ml/min; Est GFR (Non-African American) 76.8; Magnesium 1.9 mg/dl (1.8-2.4); Phosphorus 2.1 mg/dl (2.5-4.9)
[2019-12-25 07:41] LABS: Potassium 3.4 mmol/L (3.5-5.1)
[2019-12-25] MEDS: ENOXAPARIN INJ 60 MG/0.6 ML SYR SQ SCH (07:49)
[2019-12-25 09:31] LABS: Cdiff Antigen Positive
[2019-12-25 09:32] LABS: Cdiff Toxin A+B Positive Cdiff Toxin (Negative)
--- NOTE | 2019-12-25 09:39 | Hospitalist Progress Note ---
Date of Service December 25, 2019 Assessment & Plan (1) AMS (altered mental status): Unclear cause of altered mental status at this time. Patient previously had urinary tract infections but had a negative UA on presentation. Of note, the patient had positive C. difficile gene with toxins pending. However, while documenting this new, I was contacted by nursing that the C. difficile toxin had resulted as positive. Patient did have some loose stool overnight which was concerning, which prompted the sample being sent. Note further work-up as below. 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 Will restart patient on Dificid. I will ask infectious disease to evaluate for further recommendations. This may be a reason for her lethargy on presentation although this is subjectively improved. (3) Atrial fibrillation: Patient has chronic atrial fibrillation. She is on Eliquis as an outpatient, has been given therapeutic dosing of Lovenox while here. As patient seems to be improved with oral intake as she is more alert, will restart her oral medications including Eliquis. (4) CHF (congestive heart failure): Patient with elevated BNP but does not appear to be in significant fluid overload at this time. Was hydrated secondary to dehydration earlier in her admission but this is since been discontinued. Will hold off on Lasix another day but will not hydrate further. Will monitor oral intake. (5) Hypokalemia: Oral repletion of potassium, recheck in the morning. (6) Pleural effusion: I did review the patient's plain films, there is question of mild pleural effusion at the left base, may be secondary to patient's history of CHF. I do not note any discrete infiltrates or evidence of infection at this time. Admission and Anticipated Discharge Date Admission Date: December 24, 2019 Subjective Patient is awake and alert. She seems to be mildly anxious secondary to her daughter. She tells me her daughter has a part-time job here but has not come to visit her. She does seem a little confused and cannot provide more details, i.e. what department her daughter is employed in. I do see patient had a mild intermittent confusion on presentation. She specifically denies symptoms such as shortness of breath, chest pain, nausea, vomiting. She did have little p.o. intake this morning but did drink her decaf coffee. Physical Exam Constitutional: + thin, + frail appearing and cooperative; no acute distress Neck: trachea midline, no thyromegaly Respiratory: normal respiratory effort Auscultation: lungs clear to auscultation bilaterally; no crackles, no rales, no rhonchi and no wheezes Cardiovascular: Rate/Rhythm: regular rate and regular rhythm Heart Sounds: normal S1 and normal S2 Gastrointestinal (Abdomen): Inspection/Auscultation: abdomen normal to inspection Percussion/Palpation: abdomen soft; abdomen nontender, no guarding, abdomen not rigid and no hepatosplenomegaly Skin: no rashes, warm and dry Results & Data Results & Data ([facility]) Vital Signs (Past 12 Hours) Vital Signs Temp Pulse Pulse Resp BP BP BP 12/25/19 07:56 168/93 H 12/25/19 07:54 176/96 H 12/25/19 07:31 36.7 C 103 H 20 190/85 H 12/25/19 06:13 126 H 206/103 H 12/25/19 06:07 126 H 206/103 H 12/25/19 04:02 37.0 C 101 H 20 173/84 H 12/25/19 02:43 101 H 12/25/19 00:18 104 H 177/85 H 12/24/19 23:56 37.2 C 115 H 20 178/94 H Pulse Ox 12/25/19 07:56 12/25/19 07:54 12/25/19 07:31 90 12/25/19 06:13 12/25/19 06:07 12/25/19 04:02 95 12/25/19 02:43 12/25/19 00:18 12/24/19 23:56 95 Laboratory Results WBCs of 10.9, hemoglobin 9.7, hematocrit 35.5, platelet count of 290. Sodium 136, potassium 3.4, chloride 104, CO2 of 24. BUN of 10 creatinine is 0.7. Glucose of 108. Calcium 8.2 with phosphorus of 2.1. BNP done yesterday [id number]. Patient appears to be positive for the C. difficile gene but toxin a and B are still pending. Diagnostic Findings MR brain wo con HISTORY: Mental status change Altered Mental Status; R/O CVA TECHNIQUE: Multiplanar multisequence MRI of the brain was performed without the use of contrast. COMPARISON STUDY: 12/09/2010. CT brain 12/24/2019 FINDINGS: Limited exam due to considerable patient motion. Diffusion images show no acute ischemic insult. Multiple foci of increased signal within the periventricular and deep white matter regions. This is consistent with a combination of atrophy as well as chronic small vessel change. There is mild ventricular prominence presumably on a compensatory basis. Slight increase in ventricular size compared to the prior MRI most likely secondary to interval age-related change. IMPRESSION: 1. No evidence for an acute ischemic insult. 2. Considerable atrophy, age-related chronic small vessel change, with mild ventricular prominence on a compensatory basis. 3. No acute process. --- SINGLE VIEW CHEST CLINICAL HISTORY: Generalized weakness. FINDINGS: 2 AP, portable, upright chest radiographs are compared to study dated 11/27/2019 and correlated with chest CT dated 11/15/2019. The examination is degraded by portable technique and patient rotation. The heart is enlarged noting atherosclerotic calcification of the thoracic aorta. There is mild pulmonary vascular congestion. Chronic interstitial thickening is similar to previous. There is a small left pleural effusion with left basilar consolidation . No pneumothorax is seen. The skeletal structures are osteopenic. The bony thorax is grossly intact. Advanced degenerative change and chronic deformity is present in the shoulders. Degenerative change is also seen throughout the thoracic spine. IMPRESSION: 1. Cardiomegaly with mild pulmonary vascular congestion. 2. There is a left pleural effusion with left basilar consolidation. This has been seen previously and could represent chronic scarring/atelectasis. Correlate clinically for evidence of superimposed pneumonia/aspiration pneumonitis. PG Care Time/CCT Total # of Minutes Spent Total Time Spent with Patient: Total time spent is greater than 50% in coordination of care (as documented) at patient's floor/unit and/or counseling patient: Coding Level of Care Code 81298 Subseq Hosp Care Lvl 2 Diagnoses AMS (altered mental status) R41.82 C. difficile colitis A04.72 Atrial fibrillation I48.91 Atrial fibrillation type: unspecified CHF (congestive heart failure) I50.9 Hypokalemia E87.6 Pleural effusion J90 (1) Atrial fibrillation Atrial fibrillation type: unspecified Qualified Code(s): I48.91 - Unspecified atrial fibrillation
[2019-12-25] MEDS: FIDAXOMICIN 200 MG TAB PO SCH ×2 (11:23→20:15)
--- NOTE | 2019-12-25 13:08 | Infectious Disease Consult ---
Date of Consultation December 25, 2019 Assessment & Plan (1) C. difficile colitis: pt will continue on dificid x 10 days then would suggest 30 days vanco 125mg po qid with plan for taper. History of Present Illness Attending Physician: Vincent Loaiza DO pt admitted with change in mental status, she has h/o c. diff in past and was previously treated. unsure if she has had recent abx, pt is confused on my exam and unable to provide ROS. she was found to have diarrhea and c diff was tested and again +, she is currently on dificid, continues to have loose stool. afebirle. wbc 10, creat 0.7, UA negative, MRI head negative, ct chest negative, blood cultures pending. tolerating dificid. Allergies Allergy/AdvReac Type Severity Reaction Status Date / Time erythromycin base Allergy Mild RASH Verified 12/24/19 11:27 latex Allergy Mild RASH Verified 12/24/19 11:27 Iodine and Iodide Containing Allergy Unknown UNKNOWN-ON Verified 12/24/19 11:27 Produc [facility] LIST potassium Allergy Unknown UNKNOWN Verified 12/24/19 11:27 Home Medications Home Medications Medication Instructions Recorded Confirmed Type hydralazine 25 mg tablet 25 mg PO BIDM tab 09/16/19 12/24/19 History PreserVision AREDS-2 1 tab PO BIDM 10/19/19 12/24/19 History acetaminophen [Tylenol Arthritis 1,300 mg PO Q8H PRN MDD 3 GRAMS/24 10/19/19 12/24/19 History Pain] HOURS. metoprolol tartrate 75 mg PO BIDM 10/19/19 12/24/19 History potassium chloride 10 meq PO BIDM 10/19/19 12/24/19 History rosuvastatin 5 mg PO QAM 10/19/19 12/24/19 History travoprost [Travatan Z] 1 drops OPB HS 10/19/19 12/24/19 History pantoprazole 40 mg PO QAM 30 Days #30 tab 11/03/19 12/24/19 Rx amlodipine [Norvasc] 10 mg PO QAM 11/27/19 12/24/19 History aspirin 81 mg PO QAM 11/27/19 12/24/19 History furosemide [Lasix] 20 mg PO QAM 11/27/19 12/24/19 History psyllium husk [Metamucil] 0.4 gm PO QAM 11/27/19 12/24/19 History apixaban 2.5 mg tablet 2.5 mg PO BID #60 tab 12/01/19 12/24/19 Rx Lactobacillus acidophilus 3 cap PO QAM #90 cap 12/21/19 12/24/19 Rx Patient History Medical History Atrial fibrillation Chronic kidney disease, stage III (moderate) (Chronic) Hypertension (Chronic) Hypoxia (Acute) Pleural effusion SIADH (syndrome of inappropriate ADH production) Surgical History H/O carotid endarterectomy Family History Other Family history non-contributory Myocardial infarction Denies family history of Ovarian cancer Breast cancer Colorectal cancer Social History Preferred Language: Danish Communication Ability: Effective Visual Impairment: Limited Operative Supervisor Required: No Beliefs That Will Affect Care: None Current Living Situation: [place] current occupational status: retired Other Information That Helps Us Care for You: No Feels Safe at Home: Yes Safety Concerns: Feels Safe At This Time Smoking Status: Never smoker Second Hand Exposure: No ; Hx Alcohol Use: No Hx Substance Use: No caffeine: Yes Dental Care, Regularly: No Physical Activity Frequency: Does not Exercise Seatbelt Use: always Review of Systems Review of Systems: Unobtainable due to cognitive status Physical Exam Constitutional: WD/WN, vitals as above Eyes: PERRL, conjunctivae normal, anicteric sclerae ENMT: external ear and nose normal, oropharynx normal Neck: normal visual inspection Respiratory: normal respiratory effort, lungs clear to auscultation Cardiovascular: RRR, no murmur, no edema Gastrointestinal (Abdomen): normal bowel sounds, soft, nontender, no hepatosplenomegaly Musculoskeletal: no cyanosis or clubbing, extremities motor strength 5/5 Skin: no rashes, warm and dry Psychiatric: alert, confused Results & Data ([facility]) Vital Signs (Past 12 Hours) Vital Signs Temp Pulse Pulse Resp BP BP BP 12/25/19 12:55 36.7 C 101 H 20 171/74 H 168/93 H 12/25/19 11:05 36.7 C 101 H 20 171/74 H 12/25/19 09:43 12/25/19 07:56 168/93 H 12/25/19 07:54 176/96 H 12/25/19 07:31 36.7 C 103 H 20 190/85 H 12/25/19 06:13 126 H 206/103 H 12/25/19 06:07 126 H 206/103 H 12/25/19 04:02 37.0 C 101 H 20 173/84 H 12/25/19 02:43 101 H Pulse Ox Pulse Ox 12/25/19 12:55 93 12/25/19 11:05 93 12/25/19 09:43 91 12/25/19 07:56 12/25/19 07:54 12/25/19 07:31 90 12/25/19 06:13 12/25/19 06:07 12/25/19 04:02 95 12/25/19 02:43 PG Care Time/CCT Total # of Minutes Spent Total Time Spent with Patient: Total time spent is greater than 50% in coordination of care (as documented) at patient's floor/unit and/or counseling patient: Coding Level of Care Code 79395 Inpt Consult Level 4 Diagnoses C. difficile colitis A04.72
[2019-12-25] MEDS: POTASSIUM CHLORIDE 10 MEQ TABCR PO SCH (16:15)
[2019-12-25] MEDS: METOPROLOL TARTRATE 25 MG TAB PO SCH (16:15)
[2019-12-25] MEDS: TRAVOPROST Z 0.004% OPH SOLN 2.5 ML BTL OPB SCH (20:15)
[2019-12-25] MEDS: APIXABAN 2.5 MG TAB PO SCH (20:15)
[2019-12-26 06:43] LABS: Basophils # (auto) 0.02 K/uL (0-0.2); Basophils % (auto) 0.2 %; Eosinophils # (auto) 0.06 K/uL (0-0.5); Eosinophils % (auto) 0.6 %; Hematocrit (blood only) 33.7 % (37-47); Immature Granulocytes # (auto) 0.02 K/uL (0.00-0.02); Immature Granulocytes % (auto) 0.2 %; Lymphocytes # (auto) 0.94 K/uL (1.2-3.4); Lymphocytes % (auto) 9.2 %; Mean Corpuscular Hemoglobin 30.6 pg (25-34); Mean Corpuscular Hgb Conc 32.6 g/dL (32-36); Mean Corpuscular Volume 93.6 fL (80-100); Mean Platelet Volume 10.1 fL (7.4-10.4); Monocytes # (auto) 0.96 K/uL (0.11-0.59); Monocytes % (auto) 9.4 %; Neutrophils # (auto) 8.17 K/uL (1.4-6.5); Neutrophils % (auto) 80.4 %; Platelet Count 283 K/uL (130-400); RDW Coefficient of Variation 14.5 % (11.5-14.5); RDW Standard Deviation 49.7 fL (36.4-46.3); White Blood Count 10.17 K/uL (4.8-10.8)
[2019-12-26 07:23] LABS: BUN Creatinine Ratio 15.9 (10-20); Calcium 8.6 mg/dl (8.5-10.1); Creatinine Clr Calc Pharmacy 38.5 ml/min; Est GFR (Non-African American) 76.8; Potassium 2.7 mmol/L (3.5-5.1)
[2019-12-26] MEDS ORDERED: POTASSIUM CHLORIDE / WTR 20 MEQ/100 ML PLCT IV STA (07:49)
--- NOTE | 2019-12-26 08:33 | Hospitalist Progress Note ---
Date of Service December 26, 2019 Assessment & Plan (1) AMS (altered mental status): Patient's mental status is apparently improved significantly from admission, was alert and eating yesterday, nursing documentation notes that she was alert of the mildly confused overnight. May have been secondary to acute infection with recurrent C. difficile. Continue to monitor with treatment of underlying issues. (2) C. difficile colitis: Patient had some loose bowel movements overnight on 12/24, was tested for C. difficile was found to be positive. Patient was restarted on Dificid. I do appreciate infectious disease consultation, plan for 10 total days of Dificid and then international exchange coordinator to oral vancomycin for a longer course with eventual taper. (3) Atrial fibrillation: Patient has chronic atrial fibrillation. Now that she is on p.o.'s, will switch back to oral Eliquis. I will continue to monitor. (4) CHF (congestive heart failure): Patient with elevated BNP but does not appear to be in significant fluid overload at this time. Continue to monitor, not dehydrated by labs. (5) Hypokalemia: Potassium only 2.7 this morning, will replete IV. Patient is also on 10 mEq twice daily which we will continue as well. (6) Pleural effusion: May be chronic secondary to CHF, no respiratory issues and will continue to monitor. Admission and Anticipated Discharge Date Admission Date: December 24, 2019 Subjective Patient seen earlier in the morning, was asleep. Somewhat arousable to gentle agitation and voice. Falls asleep quickly, could not provide much history. No new issues reported to nursing notes. Physical Exam Constitutional: + frail appearing; no acute distress Sleeping, as noted above Neck: trachea midline, no thyromegaly Respiratory: normal respiratory effort Auscultation: lungs clear to auscultation bilaterally; no crackles, no rales, no rhonchi and no wheezes Limited exam Cardiovascular: Rate/Rhythm: regular rate, regular rhythm and + irregularly irregular Heart Sounds: + murmur Limited exam Gastrointestinal (Abdomen): Inspection/Auscultation: abdomen normal to inspection Percussion/Palpation: abdomen soft; abdomen nontender, no guarding, abdomen not rigid and no hepatosplenomegaly Skin: no rashes, warm and dry Results & Data Results & Data ([facility]) Vital Signs (Past 12 Hours) Vital Signs Temp Pulse Pulse Resp BP BP Pulse Ox 12/26/19 07:41 36.5 C 72 18 129/78 93 12/26/19 03:40 36.7 C 86 18 142/83 H 91 12/26/19 02:25 18 130/76 90 12/25/19 23:00 37.1 C 90 20 134/83 92 12/25/19 22:19 87 Laboratory Results WBCs of 10.7, hemoglobin 11 hematocrit of 33.7, platelets of 283. Sodium 136, potassium 2.7, chloride 102, carbon dioxide of 27, BUN 11 creatinine 0.7. Calcium 8.6. PG Care Time/CCT Total # of Minutes Spent Total Time Spent with Patient: Total time spent is greater than 50% in coordination of care (as documented) at patient's floor/unit and/or counseling patient: Coding Level of Care Code 67666 Subseq Hosp Care Lvl 2 Diagnoses AMS (altered mental status) R41.82 C. difficile colitis A04.72 Atrial fibrillation I48.91 Atrial fibrillation type: unspecified CHF (congestive heart failure) I50.9 Hypokalemia E87.6 Pleural effusion J90 (1) Atrial fibrillation Atrial fibrillation type: unspecified Qualified Code(s): I48.91 - Unspecified atrial fibrillation
[2019-12-26] MEDS: POTASSIUM CHLORIDE 10 MEQ TABCR PO SCH ×2 (09:34→17:02)
[2019-12-26] MEDS: POTASSIUM CHLORIDE / WTR 10 MEQ/100 ML PLCT IV SCH ×6 (09:34→18:16)
[2019-12-26] MEDS: METOPROLOL TARTRATE 25 MG TAB PO SCH ×2 (09:35→17:02)
[2019-12-26] MEDS: APIXABAN 2.5 MG TAB PO SCH ×2 (09:35→20:41)
[2019-12-26] MEDS: ASPIRIN 81 MG ECTAB PO SCH (09:44)
[2019-12-26] MEDS: PANTOprazole 40 MG TAB PO SCH (09:44)
[2019-12-26] MEDS: FUROSEMIDE 20 MG TAB PO SCH (09:44)
[2019-12-26] MEDS: ROSUVASTATIN CALCIUM 5 MG TAB PO SCH (09:44)
[2019-12-26] MEDS: FIDAXOMICIN 200 MG TAB PO SCH ×2 (09:51→20:41)
[2019-12-26] MEDS: TRAVOPROST Z 0.004% OPH SOLN 2.5 ML BTL OPB SCH (20:41)
[2019-12-27 06:55] LABS: Basophils # (auto) 0.01 K/uL (0-0.2); Basophils % (auto) 0.1 %; Eosinophils # (auto) 0.13 K/uL (0-0.5); Eosinophils % (auto) 1.9 %; Hematocrit (blood only) 32.6 % (37-47); Hemoglobin 10.5 g/dL (12.0-16.0); Immature Granulocytes # (auto) 0.01 K/uL (0.00-0.02); Immature Granulocytes % (auto) 0.1 %; Lymphocytes # (auto) 1.04 K/uL (1.2-3.4); Lymphocytes % (auto) 15.2 %; Mean Corpuscular Hemoglobin 30.2 pg (25-34); Mean Corpuscular Hgb Conc 32.2 g/dL (32-36); Mean Corpuscular Volume 93.7 fL (80-100); Mean Platelet Volume 10.1 fL (7.4-10.4); Monocytes # (auto) 0.81 K/uL (0.11-0.59); Monocytes % (auto) 11.8 %; Neutrophils # (auto) 4.85 K/uL (1.4-6.5); Neutrophils % (auto) 70.9 %; Platelet Count 305 K/uL (130-400); RDW Coefficient of Variation 14.5 % (11.5-14.5); RDW Standard Deviation 48.7 fL (36.4-46.3); Red Blood Count 3.48 M/uL (4.2-5.4); White Blood Count 6.85 K/uL (4.8-10.8)
[2019-12-27 07:35] LABS: Calcium 8.2 mg/dl (8.5-10.1); Creatinine Clr Calc Pharmacy 33.7 ml/min; Est GFR (African American) 74.6; Est GFR (Non-African American) 64.4; Magnesium 1.9 mg/dl (1.8-2.4); Potassium 3.5 mmol/L (3.5-5.1)
[2019-12-27] MEDS: METOPROLOL TARTRATE 25 MG TAB PO SCH (09:15)
[2019-12-27] MEDS: ASPIRIN 81 MG ECTAB PO SCH (09:15)
[2019-12-27] MEDS: PANTOprazole 40 MG TAB PO SCH (09:15)
[2019-12-27] MEDS: POTASSIUM CHLORIDE 10 MEQ TABCR PO SCH (09:15)
[2019-12-27] MEDS: FUROSEMIDE 20 MG TAB PO SCH (09:15)
[2019-12-27] MEDS: ROSUVASTATIN CALCIUM 5 MG TAB PO SCH (09:16)
[2019-12-27] MEDS: APIXABAN 2.5 MG TAB PO SCH (09:16)
[2019-12-27] MEDS: FIDAXOMICIN 200 MG TAB PO SCH (09:20)
--- NOTE | 2019-12-27 09:27 | Infectious Disease Progress Nt ---
Date of Service December 27, 2019 Assessment & Plan (1) C. difficile colitis: pt will continue on dificid x 10 days then would suggest 30 days vanco 125mg po qid with plan for taper. Admission and Anticipated Discharge Date Admission Date: December 24, 2019 Subjective pt remains on dificid, tolerating well. afebrile. wbc decreased to 6, creat normal. blood cultures negative. Results & Data ([facility]) Vital Signs (Past 12 Hours) Vital Signs Temp Pulse Pulse Resp BP BP Pulse Ox 12/27/19 07:48 37.0 C 88 20 151/82 H 93 12/27/19 07:31 95 H 12/27/19 05:00 36.7 C 88 18 132/67 92 12/26/19 23:59 94 H 12/26/19 23:06 36.8 C 84 20 147/84 H 95 Laboratory Results Microbiology 12/24/19 18:49 Blood Aerobic Blood Culture - Preliminary No growth in Aerobic bottle after 48 hours. 12/24/19 18:49 Blood Anaerobic Blood Culture - Preliminary No growth in Anaerobic bottle after 48 hours. 12/24/19 18:49 Blood Aerobic Blood Culture - Preliminary No growth in Aerobic bottle after 48 hours. 12/24/19 18:49 Blood Anaerobic Blood Culture - Final PG Care Time/CCT Total # of Minutes Spent Total Time Spent with Patient: Total time spent is greater than 50% in coordin ation of care (as documented) at patient's floor/unit and/or counseling patient: Coding Level of Care Code 25398 Subseq Hosp Care Lvl 1 Diagnoses C. difficile colitis A04.72
--- NOTE | 2019-12-27 16:02 | Discharge Summary ---
Date of Service December 27, 2019 Admission HPI Per Admitting Provider Ms. Vieira is an 89 y/o female with PMHx of Recurrent C. Diff, CKD Stage III, HTN, Atrial Fibrillation, and SIADH who presents to the ED due to lethargy and confusion. HPI is limited as patient cannot contribute and daughter has limited information due to no visitation allowed at [facility]. Patient is known to me from a previous admission and is normally alert and oriented with periods of mild confusion. She is resting comfortable but I could only get her to open her eyes to sternal rub. She is maintaining her airway and no respiratory compromise. HPI was obtained from daughter at bedside. She states she has not been able to visit for the past couple weeks due to coronavirus isolation. She noticed over the phone and seeing her through the window that she has been slower to respond to questions and more confused. She notes she has been urinating more frequently but notes she has been drinking a lot more fluids and still using her Lasix that she is aware of. She has had recurrent C. diff this year but daughter is not aware of worsening diarrhea at this point. She finished Dificid from last admission. Per notes from EMS, she sustained a fall last night thought to be from losing her balance and bruised her LLE but no other injury. Daughter states that her legs were significantly swollen previously but this has improved. She was noted to be intermittently hypoxic in the ED and responded to supplemental O2. Currently no obvious infectious etiology can be found. CT of chest rather unchanged from October with small L and trace R pleural effusions and bilateral lower lobe and lingular opacities which favor atelectasis; mild interstitial pulmonary edema. Principal Diagnosis recurrent Cdiff colitis metabolic encephalopathy in the setting of recurrent Cdiff Discharge Exam awake, pleasant, nad. heent nc at mmm. breathing unlabored no accessory muscles good effort skin no rashes no pallor or icterus. neuro no focal deficits. abd soft nd nt no masses no guarding no rebound. Discharge Data Allergies Allergy/AdvReac Type Severity Reaction Status Date / Time erythromycin base Allergy Mild RASH Verified 12/24/19 11:27 latex Allergy Mild RASH Verified 12/24/19 11:27 Iodine and Iodide Containing Allergy Unknown UNKNOWN-ON Verified 12/24/19 11:27 Produc [facility] potassium Allergy Unknown UNKNOWN Verified 12/24/19 11:27 Consultations 03/27/20 15:34 ED Decision to Admit Stat 12/24/19 18:12 Consult Case Management - Discharge Planning Routine 12/25/19 09:39 Consult Infectious Diseases Routine Ordered Studies 12/24/19 11:55 CT head/brain wo con Stat 12/24/19 14:06 CT chest wo con Stat 12/24/19 18:12 MR brain wo con Stat Hospital Course (1) AMS (altered mental status): metabolic encephalopathy in the setting of recurrent Cdiff. doing better in this respect - uncertain of baseline but on second hand reports, sounds to be close to baseline. i was unable to reach family, case management d/w family/[facility]. (2) C. difficile colitis: recurrent Cdiff infection - now on dificid for 15 more doses (10 days total), then prolonged vanco with prolonged taper. (3) Atrial fibrillation: rate controlled, anticoagulated (4) CHF (congestive heart failure): HFpEF. stable. (5) Hypokalemia: repleted, follow periodically. (6) Pleural effusion: May be chronic secondary to CHF, no respiratory issues - stable for outpt. Total Time Total Time Spent Total Time Spent (In Minutes): <30 Discharge Plan Discharge Items Patient Disposition: Personal Senior Living Reason For Visit: ALTERED MENTAL STATUS Discharge Diagnosis: recurrent Cdiff colitis Activity: Resume your previous activity Non-emergency contact: Primary Care Provider Call non-emergency contact if: you have any medication questions and your s ymptoms worsen Follow-up/Referrals: Geremias Watkins MD [Primary Care Provider] - Diet: Regular and Heart Healthy Addtl Attending Provider Instructions: recurrent Cdiff colitis -clinically improving -ID consult recommends 10 days dificid followed by 30 days vanco followed by vanco taper -currently has had 5 of her 20 scheduled doses of dificid - next to be tonight -would start vanco the morning after her last dose of dificid hypokalemia -related to Cdiff diarrhea - now improved up to 3.5; continue normal baseline potassium supplement, repeat BMP 3-4 days Pending Studies at Discharge: Yes Studies:: B1 level sent on admission Stand-Alone Forms: My Rafter, Smoking Cessation Skilled Items Patient informed of condition?: Yes DNR: Yes Discharge Level of Care: Other Communicable Disease: Yes Discharge Prognosis: Improving Lines: None Urinary Catheter: No Medications and DC Order Prescriptions: New acetaminophen [Mapap (acetaminophen)] 325 mg Tablet 650 mg PO Q4H PRN (Reason: pain) Qty: 30 RF: 0 Dificid 200 mg Tablet 200 mg PO BID Qty: 15 RF: 0 vancomycin [Vancocin] 125 mg capsule 125 mg PO QID 30 Days Qty: 120 RF: 0 Continued Eliquis 2.5 mg tablet 2.5 mg PO BID Qty: 60 RF: 5 Lactobacillus acidophilus [Acidophilus] Capsule 3 cap PO QAM Qty: 90 RF: 0 hydralazine 25 mg tablet 25 mg PO BIDM RF: 0 PreserVision AREDS-2 [id number] Capsule 1 tab PO BIDM RF: 0 potassium chloride 10 mEq capsule, extended release 10 meq PO BIDM RF: 0 travoprost [Travatan Z] 0.004 % drops 1 drops OPB HS RF: 0 metoprolol tartrate 50 mg tablet 75 mg PO BIDM RF: 0 rosuvastatin 5 mg tablet 5 mg PO QAM RF: 0 aspirin 81 mg Tablet,Delayed Release (Dr/Ec) 81 mg PO QAM RF: 0 amlodipine [Norvasc] 5 mg tablet 10 mg PO QAM RF: 0 furosemide [Lasix] 20 mg tablet 20 mg PO QAM RF: 0 psyllium husk [Metamucil] 0.4 gram capsule 0.4 gm PO QAM RF: 0 pantoprazole 40 mg Tablet,Delayed Release (Dr/Ec) 40 mg PO QAM 30 Days Qty: 30 RF: 2 Discontinued acetaminophen [Tylenol Arthritis Pain] 650 mg Tablet Extended Release 1,300 mg PO Q8H MDD 3 GRAMS/24 HOURS. PRN (Reason: Pain) RF: 0 Discharge Orders: Discharge Order (Routine); Ordered 12/27/19 Ordered By: Gianluca Barth Admission Data Admit Date/Time: 12/24/19 16:56 Attending Provider: Gianluca Barth Admit Provider: Riddhi Lynch Primary Care Provider: Geremias Watkins Other Providers: Riddhi Lynch ; Silvia Sanders ; Vincent Loaiza Other Interventions: Discharge Summary Assessment (RN) Last Done: 12/27/19 11:37 DC Date/Time DO NOT enter until pt leaves facility: 12/27/19 13:57 Coding Level of Care Code D/C Day Management <30 mins Diagnoses AMS (altered mental status) R41.82 C. difficile colitis A04.72 Atrial fibrillation I48.91 Atrial fibrillation type: unspecified CHF (congestive heart failure) I50.9 Hypokalemia E87.6 Pleural effusion J90
== END 2019-12-27 13:57 | disposition home or self-care (01) | DRG 371 ==
LOC: ED 11:10 → 2N 16:56 → SUATTDRO 16:56 → 2N 17:47